=== PATIENT | female | born 1960 | race American Indian/Alaskan Native ===

== ENCOUNTER 2016-03-15 09:11 | Emergency (ER) | payer MEDICARE ==
[2016-03-15] MEDS ORDERED: CATAPRES PO ONE (09:34)
--- NOTE | 2016-03-15 09:38 | Emergency Department Report ---
Chief Complaint: Pain General Stated Complaint: CHEST PAINS/BODY ACHE/NAUSEA/DIZZINESS Time Seen by Provider: 03/15/16 09:33 - HPI History of Present Illness: Patient reports body aches, chest pain, productive cough and headache that started yesterday. She denies difficulty breathing or swallowing - ROS Review of Systems: all other systems are unremarkable except for documentation in HPI - Exam Vital Signs: Vital Signs 03/15/16 09:26 Temperature 98.3 F Pulse Rate 105 H Respiratory 18 Rate Blood Pressure 220/130 O2 Sat by Pulse 100 Oximetry Physical Exam: Gen: well developed and nourished, NAD Resp: even and unlabored, lungs CTA thai, chest symmetry with respirations, no wheezing, rales or rhonchi Cardio: heart sounds present S1-S2, no murmurs, gallops or ectopy MSE screening note: Focused history and physical exam performed. Due to findings the following was ordered: antihypertensive medication, laboratory and radiology studies ordered ED Disposition for MSE Condition: Stable
[2016-03-15 10:00] LABS: Basophils % (Auto) 0.9 % (0.0-1.8); Eosinophils % (Auto) 2.1 % (0.0-4.3); Hematocrit 38.3 % (30.3-42.9); Hemoglobin 12.7 gm/dl (10.1-14.3); Mean Corpuscular HGB Conc 33 % (30-34); Mean Corpuscular Hemoglobin 30 pg (28-32); Mean Corpuscular Volume 91 fl (79-97); Platelet Count 289 K/mm3 (140-440); Red Blood Count 4.22 M/mm3 (3.65-5.03); Red Cell Distribution Width 15.5 % (13.2-15.2); White Blood Count 6.5 K/mm3 (4.5-11.0)
--- NOTE | 2016-03-15 10:04 | XRay Report ---
Chest 2 views: Compared to 01/27/16. History: Chest pain. Findings: Normal cardiomediastinal silhouette. Trachea is midline. No consolidation, pneumothorax or pleural effusion. Impression: No acute cardiopulmonary findings.
[2016-03-15 10:10] LABS: INR 0.95 (0.87-1.13)
[2016-03-15 10:11] LABS: Partial Thromboplastin Time 34.7 Sec. (24.2-36.6)
[2016-03-15 10:15] LABS: Creatine Kinase MB 1.9 ng/mL (0.0-4.0)
[2016-03-15 10:16] LABS: Alanine Aminotransferase 11 units/L (7-56); Albumin 4.2 g/dL (3.9-5); Albumin/Globulin Ratio 1.1 %; Alkaline Phosphatase 83 units/L (35-129); Anion Gap 19 mmol/L; BUN/Creatinine Ratio 12.22; Bilirubin,Total 0.3 mg/dL (0.1-1.2); Blood Urea Nitrogen 11 mg/dL (7-17); Calcium 9.4 mg/dL (8.4-10.2); Carbon Dioxide 24 mmol/L (22-30); Chloride 100.6 mmol/L (98-107); Creatine Kinase 167 units/L (30-135); Glucose 133 mg/dL (65-100); Potassium 3.9 mmol/L (3.6-5.0); Sodium 140 mmol/L (137-145); Total Protein 8.1 g/dL (6.3-8.2)
[2016-03-15 15:17] VITALS: BP 156/101
== END 2016-03-15 17:36 | disposition left against medical advice (07) ==
LOC: ED 09:11
DX: M79.1 Myalgia (principal); R07.9 Chest pain, unspecified; R05 Cough; Z53.21 Procedure and treatment not carried out due to patient leaving prior to being seen by health care provider
CPT/HCPCS: 36415; 71020; 80053; 82550; 82553; 84484; 85025; 85610; 85730; 93005; 93010

== ENCOUNTER 2016-04-08 11:14 | Emergency (ER) | payer MEDICARE ==
[2016-04-08 12:27] LABS: Hematocrit 42.9 % (30.3-42.9); Hemoglobin 13.8 gm/dl (10.1-14.3); Mean Corpuscular HGB Conc 32 % (30-34); Mean Corpuscular Hemoglobin 29 pg (28-32); Mean Corpuscular Volume 91 fl (79-97); Platelet Count 299 K/mm3 (140-440); Red Blood Count 4.71 M/mm3 (3.65-5.03); Red Cell Distribution Width 15.9 % (13.2-15.2); White Blood Count 13.6 K/mm3 (4.5-11.0)
[2016-04-08 12:40] LABS: Amylase 146 units/L (27-131); Anion Gap 19 mmol/L; Blood Urea Nitrogen 14 mg/dL (7-17); Calcium 10.2 mg/dL (8.4-10.2); Carbon Dioxide 24 mmol/L (22-30); Chloride 99.8 mmol/L (98-107); Glucose 158 mg/dL (65-100); Lipase 47 units/L (13-60); Potassium 4.5 mmol/L (3.6-5.0); Sodium 138 mmol/L (137-145)
[2016-04-08] MEDS ORDERED: CATAPRES ONE (13:34)
[2016-04-08] MEDS ORDERED: CATAPRES PO ONE (13:42)
[2016-04-08 15:45] LABS: Bilirubin,Urine NEG (Negative); Blood,Urine NEG (Negative); Ketones,Urine NEG (Negative); Leukocyte Esterase,Urine NEG (Negative); Mucus,Urine FEW /HPF; Nitrite,Urine NEG (Negative); Protein,Urine <15 mg/dL mg/dL (Negative); Urobilinogen,Urine < 2.0 mg/dL (<2.0)
[2016-04-08] MEDS ORDERED: TORADOL IM ONE (17:54)
--- NOTE | 2016-04-08 18:08 | Emergency Department Report ---
HPI - HPI HPI: This is a 55-year-old female with a history of Lupus, diabetes and high blood pressure on medication who presents to the ED stating she was being seen by her GI doctor earlier today and due to her elevated blood pressure, she was sent in to the ER be assessed. Patient states she was not able to take her afternoon dose medication because she was running errands and being seen at doctor's office. Patient states she currently takes high blood pressure medications. She states her elevated blood pressure usually ranges from 200s over 100. She states she has a primary care doctor who manages her blood pressure. She states she has several appointments with his surgeon coming week for gallbladder removal. She states other than a slight headache she has no other symptoms. Patient denies any fevers/ chills/nausea/vomiting/chest pain/shortness of breath /dizziness/blurred vision. <IDRIS FLANAGAN A - Last Filed: 04/08/16 18:28> <ANALILIA STANTON C - Last Filed: 04/09/16 01:00> - General Chief Complaint: High BP Time Seen by Provider: 04/08/16 18:03 ED Past Medical Hx - Past Medical History Hx Hypertension: Yes Hx CVA: Yes Hx Heart Attack/AMI: No Hx Congestive Heart Failure: Yes Hx Diabetes: Yes Hx GERD: Yes Hx Renal Disease: No Hx Sickle Cell Disease: (SICKLE CELL TRAIT) Hx Seizures: No Hx Psychiatric Treatment: Yes (anxiety) Hx Asthma: Yes Hx COPD: No Hx Tuberculosis: No Hx HIV: No Additional medical history: neuropathy, lupus. cardiac cath 10/08/2015 with EF of 55%, diastolic dysfunction, and normal coronary arteries. - Surgical History Hx Pacemaker: No Hx Internal Defibrillator: No Additional Surgical History: c-sections 86, 90 - Social History Smoking Status: Current Some Day Smoker Substance Use Type: None <IDRIS FLANAGAN A - Last Filed: 04/08/16 18:28> <ANALILIA STANTON C - Last Filed: 04/09/16 01:00> - Medications Home Medications: Home Medications Medication Instructions Recorded Confirmed Last Taken Type Atenolol [Tenormin] 50 mg PO DAILY #30 tablet 05/28/15 10/06/15 Unknown Rx Cyclobenzaprine [Flexeril 10 MG 5 mg PO DAILY PRN #15 tablet 08/09/15 10/06/15 Unknown Rx TAB] Hydroxychloroquine [Plaquenil] 200 mg PO DAILY 08/09/15 10/06/15 Unknown History Simvastatin 10 mg PO DAILY 10/06/15 10/06/15 Unknown History Atenolol [Tenormin] 50 mg PO DAILY #30 tablet 10/08/15 Unknown Rx Pantoprazole [Protonix] 40 mg PO BID #30 tablet 10/08/15 Unknown Rx amLODIPine [Norvasc] 10 mg PO DAILY #30 tablet 10/08/15 Unknown Rx cloNIDine [Catapres] 0.2 mg PO TID #90 tablet 10/08/15 Unknown Rx clonazePAM [Klonopin] 1 mg PO DAILY #30 tablet 10/08/15 Unknown Rx hydrALAZINE [Apresoline TAB] 50 mg PO Q8H #90 tablet 10/08/15 Unknown Rx oxyCODONE /ACETAMINOPHEN [Percocet 1 tab PO Q6HR PRN #30 tablet 10/08/15 Unknown Rx 5/325 mg] ED Review of Systems ROS: Stated complaint: SENT BY DR HARVEY/HAI/TOI PAIN Other details as noted in HPI Constitutional: denies: chills, fever Eyes: denies: eye pain, eye discharge, vision change ENT: denies: ear pain, throat pain Respiratory: denies: cough, shortness of breath, wheezing Cardiovascular: denies: chest pain, palpitations Endocrine: no symptoms reported Gastrointestinal: denies: abdominal pain, nausea, diarrhea Genitourinary: denies: urgency, dysuria, frequency, hematuria, discharge Musculoskeletal: denies: back pain, joint swelling, arthralgia Skin: denies: rash, lesions Neurological: denies: headache, weakness, numbness, paresthesias, abnormal gait Psychiatric: denies: anxiety, depression Hematological/Lymphatic: denies: easy bleeding, easy bruising <IDRIS FLANAGAN - Last Filed: 04/08/16 18:28> ROS: Stated complaint: SENT BY DR HARVEY/HAI/TOI PAIN Other details as noted in HPI <ANALILIA STANTON - Last Filed: 04/09/16 01:00> Physical Exam - Physical Exam Vital Signs: Vital Signs 04/08/16 04/08/16 04/08/16 11:45 13:42 17:10 Temperature 98.3 F 98.5 F Pulse Rate 88 89 80 Respiratory 18 20 Rate Blood Pressure 233/137 237/113 153/96 Blood Pressure [Right] O2 Sat by Pulse 100 100 Oximetry 04/08/16 17:37 Temperature 98.5 F Pulse Rate 76 Respiratory 18 Rate Blood Pressure Blood Pressure 152/88 [Right] O2 Sat by Pulse 99 Oximetry Physical Exam: GENERAL: Alert and oriented x3, no apparent distress, Normal Gait, atraumatic. HEAD: Head is normocephalic and a-traumatic. EYES: Extra ocular muscles are intact. Pupils are equal, round, and reactive to light and accommodation. NOSE: Nose symetrical, Nontender,Nares appeared normal. MOUTH:Mouth is well hydrated and without lesions. Tonsils nonerythematous or swollen, Uvula midline, Tongue not elevated. Mucous membranes are moist. NECK: Supple. Non edematous, No carotid bruits. No lymphadenopathy or thyromegaly. LUNGS: Symetrical with respiration, No wheezing, no rales or crackles, CTAB. HEART: S1, S2 present, regular rate and rhythm without murmur, no rubs, no gallops. ABDOMEN: No organomegaly was noted,Positive bowel sounds, soft, and non- distended. Nontender to palpation on all Quadrants, NO CVA tenderness. EXTREMITIES/MUSCULOSKELETAL: No cyanosis, clubbing, rash, lesions or edema. Full ROM bilaterally. UE/LE Pulses 2+ bilaterally. LE and UE 5+ strength bilaterally NEUROLOGIC: No focal Deficit, Cranial nerves II through XII are grossly intact. No loss of sensation, No facial droop PSYCHIATRIC: Mood is congruent with affect, denies suicidal or homicidal ideations. SKIN: Warm and dry, No lesions, No ulceration or induration present. <IDRIS FLANAGAN A - Last Filed: 04/08/16 18:28> - Physical Exam Vital Signs: Vital Signs 04/08/16 04/08/16 04/08/16 11:45 13:42 17:10 Temperature 98.3 F 98.5 F Pulse Rate 88 89 80 Respiratory 18 20 Rate Blood Pressure 233/137 237/113 153/96 Blood Pressure [Right] O2 Sat by Pulse 100 100 Oximetry 04/08/16 04/08/16 17:37 18:45 Temperature 98.5 F Pulse Rate 76 71 Respiratory 18 18 Rate Blood Pressure Blood Pressure 152/88 134/86 [Right] O2 Sat by Pulse 99 99 Oximetry <ANALILIA STANTON - Last Filed: 04/09/16 01:00> ED Course Vital Signs 04/08/16 04/08/16 04/08/16 11:45 13:42 17:10 Temperature 98.3 F 98.5 F Pulse Rate 88 89 80 Respiratory 18 20 Rate Blood Pressure 233/137 237/113 153/96 Blood Pressure [Right] O2 Sat by Pulse 100 100 Oximetry 04/08/16 17:37 Temperature 98.5 F Pulse Rate 76 Respiratory 18 Rate Blood Pressure Blood Pressure 152/88 [Right] O2 Sat by Pulse 99 Oximetry <IDRIS FLANAGAN - Last Filed: 04/08/16 18:28> Vital Signs 04/08/16 04/08/16 04/08/16 11:45 13:42 17:10 Temperature 98.3 F 98.5 F Pulse Rate 88 89 80 Respiratory 18 20 Rate Blood Pressure 233/137 237/113 153/96 Blood Pressure [Right] O2 Sat by Pulse 100 100 Oximetry 04/08/16 04/08/16 17:37 18:45 Temperature 98.5 F Pulse Rate 76 71 Respiratory 18 18 Rate Blood Pressure Blood Pressure 152/88 134/86 [Right] O2 Sat by Pulse 99 99 Oximetry <ANALILIA STANTON - Last Filed: 04/09/16 01:00> ED Medical Decision Making - Lab Data Result diagrams: 04/08/16 12:06 04/08/16 12:06 - Medical Decision Making 55-year-old female presents with uncontrolled elevated blood pressure/ hypertensive urgency. ED course: Patient shows no sign of hypertensive emergency. CBC labs CMP labs all within normal limits. Kidney Functions are intact. EKG shows left atrial enlargement otherwise normal no changes from last ultrasound in February She states that she is usually used to her blood pressure being so high and her primary care physician discharged to Reduce if she feels slight dizziness. Patient received 0.2 mg of Catapres and blood pressure reduced to 155/88 prior to discharge. Vital signs stable. Patient is in no acute suture distress. Received 60 mg IM Toradol for headache. Discharge home to continue taking blood pressure meds. Discussed with patient to always take her medication as prescribed. Discussed the patient to Her medications with her when she is also out of the house so that she does not miss a dose. Discussed with patient to always make sure she takes her blood pressure medication as prescribed by her primary care physicians. Discussed continue follow-up with primary care physician. Attending Dr. Stanton, assessed the patient as well agrees with discharge. Discussed the patient to keep appointment and follow up with primary care physician in other specialists that she currently sees. <IDRIS FLANAGAN A - Last Filed: 04/08/16 18:28> - Lab Data Result diagrams: 04/08/16 12:06 04/08/16 12:06 - Medical Decision Making Patient was examined by me during ED stay and I also discussed results of disposition planning. I agree with the care provided <ANALILIA STANTON - Last Filed: 04/09/16 01:00> Critical care attestation.: If time is entered above; I have spent that time in minutes in the direct care of this critically ill patient, excluding procedure time. <IDRIS FLANAGAN A - Last Filed: 04/08/16 18:28> Critical care attestation.: If time is entered above; I have spent that time in minutes in the direct care of this critically ill patient, excluding procedure time. <ANALILIA STANTON - Last Filed: 04/09/16 01:00> ED Disposition Is pt being admited?: No Does the pt Need Aspirin: No Time of Disposition: 18:24 <IDRIS FLANAGAN A - Last Filed: 04/08/16 18:28> <ANALILIA STANTON - Last Filed: 04/09/16 01:00> Disposition: DISCHARGED TO HOME OR SELFCARE Condition: Stable Instructions: Chronic Hypertension (ED), Low Sodium Diet (ED), Hypertension (ED ) Additional Instructions: Continue taking at home blood pressure medications f/u with primary care physician Referrals: NII GARCÍA MD [Primary Care Provider] - 3-5 Days Forms: Work/School Release Form(ED)
[2016-04-08 18:45] VITALS: BP 134/86
== END 2016-04-08 18:45 | disposition home or self-care (01) ==
LOC: ED 11:14
DX: I10 Essential (primary) hypertension (principal); R51 Headache; I63.9 Cerebral infarction, unspecified; I50.9 Heart failure, unspecified; E11.9 Type 2 diabetes mellitus without complications; K21.9 Gastro-esophageal reflux disease without esophagitis; F41.9 Anxiety disorder, unspecified; J45.909 Unspecified asthma, uncomplicated; M32.9 Systemic lupus erythematosus, unspecified; Z72.0 Tobacco use
CPT/HCPCS: 36415; 80048; 81001; 82150; 83690; 85027; 93005; 93010; 96372; 99283; J1885

== ENCOUNTER 2016-04-16 08:01 | Outpatient (CLI) | payer MEDICARE ==
--- NOTE | 2016-04-16 13:42 | Cat Scan Report ---
CT ABDOMEN AND PELVIS WITH CONTRAST: 04/16/16 08:01:00 CLINICAL: Abdominal pain. COMPARISON: None. TECHNIQUE: Volumetric acquisition and 1.25 millimeter scan reconstructions after the uneventful intravenous injection of 100 cc Omnipaque 300. Consent was obtained prior to the administration of contrast. Oral contrast was also given. FINDINGS: Abdomen: There lung bases. Normal liver size, contour and density. No liver mass. The gallbladder is normally distended with it least 2 tiny 1-2 mm calculi layering dependently. Normal gall bladder wall thickness and no pericholecystic fluid. The bile ducts are normal. Normal stomach, duodenum, pancreas and spleen. Mild calcification of the abdominal aorta. Normal inferior vena cava. Normal adrenal glands and kidneys. The renal collecting systems and ureters are nondilated.Normal small bowel. A few scattered diverticula the colon in otherwise normal colon. No signs of diverticulitis. The appendix is well normal. The terminal ileum is normal. No mass, lymphadenopathy or ascites.No pneumoperitoneum. Pelvis: Normal urinary bladder.Normal uterus. Normal small right ovary. A left ovary is not confidently identified. No adnexal mass or free fluid. Normal rectum and sigmoid colon.. Bone windows demonstrate no bone lesion. IMPRESSION:1. Cholelithiasis with 2 tiny 1-2 mm calculi in the gallbladder. No signs of acute cholecystitis. 2. No evidence of choledocholithiasis. 3. Mild diverticulosis and no diverticulitis. 4. No appendicitis.
== END 2016-04-16 08:02 | disposition home or self-care (01) ==
LOC: SPVIMAG 08:01
PROVIDERS: ATTEND Internal Medicine Gastroenterology
DX: K80.20 Calculus of gallbladder without cholecystitis without obstruction (principal); K57.30 Diverticulosis of large intestine without perforation or abscess without bleeding; K82.8 Other specified diseases of gallbladder; I70.0 Atherosclerosis of aorta
CPT/HCPCS: 74177; Q9967

== ENCOUNTER 2016-05-16 11:17 | Day surgery (SDC) | payer MEDICARE ==
--- NOTE | 2016-05-13 10:19 | Anesthesia Consultation ---
Anesthesia Consult and Med Hx Date of service: 05/13/16 (Scheduled for lap cholecystectomy w/ Dr. 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 Cardiology and Pulmonology clearance on chart. - Pulmonary Hx Smoking: Yes (3 CIAG PER WEEK X 3- YRS) Hx Asthma: Yes SOB: Yes () COPD: No Hx Pneumonia: Yes (2007) Hx Sleep Apnea: Yes (DX SLEEP APNEA , NO CPAP USE) - Cardiovascular System Hx Hypertension: Yes (SINCE AGE 26 YRS OLD; Uncontrolled BP) Hx Coronary Artery Disease: No (nml coronaries on [facility] in 2015) Hx Heart Attack/AMI: No Hx Angina: No Hx Percutaneous Transluminal Coronary Angioplasty (PTCA): No Hx Pacemaker: No Hx Internal Defibrillator: No Hx Heart Murmur: No - Central Nervous System Hx Seizures: No CVA: Yes (2012- [place] [facility]) Hx Back Pain: Yes Hx Psychiatric Problems: No - Gastrointestinal Hx Gastroesophageal Reflux Disease: No - Endocrine Hx Renal Disease: No Hx End Stage Renal Disease: No Hx Non-Insulin Dependent Diabetes: Yes - Hematic Hx Sickle Cell Disease: No (SC TRAIT ONLY) - Other Systems Hx Alcohol Use: Yes (2 glasses WINE QD) Hx Substance Use: No Hx Cancer: No Hx Obesity: No - Additional Comments Anesthesia Medical History Comments: Anaphylactic shock secondary to Lisinopril in 2007. Had Trach until 2009. Reports some wheezing (also has asthma) and tightness. s/p EGD in 2016 with dilation. Pt evaluated by Dr.R. Hernandez, ok to proceed w/o any furhther diagnostic evaluation.
[2016-05-13 12:04] LABS: Anion Gap 19 mmol/L; Blood Urea Nitrogen 14 mg/dL (7-17); Calcium 10.4 mg/dL (8.4-10.2); Carbon Dioxide 25 mmol/L (22-30); Chloride 97.7 mmol/L (98-107); Glucose 146 mg/dL (65-100); Potassium 4.3 mmol/L (3.6-5.0); Sodium 137 mmol/L (137-145)
--- NOTE | 2016-05-14 17:33 | Admit Criteria Form ---
Admission Criteria Documentation: AMBULATORY SURGERY EXCEPTION CRITERIA Ambulatory Surgery Exception Criteria ( Place 'X' for any and all applicable criteria): Surgery or procedure performed on ambulatory basis may require inpatient stay for[A] ANY ONE of the following(1)(2)(3)(4)(5)(6)(7)(8)(9): [X] I. A preoperative situation, condition, or finding that warrants inpatient stay as indicated by ANY ONE of the following: [] a) Inpatient care needed because of severity of a disease or condition rather than the surgery (eg, severe cardiac or respiratory disease, severe infection) (15) (16 ) (17) (18) [] b) Emergent procedure (eg, angioplasty for acute ischemia)(19) [] c) Complex surgical approach or situation as indicated by ANY ONE of the following(3): [] i) Open approach needed instead of usual endoscopic, transcatheter, or other less invasive procedure [] ii) Difficult approach because of previous operation [] iii) Airway monitoring required after open neck procedures(20)(21) [] iv) Large mass requiring unusually extensive dissection [] v) Additional complicating feature requiring inpatient care (eg, drain management)(22(23): [X] d) Major surgery in a pt with high anesthetic risk as indicated by ANY ONE of the following (2)(3)(5)(7)(8): [X] i) ASA risk class III or higher (severe systemic disease impairing function) [D] [] ii) Advanced age (eg, older than 85 years)(14)(24) [] iii) Symptomatic heart failure(25) [] iv) Symptomatic asthma or COPD(8)(21) [] v) Morbid obesity with hemodynamic or respiratory problems(20)( 21)(26)(27) [] vi) Obstructive sleep apnea(20)(21) [] vii) Former premature infants who are younger than 60 weeks [] viii) High risk for severe postoperative abnormalities (eg, severe postoperative hypocalcemia after parathyroidectomy for severe hyperparathyroidism)(27)( 28) [] ix) Unstable angina(25) [] e) Drug-related risk requiring inpatient stay as indicated by ANY ONE of the following(5)(10)(14)(32)(33) [] i) Procedure requires discontinuing drugs or other therapy (eg , antiarrhythmic medication, antiseizure medication), which necessitates inpatient observation or treatment.(18)(31) [] ii) Major surgery and high risk drug use as indicated by ANY ONE of the following: [] 1) Active abuse of cocaine or similar drug [] 2) Monoamine oxidase inhibitor use [] 3) Other drug identified as posing risk [] f) Inadequate outpatient care situation as indicated by ANY ONE of the following(5)(10)(14)(32)(33) [] i) Patient lives remote from medical facility and procedure has urgent complication potential, and temporary nearby residence cannot be arranged [] ii) Patient will have postprocedure incapacitation and inadequate assistance at home, or alternative level of care cannot be arranged. [] iii) Patient will have long general anesthesia or procedure side effect resolution time, and competent person to stay with patient on first postoperative night at home or alternative level of care cannot be arranged. []iv) Other inadequate outpatient situation that cannot be handled by other means [] II. A perioperative event, condition, or finding that warrants inpatient stay as indicated by ANY ONE of the following (1)(2)(3): [] a) Inadequate physiologic recovery: cardiovascular, respiratory, or hemodynamic status not normal or near preoperative baseline(18) [] b) Hemodynamic instability [] c) Patient not alert with near normal or baseline mental status [] d) Temperature not normal or as expected and not appropriate for outpatient treatment of condition [] e) Ambulatory or appropriate activity level status not yet achieved post procedure [E](34)(35)(36) [] f) Operative site not appropriate (eg, unexpected or excessive drainage or bleeding) [] g) Postoperative effects not resolved or adequately managed (eg, significant pain or vomiting not appropriate for outpatient or next level of care)(10)(12) [] h) Complicating features requiring inpatient care as indicated by ANY ONE of the following(37): [] i) Severe complications of procedure (eg, bowel injury, airway compromise, vascular injury,severe hemorrhage) [] ii) Extensive (eg, dissection far beyond usual scope of procedure ) or prolonged (eg, 120 minutes beyond usual) surgery needed requiring inpatient postoperative care [] iii) Conversion to an open or complex procedure that requires inpatient care (eg, open vs laparoscopic cholecystectomy, abdominal vs vaginal hysterectomy)(38) [] iv) Comorbid condition or test result identified during or post procedure that requires inpatient care (7) [] v) Malignant hyperthermia(30) [] vi) Other complicating feature requiring inpatient care(22)(23) Inpatient stay may be needed until ALL of the following are present (1)(2)(3)(4) (5)(6)(10)(14)(33)(40): []a) Physiologic recovery: cardiovascular, respiratory, and hemodynamic status normal or near preoperative baseline []b) Hemodynamic stability []c) Patient alert, with near normal or baseline mental status []d) Temperature appropriate: patient afebrile or temperature appropriate for outpt treatment of condition []e) Activity level appropriate: ambulatory or appropriate activity level post procedure []f) Operative site appropriate as indicated by ALL of the following: []i) Site dry or with expected drainage []ii) Any blood noted is as expected for procedure. []g) Postoperative effects resolved or managed as indicated by ALL of the following: []i) Pain management appropriate for outpatient (or next level of) care(10) []ii) Minimal nausea and vomiting: if present, successfully treated with oral medication(12) []iii) Headache, dizziness, or drowsiness (if present) are mild. []h) Voiding status acceptable as indicated by ANY ONE of the following: []i) Voiding spontaneously []ii) No voiding but instructions given for follow-up in 6 to 8 hours []iii) Urinary catheter in place, and instructions given for follow-up []i) Complicating features requiring inpatient care manageable at a lower level of care(37) []j) Comorbid conditions manageable at a lower level of care(37) The original [employer] content created by [employer] has been revised. The portions of the content which have been revised are identified through the use of italic text or in bold, and [facility] [employer] has neither reviewed nor approved the modified material. All other unmodified content is copyright [employer]. Please see references footnoted in the original [employer] edition 2016 Admission Criteria Met: Yes
[~2016-05-16 11:17] MED LIST: HEPARIN SUB-Q ONE; NACL 0.9% 1000 ML 1,000 ML IV SCH; PEPCID PO NR; VERSED IV NR; ceFAZolin 2 GM in NACL 0.9% 100 ML IV ONE
[2016-05-16] MEDS ORDERED: DIPRIVAN 10 MG/ML IV ONE (11:53)
[2016-05-16] MEDS ORDERED: SUBLIMAZE ONE (11:53)
[2016-05-16] MEDS ORDERED: ceFAZolin 2 GM in NACL 0.9% 100 ML IV NR (12:00)
[2016-05-16] MEDS ORDERED: HEPARIN SUB-Q NR (12:00)
[2016-05-16] MEDS ORDERED: ZOFRAN IV PRN (12:05)
--- NOTE | 2016-05-16 12:14 | Anesthesia Day of Surgery ---
Anesthesia Day of Surgery - Day of Surgery Patient Examined: Yes Patient H&P Reviewed: Yes Patient is NPO: Yes Beta Blockers: Yes
[2016-05-16] MEDS ORDERED: ANCEF/STERILE WATER 2 GM/20 ML IV NR (13:00)
[2016-05-16] MEDS ORDERED: ZEMURON IV ONE (13:12)
[2016-05-16] MEDS ORDERED: XYLOCAINE MPF 2% ONE (13:12)
[2016-05-16] MEDS ORDERED: ROBINUL ONE ×2 (13:44→14:16)
[2016-05-16] MEDS ORDERED: NEOSTIGMINE ONE (13:44)
[2016-05-16] MEDS ORDERED: NACL 0.9% IR ONE (13:44)
[2016-05-16] MEDS ORDERED: MARCAINE 0.25% INFILTRATI ONE (13:44)
[2016-05-16] MEDS ORDERED: ZOFRAN ONE (13:45)
--- NOTE | 2016-05-16 14:10 | Post Operative Note ---
Pre-op diagnosis: Bilairy colic with gallstones Post-op diagnosis: same Findings: cholesterolosis, small stones Procedure: laparoscopic cholecystectomy Anesthesia: GETA Surgeon: LEESA URBAN Sales Representative [facility]: FREDIS HICKS Estimated blood loss: minimal Pathology: list (gallbladder) Specimen disposition: to lab Condition: stable Disposition: PACU
[2016-05-16] MEDS ORDERED: PROVENTIL IH ONE ×2 (14:12→15:15)
--- NOTE | 2016-05-16 14:12 | Discharge Summary ---
Short Stay Discharge Plan Weight Bearing Status: Full Weight Bearing Diet: regular Wound: open to air Follow up with: NII GARCÍA MD [Primary Care Provider] - 7 Days Prescriptions: Ondansetron [Zofran TAB] 4 mg PO Q8HR PRN #20 tablet PRN Reason: Nausea oxyCODONE /ACETAMINOPHEN [Percocet 5/325] 1 tab PO Q6HR PRN #20 tablet PRN Reason: Pain
[2016-05-16] MEDS ORDERED: S2 RACEPINEPHRINE 2.25% IH ONE ×2 (14:19→15:15)
[2016-05-16] MEDS: DILAUDID IV PRN ×2 (14:30→14:40)
[2016-05-16] MEDS ORDERED: TORADOL ONE (14:47)
--- NOTE | 2016-05-16 15:12 | Post Anesthesia Evaluation ---
- Post Anesthesia Evaluation Patient Participated: Yes Airway Patent: Yes Stable Respiratory Function: Yes Nausea/Vomiting: No Temp > 96.8F: Yes Pain Manageable: Yes Adequeate Hydration: Yes Anesthesia Complications: No Block Receding Appropriately: Not Applicable Patient on Ventilator: No
--- NOTE | 2016-05-16 15:20 | Operative Report ---
PREOPERATIVE DIAGNOSES: Cholelithiasis, chronic cholecystitis. POSTOPERATIVE DIAGNOSES: Cholelithiasis, chronic cholecystitis. OPERATIVE PROCEDURE: Laparoscopic cholecystectomy. ANESTHESIA: General endotracheal. SURGEON: Yossi Perales M.D. VENDING MACHINE OPERATOR: Dr. Sheth. INDICATIONS: A 55-year-old female patient with multiple medical problems including congestive heart failure on chronic steroid therapy presenting with right upper quadrant pain, nausea, vomiting. Gallbladder ultrasound showed multiple non-echogenic shadows suggestive of polyps. HIDA scan showed a 55% ejection fraction with reproducible symptoms. She has undergone hysterectomy several years ago. FINDINGS: Flimsy omental adhesions above and below the umbilicus in the midline. No bowel adhesions were noted. Liver showed no evidence of congestive hepatomegaly or cirrhosis. Gallbladder was moderately distended contained dark green bile when it was opened away from the field and contained multiple spherical stones and cholesterolosis. Cystic duct is of normal caliber. Bile duct did not show any dilatation. Visualized part of the distal part of the stomach and proximal duodenum appeared normal. DESCRIPTION OF PROCEDURE: After satisfactory induction of general endotracheal anesthesia, abdomen was prepped and draped. A right lateral incision was made at the level of the umbilicus away from the midline scar and a Veress needle was inserted in the peritoneal cavity. After adequate carbon dioxide insufflation, a 5 mm trocar was inserted, through this a 5 mm 30-degree angle scope was placed and another 5 mm port was placed midway between this trocar sites in the umbilical area. Through this, an EndoShears was inserted and the adhesions to the anterior abdominal wall were taken down up to the level of the umbilicus. Then, a supraumbilical 5-mm port was placed and camera was changed to this location. The patient was placed in head up and left side down position and an 11 mm port was placed in the epigastrium. Gallbladder was held at the fundus and at the infundibulum by the assisting surgeon. Flimsy adhesions around this area were taken down. Calot's triangle was fully exposed and clips were applied to the cystic duct as far away from the cystic duct, bile duct junction as possible and the cystic duct was divided. Cystic artery likewise was identified. Clips were applied and divided. Gallbladder was removed from the liver bed by using a hook attached to a cautery. No bleeding was noted from the liver bed. Gallbladder was retrieved in an EndoCatch bag and was pulled out through the epigastric trocar. Trocar was replaced and liver bed was inspected and all the clips were intact. Desufflation was done and all the trocars were removed under direct visualization after desufflation. All the incisions were closed with 4-0 Monocryl sutures. There was minimal blood loss and she tolerated the procedure well. JOB# [id number] MNN/RAOUL
[2016-05-16] MEDS ORDERED: TORADOL IV ONE (16:00)
[2016-05-16 16:53] VITALS: BP 145/70
== END 2016-05-16 17:00 | disposition home or self-care (01) ==
LOC: OR 11:17
PROVIDERS: ATTEND Surgery
DX: K80.10 Calculus of gallbladder with chronic cholecystitis without obstruction (principal); F41.9 Anxiety disorder, unspecified; I11.0 Hypertensive heart disease with heart failure; I50.9 Heart failure, unspecified; E11.9 Type 2 diabetes mellitus without complications; K21.9 Gastro-esophageal reflux disease without esophagitis; J45.909 Unspecified asthma, uncomplicated; E78.00 Pure hypercholesterolemia, unspecified; F17.210 Nicotine dependence, cigarettes, uncomplicated; G43.909 Migraine, unspecified, not intractable, without status migrainosus; Z79.899 Other long term (current) drug therapy; Z72.89 Other problems related to lifestyle; Z86.73 Personal history of transient ischemic attack (TIA), and cerebral infarction without residual deficits; Z82.49 Family history of ischemic heart disease and other diseases of the circulatory system
CPT/HCPCS: 36415; 47562; 80048; 82962; 88304; J1170; J1644; J1720; J1885; J2250; J2405; J2704; J2710; J3010; J7030

== ENCOUNTER 2016-07-01 10:18 | Emergency (ER) | payer MEDICARE ==
[2016-07-01] MEDS ORDERED: CATAPRES PO ONE (11:25)
--- NOTE | 2016-07-01 11:31 | Emergency Department Report ---
Entered by SCOTT JAY, acting as scribe for JACEY PAINTER NP. Chief Complaint: Chest Pain Stated Complaint: CHEST PAIN Time Seen by Provider: 07/01/16 11:18 - HPI History of Present Illness: 55 year old female with PMHx HTN, CVA who is non-toxic, non ill appearing, in no acute distress presents from doctor's office with elevated blood pressure and c/o sharp, 8/10, non radiating mid-sternal chest pain today. Reports headache that is non thunderclap, not worse headache of her life, and emotional stress. Denies SOB, abdominal pain, N/V/D, swelling to lower extremities, dizziness, visual disturbances. Pt states she was given 4 tabs ASA 81 mg PO by EMS en route. Reports compliance with HTN medication. - ROS Review of Systems: Reports mid-sternal chest pain, headache. Denies radiated pain, abdominal pain, N/V, SOB, swelling to lower extremities, dizziness, visual disturbances. - Exam Vital Signs: Vital Signs 07/01/16 11:00 Temperature 98.4 F Pulse Rate 76 Respiratory 20 Rate Blood Pressure 223/125 O2 Sat by Pulse 99 Oximetry Physical Exam: Constitutional: Non toxic appearing, NAD. Cardiovascular: Normal rate and rhythm with normal S1/S2 sounds. Midsternal chest pain, not reproducible with palpation. No edema. Respiratory: No respiratory distress. Lung sounds clear to auscultation bilaterally. MSE screening note: Focused history and physical exam performed. Due to findings the following was ordered:CBC, CMP, CCK, BNP, Chest X-ray, Troponin, EKG, Catapres 2 mg PO. Instructed triage nurse to recheck vitals after Catapres. No ASA ordered due to 4 tabs ASA 81 mg PO by EMS prior to arrival. Spoke with blood bank order control clerk instructed to bring the patient back as soon as possible. Patient discussed with doctor:: NATALIE EMERY (continue with plan of care) ED Disposition for MSE Condition: Stable This documentation as recorded by the scribe,SCOTT JAY,accurately reflects the service I personally performed and the decisions made by me,JACEY PAINTER, [place].
[2016-07-01 11:46] LABS: Basophils % (Auto) 0.8 % (0.0-1.8); Eosinophils % (Auto) 1.9 % (0.0-4.3); Hematocrit 40.8 % (30.3-42.9); Hemoglobin 13.6 gm/dl (10.1-14.3); Mean Corpuscular HGB Conc 33 % (30-34); Mean Corpuscular Hemoglobin 29 pg (28-32); Mean Corpuscular Volume 87 fl (79-97); Platelet Count 354 K/mm3 (140-440); Red Blood Count 4.67 M/mm3 (3.65-5.03); Red Cell Distribution Width 14.9 % (13.2-15.2); White Blood Count 8.9 K/mm3 (4.5-11.0)
--- NOTE | 2016-07-01 11:56 | XRay Report ---
CHEST 2 VIEWS INDICATION: Chest, upper abdominal pain. Status post cholecystectomy in April. COMPARISON: 03/15/2016. FINDINGS: PA and lateral chest radiographs demonstrate normal cardiomediastinal silhouette. Clear lungs. Biapical scarring/pleural thickening. Mild spinal degenerative spurring inferiorly. Cholecystectomy clips. CONCLUSION: No acute disease in the chest. Thank you for the opportunity to participate in this patient's care.
[2016-07-01 12:11] LABS: Creatine Kinase MB 1.5 ng/mL (0.0-4.0)
[2016-07-01 12:13] LABS: Alanine Aminotransferase 85 units/L (7-56); Albumin 4.6 g/dL (3.9-5); Albumin/Globulin Ratio 1.3 %; Alkaline Phosphatase 124 units/L (35-129); Anion Gap 19 mmol/L; BUN/Creatinine Ratio 14.28; Blood Urea Nitrogen 10 mg/dL (7-17); Calcium 10.2 mg/dL (8.4-10.2); Carbon Dioxide 26 mmol/L (22-30); Chloride 97.5 mmol/L (98-107); Creatine Kinase 94 units/L (30-135); Glucose 178 mg/dL (65-100); Potassium 4.7 mmol/L (3.6-5.0); Sodium 138 mmol/L (137-145); Total Protein 8.1 g/dL (6.3-8.2)
[2016-07-01] MEDS ORDERED: ZOFRAN IV ONE (12:21)
[2016-07-01] MEDS ORDERED: DILAUDID IV ONE (12:21)
[2016-07-01] MEDS ORDERED: NACL ONE (13:06)
--- NOTE | 2016-07-01 13:59 | Admit Criteria Form ---
Admission Criteria Documentation: HYPERTENSION Clinical Indications for Admission to Inpatient Care ( Place "X" for any and all applicable criteria): Admission is indicated for ANY ONE of the following(1)(2)(3)(4): [ ]I. Hypertensive emergency, with evidence of acute and progressing target organ disease as indicated by ANY ONE of the following: [ ]a) Hypertensive encephalopathy (eg, confusion, altered mental status) [ ]b) Cerebral infarction [ ]c) Intracranial hemorrhage [ ]d) Myocardial ischemia or infarction [ ]e) Pulmonary edema [ ]f) Aortic dissection [ ]g) Seizure [ ]h) Acute renal insufficiency [ ]i) Papilledema [ ]j) Microangiopathic hemolytic anemia [ ]II. Adrenergic crisis (eg, severe hypertension due to pheochromocytoma crisis, cocaine or amphetamine intoxication, or clonidine withdrawal) [X]III. Severe hypertension (SBP greater than 180 mmHg or DBP greater than 110 mmHg or greater than the 95th percentile for age, gender, and height in pediatric patients) that cannot be controlled (eg, to SBP less than 160 mmHg and DBP less than 100 mmHg in adults) by treatment with oral medication in emergency department or observation care Extended stay beyond goal length of stay may be needed for(11)(12)(13): [ ]a) Persistent hypertensive encephalopathy [ ]b) Continuation of pulmonary edema [ ]c) Recurring or persistent severe hypertension [ ]d) Target organ damage (eg, angina, stroke, aortic dissection) [ ]e) Associated renal insufficiency The original [employer] content created by [employer] has been revised. The portions of the content which have been revised are identified through the use of italic text or in bold, and [facility] has neither reviewed nor approved the modified material. All other unmodified content is copyright [employer]. Please see references footnoted in the original [employer] edition 2016
--- NOTE | 2016-07-01 14:45 | Cat Scan Report ---
CT SCAN OF THE ABDOMEN AND PELVIS WITH CONTRAST: HISTORY: Abdominal pain. TECHNIQUE: Helical CT in 1.25mm intervals following IV contrast. Sagittal and coronal reconstructions. FINDINGS: The liver is normal in size and is without focal defect. Cholecystectomy changes are identified. No biliary dilatation. The spleen and pancreas demonstrate a normal size and attenuation with no evidence of abnormal mass. The kidneys are normal in size and position with no evidence of hydronephrosis or mass. The adrenal glands are normal. There is no intestinal obstruction or ascites. Normal appendix. The abdominal aorta is normal. The uterus and adnexa are within normal limits. There is no evidence of peritoneal air or fluid. There is no evidence of any abnormal masses or fluid collections within the pelvis. No adenopathy is identified. The bladder is normal. IMPRESSION: No acute process is appreciated. Cholecystectomy changes.
--- NOTE | 2016-07-01 15:19 | Emergency Department Report ---
ED Abdominal Pain HPI - General Chief Complaint: Chest Pain Stated Complaint: CHEST PAIN Time Seen by Provider: 07/01/16 12:12 Source: patient, EMS, old records reviewed Mode of arrival: Ambulatory Limitations: No Limitations - History of Present Illness Initial Comments: 55-year-old female with past medical history of multiple medical problems presents to the hospital complains of abdominal pain 4 days. Pain started in the left-sided back and radiated to the left abdomen and then became more generalized. Patient also feels like her abdomen is distended and bloated. Pain is rated 10/10 in intensity, intermittent, aching stabbing, worse palpation. No alleviating factors supported. Positive nausea. Last bowel movement earlier today at 3 AM without difficulty. Denies vomiting, fever, dysuria, Severity scale (0 -10): 2 - Related Data Home Medications Medication Instructions Recorded Confirmed Last Taken cloNIDine [Catapres] 0.2 mg PO BID 05/07/16 07/01/16 07/01/16 Gabapentin [Neurontin] 300 mg PO Q8HR 05/13/16 07/01/16 07/01/16 Hydroxyzine HCl 25 mg PO BID 05/13/16 07/01/16 07/01/16 Losartan/Hydrochlorothiazide 1 each PO QDAY 05/13/16 07/01/16 07/01/16 [Hyzaar 100-12.5 TAB] Carafate 1 tab PO PRN PRN 07/01/16 07/01/16 Unknown Prednisone [predniSONE 10 mg 10 mg PO .TAPER 07/01/16 07/01/16 07/01/16 (6-Day Pack, 21 Tabs)] traZODone [Desyrel] 50 mg PO BID 07/01/16 07/01/16 07/01/16 Previous Rx's Medication Instructions Recorded Last Taken Type Atenolol [Tenormin] 50 mg PO DAILY #30 tablet 10/08/15 07/01/16 Rx amLODIPine [Norvasc] 10 mg PO DAILY #30 tablet 10/08/15 07/01/16 Rx Docusate Sodium [Colace] 100 mg PO BID PRN #20 capsule 07/01/16 Unknown Rx HYDROcodone/APAP 5-325 [[place] 1 each PO Q6HR PRN #20 tablet 07/01/16 Unknown Rx 5/325] Allergies Allergy/AdvReac Type Severity Reaction Status Date / Time lisinopril Allergy Severe Anaphylaxis Verified 05/16/16 15:13 OZIEL Inhibitors AdvReac Headache Verified 05/29/13 21:42 ED Review of Systems ROS: Stated complaint: CHEST PAIN Other details as noted in HPI Comment: All other systems reviewed and negative Other: Constitutional: No fevers chills Eyes: No eye pain visual changes or discharge ENT: No ear pain or throat pain Neck: Denies pain Respiratory: Denies cough wheezing shortness of breath Cardiovascular: Denies chest pain, palpitations, syncope GI: as per hpi : Denies dysuria, Musculoskeletal: Denies back pain Skin: Denies rash, lesions, erythema Neurologic: Denies headache, numbness, weakness Psychiatric: Denies suicidal ideation, hallucinations ED Past Medical Hx - Past Medical History Previous Medical History?: Yes Hx Hypertension: Yes (SINCE AGE 26 YRS OLD; Uncontrolled BP) Hx CVA: Yes Hx Heart Attack/AMI: No Hx Congestive Heart Failure: Yes Hx Diabetes: Yes Hx GERD: Yes Hx Renal Disease: No Hx Sickle Cell Disease: No ([facility] TRA[facility] ONLY) Hx Arthritis: Yes Hx Seizures: No Hx Psychiatric Treatment: Yes (anxiety) Hx Asthma: Yes Hx COPD: No Hx Tuberculosis: No Hx HIV: No Additional medical history: neuropathy, lupus. cardiac cath 10/08/2015 with EF of 55%, diastolic dysfunction, and normal coronary arteries. - Surgical History Past Surgical History?: Yes Hx Pacemaker: No Hx Internal Defibrillator: No Hx Cholecystectomy: Yes Additional Surgical History: c-sections 88, 89 - Social History Smoking Status: Current Every Day Smoker Substance Use Type: Prescribed - Medications Home Medications: Home Medications Medication Instructions Recorded Confirmed Last Taken Type Atenolol [Tenormin] 50 mg PO DAILY #30 tablet 10/08/15 07/01/16 07/01/16 Rx amLODIPine [Norvasc] 10 mg PO DAILY #30 tablet 10/08/15 07/01/16 07/01/16 Rx cloNIDine [Catapres] 0.2 mg PO BID 05/07/16 07/01/16 07/01/16 History Gabapentin [Neurontin] 300 mg PO Q8HR 05/13/16 07/01/16 07/01/16 History Hydroxyzine HCl 25 mg PO BID 05/13/16 07/01/16 07/01/16 History Losartan/Hydrochlorothiazide 1 each PO QDAY 05/13/16 07/01/16 07/01/16 History [Hyzaar 100-12.5 TAB] Carafate 1 tab PO PRN PRN 07/01/16 07/01/16 Unknown History Docusate Sodium [Colace] 100 mg PO BID PRN #20 capsule 07/01/16 Unknown Rx HYDROcodone/APAP 5-325 [[place] 1 each PO Q6HR PRN #20 tablet 07/01/16 Unknown Rx 5/325] Prednisone [predniSONE 10 mg 10 mg PO .TAPER 07/01/16 07/01/16 07/01/16 History (6-Day Pack, 21 Tabs)] traZODone [Desyrel] 50 mg PO BID 07/01/16 07/01/16 07/01/16 History ED Physical Exam - General Limitations: No Limitations - Other Other exam information: General: No limitations, patient is alert in no acute distress Head exam: Atraumatic, normocephalic Eyes exam: Normal appearance, pupils equal reactive to light, extraocular movements intact ENT: Moist mucous membrane, normal oropharynx Neck exam: Normal inspection, full range of motion, no meningismus nontender Respiratory exam: Clear to auscultation bilateral, no wheezes, rales, crackles Cardiovascular: Normal rate and rhythm, normal heart sounds Abdomen: Soft, nondistended, mild left upper quadrant tenderness, with normal bowel sounds, no rebound, or guarding Extremity: Full range of motion normal inspection no deformity Back: Normal Inspection, full range of motion, left-sided back tenderness no midline tenderness Neurologic: Alert, oriented x3, cranial nerves intact, no motor or sensory deficit Psychiatric: normal affect, normal mood Skin: Warm, dry, intact ED Course Vital Signs 07/01/16 07/01/16 07/01/16 11:00 11:58 12:10 Temperature 98.4 F Pulse Rate 76 Respiratory 20 18 13 Rate Blood Pressure 223/125 O2 Sat by Pulse 99 Oximetry 07/01/16 07/01/16 07/01/16 12:15 12:31 12:58 Temperature Pulse Rate 71 100 H Respiratory 15 Rate Blood Pressure 240/128 187/117 187/117 O2 Sat by Pulse 100 100 Oximetry 07/01/16 13:00 Temperature Pulse Rate Respiratory 16 Rate Blood Pressure O2 Sat by Pulse Oximetry - Reevaluation(s) Reevaluation #1: 07/01/16 15:37 Patient feels better after Dilaudid. Blood pressure improved after clonidine. I discuss possibly sending UA remaining of workup was unremarkable. Patient denies any urinary symptoms. ED Medical Decision Making - Lab Data Result diagrams: 07/01/16 11:29 07/01/16 11:29 Lab Results 07/01/16 07/01/16 Range/Units 11:29 11:29 WBC 8.9 (4.5-11.0) K/mm3 RBC 4.67 (3.65-5.03) M/mm3 Hgb 13.6 (10.1-14.3) gm/dl Hct 40.8 (30.3-42.9) % MCV 87 (79-97) fl MCH 29 (28-32) pg MCHC 33 (30-34) % RDW 14.9 (13.2-15.2) % Plt Count 354 (140-440) K/mm3 Lymph % (Auto) 30.5 (13.4-35.0) % [place] % (Auto) 4.0 (0.0-7.3) % Eos % (Auto) 1.9 (0.0-4.3) % Baso % (Auto) 0.8 (0.0-1.8) % Lymph # 2.7 (1.2-5.4) K/mm3 [place] # 0.4 (0.0-0.8) K/mm3 Eos # 0.2 (0.0-0.4) K/mm3 Baso # 0.1 (0.0-0.1) K/mm3 Seg Neutrophils % 62.8 (40.0-70.0) % Seg Neutrophils # 5.6 (1.8-7.7) K/mm3 Sodium 138 (137-145) mmol/L Potassium 4.7 (3.6-5.0) mmol/L Chloride 97.5 L (98-107) mmol/L Carbon Dioxide 26 (22-30) mmol/L Anion Gap 19 mmol/L BUN 10 (7-17) mg/dL Creatinine 0.7 (0.7-1.2) mg/dL Estimated GFR > 60 ml/min BUN/Creatinine Ratio 14.28 % Glucose 178 H (65-100) mg/dL Calcium 10.2 (8.4-10.2) mg/dL Total Bilirubin 0.20 (0.1-1.2) mg/dL AST 78 H (5-40) units/L ALT 85 H (7-56) units/L Alkaline Phosphatase 124 (35-129) units/L Total Creatine Kinase 94 (30-135) units/L CK-MB (CK-2) 1.5 (0.0-4.0) ng/mL CK-MB (CK-2) Rel Index 1.5 (0-4) Troponin T < 0.010 (0.00-0.029) ng/mL NT-Pro-B Natriuret Pep 50.54 (0-900) pg/mL Total Protein 8.1 (6.3-8.2) g/dL Albumin 4.6 (3.9-5) g/dL Albumin/Globulin Ratio 1.3 % - EKG Data -: EKG Interpreted by Me (sinus rhythm rate 78 left atrial enlargement) - EKG Data When compared to previous EKG there are: no significant change (compared to ) - Radiology Data Radiology results: report reviewed (CT abdomen and pelvis IV contrast: No acute process. Cholecystectomy changes) - Medical Decision Making Patient's symptoms improve in the ED. Consider sending UA but patient states she did not have any urinary symptoms. CT and other laboratory workup on the phone with exception of mild LFT elevation. Patient status post cholecystectomy. She was treated symptomatically with hydrocodone and Colace and outpatient follow-up will be encouraged. Blood pressure improved with clonidine and will need further outpatient evaluation and management - Differential Diagnosis ascites, hepatitis, gastritis, pancreatitis, hypertensive emergency Critical Care Time: No Critical care attestation.: If time is entered above; I have spent that time in minutes in the direct care of this critically ill patient, excluding procedure time. ED Disposition Clinical Impression: Abdominal pain, Uncontrolled hypertension Disposition: DISCHARGED TO HOME OR SELFCARE Is pt being admited?: No Does the pt Need Aspirin: No Condition: Stable Instructions: Abdominal Pain (ED), Hypertension (ED) Additional Instructions: Take the medication as prescribed. Return if symptoms worsen. Follow-up with your doctor for further management. Prescriptions: Docusate Sodium [Colace] 100 mg PO BID PRN #20 capsule PRN Reason: Constipation HYDROcodone/APAP 5-325 [[place] 5/325] 1 each PO Q6HR PRN #20 tablet PRN Reason: Pain Referrals: PRIMARY CARE, [Primary Care Provider] - 3-5 Days Time of Disposition: 15:34
[2016-07-01 15:59] VITALS: BP 152/89
== END 2016-07-01 16:01 | disposition home or self-care (01) ==
LOC: ED 10:18
DX: R10.12 Left upper quadrant pain (principal); I10 Essential (primary) hypertension; I50.9 Heart failure, unspecified; E11.9 Type 2 diabetes mellitus without complications; K21.9 Gastro-esophageal reflux disease without esophagitis; M19.90 Unspecified osteoarthritis, unspecified site; F41.9 Anxiety disorder, unspecified; J45.909 Unspecified asthma, uncomplicated; F17.200 Nicotine dependence, unspecified, uncomplicated; Z90.49 Acquired absence of other specified parts of digestive tract; Z86.73 Personal history of transient ischemic attack (TIA), and cerebral infarction without residual deficits; Z88.8 Allergy status to other drugs, medicaments and biological substances
CPT/HCPCS: 36415; 71020; 74177; 80053; 82550; 82553; 83880; 84484; 85025; 93005; 93010; 96374; 96375; 99285; J1170; J2405; Q9967

== ENCOUNTER 2016-07-14 19:07 | Emergency (ER) | payer MEDICARE ==
[2016-07-14] MEDS ORDERED: ADRENALIN ONE (19:16)
[2016-07-14] MEDS ORDERED: DECADRON ONE (19:18)
[2016-07-14] MEDS ORDERED: DUONEB 0.5 MG-3 MG/3 ML SOLN IH ONE ×4 (19:18→20:00)
[2016-07-14] MEDS ORDERED: ADRENALIN IM ONE (19:27)
[2016-07-14] MEDS ORDERED: DECADRON IV ONE (19:35)
--- NOTE | 2016-07-14 19:35 | Emergency Department Report ---
ED Shortness of Breath HPI - General Chief Complaint: Dyspnea/Respdistress Stated Complaint: JOSE J/POSS ALLERGIC REACTION Time Seen by Provider: 07/14/16 19:24 Source: patient Mode of arrival: Ambulatory Limitations: No Limitations - History of Present Illness Initial Comments: Patient is a 55-year-old female with history of severe hypertension presenting today because of respiratory distress. Patient was seen immediately upon arrival and his tachypnea, in severe respiratory distress being speak only a couple words between breaths. Apparently the patient had been exposed to some generalized sent to spray his prior to arrival and started feeling severe shortness of breath and itching on the chest. Patient is denying any oropharyngeal swelling. No rash. - Related Data Home Medications Medication Instructions Recorded Confirmed Last Taken cloNIDine [Catapres] 0.2 mg PO BID 05/07/16 07/01/16 07/01/16 Gabapentin [Neurontin] 300 mg PO Q8HR 05/13/16 07/01/16 07/01/16 Hydroxyzine HCl 25 mg PO BID 05/13/16 07/01/16 07/01/16 Losartan/Hydrochlorothiazide 1 each PO QDAY 05/13/16 07/01/16 07/01/16 [Hyzaar 100-12.5 TAB] Carafate 1 tab PO PRN PRN 07/01/16 07/01/16 Unknown Prednisone [predniSONE 10 mg 10 mg PO .TAPER 07/01/16 07/01/16 07/01/16 (6-Day Pack, 21 Tabs)] traZODone [Desyrel] 50 mg PO BID 07/01/16 07/01/16 07/01/16 Previous Rx's Medication Instructions Recorded Last Taken Type Atenolol [Tenormin] 50 mg PO DAILY #30 tablet 10/08/15 07/01/16 Rx amLODIPine [Norvasc] 10 mg PO DAILY #30 tablet 10/08/15 07/01/16 Rx Docusate Sodium [Colace] 100 mg PO BID PRN #20 capsule 07/01/16 Unknown Rx HYDROcodone/APAP 5-325 [[place] 1 each PO Q6HR PRN #20 tablet 07/01/16 Unknown Rx 5/325] Allergies Allergy/AdvReac Type Severity Reaction Status Date / Time lisinopril Allergy Severe Anaphylaxis Verified 05/16/16 15:13 OZIEL Inhibitors AdvReac Headache Verified 05/29/13 21:42 ED Review of Systems ROS: Stated complaint: JOSE J/POSS ALLERGIC REACTION Other details as noted in HPI Comment: All other systems reviewed and negative Constitutional: denies: chills, fever Respiratory: shortness of breath Cardiovascular: denies: chest pain Gastrointestinal: nausea Genitourinary: denies: urgency Skin: pruritus. denies: rash Psychiatric: denies: anxiety ED Past Medical Hx - Past Medical History Previous Medical History?: Yes Hx Hypertension: Yes (SINCE AGE 26 YRS OLD; Uncontrolled BP) Hx CVA: Yes Hx Heart Attack/AMI: No Hx Congestive Heart Failure: Yes Hx Diabetes: Yes Hx GERD: Yes Hx Renal Disease: No Hx Sickle Cell Disease: No ([facility] TRAIT ONLY) Hx Arthritis: Yes Hx Seizures: No Hx Psychiatric Treatment: Yes (anxiety) Hx Asthma: Yes Hx COPD: No Hx Tuberculosis: No Hx HIV: No Additional medical history: neuropathy, lupus. cardiac cath 10/08/2015 with EF of 55%, diastolic dysfunction, and normal coronary arteries. - Surgical History Past Surgical History?: Yes Hx Pacemaker: No Hx Internal Defibrillator: No Hx Cholecystectomy: Yes Additional Surgical History: c-sections 88, 90 - Social History Smoking Status: Never Smoker Substance Use Type: None - Medications Home Medications: Home Medications Medication Instructions Recorded Confirmed Last Taken Type Atenolol [Tenormin] 50 mg PO DAILY #30 tablet 10/08/15 07/01/16 07/01/16 Rx amLODIPine [Norvasc] 10 mg PO DAILY #30 tablet 10/08/15 07/01/16 07/01/16 Rx cloNIDine [Catapres] 0.2 mg PO BID 05/07/16 07/01/16 07/01/16 History Gabapentin [Neurontin] 300 mg PO Q8HR 05/13/16 07/01/16 07/01/16 History Hydroxyzine HCl 25 mg PO BID 05/13/16 07/01/16 07/01/16 History Losartan/Hydrochlorothiazide 1 each PO QDAY 05/13/16 07/01/16 07/01/16 History [Hyzaar 100-12.5 TAB] Carafate 1 tab PO PRN PRN 07/01/16 07/01/16 Unknown History Docusate Sodium [Colace] 100 mg PO BID PRN #20 capsule 07/01/16 Unknown Rx HYDROcodone/APAP 5-325 [[place] 1 each PO Q6HR PRN #20 tablet 07/01/16 Unknown Rx 5/325] Prednisone [predniSONE 10 mg 10 mg PO .TAPER 07/01/16 07/01/16 07/01/16 History (6-Day Pack, 21 Tabs)] traZODone [Desyrel] 50 mg PO BID 07/01/16 07/01/16 07/01/16 History ED Physical Exam - General Limitations: No Limitations, Other (patient appears in severe respiratory distress, using all accessory muscles) General appearance: alert, anxious - Eye Eye exam: Present: normal appearance - ENT ENT exam: Present: normal exam - Neck Neck exam: Present: other (tracheostomy present) - Cardiovascular Cardiovascular Exam: Present: normal rhythm, tachycardia - GI/Abdominal GI/Abdominal exam: Present: soft. Absent: distended, tenderness - Neurological Exam Neurological exam: Present: alert, oriented X3 - Psychiatric Psychiatric exam: Present: normal affect ED Course Vital Signs 07/14/16 07/14/16 07/14/16 19:12 19:16 19:21 Pulse Rate 135 H 110 H Respiratory 40 H 28 H Rate Blood Pressure 216/122 O2 Sat by Pulse 100 100 100 Oximetry 07/14/16 07/14/16 07/14/16 19:30 19:41 19:51 Pulse Rate 101 H 98 H 100 H Respiratory 19 15 18 Rate Blood Pressure 208/115 208/115 217/120 O2 Sat by Pulse 100 100 100 Oximetry 07/14/16 07/14/16 07/14/16 20:01 20:05 20:11 Pulse Rate 98 H 93 H Respiratory 17 28 H 20 Rate Blood Pressure 206/106 206/106 O2 Sat by Pulse 99 100 100 Oximetry 07/14/16 07/14/16 07/14/16 20:21 20:31 20:41 Pulse Rate 94 H 87 89 Respiratory 16 15 13 Rate Blood Pressure 206/106 182/99 198/107 O2 Sat by Pulse 100 100 100 Oximetry 07/14/16 07/14/16 07/14/16 20:51 21:01 21:30 Pulse Rate 93 H 84 102 H Respiratory 19 15 21 Rate Blood Pressure 198/107 198/107 191/136 O2 Sat by Pulse 100 100 Oximetry 07/14/16 07/14/16 07/14/16 22:00 22:30 22:39 Pulse Rate 83 81 98 H Respiratory 18 22 Rate Blood Pressure 171/90 176/87 175/92 O2 Sat by Pulse 99 99 Oximetry - Reevaluation(s) Reevaluation #1: 07/14/16 21:22 She reassessed and is feeling significantly better, respiratory distress is resolved, she denies having any itching or any significant symptoms at this time , her heart rate and blood pressure is also improved. Reevaluation #2: 07/14/16 23:48 Patient reassessed again, is feeling back to her baseline, heart rate and blood pressure is normal at the moment. I inquired about the patient having any sort of EpiPen available, patient has some in her purse with her. I explained to her the importance of calling 911 immediately if she has symptoms like this again as well as using her EpiPen as this could rapidly be to respiratory failure and . 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 ED Medical Decision Making - Lab Data Result diagrams: 07/14/16 20:49 07/14/16 20:49 - Medical Decision Making Saw the patient immediately when they had arrived to the main emergency room, patient appeared to be in extremis and in severe respiratory distress signs the patient was placed on a monitor and an IV was inserted, 0.3 mg of IM epi was given along with 10 mg of Decadron as well as nebulizers. Labs ordered, well closely monitor the patient Labs are unremarkable, EKG shows normal sinus rhythm at a rate of 95 with narrow QRS, no ST-T changes Labs unremarkable other than mild hyperglycemia Critical Care Time: Yes Critical care time in (mins) excluding proc time.: 30 Critical care attestation.: If time is entered above; I have spent that time in minutes in the direct care of this critically ill patient, excluding procedure time. ED Disposition Clinical Impression: Anaphylactic reaction Qualifiers: Encounter type: initial encounter Qualified Code(s): T78.2XXA - Anaphylactic shock, unspecified, initial encounter Disposition: DISCHARGED TO HOME OR SELFCARE Is pt being admited?: No Does the pt Need Aspirin: No Condition: Stable Instructions: Anaphylaxis (ED) Additional Instructions: Please follow up with your primary care doctor in the next 2-3 days. If you have similar symptoms again please use the epinephrine autoinjector you have and call 911 to come back immediately to the Emergency Room. Referrals: PRIMARY CARE, [Primary Care Provider] - 3-5 Days
[2016-07-14] MEDS ORDERED: ZOFRAN ONE (19:40)
[2016-07-14] MEDS ORDERED: ZOFRAN IV ONE (19:48)
--- NOTE | 2016-07-14 19:59 | Admit Criteria Form ---
Admission Criteria Documentation: RESPIRATORY FAILURE GRG Clinical Indications for Admission to Inpatient Care (Place 'X' for any and all applicable criteria): Hospital admission is needed for appropriate care of the patient because of acute respiratory failure or insufficiency as indicated by ANY ONE of the following(1)(2)(3)(4)(5)(6)(7)(8): [ ]I. Mechanical ventilation needed (acute invasive or noninvasive) [ ]II. Severe ventilation deficit as indicated by ANY ONE of the following (9) [ ]a) Respiratory acidosis (pH less than 7.32 and partial pressure of carbon dioxide greater than 40 mm Hg (5.3 kPa)) [ ]b) Partial pressure of carbon dioxide greater than 44 mm Hg (5.9 kPa ) (new) [ ]c) Airflow measurements less than 25% of predicted (eg, peak expiratory flow rate less than 100 L/minute) [ ]d) Forced vital capacity less than 15 mL/kg of ideal body weight, or 50% decrease in vital capacity from baseline [ ]III. Noncardiac pulmonary edema not resolving with rapid emergency treatment (8) [X ]IV. Severe respiratory distress as indicated by ANY ONE of the following: [ X]a) Severe tachypnea (respiratory rate greater than 30, greater than 45 for 6-month-old, greater than 60 for ) [ ]b) Severe hypoxemia (partial pressure of oxygen less than 50 mm Hg ( 6.7 kPa) on greater than 50% oxygen or partial pressure of oxygen to FIO2 ratio less than 200) [ ]c) Mental status deterioration from respiratory disease [ ]V. Airway obstruction or inadequate protection [A](10)(11) The original [employer] content created by [employer] has been revised. The portions of the content which have been revised are identified through the use of italic text or in bold, and [employer] has neither reviewed nor approved the modified material. All other unmodified content is copyright [employer]. Please see references footnoted in the original [employer] edition 2016
[2016-07-14] MEDS ORDERED: BENADRYL IV ONE (20:52)
[2016-07-14 21:01] LABS: Basophils % (Auto) 0.3 % (0.0-1.8); Eosinophils % (Auto) 0.8 % (0.0-4.3); Hematocrit 38.2 % (30.3-42.9); Hemoglobin 12.4 gm/dl (10.1-14.3); Mean Corpuscular HGB Conc 33 % (30-34); Mean Corpuscular Hemoglobin 29 pg (28-32); Mean Corpuscular Volume 89 fl (79-97); Platelet Count 272 K/mm3 (140-440); Red Cell Distribution Width 15.1 % (13.2-15.2); White Blood Count 11.5 K/mm3 (4.5-11.0)
[2016-07-14 21:16] LABS: Anion Gap 20 mmol/L; BUN/Creatinine Ratio 11.11; Blood Urea Nitrogen 10 mg/dL (7-17); Calcium 9.8 mg/dL (8.4-10.2); Carbon Dioxide 27 mmol/L (22-30); Chloride 98.4 mmol/L (98-107); Glucose 264 mg/dL (65-100); Potassium 4.2 mmol/L (3.6-5.0); Sodium 141 mmol/L (137-145)
[2016-07-14] MEDS ORDERED: CATAPRES PO ONE (22:31)
[2016-07-15 00:10] VITALS: BP 179/91
== END 2016-07-15 00:05 | disposition home or self-care (01) ==
LOC: ED 19:07
DX: T78.2XXA Anaphylactic shock, unspecified, initial encounter (principal); I10 Essential (primary) hypertension; I50.9 Heart failure, unspecified; E11.9 Type 2 diabetes mellitus without complications; K21.9 Gastro-esophageal reflux disease without esophagitis; M19.90 Unspecified osteoarthritis, unspecified site; F41.9 Anxiety disorder, unspecified; J45.909 Unspecified asthma, uncomplicated; Z90.49 Acquired absence of other specified parts of digestive tract; Z86.73 Personal history of transient ischemic attack (TIA), and cerebral infarction without residual deficits; Z88.8 Allergy status to other drugs, medicaments and biological substances
CPT/HCPCS: 36415; 80048; 83880; 84484; 85025; 93005; 93010; 94640; 96372; 96374; 96375; 99284; J0171; J1100; J1200; J2405

== ENCOUNTER 2016-07-16 12:56 | Emergency (ER) | payer MEDICARE ==
--- NOTE | 2016-07-16 14:32 | XRay Report ---
AP CHEST: HISTORY: Dyspnea AP view of the chest demonstrates a normal mediastinal and cardiac contour with clear lungs and normal bony and soft tissue structures. IMPRESSION: Unremarkable AP chest. No significant change since 07/01/16.
[2016-07-17 04:02] VITALS: BP 226/111
== END 2016-07-16 18:00 | disposition left against medical advice (07) ==
LOC: ED 12:56
DX: R06.00 Dyspnea, unspecified (principal); J45.909 Unspecified asthma, uncomplicated; I50.9 Heart failure, unspecified; E11.9 Type 2 diabetes mellitus without complications; I63.9 Cerebral infarction, unspecified; K21.9 Gastro-esophageal reflux disease without esophagitis; I10 Essential (primary) hypertension; F41.9 Anxiety disorder, unspecified; F17.200 Nicotine dependence, unspecified, uncomplicated; Z88.6 Allergy status to analgesic agent; Z53.21 Procedure and treatment not carried out due to patient leaving prior to being seen by health care provider
CPT/HCPCS: 71010

== ENCOUNTER 2021-04-17 18:42 | Emergency (ER) | payer MEDICARE ==
[2021-04-17 18:57] VITALS: BP 226/157
== END 2021-04-17 23:41 | disposition left against medical advice (07) ==
LOC: ED 18:42
DX: R07.9 Chest pain, unspecified (principal); Z53.21 Procedure and treatment not carried out due to patient leaving prior to being seen by health care provider
CPT/HCPCS: 82962

== ENCOUNTER 2021-06-29 07:32 | Emergency (ER) | payer MEDICARE ==
--- NOTE | 2021-06-29 08:52 | Emergency Department Report ---
HPI - HPI HPI: Room 23 The patient is a 60-year-old female present with chief complaint of abdominal pain. Patient states she has had cramping lower abdominal pain since yesterday. Patient denies nausea vomiting or diarrhea. Patient denies history of fever. Patient states she has not urinated for approximately 1 week <NATALIE EMERY K - Last Filed: 06/29/21 14:43> <ANALILIA CARRILLO - Last Filed: 06/29/21 16:16> - General Chief Complaint: Abdominal Pain Time Seen by Provider: 06/29/21 08:34 ED Past Medical Hx - Past Medical History Hx Hypertension: Yes (SINCE AGE 26 YRS OLD; Uncontrolled BP) Hx CVA: Yes Hx Congestive Heart Failure: Yes Hx Diabetes: Yes Hx GERD: Yes Hx Sickle Cell Disease: No ([facility] TRAIT ONLY) Hx Arthritis: Yes Hx Psychiatric Treatment: Yes (anxiety) Hx Asthma: Yes Additional medical history: neuropathy, lupus. cardiac cath 10/08/2015 with EF of 55%, diastolic dysfunction, and normal coronary arteries. - Surgical History Hx Cholecystectomy: Yes Additional Surgical History: c-sections 88, 90 - Family History Family history: no significant - Social History Smoking Status: Current Every Day Smoker Substance Use Type: None (Denies illicit drug use), Alcohol (Occasional) <NATALIE EMERY K - Last Filed: 06/29/21 14:43> <ANALILIA CARRILLO - Last Filed: 06/29/21 16:16> - Medications Home Medications: Home Medications Medication Instructions Recorded Confirmed Last Taken Type amLODIPine 10 mg PO DAILY #30 tablet 10/08/15 07/01/16 07/01/16 Rx atenoloL [Tenormin] 50 mg PO DAILY #30 tablet 10/08/15 07/01/16 07/01/16 Rx cloNIDine [Catapres] 0.2 mg PO BID 05/07/16 07/01/16 07/01/16 History Losartan/Hydrochlorothiazide 1 each PO QDAY 05/13/16 07/01/16 07/01/16 History [Hyzaar 100-12.5 TAB] hydrOXYzine HCL [Hydroxyzine HCl] 25 mg PO BID 05/13/16 07/01/16 07/01/16 History Carafate 1 tab PO PRN PRN 07/01/16 07/01/16 Unknown History Docusate Sodium [Colace] 100 mg PO BID PRN #20 capsule 07/01/16 Unknown Rx HYDROcodone/APAP 5-325 [[place] 1 each PO Q6HR PRN #20 tablet 07/01/16 Unknown Rx 5/325] Prednisone [predniSONE 10 mg 10 mg PO .TAPER 07/01/16 07/01/16 07/01/16 History (6-Day Pack, 21 Tabs)] traZODone [Desyrel] 50 mg PO BID 07/01/16 07/01/16 07/01/16 History Gabapentin 300 mg PO BID #30 capsule 12/18/17 Unknown Rx ED Review of Systems ROS: Stated complaint: ABD PAIN Other details as noted in HPI Constitutional: denies: fever Eyes: denies: eye pain ENT: denies: throat pain Respiratory: no symptoms reported Cardiovascular: denies: chest pain Endocrine: no symptoms reported Gastrointestinal: abdominal pain. denies: nausea, vomiting, diarrhea Genitourinary: other (Unable to urinate) Musculoskeletal: denies: back pain Neurological: denies: headache <NATALIE EMERY K - Last Filed: 06/29/21 14:43> ROS: Stated complaint: ABD PAIN Other details as noted in HPI <ANALILIA CARRILLO C - Last Filed: 06/29/21 16:16> Physical Exam - Physical Exam Vital Signs: Vital Signs 06/29/21 08:14 Temperature 98 F Pulse Rate 110 H Respiratory 16 Rate Blood Pressure 224/148 [Left] O2 Sat by Pulse 98 Oximetry Vital Signs 06/29/21 06/29/21 06/29/21 08:14 09:51 10:01 Temperature 98 F Pulse Rate 110 H Respiratory 16 Rate Blood Pressure 228/112 Blood Pressure 224/148 [Left] O2 Sat by Pulse 98 100 98 Oximetry 06/29/21 06/29/21 06/29/21 10:14 10:15 10:31 Temperature Pulse Rate 104 H Respiratory Rate Blood Pressure 239/130 239/130 211/126 Blood Pressure [Left] O2 Sat by Pulse 100 99 Oximetry 06/29/21 06/29/21 06/29/21 10:45 11:01 11:15 Temperature Pulse Rate Respiratory Rate Blood Pressure 211/126 201/112 201/112 Blood Pressure [Left] O2 Sat by Pulse 98 99 98 Oximetry 06/29/21 06/29/21 06/29/21 11:31 11:45 12:01 Temperature Pulse Rate 91 H 84 Respiratory 15 16 Rate Blood Pressure 201/112 189/120 231/127 Blood Pressure [Left] O2 Sat by Pulse 100 99 100 Oximetry 06/29/21 06/29/21 06/29/21 12:15 12:31 12:32 Temperature Pulse Rate 80 77 Respiratory 16 14 14 Rate Blood Pressure 231/127 231/127 Blood Pressure [Left] O2 Sat by Pulse 100 99 99 Oximetry 06/29/21 06/29/21 06/29/21 12:45 13:01 13:15 Temperature Pulse Rate 76 70 73 Respiratory 9 L 14 11 L Rate Blood Pressure 231/127 173/91 173/91 Blood Pressure [Left] O2 Sat by Pulse 100 100 100 Oximetry 06/29/21 06/29/21 06/29/21 13:31 13:45 14:01 Temperature Pulse Rate 76 76 76 Respiratory 11 L 14 12 Rate Blood Pressure 173/91 173/91 183/87 Blood Pressure [Left] O2 Sat by Pulse 100 100 100 Oximetry 06/29/21 06/29/21 14:15 14:31 Temperature Pulse Rate 67 70 Respiratory 14 15 Rate Blood Pressure 183/87 183/87 Blood Pressure [Left] O2 Sat by Pulse 100 100 Oximetry Physical Exam: GENERAL: The patient is well-developed well-nourished female lying on stretcher initially not appearing to be in acute distress however after I wake her up she begins to writhe in the bed. [] HEENT: Normocephalic. Atraumatic. Extraocular motions are intact. Patient has moist mucous membranes. NECK: Supple. Trachea midline CHEST/LUNGS: Clear to auscultation. There is no respiratory distress noted. HEART/CARDIOVASCULAR: Regular. There is no tachycardia. There is no gallop rub or murmur. ABDOMEN: Patient appears to have distended bladder on examination. The remainder of the abdomen is soft and nontender.. Patient has normal bowel sounds. There is no abdominal distention. SKIN: There is no rash. There is no edema. There is no diaphoresis. NEURO: The patient is awake, alert, and oriented. The patient is cooperative. The patient has no focal neurologic deficits. The patient has normal speech. GCS 15 MUSCULOSKELETAL: There is no evidence of acute injury. <NATALIE EMERY K - Last Filed: 06/29/21 14:43> - Physical Exam Vital Signs: Vital Signs 06/29/21 06/29/21 06/29/21 08:14 09:51 10:01 Temperature 98 F Pulse Rate 110 H Respiratory 16 Rate Blood Pressure 228/112 Blood Pressure 224/148 [Left] O2 Sat by Pulse 98 100 98 Oximetry 06/29/21 06/29/21 06/29/21 10:14 10:15 10:31 Temperature Pulse Rate 104 H Respiratory Rate Blood Pressure 239/130 239/130 211/126 Blood Pressure [Left] O2 Sat by Pulse 100 99 Oximetry 06/29/21 06/29/21 06/29/21 10:45 11:01 11:15 Temperature Pulse Rate Respiratory Rate Blood Pressure 211/126 201/112 201/112 Blood Pressure [Left] O2 Sat by Pulse 98 99 98 Oximetry 06/29/21 06/29/21 06/29/21 11:31 11:45 12:01 Temperature Pulse Rate 91 H 84 Respiratory 15 16 Rate Blood Pressure 201/112 189/120 231/127 Blood Pressure [Left] O2 Sat by Pulse 100 99 100 Oximetry 06/29/21 06/29/21 06/29/21 12:15 12:31 12:32 Temperature Pulse Rate 80 77 Respiratory 16 14 14 Rate Blood Pressure 231/127 231/127 Blood Pressure [Left] O2 Sat by Pulse 100 99 99 Oximetry 06/29/21 06/29/21 06/29/21 12:45 13:01 13:15 Temperature Pulse Rate 76 70 73 Respiratory 9 L 14 11 L Rate Blood Pressure 231/127 173/91 173/91 Blood Pressure [Left] O2 Sat by Pulse 100 100 100 Oximetry 06/29/21 06/29/21 06/29/21 13:31 13:45 14:01 Temperature Pulse Rate 76 76 76 Respiratory 11 L 14 12 Rate Blood Pressure 173/91 173/91 183/87 Blood Pressure [Left] O2 Sat by Pulse 100 100 100 Oximetry 06/29/21 06/29/21 14:15 14:31 Temperature Pulse Rate 67 70 Respiratory 14 15 Rate Blood Pressure 183/87 183/87 Blood Pressure [Left] O2 Sat by Pulse 100 100 Oximetry <ANALILIA CARRILLO C - Last Filed: 06/29/21 16:16> ED Course Vital Signs 06/29/21 08:14 Temperature 98 F Pulse Rate 110 H Respiratory 16 Rate Blood Pressure 224/148 [Left] O2 Sat by Pulse 98 Oximetry <NATALIE EMERY - Last Filed: 06/29/21 14:43> Vital Signs 06/29/21 06/29/21 06/29/21 08:14 09:51 10:01 Temperature 98 F Pulse Rate 110 H Respiratory 16 Rate Blood Pressure 228/112 Blood Pressure 224/148 [Left] O2 Sat by Pulse 98 100 98 Oximetry 06/29/21 06/29/21 06/29/21 10:14 10:15 10:31 Temperature Pulse Rate 104 H Respiratory Rate Blood Pressure 239/130 239/130 211/126 Blood Pressure [Left] O2 Sat by Pulse 100 99 Oximetry 06/29/21 06/29/21 06/29/21 10:45 11:01 11:15 Temperature Pulse Rate Respiratory Rate Blood Pressure 211/126 201/112 201/112 Blood Pressure [Left] O2 Sat by Pulse 98 99 98 Oximetry 06/29/21 06/29/21 06/29/21 11:31 11:45 12:01 Temperature Pulse Rate 91 H 84 Respiratory 15 16 Rate Blood Pressure 201/112 189/120 231/127 Blood Pressure [Left] O2 Sat by Pulse 100 99 100 Oximetry 06/29/21 06/29/21 06/29/21 12:15 12:31 12:32 Temperature Pulse Rate 80 77 Respiratory 16 14 14 Rate Blood Pressure 231/127 231/127 Blood Pressure [Left] O2 Sat by Pulse 100 99 99 Oximetry 06/29/21 06/29/21 06/29/21 12:45 13:01 13:15 Temperature Pulse Rate 76 70 73 Respiratory 9 L 14 11 L Rate Blood Pressure 231/127 173/91 173/91 Blood Pressure [Left] O2 Sat by Pulse 100 100 100 Oximetry 06/29/21 06/29/21 06/29/21 13:31 13:45 14:01 Temperature Pulse Rate 76 76 76 Respiratory 11 L 14 12 Rate Blood Pressure 173/91 173/91 183/87 Blood Pressure [Left] O2 Sat by Pulse 100 100 100 Oximetry 06/29/21 06/29/21 14:15 14:31 Temperature Pulse Rate 67 70 Respiratory 14 15 Rate Blood Pressure 183/87 183/87 Blood Pressure [Left] O2 Sat by Pulse 100 100 Oximetry <ANALILIA CARRILLO Katarina - Last Filed: 06/29/21 16:16> ED Medical Decision Making - Lab Data Result diagrams: 06/29/21 10:21 06/29/21 10:21 Laboratory Tests 06/29/21 06/29/21 06/29/21 10:21 10:21 11:27 WBC 7.6 RBC 4.53 Hgb 14.8 H Hct 44.1 H MCV 97 MCH 33 H MCHC 34 RDW 14.7 Plt Count 250 Lymph % (Auto) 8.1 L [place] % (Auto) 2.5 Eos % (Auto) 0.0 Baso % (Auto) 0.3 Lymph # (Auto) 0.6 L [place] # (Auto) 0.2 Eos # (Auto) 0.0 Baso # (Auto) 0.0 Seg Neutrophils % 89.1 H Seg Neutrophils # 6.8 VBG pH 7.407 Sodium 139 Potassium 3.4 L Chloride 91.4 L Carbon Dioxide 26 Anion Gap 25 BUN 11 Creatinine 1.0 Estimated GFR > 60 BUN/Creatinine Ratio 11 Glucose 629 H* Calcium 10.4 H Total Bilirubin 0.40 AST 26 ALT 12 Alkaline Phosphatase 106 Total Protein 7.9 Albumin 4.6 Albumin/Globulin Ratio 1.4 Lipase 54 Urine Color Urine Turbidity Urine pH Ur Specific [place] Urine Protein Urine Glucose (UA) Urine Ketones Urine Blood Urine Nitrite Urine Bilirubin Urine Urobilinogen Ur Leukocyte Esterase Urine WBC (Auto) Urine RBC (Auto) 06/29/21 Unknown WBC RBC Hgb Hct MCV MCH MCHC RDW Plt Count Lymph % (Auto) [place] % (Auto) Eos % (Auto) Baso % (Auto) Lymph # (Auto) [place] # (Auto) Eos # (Auto) Baso # (Auto) Seg Neutrophils % Seg Neutrophils # VBG pH Sodium Potassium Chloride Carbon Dioxide Anion Gap BUN Creatinine Estimated GFR BUN/Creatinine Ratio Glucose Calcium Total Bilirubin AST ALT Alkaline Phosphatase Total Protein Albumin Albumin/Globulin Ratio Lipase Urine Color Colorless Urine Turbidity Clear Urine pH 7.0 Ur Specific [place] 1.009 Urine Protein <15 mg/dl Urine Glucose (UA) >=500 Urine Ketones Neg Urine Blood Sm Urine Nitrite Neg Urine Bilirubin Neg Urine Urobilinogen < 2.0 Ur Leukocyte Esterase Neg Urine WBC (Auto) < 1.0 Urine RBC (Auto) 1.0 - Differential Diagnosis Urinary retention, UTI, <NATALIE EMERY - Last Filed: 06/29/21 14:43> - Lab Data Result diagrams: 06/29/21 10:21 06/29/21 10:21 - Medical Decision Making glucose 220 po potassium provided pt will be d/subhash as per DR Emery s/o instructions <ANALILIA CARRILLO - Last Filed: 06/29/21 16:16> Critical care attestation.: If time is entered above; I have spent that time in minutes in the direct care of this critically ill patient, excluding procedure time. <NATALIE EMERY - Last Filed: 06/29/21 14:43> Critical care attestation.: If time is entered above; I have spent that time in minutes in the direct care of this critically ill patient, excluding procedure time. <ANALILIA CARRILLO - Last Filed: 06/29/21 16:16> ED Disposition Is pt being admited?: No Does the pt Need Aspirin: No <NATALIE EMERY - Last Filed: 06/29/21 14:43> <ANALILIA CARRILLO - Last Filed: 06/29/21 16:16> Clinical Impression: Hyperglycemia, Urinary retention Disposition: 01 HOME / SELF CARE / HOMELESS Condition: Stable Instructions: Acute Urinary Retention, Female, Abdominal Pain (ED) Additional Instructions: Return to the emergency department should you develop worsening symptoms, inability to tolerate food or liquids, high fever or any other concerns Referrals: SHARON LEVY MD [Staff Physician] - 3-5 Days (Dr. Levy is a urologist. Please follow-up with him for further evaluation of your urinary retention and Lu[facility] care)
[2021-06-29] MEDS ORDERED: cloNIDine 0.2 MG TAB PO ONE (10:05)
[2021-06-29 10:32] LABS: Basophils % (Auto) 0.3 % (0.0-1.8); Hematocrit 44.1 % (30.3-42.9); Hemoglobin 14.8 gm/dl (10.1-14.3); Lymphocytes # (Auto) 0.6 K/mm3 (1.2-5.4); Lymphocytes % (Auto) 8.1 % (13.4-35.0); Mean Corpuscular HGB Conc 34 % (30-34); Mean Corpuscular Volume 97 fl (79-97); Monocytes # (Auto) 0.2 K/mm3 (0.0-0.8); Monocytes % (Auto) 2.5 % (0.0-7.3); Platelet Count 250 K/mm3 (140-440); Red Blood Count 4.53 M/mm3 (3.65-5.03); Red Cell Distribution Width 14.7 % (13.2-15.2)
[2021-06-29 10:55] LABS: Alanine Aminotransferase 12 units/L (7-56); Albumin 4.6 g/dL (3.9-5); BUN/Creatinine Ratio 11; Blood Urea Nitrogen 11 mg/dL (7-17); Calcium 10.4 mg/dL (8.4-10.2); Hemolysis Index 8
[2021-06-29] MEDS ORDERED: SODIUM CHLORIDE 0.9% 1000 ML 1,000 ML IV ONE ×2 (10:59→14:45)
[2021-06-29 12:57] LABS: Bilirubin,Urine NEG (Negative); Blood,Urine SM (Negative); Color,Urine Colorless (Yellow); Protein,Urine <15 mg/dL mg/dL (Negative); Urobilinogen,Urine < 2.0 mg/dL (<2.0); WBC,Urine < 1.0 /HPF (0.0-6.0)
[2021-06-29] MEDS ORDERED: INSULIN REGULAR, HUMAN 100 UNITS/1 ML IV ONE ×2 (13:30→14:34)
[2021-06-29] MEDS ORDERED: traMADol 50 MG TAB PO ONE (14:05)
[2021-06-29] MEDS ORDERED: POTASSIUM CHLORIDE ER 20 MEQ TAB PO ONE (16:09)
[2021-06-29 17:47] VITALS: BP 157/90
== END 2021-06-29 17:47 | disposition home or self-care (01) ==
LOC: ED 07:32
DX: E11.65 Type 2 diabetes mellitus with hyperglycemia (principal); R33.9 Retention of urine, unspecified; I11.0 Hypertensive heart disease with heart failure; I50.9 Heart failure, unspecified; M19.90 Unspecified osteoarthritis, unspecified site; K21.9 Gastro-esophageal reflux disease without esophagitis; J45.909 Unspecified asthma, uncomplicated; F41.9 Anxiety disorder, unspecified; Z90.49 Acquired absence of other specified parts of digestive tract; F17.200 Nicotine dependence, unspecified, uncomplicated
CPT/HCPCS: 36415; 80053; 81001; 82805; 82962; 83690; 85025; 96361; 96374; 96375; 99283; J7030; Q9967; J1815

== ENCOUNTER 2021-07-07 05:59 | Emergency (ER) | payer MEDICARE ==
--- NOTE | 2021-07-07 07:13 | Emergency Department Report ---
ED General Adult HPI - General Chief complaint: Urogenital-Female Stated complaint: BLOOD IN URINE Time Seen by Provider: 07/07/21 06:49 Source: patient Mode of arrival: Stretcher Limitations: No Limitations - History of Present Illness Initial comments: Patient is 60 years old female with history of hypertension diabetes. Patient brought to the emergency room via EMS from home for evaluation of high blood pressure and high blood sugar. Patient also complaining of blood in her urine. Patient had a Luu catheter placed 3 days ago according to her report for urinary retention. Patient denying any symptom at this moment. Severity scale (0 -10): 0 - Related Data Home Medications Medication Instructions Recorded Confirmed Last Taken cloNIDine [Catapres] 0.2 mg PO BID 05/07/16 07/01/16 07/01/16 Losartan/Hydrochlorothiazide 1 each PO QDAY 05/13/16 07/01/16 07/01/16 [Hyzaar 100-12.5 TAB] hydrOXYzine HCL [Hydroxyzine HCl] 25 mg PO BID 05/13/16 07/01/16 07/01/16 Carafate 1 tab PO PRN PRN 07/01/16 07/01/16 Unknown Prednisone [predniSONE 10 mg 10 mg PO .TAPER 07/01/16 07/01/16 07/01/16 (6-Day Pack, 21 Tabs)] traZODone [Desyrel] 50 mg PO BID 07/01/16 07/01/16 07/01/16 Previous Rx's Medication Instructions Recorded Last Taken Type amLODIPine 10 mg PO DAILY #30 tablet 10/08/15 07/01/16 Rx atenoloL [Tenormin] 50 mg PO DAILY #30 tablet 10/08/15 07/01/16 Rx Docusate Sodium [Colace] 100 mg PO BID PRN #20 capsule 07/01/16 Unknown Rx HYDROcodone/APAP 5-325 [[place] 1 each PO Q6HR PRN #20 tablet 07/01/16 Unknown Rx 5/325] Gabapentin 300 mg PO BID #30 capsule 12/18/17 Unknown Rx Nitrofurantoin [place]/M-Cryst 100 mg PO Q12HR #14 capsule 07/07/21 Unknown Rx [Macrobid CAP] Potassium Chloride [K-Dur] 10 meq PO QDAY #5 07/07/21 Unknown Rx Allergies Allergy/AdvReac Type Severity Reaction Status Date / Time lisinopril Allergy Severe Anaphylaxis Verified 12/18/17 07:42 OZIEL Inhibitors AdvReac Headache Verified 12/18/17 07:42 ED Review of Systems ROS: Stated complaint: BLOOD IN URINE Other details as noted in HPI Comment: All other systems reviewed and negative Constitutional: denies: chills, fever Respiratory: denies: cough, shortness of breath, SOB with exertion Cardiovascular: denies: chest pain, palpitations Gastrointestinal: denies: abdominal pain, nausea, vomiting, diarrhea, constipation, hematemesis Genitourinary: hematuria. denies: urgency, dysuria, frequency Musculoskeletal: denies: back pain Neurological: denies: headache, weakness ED Past Medical Hx - Past Medical History Previous Medical History?: Yes Hx Hypertension: Yes (SINCE AGE 26 YRS OLD; Uncontrolled BP) Hx CVA: Yes Hx Congestive Heart Failure: Yes Hx Diabetes: Yes Hx GERD: Yes Hx Sickle Cell Disease: ([facility] TRAIT ONLY) Hx Arthritis: Yes Hx Psychiatric Treatment: Yes (anxiety) Hx Asthma: Yes Additional medical history: neuropathy, lupus. cardiac cath 10/08/2015 with EF of 55%, diastolic dysfunction, and normal coronary arteries. - Surgical History Past Surgical History?: Yes Hx Cholecystectomy: Yes Additional Surgical History: c-sections 88, 89 - Social History Smoking Status: Current Every Day Smoker Substance Use Type: Alcohol - Medications Home Medications: Home Medications Medication Instructions Recorded Confirmed Last Taken Type amLODIPine 10 mg PO DAILY #30 tablet 10/08/15 07/01/16 07/01/16 Rx atenoloL [Tenormin] 50 mg PO DAILY #30 tablet 10/08/15 07/01/16 07/01/16 Rx cloNIDine [Catapres] 0.2 mg PO BID 05/07/16 07/01/16 07/01/16 History Losartan/Hydrochlorothiazide 1 each PO QDAY 05/13/16 07/01/16 07/01/16 History [Hyzaar 100-12.5 TAB] hydrOXYzine HCL [Hydroxyzine HCl] 25 mg PO BID 05/13/16 07/01/16 07/01/16 History Carafate 1 tab PO PRN PRN 07/01/16 07/01/16 Unknown History Docusate Sodium [Colace] 100 mg PO BID PRN #20 capsule 07/01/16 Unknown Rx HYDROcodone/APAP 5-325 [[place] 1 each PO Q6HR PRN #20 tablet 07/01/16 Unknown Rx 5/325] Prednisone [predniSONE 10 mg 10 mg PO .TAPER 07/01/16 07/01/16 07/01/16 History (6-Day Pack, 21 Tabs)] traZODone [Desyrel] 50 mg PO BID 07/01/16 07/01/16 07/01/16 History Gabapentin 300 mg PO BID #30 capsule 12/18/17 Unknown Rx Nitrofurantoin [place]/M-Cryst 100 mg PO Q12HR #14 capsule 07/07/21 Unknown Rx [Macrobid CAP] Potassium Chloride [K-Dur] 10 meq PO QDAY #5 07/07/21 Unknown Rx ED Physical Exam - General Limitations: No Limitations General appearance: alert, in no apparent distress - Head Head exam: Present: atraumatic, normocephalic, normal inspection - Eye Eye exam: Present: normal appearance - ENT ENT exam: Present: normal exam, normal orophraynx, mucous membranes moist - Neck Neck exam: Present: normal inspection, full ROM. Absent: tenderness, meningismus - Respiratory Respiratory exam: Present: normal lung sounds bilaterally - Cardiovascular Cardiovascular Exam: Present: tachycardia - GI/Abdominal GI/Abdominal exam: Present: soft, normal bowel sounds. Absent: distended, tenderness, guarding, rebound, rigid, mass, bruit, pulsatile mass, hernia - Extremities Exam Extremities exam: Present: normal inspection, full ROM, normal capillary refill. Absent: tenderness - Back Exam Back exam: Present: normal inspection, full ROM. Absent: CVA tenderness (R), CVA tenderness (L) - Neurological Exam Neurological exam: Present: alert, oriented X3, CN II-XII intact, normal gait, reflexes normal. Absent: motor sensory deficit - Psychiatric Psychiatric exam: Present: normal mood - Skin Skin exam: Present: warm, intact, normal color ED Course Vital Signs 07/07/21 07/07/21 07/07/21 06:45 06:46 09:31 Temperature 98 F Pulse Rate 112 H 101 H 81 Respiratory 18 13 18 Rate Blood Pressure 248/144 Blood Pressure 243/154 147/101 [Right] O2 Sat by Pulse 100 98 96 Oximetry 07/07/21 07/07/21 07/07/21 10:21 10:41 12:06 Temperature Pulse Rate 69 98 H Respiratory 18 18 Rate Blood Pressure 205/115 Blood Pressure 194/116 160/99 [Right] O2 Sat by Pulse 96 100 Oximetry ED Medical Decision Making - Lab Data Result diagrams: 07/07/21 07:10 07/07/21 07:10 - Medical Decision Making Patient is 60 years old female with history of hypertension diabetes. Patient brought to the emergency room via EMS from home for evaluation of high blood pressure and high blood sugar. Patient also complaining of blood in her urine. Patient had a Luu catheter placed 3 days ago according to her report for urinary retention. Patient denying any symptom at this moment. Critical care attestation.: If time is entered above; I have spent that time in minutes in the direct care of this critically ill patient, excluding procedure time. ED Disposition Clinical Impression: Malignant hypertension, UTI (urinary tract infection), Acute hypokalemia, Acute hyperglycemia Disposition: 01 HOME / SELF CARE / HOMELESS Is pt being admited?: No Condition: Stable Instructions: Urinary Tract Infection, Adult, [id number], Hypertension, Adult, Hypertension (ED), Hypokalemia Prescriptions: Potassium Chloride [K-Dur] 10 meq PO QDAY #5 Nitrofurantoin [place]/M-Cryst [Macrobid CAP] 100 mg PO Q12HR #14 capsule Referrals: PRIMARY CARE, [Referring] - 3-5 Days
[2021-07-07 08:16] LABS: Basophils % (Auto) 0.5 % (0.0-1.8); Eosinophils # (Auto) 0.1 K/mm3 (0.0-0.4); Eosinophils % (Auto) 1.4 % (0.0-4.3); Hematocrit 38.4 % (30.3-42.9); Hemoglobin 12.9 gm/dl (10.1-14.3); Lymphocytes # (Auto) 3.6 K/mm3 (1.2-5.4); Lymphocytes % (Auto) 42.8 % (13.4-35.0); Mean Corpuscular HGB Conc 34 % (30-34); Mean Corpuscular Volume 95 fl (79-97); Monocytes # (Auto) 0.3 K/mm3 (0.0-0.8); Monocytes % (Auto) 3.9 % (0.0-7.3); Platelet Count 359 K/mm3 (140-440); Red Blood Count 4.06 M/mm3 (3.65-5.03); Red Cell Distribution Width 14.7 % (13.2-15.2)
[2021-07-07 08:28] LABS: INR 0.91 (0.87-1.13)
[2021-07-07 08:39] LABS: Alanine Aminotransferase 8 units/L (7-56); Albumin 3.6 g/dL (3.9-5); BUN/Creatinine Ratio 12; Blood Urea Nitrogen 11 mg/dL (7-17); Calcium 9.5 mg/dL (8.4-10.2); Hemolysis Index 9
[2021-07-07 08:40] LABS: Bilirubin,Direct < 0.2 mg/dL (0-0.2)
[2021-07-07] MEDS ORDERED: POTASSIUM CHLORIDE ER 20 MEQ TAB PO ONE (08:58)
[2021-07-07] MEDS: POTASSIUM CHLORIDE 10 MEQ 10 MEQ/100 ML BAG IV SCH ×2 (09:16→12:28)
[2021-07-07 10:23] LABS: Bacteria,Urine 2+ /HPF (Negative); Bilirubin,Urine NEG (Negative); Blood,Urine LG (Negative); Color,Urine Yellow (Yellow); Hyaline Casts,Urine 5 /LPF; Mucus,Urine FEW /HPF; Urobilinogen,Urine < 2.0 mg/dL (<2.0)
[2021-07-07] MEDS ORDERED: hydrALAZINE 20 MG/1 ML INJ IV ONE (10:36)
[2021-07-07 11:18] LABS: RBC,Urine > 182.0 /HPF (0.0-6.0); WBC,Urine > 182.0 /HPF (0.0-6.0)
--- NOTE | 2021-07-07 11:36 | Cat Scan Report ---
CT ABDOMEN AND PELVIS WITH CONTRAST INDICATION / CLINICAL INFORMATION: Unspecified abdominal pain. TECHNIQUE: Axial CT images were obtained through the abdomen and pelvis after an unspecified amount and type of IV contrast. All CT scans at this location are performed using CT dose reduction for ALARA by means of automated exposure control. COMPARISON: CT abdomen and pelvis with contrast from 07/01/2016. FINDINGS: LOWER CHEST: No significant abnormality. LIVER: No significant abnormality. GALLBLADDER: Surgically absent. BILE DUCTS: No significant abnormality. PANCREAS: No significant abnormality. SPLEEN: No significant abnormality. ADRENALS: No significant abnormality. RIGHT KIDNEY/URETER: No significant abnormality. LEFT KIDNEY/URETER: No significant abnormality. STOMACH/SMALL BOWEL: No significant abnormality. COLON: No significant abnormality. APPENDIX: No significant abnormality. PERITONEUM: No free fluid. No free air. No fluid collection. LYMPH NODES: No significant adenopathy. VASCULATURE: There is mild atherosclerosis without other significant abnormalities. URINARY BLADDER: Drained by a Luu catheter. There is marked generalized bladder wall thickening wit hout other acute findings. REPRODUCTIVE ORGANS: No significant abnormality. ADDITIONAL FINDINGS: None. BONES: No significant abnormality IMPRESSION: 1. Marked bladder wall thickening is greater than expected for decompression of the bladder by a Fole y catheter. Please correlate clinically to exclude cystitis. 2. No other acute findings to explain the patient's abdominal pain. Signer Name: Pete Wick MD Signed: 07/07/2021 11:31 AM Workstation Name: [id number]
[2021-07-07] MEDS ORDERED: cefTRIAXone/NS 1 GM/50 ML 1 GM/50 ML BAG IV ONE (11:52)
[2021-07-07] MEDS ORDERED: INSULIN REGULAR, HUMAN 100 UNITS/1 ML IV ONE (12:04)
[2021-07-07 14:11] VITALS: BP 172/101
== END 2021-07-07 14:14 | disposition home or self-care (01) ==
LOC: ED 05:59
DX: E87.6 Hypokalemia (principal); I11.0 Hypertensive heart disease with heart failure; I50.9 Heart failure, unspecified; E11.65 Type 2 diabetes mellitus with hyperglycemia; N39.0 Urinary tract infection, site not specified; F41.9 Anxiety disorder, unspecified; M19.90 Unspecified osteoarthritis, unspecified site; K21.9 Gastro-esophageal reflux disease without esophagitis; J45.909 Unspecified asthma, uncomplicated; Z98.890 Other specified postprocedural states; F17.290 Nicotine dependence, other tobacco product, uncomplicated; Z88.8 Allergy status to other drugs, medicaments and biological substances
CPT/HCPCS: 36415; 74177; 80048; 80076; 81001; 82962; 85025; 85610; 96365; 96375; 99285; J0360; J0696; J3490; Q9967; J1815

== ENCOUNTER 2021-07-09 00:25 | Emergency (ER) | payer MEDICARE ==
--- NOTE | 2021-07-09 03:36 | Emergency Department Report ---
ED Female HPI - General Chief complaint: Urogenital-Female Stated complaint: BLOOD IN CATHETER Time Seen by Provider: 07/09/21 03:17 Source: EMS Mode of arrival: Ambulatory Limitations: No Limitations - History of Present Illness Initial comments: Patient is a 60-year-old female with history of diabetes on metformin and lupus presenting to ED with complaint of bleeding from her Luu catheter. She was seen here on 07/07 with complaint of elevated blood pressure and hyperglycemia along with bleeding from her Luu catheter. Luu was placed on 07/04. She underwent work-up including blood work, urinalysis and CT of the abdomen and pelvis that revealed findings suggestive of cystitis. Urinalysis also revealed numerous WBCs and RBCs consistent with UTI. She was discharged with antibiotic prescription however states that she has not filled it yet. Fingerstick glucose 70s in triage. - Related Data Home Medications Medication Instructions Recorded Confirmed Last Taken cloNIDine [Catapres] 0.2 mg PO BID 05/07/16 07/01/16 07/01/16 Losartan/Hydrochlorothiazide 1 each PO QDAY 05/13/16 07/01/16 07/01/16 [Hyzaar 100-12.5 TAB] hydrOXYzine HCL [Hydroxyzine HCl] 25 mg PO BID 05/13/16 07/01/16 07/01/16 Carafate 1 tab PO PRN PRN 07/01/16 07/01/16 Unknown Prednisone [predniSONE 10 mg 10 mg PO .TAPER 07/01/16 07/01/16 07/01/16 (6-Day Pack, 21 Tabs)] traZODone [Desyrel] 50 mg PO BID 07/01/16 07/01/16 07/01/16 Previous Rx's Medication Instructions Recorded Last Taken Type amLODIPine 10 mg PO DAILY #30 tablet 10/08/15 07/01/16 Rx atenoloL [Tenormin] 50 mg PO DAILY #30 tablet 10/08/15 07/01/16 Rx Docusate Sodium [Colace] 100 mg PO BID PRN #20 capsule 07/01/16 Unknown Rx HYDROcodone/APAP 5-325 [[place] 1 each PO Q6HR PRN #20 tablet 07/01/16 Unknown Rx 5/325] Gabapentin 300 mg PO BID #30 capsule 12/18/17 Unknown Rx Nitrofurantoin [place]/M-Cryst 100 mg PO Q12HR #14 capsule 07/07/21 Unknown Rx [Macrobid CAP] Potassium Chloride [K-Dur] 10 meq PO QDAY #5 07/07/21 Unknown Rx Allergies Allergy/AdvReac Type Severity Reaction Status Date / Time lisinopril Allergy Severe Anaphylaxis Verified 12/18/17 07:42 OZIEL Inhibitors AdvReac Headache Verified 12/18/17 07:42 ED Review of Systems ROS: Stated complaint: BLOOD IN CATHETER Other details as noted in HPI Constitutional: denies: chills, fever Respiratory: denies: cough, shortness of breath, wheezing Cardiovascular: denies: chest pain, palpitations Gastrointestinal: denies: abdominal pain, nausea, diarrhea Genitourinary: hematuria Musculoskeletal: denies: back pain, joint swelling, arthralgia Skin: denies: rash, lesions Neurological: denies: headache, weakness, paresthesias Psychiatric: denies: anxiety, depression ED Past Medical Hx - Past Medical History Previous Medical History?: Yes Hx Hypertension: Yes (SINCE AGE 26 YRS OLD; Uncontrolled BP) Hx CVA: Yes Hx Congestive Heart Failure: Yes Hx Diabetes: Yes Hx GERD: Yes Hx Sickle Cell Disease: ([facility] TRAIT ONLY) Hx Arthritis: Yes Hx Psychiatric Treatment: Yes (anxiety) Hx Asthma: Yes Additional medical history: neuropathy, lupus. cardiac cath 10/08/2015 with EF of 55%, diastolic dysfunction, and normal coronary arteries. - Surgical History Past Surgical History?: Yes Hx Cholecystectomy: Yes Additional Surgical History: c-sections 88, 90 - Social History Smoking Status: Never Smoker - Medications Home Medications: Home Medications Medication Instructions Recorded Confirmed Last Taken Type amLODIPine 10 mg PO DAILY #30 tablet 10/08/15 07/01/16 07/01/16 Rx atenoloL [Tenormin] 50 mg PO DAILY #30 tablet 10/08/15 07/01/16 07/01/16 Rx cloNIDine [Catapres] 0.2 mg PO BID 05/07/16 07/01/16 07/01/16 History Losartan/Hydrochlorothiazide 1 each PO QDAY 05/13/16 07/01/16 07/01/16 History [Hyzaar 100-12.5 TAB] hydrOXYzine HCL [Hydroxyzine HCl] 25 mg PO BID 05/13/16 07/01/16 07/01/16 History Carafate 1 tab PO PRN PRN 07/01/16 07/01/16 Unknown History Docusate Sodium [Colace] 100 mg PO BID PRN #20 capsule 07/01/16 Unknown Rx HYDROcodone/APAP 5-325 [[place] 1 each PO Q6HR PRN #20 tablet 07/01/16 Unknown Rx 5/325] Prednisone [predniSONE 10 mg 10 mg PO .TAPER 07/01/16 07/01/16 07/01/16 History (6-Day Pack, 21 Tabs)] traZODone [Desyrel] 50 mg PO BID 07/01/16 07/01/16 07/01/16 History Gabapentin 300 mg PO BID #30 capsule 12/18/17 Unknown Rx Nitrofurantoin [place]/M-Cryst 100 mg PO Q12HR #14 capsule 07/07/21 Unknown Rx [Macrobid CAP] Potassium Chloride [K-Dur] 10 meq PO QDAY #5 07/07/21 Unknown Rx ED Physical Exam - General Limitations: No Limitations General appearance: alert, in no apparent distress - Head Head exam: Present: atraumatic, normocephalic - Neck Neck exam: Present: normal inspection - Respiratory Respiratory exam: Present: normal lung sounds bilaterally. Absent: respiratory distress - Cardiovascular Cardiovascular Exam: Present: regular rate, normal rhythm, normal heart sounds - GI/Abdominal GI/Abdominal exam: Present: soft. Absent: distended - Rectal Rectal exam: Present: deferred - External exam: Present: other (Luu catheter in place with bloody urine in the tube) - Neurological Exam Neurological exam: Present: alert, oriented X3 - Psychiatric Psychiatric exam: Present: normal affect, normal mood - Skin Skin exam: Present: warm, dry, intact, normal color ED Course Vital Signs 07/09/21 07/09/21 07/09/21 00:41 02:53 03:56 Temperature 97.7 F 98.8 F Pulse Rate 110 H 115 H 96 H Respiratory 20 16 16 Rate Blood Pressure 160/99 206/176 Blood Pressure [Left] O2 Sat by Pulse 98 99 99 Oximetry 07/09/21 07/09/21 07/09/21 03:57 04:01 04:15 Temperature 98.5 F Pulse Rate 88 96 H 89 Respiratory 16 19 15 Rate Blood Pressure 230/134 213/117 Blood Pressure 230/134 [Left] O2 Sat by Pulse 99 99 99 Oximetry 07/09/21 04:39 Temperature Pulse Rate 89 Respiratory Rate Blood Pressure 216/118 Blood Pressure [Left] O2 Sat by Pulse Oximetry ED Medical Decision Making - Lab Data Result diagrams: 07/09/21 03:49 07/09/21 03:49 - Medical Decision Making Serum glucose 154. Potassium 3.4. On chart review patient underwent CT abdomen pelvis on 07/07 which showed no acute abnormalities. Will not rescan. I explained to the patient that her hematuria is likely related to her UTI and or placement of her Luu catheter. H&H stable. She has an appointment with urology later today. Stable for discharge with return precautions Critical care attestation.: If time is entered above; I have spent that time in minutes in the direct care of this critically ill patient, excluding procedure time. ED Disposition Clinical Impression: Hematuria, UTI (urinary tract infection) Disposition: 01 HOME / SELF CARE / HOMELESS Is pt being admited?: No Condition: Stable Instructions: Urinary Tract Infection, Adult, Hematuria, Adult Additional Instructions: Please follow-up with your urologist today as scheduled. Time of Disposition: 05:13
[2021-07-09 04:16] LABS: BUN/Creatinine Ratio 9; Blood Urea Nitrogen 7 mg/dL (7-17); Calcium 10.1 mg/dL (8.4-10.2); Hemolysis Index 4
[2021-07-09] MEDS ORDERED: hydrALAZINE 20 MG/1 ML INJ IV STA (04:34)
[2021-07-09 04:40] LABS: Basophils # (Auto) 0.1 K/mm3 (0.0-0.1); Basophils % (Auto) 1.3 % (0.0-1.8); Eosinophils # (Auto) 0.1 K/mm3 (0.0-0.4); Eosinophils % (Auto) 1.2 % (0.0-4.3); Hematocrit 36.7 % (30.3-42.9); Hemoglobin 12.2 gm/dl (10.1-14.3); Lymphocytes # (Auto) 2.7 K/mm3 (1.2-5.4); Lymphocytes % (Auto) 31.1 % (13.4-35.0); Mean Corpuscular HGB Conc 33 % (30-34); Mean Corpuscular Volume 95 fl (79-97); Monocytes # (Auto) 0.3 K/mm3 (0.0-0.8); Monocytes % (Auto) 3.9 % (0.0-7.3); Platelet Count 388 K/mm3 (140-440); Red Blood Count 3.89 M/mm3 (3.65-5.03); Red Cell Distribution Width 15.3 % (13.2-15.2)
[2021-07-09 05:55] VITALS: BP 167/101
== END 2021-07-09 06:09 | disposition home or self-care (01) ==
LOC: ED 00:25
DX: R31.9 Hematuria, unspecified (principal); N39.0 Urinary tract infection, site not specified; Z88.8 Allergy status to other drugs, medicaments and biological substances; I10 Essential (primary) hypertension; E11.9 Type 2 diabetes mellitus without complications; J45.909 Unspecified asthma, uncomplicated
CPT/HCPCS: 36415; 80048; 82962; 85025; 96374; 99284; J0360

== ENCOUNTER 2021-07-20 11:57 | Emergency (ER) | payer MEDICARE ==
--- NOTE | 2021-07-20 12:23 | Emergency Department Report ---
HPI - General Chief Complaint: Abdominal Pain Time Seen by Provider: 07/20/21 12:15 - HPI HPI: For the last 3 hours the patient has had severe suprapubic pressure-like nonradiating bladder pain that feels like a pressure. The patient has a history of intermittent urinary bladder retention. She recently had her catheter taken out because of hematuria. She denies nausea vomiting fever chills chest pain focal weakness numbness tingling headache or any other associated symptoms. Movement makes it worse and nothing makes it better. ED Past Medical Hx - Past Medical History Hx Hypertension: Yes (SINCE AGE 26 YRS OLD; Uncontrolled BP) Hx CVA: Yes Hx Congestive Heart Failure: Yes Hx Diabetes: Yes Hx GERD: Yes Hx Sickle Cell Disease: ([facility] TRAIT ONLY) Hx Arthritis: Yes Hx Psychiatric Treatment: Yes (anxiety) Hx Asthma: Yes Additional medical history: neuropathy, lupus. cardiac cath 10/08/2015 with EF of 55%, diastolic dysfunction, and normal coronary arteries.,tia - Surgical History Hx Cholecystectomy: Yes Additional Surgical History: c-sections 88, 90 - Social History Smoking Status: Never Smoker Substance Use Type: Alcohol - Medications Home Medications: Home Medications Medication Instructions Recorded Confirmed Last Taken Type amLODIPine 10 mg PO DAILY #30 tablet 10/08/15 07/01/16 07/01/16 Rx atenoloL [Tenormin] 50 mg PO DAILY #30 tablet 10/08/15 07/01/16 07/01/16 Rx cloNIDine [Catapres] 0.2 mg PO BID 05/07/16 07/01/16 07/01/16 History Losartan/Hydrochlorothiazide 1 each PO QDAY 05/13/16 07/01/16 07/01/16 History [Hyzaar 100-12.5 TAB] hydrOXYzine HCL [Hydroxyzine HCl] 25 mg PO BID 05/13/16 07/01/16 07/01/16 History Carafate 1 tab PO PRN PRN 07/01/16 07/01/16 Unknown History Docusate Sodium [Colace] 100 mg PO BID PRN #20 capsule 07/01/16 Unknown Rx HYDROcodone/APAP 5-325 [[place] 1 each PO Q6HR PRN #20 tablet 07/01/16 Unknown Rx 5/325] Prednisone [predniSONE 10 mg 10 mg PO .TAPER 07/01/16 07/01/16 07/01/16 History (6-Day Pack, 21 Tabs)] traZODone [Desyrel] 50 mg PO BID 07/01/16 07/01/16 07/01/16 History Gabapentin 300 mg PO BID #30 capsule 12/18/17 Unknown Rx Nitrofurantoin [place]/M-Cryst 100 mg PO Q12HR #14 capsule 07/07/21 Unknown Rx [Macrobid CAP] Potassium Chloride [K-Dur] 10 meq PO QDAY #5 07/07/21 Unknown Rx Ciprofloxacin HCl 250 mg PO DAILY 10 Days #10 07/20/21 Unknown Rx ED Review of Systems ROS: Stated complaint: BLADDER PAIN Other details as noted in HPI Other: All other systems reviewed and negative. Physical Exam - Physical Exam Physical Exam: Physical Exam: Constitutional: AAOX3. In moderate to severe acute distress. No diaphoresis. HENT: Normocephalic. Pupils equal and reactive. No throat edema or erythema. Neck: No neck rigidity or tenderness. Cardiovascular: Heart sounds: No murmur. Normal rate and regular rhythm. Pulses: Intact distal pulses. Lungs: No wheezing or rales. Chest wall: No tenderness. Abdominal: There is suprapubic bladder distention with moderate to severe tenderness to palpation. No mass/pulsatile mass. No abdominal tenderness, guarding nor rebound. Back: No CVA tenderness to palpation. Musculoskeletal: Normal range of motion. No edema, No calf TTP. Skin: Warm and dry. Neurological: Alert and oriented to person, place, and time. Psychiatric: Mood and affect normal. Normal cognition and memory. Normal judgement. ED Course - Reevaluation(s) Reevaluation #1: 07/20/21 13:30 The patient had a Luu placed and we obtained 850 cc of clear urine. The urinalysis was negative. She has a procedure scheduled for next week with a urologist address her issue with chronic intermittent urinary retention. Critical care attestation.: If time is entered above; I have spent that time in minutes in the direct care of this critically ill patient, excluding procedure time. ED Disposition Clinical Impression: Urinary retention Disposition: 01 HOME / SELF CARE / HOMELESS Is pt being admited?: No Does the pt Need Aspirin: No Condition: Stable Instructions: Abdominal Pain (ED), Acute Urinary Retention, Female Prescriptions: Ciprofloxacin HCl 250 mg PO DAILY 10 Days #10 Time of Disposition: 15:30
[2021-07-20 13:04] LABS: Bilirubin,Urine NEG (Negative); Blood,Urine NEG (Negative); Color,Urine Colorless (Yellow); Protein,Urine <15 mg/dL mg/dL (Negative); RBC,Urine < 1.0 /HPF (0.0-6.0); Urobilinogen,Urine < 2.0 mg/dL (<2.0); WBC,Urine < 1.0 /HPF (0.0-6.0)
[2021-07-20] MEDS ORDERED: amLODIPine 5 MG TAB PO ONE (14:28)
[2021-07-20] MEDS ORDERED: cloNIDine 0.2 MG TAB PO ONE (14:29)
[2021-07-20 16:26] VITALS: BP 141/86
== END 2021-07-20 16:48 | disposition home or self-care (01) ==
LOC: ED 11:57
DX: R33.9 Retention of urine, unspecified (principal); I11.0 Hypertensive heart disease with heart failure; I50.9 Heart failure, unspecified; E11.9 Type 2 diabetes mellitus without complications; M19.90 Unspecified osteoarthritis, unspecified site; Z86.73 Personal history of transient ischemic attack (TIA), and cerebral infarction without residual deficits; J45.909 Unspecified asthma, uncomplicated; F41.9 Anxiety disorder, unspecified; Z90.49 Acquired absence of other specified parts of digestive tract; Z79.899 Other long term (current) drug therapy
CPT/HCPCS: 51702; 81001; 99283

== ENCOUNTER 2021-07-21 18:13 | Emergency (ER) | payer MEDICARE ==
[2021-07-21] MEDS ORDERED: WATER FOR INJ Sterile (PF) 10 ML ONE (19:02)
[2021-07-21 19:39] LABS: Hematocrit 41.7 % (30.3-42.9); Lymphocytes # (Auto) 2.1 K/mm3 (1.2-5.4); Lymphocytes % (Auto) 42.9 % (13.4-35.0); Mean Corpuscular HGB Conc 34 % (30-34); Mean Corpuscular Volume 95 fl (79-97); Monocytes # (Auto) 0.2 K/mm3 (0.0-0.8); Platelet Count 361 K/mm3 (140-440)
[2021-07-21 20:22] LABS: BUN/Creatinine Ratio 8; Blood Urea Nitrogen 6 mg/dL (7-17); Calcium 9.9 mg/dL (8.4-10.2); Hemolysis Index 9
[2021-07-21] MEDS ORDERED: SODIUM CHLORIDE 0.9% 1000 ML 1,000 ML IV ONE ×2 (20:40→22:10)
[2021-07-21] MEDS ORDERED: INSULIN REGULAR, HUMAN 100 UNITS/1 ML IV ONE ×2 (20:41→22:10)
[2021-07-21] MEDS ORDERED: POTASSIUM CHLORIDE 10 MEQ 10 MEQ/100 ML BAG IV SCH (21:00)
[2021-07-21] MEDS ORDERED: POTASSIUM CHLORIDE ER 20 MEQ TAB PO ONE (21:21)
[2021-07-21] MEDS ORDERED: hydrALAZINE 20 MG/1 ML INJ IV ONE (23:25)
--- NOTE | 2021-07-21 23:27 | Emergency Department Report ---
ED Female HPI - General Chief complaint: Urogenital-Female Stated complaint: HYPERGLYCEMIA/CATHETER ISSUES Time Seen by Provider: 07/21/21 18:59 Source: patient Mode of arrival: Stretcher Limitations: No Limitations - History of Present Illness Initial comments: Patient is a 60-year-old female with history of urinary retention with recent Luu catheter placement presenting to ED with complaint of suprapubic discomfort and bladder spasms. States the urine is leaking around her Luu catheter. She was also noted to be hyperglycemic in triage. Has history of diabetes. - Related Data Home Medications Medication Instructions Recorded Confirmed Last Taken cloNIDine [Catapres] 0.2 mg PO BID 05/07/16 07/20/21 07/19/21 Losartan/Hydrochlorothiazide 1 each PO QDAY 05/13/16 07/20/21 07/01/16 [Hyzaar 100-12.5 TAB] hydrOXYzine HCL [Hydroxyzine HCl] 25 mg PO BID 05/13/16 07/20/21 07/01/16 Carafate 1 tab PO PRN PRN 07/01/16 07/20/21 Unknown Prednisone [predniSONE 10 mg 10 mg PO .TAPER 07/01/16 07/20/21 07/01/16 (6-Day Pack, 21 Tabs)] traZODone [Desyrel] 50 mg PO BID 07/01/16 07/20/21 07/01/16 Previous Rx's Medication Instructions Recorded Last Taken Type amLODIPine 10 mg PO DAILY #30 tablet 10/08/15 07/20/21 Rx atenoloL [Tenormin] 50 mg PO DAILY #30 tablet 10/08/15 07/19/21 Rx Docusate Sodium [Colace] 100 mg PO BID PRN #20 capsule 07/01/16 Unknown Rx HYDROcodone/APAP 5-325 [[place] 1 each PO Q6HR PRN #20 tablet 07/01/16 Unknown Rx 5/325] Gabapentin 300 mg PO BID #30 capsule 12/18/17 Unknown Rx Nitrofurantoin [place]/M-Cryst 100 mg PO Q12HR #14 capsule 07/07/21 Unknown Rx [Macrobid CAP] Potassium Chloride [K-Dur] 10 meq PO QDAY #5 07/07/21 Unknown Rx Ciprofloxacin HCl 250 mg PO DAILY 10 Days #10 05/28/22 Unknown Rx Allergies Allergy/AdvReac Type Severity Reaction Status Date / Time lisinopril Allergy Severe Anaphylaxis Verified 12/18/17 07:42 OZIEL Inhibitors AdvReac Headache Verified 12/18/17 07:42 ED Review of Systems ROS: Stated complaint: HYPERGLYCEMIA/CATHETER ISSUES Other details as noted in HPI ED Past Medical Hx - Past Medical History Hx Hypertension: Yes (SINCE AGE 26 YRS OLD; Uncontrolled BP) Hx CVA: Yes Hx Congestive Heart Failure: Yes Hx Diabetes: Yes Hx GERD: Yes Hx Sickle Cell Disease: ([facility] TRAIT ONLY) Hx Arthritis: Yes Hx Psychiatric Treatment: Yes (anxiety) Hx Asthma: Yes Additional medical history: neuropathy, lupus. cardiac cath 10/08/2015 with EF of 55%, diastolic dysfunction, and normal coronary arteries.,tia - Surgical History Hx Cholecystectomy: Yes Additional Surgical History: c-sections 88, 90 - Social History Smoking Status: Never Smoker Substance Use Type: Alcohol - Medications Home Medications: Home Medications Medication Instructions Recorded Confirmed Last Taken Type amLODIPine 10 mg PO DAILY #30 tablet 10/08/15 07/20/21 07/20/21 Rx atenoloL [Tenormin] 50 mg PO DAILY #30 tablet 10/08/15 07/20/21 07/19/21 Rx cloNIDine [Catapres] 0.2 mg PO BID 05/07/16 07/20/21 07/19/21 History Losartan/Hydrochlorothiazide 1 each PO QDAY 05/13/16 07/20/21 07/01/16 History [Hyzaar 100-12.5 TAB] hydrOXYzine HCL [Hydroxyzine HCl] 25 mg PO BID 05/13/16 07/20/21 07/01/16 History Carafate 1 tab PO PRN PRN 07/01/16 07/20/21 Unknown History Docusate Sodium [Colace] 100 mg PO BID PRN #20 capsule 07/01/16 07/20/21 Unknown Rx HYDROcodone/APAP 5-325 [[place] 1 each PO Q6HR PRN #20 tablet 07/01/16 07/20/21 Unknown Rx 5/325] Prednisone [predniSONE 10 mg 10 mg PO .TAPER 07/01/16 07/20/21 07/01/16 History (6-Day Pack, 21 Tabs)] traZODone [Desyrel] 50 mg PO BID 05/11/0907/20/21 07/01/16 History Gabapentin 300 mg PO BID #30 capsule 12/18/17 07/20/21 Unknown Rx Nitrofurantoin [place]/M-Cryst 100 mg PO Q12HR #14 capsule 07/07/21 07/20/21 Unknown Rx [Macrobid CAP] Potassium Chloride [K-Dur] 10 meq PO QDAY #5 07/07/21 07/20/21 Unknown Rx Ciprofloxacin HCl 250 mg PO DAILY 10 Days #10 07/20/21 Unknown Rx ED Physical Exam - General Limitations: No Limitations General appearance: alert, in no apparent distress - Head Head exam: Present: atraumatic, normocephalic - Respiratory Respiratory exam: Present: normal lung sounds bilaterally, respiratory distress - Cardiovascular Cardiovascular Exam: Present: regular rate, normal rhythm, normal heart sounds - GI/Abdominal GI/Abdominal exam: Present: soft. Absent: distended, tenderness - Rectal Rectal exam: Present: deferred - Neurological Exam Neurological exam: Present: alert, oriented X3 - Psychiatric Psychiatric exam: Present: normal affect, normal mood - Skin Skin exam: Present: warm, dry, intact, normal color ED Course Vital Signs 07/21/21 07/21/21 07/21/21 18:23 18:30 18:46 Temperature Pulse Rate 93 H 92 H Respiratory 19 14 16 Rate Blood Pressure 226/134 Blood Pressure [Left] O2 Sat by Pulse 99 Oximetry 07/21/21 07/21/21 07/21/21 18:50 19:00 19:16 Temperature 97.9 F Pulse Rate 75 104 H 87 Respiratory 13 19 18 Rate Blood Pressure 219/122 220/138 Blood Pressure 138/85 [Left] O2 Sat by Pulse 99 100 99 Oximetry 07/21/21 07/22/21 07/22/21 23:32 00:13 00:14 Temperature 97.9 F Pulse Rate 104 H Respiratory 19 19 Rate Blood Pressure 212/107 Blood Pressure 173/98 [Left] O2 Sat by Pulse 99 99 Oximetry 07/22/21 00:15 Temperature 97.9 F Pulse Rate 104 H Respiratory Rate Blood Pressure 173/98 Blood Pressure [Left] O2 Sat by Pulse Oximetry ED Medical Decision Making - Lab Data Result diagrams: 07/21/21 19:02 07/21/21 19:02 - Medical Decision Making Luu catheter flushed by nurse. Decision was made to replace Luu catheter with return of 900 cc of urine. Serum glucose 542. Patient given 10 units of IV insulin along with 1 L saline bolus. Repeat fingerstick 444. She was given repeat doses of insulin along with another liter of IV fluids. Subsequent fingerstick is now 374. She is stable for discharge home with follow-up with urology as scheduled. Critical care attestation.: If time is entered above; I have spent that time in minutes in the direct care of this critically ill patient, excluding procedure time. ED Disposition Clinical Impression: Malfunction of Luu catheter, Hyperglycemia due to diabetes mellitus, Uncontrolled hypertension Disposition: HOME / SELF CARE / HOMELESS Is pt being admited?: No Does the pt Need Aspirin: No Condition: Stable Instructions: Indwelling Urinary Catheter Care, Adult, Type 2 Diabetes Mellitus, Self Care, Adult, Hypertension, Adult, Diabetes Mellitus Type 2 in Adults (ED), Hypertension (ED) Additional Instructions: Please follow-up with your urologist as scheduled. You may return if symptoms return. Referrals: MARGRET MITCHELL [Other] - 3-5 Days
[2021-07-22 00:14] VITALS: BP 173/98
== END 2021-07-22 00:25 | disposition home or self-care (01) ==
LOC: ED 18:13
DX: Z46.6 Encounter for fitting and adjustment of urinary device (principal); I11.0 Hypertensive heart disease with heart failure; I50.9 Heart failure, unspecified; E11.65 Type 2 diabetes mellitus with hyperglycemia; D57.3 Sickle-cell trait; K21.9 Gastro-esophageal reflux disease without esophagitis; M19.90 Unspecified osteoarthritis, unspecified site; F41.9 Anxiety disorder, unspecified; J45.909 Unspecified asthma, uncomplicated; Z98.890 Other specified postprocedural states; Z88.8 Allergy status to other drugs, medicaments and biological substances
CPT/HCPCS: 36415; 51702; 80048; 82962; 85025; 93005; 96361; 96374; 96375; 99284; J0360; J3480; J7030; Q9967; J1815

== ENCOUNTER 2021-08-10 14:57 | Emergency (ER) | payer MEDICARE ==
[2021-08-10] MEDS ORDERED: SODIUM CHLORIDE 0.9% 1000 ML 1,000 ML IV ONE ×2 (15:39→21:52)
--- NOTE | 2021-08-10 16:50 | Emergency Department Report ---
- General Chief complaint: Hyperglycemia Stated complaint: HYPERGLYCEMIA Time Seen by Provider: 08/10/21 15:33 Source: EMS Mode of arrival: Stretcher Limitations: No Limitations - History of Present Illness Initial comments: 60-year-old female with history of Asthma, CVA, CHF, GERD and anxiety who presents with generalized body weakness that has been going on for the last couple of days now progressively getting worse. Patient also has history of diabetes and noticed high blood sugar was elevated yesterday at 570 mg/dl. Patient took 25 units of insulin but did not check blood sugar until today. Patient reports numbness and tingling in the upper right arm as well. She re ported that this is her usual symptoms when her blood sugar is low. Low for her will be between 100 and 180 mg/dl of blood sugar level. Patient denies any fever or chills. She also denies any shortness of breath or chest pain with palpitation. She however reported increase in urination. No urinary urgency noted. Pt mentioned that she followed Urology 2 weeks ago and has been using self catheterization since then. No other modifying or associated factors reported. Severity scale (0 -10): 0 - Related Data Home Medications Medication Instructions Recorded Confirmed Last Taken cloNIDine [Catapres] 0.2 mg PO BID 05/07/16 07/20/21 07/19/21 Losartan/Hydrochlorothiazide 1 each PO QDAY 05/13/16 07/20/21 07/01/16 [Hyzaar 100-12.5 TAB] hydrOXYzine HCL [Hydroxyzine HCl] 25 mg PO BID 05/13/16 07/20/21 07/01/16 Carafate 1 tab PO PRN PRN 07/01/16 07/20/21 Unknown Prednisone [predniSONE 10 mg 10 mg PO .TAPER 07/01/16 07/20/21 07/01/16 (6-Day Pack, 21 Tabs)] traZODone [Desyrel] 50 mg PO BID 07/01/16 07/20/21 07/01/16 Previous Rx's Medication Instructions Recorded Last Taken Type amLODIPine 10 mg PO DAILY #30 tablet 10/08/15 07/20/21 Rx atenoloL [Tenormin] 50 mg PO DAILY #30 tablet 10/08/15 07/19/21 Rx Docusate Sodium [Colace] 100 mg PO BID PRN #20 capsule 07/01/16 Unknown Rx HYDROcodone/APAP 5-325 [[place] 1 each PO Q6HR PRN #20 tablet 07/01/16 Unknown Rx 5/325] Gabapentin 300 mg PO BID #30 capsule 12/18/17 Unknown Rx Nitrofurantoin [place]/M-Cryst 100 mg PO Q12HR #14 capsule 07/07/21 Unknown Rx [Macrobid CAP] Potassium Chloride [K-Dur] 10 meq PO QDAY #5 07/07/21 Unknown Rx Ciprofloxacin HCl 250 mg PO DAILY 10 Days #10 07/20/21 Unknown Rx Nitrofurantoin [place]/M-Cryst 100 mg PO Q12HR 7 Days #14 capsule 08/10/21 Unknown Rx [Macrobid CAP] NS Allergies Allergy/AdvReac Type Severity Reaction Status Date / Time lisinopril Allergy Severe Anaphylaxis Verified 12/18/17 07:42 OZIEL Inhibitors AdvReac Headache Verified 12/18/17 07:42 ED Review of Systems ROS: Stated complaint: HYPERGLYCEMIA Other details as noted in HPI Comment: All other systems reviewed and negative Constitutional: weakness Genitourinary: frequency. denies: hematuria ED Past Medical Hx - Past Medical History Previous Medical History?: Yes Hx Hypertension: Yes (SINCE AGE 26 YRS OLD; Uncontrolled BP) Hx CVA: Yes Hx Congestive Heart Failure: Yes Hx Diabetes: Yes Hx GERD: Yes Hx Sickle Cell Disease: ([facility] TRAIT ONLY) Hx Arthritis: Yes Hx Psychiatric Treatment: Yes (anxiety) Hx Asthma: Yes Additional medical history: neuropathy, lupus. cardiac cath 10/08/2015 with EF of 55%, diastolic dysfunction, and normal coronary arteries.,tia - Surgical History Hx Cholecystectomy: Yes Additional Surgical History: c-sections 88, 89 - Social History Smoking Status: Never Smoker Substance Use Type: Alcohol - Medications Home Medications: Home Medications Medication Instructions Recorded Confirmed Last Taken Type amLODIPine 10 mg PO DAILY #30 tablet 10/08/15 07/20/21 07/20/21 Rx atenoloL [Tenormin] 50 mg PO DAILY #30 tablet 10/08/15 07/20/21 07/19/21 Rx cloNIDine [Catapres] 0.2 mg PO BID 05/07/16 07/20/21 07/19/21 History Losartan/Hydrochlorothiazide 1 each PO QDAY 05/13/16 07/20/21 07/01/16 History [Hyzaar 100-12.5 TAB] hydrOXYzine HCL [Hydroxyzine HCl] 25 mg PO BID 05/13/16 07/20/21 07/01/16 History Carafate 1 tab PO PRN PRN 07/01/16 07/20/21 Unknown History Docusate Sodium [Colace] 100 mg PO BID PRN #20 capsule 07/01/16 07/20/21 Unknown Rx HYDROcodone/APAP 5-325 [[place] 1 each PO Q6HR PRN #20 tablet 07/01/16 07/20/21 Unknown Rx 5/325] Prednisone [predniSONE 10 mg 10 mg PO .TAPER 07/01/16 07/20/21 07/01/16 History (6-Day Pack, 21 Tabs)] traZODone [Desyrel] 50 mg PO BID 07/01/16 07/20/21 07/01/16 History Gabapentin 300 mg PO BID #30 capsule 12/18/17 07/20/21 Unknown Rx Nitrofurantoin [place]/M-Cryst 100 mg PO Q12HR #14 capsule 07/07/21 07/20/21 Unknown Rx [Macrobid CAP] Potassium Chloride [K-Dur] 10 meq PO QDAY #5 07/07/21 07/20/21 Unknown Rx Ciprofloxacin HCl 250 mg PO DAILY 10 Days #10 07/20/21 Unknown Rx Nitrofurantoin [place]/M-Cryst 100 mg PO Q12HR 7 Days #14 capsule 08/10/21 Unknown Rx [Macrobid CAP] NS ED Physical Exam - General Limitations: No Limitations General appearance: alert, in no apparent distress - Head Head exam: Present: atraumatic, normal inspection - Eye Eye exam: Present: normal appearance - ENT ENT exam: Present: normal exam, normal orophraynx, mucous membranes dry - Neck Neck exam: Present: normal inspection, full ROM. Absent: tenderness - Respiratory Respiratory exam: Present: normal lung sounds bilaterally. Absent: respiratory distress, accessory muscle use - Cardiovascular Cardiovascular Exam: Present: regular rate, normal rhythm, normal heart sounds - GI/Abdominal GI/Abdominal exam: Present: soft, normal bowel sounds. Absent: distended, ten derness - Extremities Exam Extremities exam: Present: normal inspection, full ROM, normal capillary refill. Absent: tenderness, pedal edema, joint swelling - Back Exam Back exam: Present: normal inspection. Absent: tenderness, CVA tenderness (R), CVA tenderness (L) - Neurological Exam Neurological exam: Present: alert, oriented X3 - Psychiatric Psychiatric exam: Present: normal affect, normal mood - Skin Skin exam: Present: warm, normal color ED Course Vital Signs 08/10/21 08/10/21 08/10/21 15:11 16:32 17:01 Temperature 98.6 F Pulse Rate 121 H 109 H 99 H Respiratory 16 13 18 Rate Blood Pressure 157/104 Blood Pressure 138/92 [Left] O2 Sat by Pulse 99 99 100 Oximetry 08/10/21 08/10/21 08/10/21 18:01 19:01 20:01 Temperature Pulse Rate 101 H 92 H 88 Respiratory 16 14 16 Rate Blood Pressure 151/110 175/105 189/113 Blood Pressure [Left] O2 Sat by Pulse 100 100 99 Oximetry - Reevaluation(s) Reevaluation #1: 08/10/21 16:53 Present with generalized weakness --Top medical diagnosis could be as a result of hyperglycemic state considering this patient history of DM type 2 and the differentials could be but not limited to pneumonia, myocardial infarction, urinary tract infection, upper respiratory tract infection, hypoglycemia, or oth er systemic infection. To rule those out will go ahead and order routine labs including CBC, CMP, UA and will also order thyroid profile as thyroid abnormality whether hyper or hypo could lead to muscle tiredness. Since the cause is most likely hyperglycemia I will start with iv hydration with ns while waiting for the above labs. 08/10/21 18:20 Pt labs resulted to have blood glucose of 459 mg/dl consistent with hyperglycemia so will continue iv hydration and add insulin 10 units IV and 10 units SQ. Also reported is slightly elevated AST 66 with normal ALT and t-bili. Also noted elevated creatinine 2.7 as a result of likely dehydration. Reevaluation #2: 08/10/21 22:47 Patient reevaluated and reported feeling much better actually asked for food to eat. Patient had a tray of dinner. Blood sugar rechecked to be 215 mg/dL. Patient is stable on ready to be discharged home to follow-up with primary doctor in 2 to 3 days. Reevaluation #3: 08/10/21 23:39 UA noted with moderate leukocytes couple with her urinary symptoms will go ahead and treat for UTI - ED Medical Decision Making - Lab Data Result diagrams: 08/10/21 16:49 08/10/21 16:49 - Medical Decision Making See progress note for details - Differential Diagnosis See progress note for details Critical care attestation.: If time is entered above; I have spent that time in minutes in the direct care of this critically ill patient, excluding procedure time. ED Disposition Clinical Impression: Hyperglycemia, Generalized weakness, Dehydration, Hyponatremia UTI (urinary tract infection) Qualifiers: Urinary tract infection type: site unspecified Hematuria presence: without hematuria Qualified Code(s): N39.0 - Urinary tract infection, site not specified Disposition: HOME / SELF CARE / HOMELESS Is pt being admited?: No Does the pt Need Aspirin: No Condition: Stable Instructions: Dehydration, Adult, [id number], Hyperglycemia, [id number], Urinary Tract Infection, Adult Additional Instructions: Increase your daily fluid to help your hydration Take and complete your antibiotics as prescribed Call and follow-up with your primary doctor in the next 3 to 5 days for progress Please do not hesitate to call or return to emergency room if your symptoms worsen Prescriptions: Nitrofurantoin [place]/M-Cryst [Macrobid CAP] 100 mg PO Q12HR 7 Days #14 capsule NS Referrals: SYLVESTER POWERS MD [Referring] - 3-5 Days Time of Disposition: 23:42
[2021-08-10 17:19] LABS: Basophils % (Auto) 0.3 % (0.0-1.8); Eosinophils % (Auto) 0.2 % (0.0-4.3); Hematocrit 44.7 % (30.3-42.9); Hemoglobin 14.8 gm/dl (10.1-14.3); Lymphocytes # (Auto) 1.8 K/mm3 (1.2-5.4); Lymphocytes % (Auto) 30.7 % (13.4-35.0); Mean Corpuscular HGB Conc 33 % (30-34); Mean Corpuscular Volume 96 fl (79-97); Monocytes # (Auto) 0.4 K/mm3 (0.0-0.8); Monocytes % (Auto) 7.2 % (0.0-7.3); Platelet Count 252 K/mm3 (140-440); Red Blood Count 4.67 M/mm3 (3.65-5.03)
[2021-08-10 17:38] LABS: Alanine Aminotransferase 17 units/L (7-56); Albumin 4.6 g/dL (3.9-5); BUN/Creatinine Ratio 6; Blood Urea Nitrogen 16 mg/dL (7-17); Calcium 10.2 mg/dL (8.4-10.2); Hemolysis Index 49
[2021-08-10 18:02] LABS: INR 1.02 (0.87-1.13)
[2021-08-10] MEDS ORDERED: INSULIN REGULAR, HUMAN 100 UNITS/1 ML IV ONE (19:47)
[2021-08-10] MEDS ORDERED: INSULIN REGULAR, HUMAN 100 UNITS/1 ML SUB-Q ONE (19:47)
[2021-08-10 20:19] VITALS: BP 189/113
[2021-08-10 23:01] LABS: Bilirubin,Urine NEG (Negative); Blood,Urine SM (Negative); Color,Urine Amber (Yellow)
[2021-08-10 23:04] LABS: Bacteria,Urine 1+ /HPF (Negative); Mucus,Urine 2+ /HPF
== END 2021-08-11 00:21 | disposition home or self-care (01) ==
LOC: ED 14:57
DX: E11.65 Type 2 diabetes mellitus with hyperglycemia (principal); R53.1 Weakness; N39.0 Urinary tract infection, site not specified; E87.1 Hypo-osmolality and hyponatremia; E86.0 Dehydration; E11.9 Type 2 diabetes mellitus without complications; K21.9 Gastro-esophageal reflux disease without esophagitis; D57.3 Sickle-cell trait; M19.90 Unspecified osteoarthritis, unspecified site; F41.9 Anxiety disorder, unspecified; G62.9 Polyneuropathy, unspecified; M32.9 Systemic lupus erythematosus, unspecified; Z88.1 Allergy status to other antibiotic agents; Z88.8 Allergy status to other drugs, medicaments and biological substances
CPT/HCPCS: 36415; 80053; 81001; 82962; 84484; 85025; 85610; 96361; 96374; 99284; J7030; Q9967; J1815

== ENCOUNTER 2021-10-07 20:00 | Inpatient (IN) | payer MEDICARE, OTHER ==
[2021-10-07] MEDS ORDERED: SODIUM CHLORIDE 0.9% 500 ML 500 ML IV ONE ×2 (20:55→22:24)
--- NOTE | 2021-10-07 20:57 | Emergency Department Report ---
ED General Adult HPI - General Chief complaint: Altered Mental Status Stated complaint: AMS Time Seen by Provider: 10/07/21 20:44 Source: patient, EMS ( EMS documentation not available at time of chart dictation ), RN notes reviewed, old records reviewed Mode of arrival: Stretcher Limitations: Altered Mental Status, Physical Limitation - History of Present Illness Initial comments: The patient was evaluated in the emergency department for symptoms described in the history of present illness. He/she was evaluated in the context of the global COVID-19 pandemic, which necessitated consideration that the patient might be at risk for infection with the virus that causes COVID-19. Institutional protocols and algorithms that pertain to the evaluation of patients at risk for COVID-19 are in a state of rapid change based on information released by regulatory bodies including the CDC and federal and state organizations. These policies and algorithms were followed during the patient's care in the emergency department. Please note that these policies, procedures and recommendations changed on a rapid basis. This is a 61-year-old female. Past medical history includes hypertension, recent stroke at [place]. Apparently, the patient's sister called 911 for the patient, as the patient was unresponsive, drooling, and confused. The patient does not have recollection of the event. The patient is confused. The patient endorses abdominal cramping. The patient is not sure if she is having a headache, neck pain or chest pain. She does feel little bit lightheaded. The patient endorses that she does not feel like she has focal extremity weakness and numbness. The patient did endorse to nursing staff and EMS apparently that she typically has very high blood pressure at baseline, and high blood sugar at baseline. Apparently, patient's blood pressure is not especially elevated, and glucose was only 124. The patient is not accompanied by friends or family at this time. The patient is somewhat confused. -: This evening - Related Data Home Medications Medication Instructions Recorded Confirmed Last Taken cloNIDine [Catapres] 0.2 mg PO BID 05/07/16 07/20/21 07/19/21 Losartan/Hydrochlorothiazide 1 each PO QDAY 05/13/16 07/20/21 07/01/16 [Hyzaar 100-12.5 TAB] hydrOXYzine HCL [Hydroxyzine HCl] 25 mg PO BID 05/13/16 07/20/21 07/01/16 Carafate 1 tab PO PRN PRN 07/01/16 07/20/21 Unknown Prednisone [predniSONE 10 mg 10 mg PO .TAPER 07/01/16 07/20/21 07/01/16 (6-Day Pack, 21 Tabs)] traZODone [Desyrel] 50 mg PO BID 07/01/16 07/20/21 07/01/16 Previous Rx's Medication Instructions Recorded Last Taken Type amLODIPine 10 mg PO DAILY #30 tablet 10/08/15 07/20/21 Rx atenoloL [Tenormin] 50 mg PO DAILY #30 tablet 10/08/15 07/19/21 Rx Docusate Sodium [Colace] 100 mg PO BID PRN #20 capsule 07/01/16 Unknown Rx HYDROcodone/APAP 5-325 [[place] 1 each PO Q6HR PRN #20 tablet 07/01/16 Unknown Rx 5/325] Gabapentin 300 mg PO BID #30 capsule 12/18/17 Unknown Rx Nitrofurantoin Oter[place]/M-Cryst 100 mg PO Q12HR #14 capsule 07/07/21 Unknown Rx [Macrobid CAP] Potassium Chloride [K-Dur] 10 meq PO QDAY #5 07/07/21 Unknown Rx Ciprofloxacin HCl 250 mg PO DAILY 10 Days #10 07/20/21 Unknown Rx Nitrofurantoin [place]/M-Cryst 100 mg PO Q12HR 7 Days #14 capsule 08/10/21 Unknown Rx [Macrobid CAP] NS Allergies Allergy/AdvReac Type Severity Reaction Status Date / Time lisinopril Allergy Severe Anaphylaxis Verified 12/18/17 07:42 OZIEL Inhibitors AdvReac Headache Verified 12/18/17 07:42 ED Review of Systems ROS: Stated complaint: AMS Other details as noted in HPI Comment: Unobtainable due to pts medical conditions Constitutional: diaphoresis Respiratory: denies: cough Cardiovascular: syncope Gastrointestinal: abdominal pain Neurological: weakness, confusion ED Past Medical Hx - Past Medical History Hx Hypertension: Yes (SINCE AGE 26 YRS OLD; Uncontrolled BP) Hx CVA: Yes Hx Congestive Heart Failure: Yes Hx Diabetes: Yes Hx GERD: Yes Hx Sickle Cell Disease: ([facility] TRAIT ONLY) Hx Arthritis: Yes Hx Psychiatric Treatment: Yes (anxiety) Hx Asthma: Yes Additional medical history: neuropathy, lupus. cardiac cath 10/08/2015 with EF of 55%, diastolic dysfunction, and normal coronary arteries.,tia - Surgical History Hx Cholecystectomy: Yes Additional Surgical History: c-sections 88, 90 - Social History Smoking Status: Never Smoker Substance Use Type: Alcohol - Medications Home Medications: Home Medications Medication Instructions Recorded Confirmed Last Taken Type amLODIPine 10 mg PO DAILY #30 tablet 10/08/15 07/20/21 07/20/21 Rx atenoloL [Tenormin] 50 mg PO DAILY #30 tablet 10/08/15 07/20/21 07/19/21 Rx cloNIDine [Catapres] 0.2 mg PO BID 05/07/16 07/20/21 07/19/21 History Losartan/Hydrochlorothiazide 1 each PO QDAY 05/13/16 07/20/21 07/01/16 History [Hyzaar 100-12.5 TAB] hydrOXYzine HCL [Hydroxyzine HCl] 25 mg PO BID 05/13/16 07/20/21 07/01/16 History Carafate 1 tab PO PRN PRN 07/01/16 07/20/21 Unknown History Docusate Sodium [Colace] 100 mg PO BID PRN #20 capsule 07/01/16 07/20/21 Unknown Rx HYDROcodone/APAP 5-325 [[place] 1 each PO Q6HR PRN #20 tablet 07/01/16 07/20/21 Unknown Rx 5/325] Prednisone [predniSONE 10 mg 10 mg PO .TAPER 07/01/16 07/20/21 07/01/16 History (6-Day Pack, 21 Tabs)] traZODone [Desyrel] 50 mg PO BID 07/01/16 07/20/21 07/01/16 History Gabapentin 300 mg PO BID #30 capsule 12/18/17 07/20/21 Unknown Rx Nitrofurantoin [place]/M-Cryst 100 mg PO Q12HR #14 capsule 07/07/21 07/20/21 Unknown Rx [Macrobid CAP] Potassium Chloride [K-Dur] 10 meq PO QDAY #5 07/07/21 07/20/21 Unknown Rx Ciprofloxacin HCl 250 mg PO DAILY 10 Days #10 07/20/21 Unknown Rx Nitrofurantoin [place]/M-Cryst 100 mg PO Q12HR 7 Days #14 capsule 08/10/21 Unknown Rx [Macrobid CAP] NS ED Physical Exam - General Limitations: Altered Mental Status, Physical Limitation General appearance: in no apparent distress, anxious - Head Head exam: Present: atraumatic, normocephalic - Eye Eye exam: Present: normal appearance, EOMI. Absent: nystagmus - ENT ENT exam: Present: normal exam, normal orophraynx, mucous membranes moist, normal external ear exam, other (Scar noted on anterior neck) - Neck Neck exam: Present: normal inspection, full ROM, other (JVD noted bilaterally). Absent: tenderness, meningismus - Respiratory Respiratory exam: Present: normal lung sounds bilaterally. Absent: respiratory distress, wheezes, rales, rhonchi, stridor - Cardiovascular Cardiovascular Exam: Present: normal rhythm, tachycardia, normal heart sounds. Absent: bradycardia, irregular rhythm, systolic murmur, diastolic murmur, rubs, gallop - GI/Abdominal GI/Abdominal exam: Present: soft, tenderness. Absent: distended, guarding, rebound, rigid, pulsatile mass - Rectal Rectal exam: Present: normal inspection (Chaperoned by nurse Chen) - Extremities Exam Extremities exam: Present: normal inspection, full ROM, other (2+ pulses noted in the bilateral upper and lower extremities. There is no palpable cord. negative Homans sign. Muscular compartments are soft. The pelvis is stable.). Absent: pedal edema, calf tenderness - Back Exam Back exam: Present: normal inspection. Absent: tenderness, CVA tenderness (R), CVA tenderness (L), paraspinal tenderness, vertebral tenderness - Neurological Exam Neurological exam: Present: altered (The patient is awake and alert to name, location and month. However, her thought process is somewhat disorganized. She does not recall what happened. She is slow to respond to some questions.), other (There is no facial droop. The tongue is midline. EOMI. 5 out of 5 strength left arm and left leg. Patient endorses chronic weakness in right arm and right leg. Endorses sensation is intact to light touch in 4 extremities) - Psychiatric Psychiatric exam: Present: anxious - Skin Skin exam: Present: warm, dry, intact, normal color. Absent: rash ED Course Vital Signs 10/07/21 10/07/21 10/07/21 20:08 20:40 20:46 Temperature 98.6 F Pulse Rate 110 H 117 H Respiratory 16 21 13 Rate Blood Pressure 178/124 Blood Pressure 120/88 [Right] O2 Sat by Pulse 98 100 Oximetry 10/07/21 10/07/21 10/07/21 21:00 21:16 21:30 Temperature Pulse Rate 107 H 104 H 101 H Respiratory 17 19 16 Rate Blood Pressure 178/124 178/124 178/124 Blood Pressure [Right] O2 Sat by Pulse 100 99 100 Oximetry 10/07/21 10/07/21 10/07/21 21:45 22:00 22:15 Temperature Pulse Rate 91 H 91 H 100 H Respiratory 13 16 16 Rate Blood Pressure 154/103 154/103 163/93 Blood Pressure [Right] O2 Sat by Pulse 99 99 99 Oximetry 10/07/21 10/07/21 10/07/21 22:30 22:46 23:00 Temperature Pulse Rate 93 H 103 H 84 Respiratory 15 21 19 Rate Blood Pressure 154/103 163/93 163/93 Blood Pressure [Right] O2 Sat by Pulse 99 100 100 Oximetry 10/07/21 10/07/21 23:16 23:30 Temperature Pulse Rate 96 H 95 H Respiratory 16 15 Rate Blood Pressure 220/118 220/118 Blood Pressure [Right] O2 Sat by Pulse 100 100 Oximetry - Reevaluation(s) Reevaluation #2: 10/07/21 22:08 Differential diagnosis, include but not limited to: TIA, intracranial hemorrhage, pneumonia, UTI, orthostasis, vagal event, structural cardiac disease, thyroid derangement, toxic encephalopathy, metabolic encephalopathy, conversion disorder Assessment and plan: 61-year-old female, with report of alteration in mental status, and drooling. Patient symptoms appear to be mostly resolved, although she appears to be still somewhat altered, and erratic in thought process. The patient is moving 4 extremities. She did report that she had a prior history of stroke, with residual right-sided deficits. She also has a history of recent stroke. Her examination at this time is not suggestive of a large vessel occlusion. Her tachycardia is improving at this time with supportive care. Given that she complained of abdominal pain in addition to nonspecific alteration in mental status, we will obtain noncontrast CT scan of the brain, as well as CT scan of the abdomen pelvis. We will reassess after initial diagnostics have resulted. Have requested urinalysis. 10/07/21 22:25 Patient found to have marked hypokalemia, hypomagnesemia, and lactic acidosis. She has no meningeal signs. Her rectal temperature is 97 degrees. Her examination is not suggestive of meningitis or encephalitis. Uncertain if lactic acidosis a type I or type II lactic acidosis. We will replete patient's electrolytes. We will cover empirically with ceftriaxone. I discussed plan of care with patient for IV fluids, antibiotics, electrolyte correction, and admission for supportive care and observation. The patient is agreeable. Reassess after CT imaging has resulted. 10/08/21 00:00 CT scan brain shows chronic findings. CT scan abdomen pelvis with chronic findings. Suspect that lactic acidosis is a type II lactic acidosis. Patient resting comfortably in stretcher now. Tachycardia resolved. Blood pressure acceptable. Hospital physician, Dr. Dalia Stern to admit patient to internal medicine service, for transient alteration in mental status, hypokalemia, hypomagnesemia, and systemic inflammatory response syndrome In the interim, the patient has become relatively tachycardic and hypertensive. He requests labetalol for blood pressure 10/08/21 00:07 - EJ/Peripheral Line Neck L Time Out Performed: Yes Indications: nurses unable to establis Skin Cleansed in Sterile Fashion: Yes Size: 20 Dressing Placed: Tegaderm Patient Tolerated Procedure: well ED Medical Decision Making - Lab Data Result diagrams: 10/07/21 21:19 10/07/21 21:19 Vital Signs 10/07/21 20:08 Temperature 98.6 F Pulse Rate 110 H Respiratory 16 Rate Blood Pressure 120/88 [Right] O2 Sat by Pulse 98 Oximetry Lab Results 10/07/21 10/07/21 10/07/21 Range/Units 21:19 21:19 21:19 WBC 8.9 (4.5-11.0) K/mm3 RBC 4.22 (3.65-5.03) M/mm3 Hgb 13.2 (10.1-14.3) gm/dl Hct 39.4 (30.3-42.9) % MCV 93 (79-97) fl MCH 31 (28-32) pg MCHC 34 (30-34) % RDW 17.6 H (13.2-15.2) % Plt Count 300 (140-440) K/mm3 Lymph % (Auto) 17.6 (13.4-35.0) % [place] % (Auto) 6.1 (0.0-7.3) % Eos % (Auto) 0.1 (0.0-4.3) % Baso % (Auto) 0.4 (0.0-1.8) % Lymph # (Auto) 1.6 (1.2-5.4) K/mm3 [place] # (Auto) 0.5 (0.0-0.8) K/mm3 Eos # (Auto) 0.0 (0.0-0.4) K/mm3 Baso # (Auto) 0.0 (0.0-0.1) K/mm3 Seg Neutrophils % 75.8 H (40.0-70.0) % Seg Neutrophils # 6.7 (1.8-7.7) K/mm3 PT 14.3 (12.2-14.9) Sec. INR 1.00 (0.87-1.13) APTT 25.9 (24.2-36.6) Sec. Sodium 143 (137-145) mmol/L Chloride 95.3 L (98-107) mmol/L Carbon Dioxide 27 (22-30) mmol/L Anion Gap 24 mmol/L BUN 5 L (7-17) mg/dL Creatinine 1.1 (0.6-1.2) mg/dL Estimated GFR > 60 ml/min BUN/Creatinine Ratio 5 % Glucose 224 H (65-100) mg/dL Calcium 9.4 (8.4-10.2) mg/dL Total Bilirubin 0.90 (0.1-1.2) mg/dL AST 30 (5-40) units/L ALT 8 (7-56) units/L Alkaline Phosphatase 126 (35-129) units/L Total Creatine Kinase 102 (30-135) units/L Troponin T < 0.010 (0.00-0.029) ng/mL Total Protein 7.6 (6.3-8.2) g/dL Albumin 4.4 (3.9-5) g/dL Albumin/Globulin Ratio 1.4 % Acetaminophen (10.0-30.0) ug/mL 10/07/21 Range/Units 21:19 WBC (4.5-11.0) K/mm3 RBC (3.65-5.03) M/mm3 Hgb (10.1-14.3) gm/dl Hct (30.3-42.9) % MCV (79-97) fl MCH (28-32) pg MCHC (30-34) % RDW (13.2-15.2) % Plt Count (140-440) K/mm3 Lymph % (Auto) (13.4-35.0) % [place] % (Auto) (0.0-7.3) % Eos % (Auto) (0.0-4.3) % Baso % (Auto) (0.0-1.8) % Lymph # (Auto) (1.2-5.4) K/mm3 [place] # (Auto) (0.0-0.8) K/mm3 Eos # (Auto) (0.0-0.4) K/mm3 Baso # (Auto) (0.0-0.1) K/mm3 Seg Neutrophils % (40.0-70.0) % Seg Neutrophils # (1.8-7.7) K/mm3 PT (12.2-14.9) Sec. INR (0.87-1.13) APTT (24.2-36.6) Sec. Sodium (137-145) mmol/L Chloride (98-107) mmol/L Carbon Dioxide (22-30) mmol/L Anion Gap mmol/L BUN (7-17) mg/dL Creatinine (0.6-1.2) mg/dL Estimated GFR ml/min BUN/Creatinine Ratio % Glucose (65-100) mg/dL Calcium (8.4-10.2) mg/dL Total Bilirubin (0.1-1.2) mg/dL AST (5-40) units/L ALT (7-56) units/L Alkaline Phosphatase (35-129) units/L Total Creatine Kinase (30-135) units/L Troponin T (0.00-0.029) ng/mL Total Protein (6.3-8.2) g/dL Albumin (3.9-5) g/dL Albumin/Globulin Ratio % Acetaminophen 5.0 L (10.0-30.0) ug/mL - EKG Data -: EKG Interpreted by Fl EKG shows normal: sinus rhythm Rate: tachycardia - EKG Data 10/07/21 22:00 The EKG is interpreted at 21: 21 Sinus rhythm, rate 97 bpm. Normal axis, normal P wave axis, atrial enlargement, left ventricular hypertrophy, nonspecific T wave abnormalities. This is an abnormal EKG. This is not a STEMI EKG appears to be mostly unchanged when compared to prior EKG from July 2021, with the exception that ST abnormalities in inferior leads, appear to be more pronounced. 10/07/21 22:02 - Radiology Data Radiology results: pending, report reviewed, image reviewed CHEST 1 VIEW 10/07/2021 8:09 PM INDICATION / CLINICAL INFORMATION: Altered Mental Status. COMPARISON: One view of the chest from 07/16/2016. FINDINGS: SUPPORT DEVICES: None. HEART / MEDIASTINUM: No significant abnormality. LUNGS / PLEURA: No significant pulmonary abnormality. No significant pleural effusion. No pneumothorax. ADDITIONAL FINDINGS: No significant additional findings. IMPRESSION: 1. No acute abnormality of the chest. Signer Name: Pete Wick MD Signed: 10/07/2021 8:27 PM Workstation Name: [id number] Critical care attestation.: If time is entered above; I have spent that time in minutes in the direct care of this critically ill patient, excluding procedure time. ED Disposition Clinical Impression: Hypertensive urgency Disposition: ADMITTED INPATIENT Is pt being admited?: Yes Does the pt Need Aspirin: No Condition: Good Referrals: PRIMARY CARE, [Primary Care Provider] - 3-5 Days
--- NOTE | 2021-10-07 21:31 | XRay Report ---
CHEST 1 VIEW 10/07/2021 8:09 PM INDICATION / CLINICAL INFORMATION: Altered Mental Status. COMPARISON: One view of the chest from 07/16/2016. FINDINGS: SUPPORT DEVICES: None. HEART / MEDIASTINUM: No significant abnormality. LUNGS / PLEURA: No significant pulmonary abnormality. No significant pleural effusion. No pneumothora x. ADDITIONAL FINDINGS: No significant additional findings. IMPRESSION: 1. No acute abnormality of the chest. Signer Name: Pete Wick MD Signed: 10/07/2021 9:27 PM Workstation Name: [id number]
[2021-10-07 21:48] LABS: Basophils % (Auto) 0.4 % (0.0-1.8); Eosinophils % (Auto) 0.1 % (0.0-4.3); Hematocrit 39.4 % (30.3-42.9); Hemoglobin 13.2 gm/dl (10.1-14.3); Lymphocytes # (Auto) 1.6 K/mm3 (1.2-5.4); Lymphocytes % (Auto) 17.6 % (13.4-35.0); Mean Corpuscular HGB Conc 34 % (30-34); Mean Corpuscular Volume 93 fl (79-97); Monocytes # (Auto) 0.5 K/mm3 (0.0-0.8); Monocytes % (Auto) 6.1 % (0.0-7.3); Platelet Count 300 K/mm3 (140-440); Red Blood Count 4.22 M/mm3 (3.65-5.03); Red Cell Distribution Width 17.6 % (13.2-15.2)
[2021-10-07 21:54] LABS: Alanine Aminotransferase 8 units/L (7-56); Albumin 4.4 g/dL (3.9-5); BUN/Creatinine Ratio 5; Blood Urea Nitrogen 5 mg/dL (7-17); Calcium 9.4 mg/dL (8.4-10.2); Hemolysis Index 4
[2021-10-07 22:00] LABS: Partial Thromboplastin Time 25.9 Sec. (24.2-36.6)
[2021-10-07] MEDS ORDERED: MAGNESIUM SULFATE 2 GM/50 ML BAG IV ONE (22:18)
[2021-10-07] MEDS ORDERED: POTASSIUM CHLORIDE ER 20 MEQ TAB PO ONE (22:18)
[2021-10-07] MEDS ORDERED: MAGNESIUM OXIDE 400 MG TAB PO STA (22:18)
[2021-10-07] MEDS ORDERED: cefTRIAXone/NS 1 GM/50 ML 1 GM/50 ML BAG IV ONE (22:24)
[2021-10-07] MEDS ORDERED: SODIUM CHLORIDE 0.9% 500 ML 800 ML IV ONE (22:43)
--- NOTE | 2021-10-07 22:58 | Cat Scan Report ---
CT HEAD WITHOUT CONTRAST INDICATION / CLINICAL INFORMATION: Altered Mental Status. TECHNIQUE: All CT scans at this location are performed using CT dose reduction for ALARA by means of automated e xposure control. COMPARISON: None available. FINDINGS: There is diffuse areas of low-attenuation within the right occipital lobe suggesting FORENSIC ACCOUNTANT infarct, pos sibly subacute/chronic. There are scattered areas of low-attenuation within the periventricular and c entral white matter. No acute hemorrhage is seen. No midline shift or mass effect. Visualized sinuses are clear. ADDITIONAL FINDINGS: None. IMPRESSION: 1. Area of low attenuation within the right FORENSIC ACCOUNTANT distribution suggests prior infarct, likely subacute. If there is concern for acute/subacute infarctMRI with diffusion recommended for further evaluation 2. Scattered areas of low-attenuation in the periventricular and central white matter suggesting nons pecific microangiopathy. There is concern for acute ischemia further workup recommended. Called to Dr Huynh Signer Name: Carroll Lott MD Signed: 10/07/2021 10:54 PM Workstation Name: [id number]
--- NOTE | 2021-10-07 23:00 | Cat Scan Report ---
CT ABDOMEN AND PELVIS WITHOUT CONTRAST INDICATION / CLINICAL INFORMATION: Abdominal pain with bizarre mental status. TECHNIQUE: Axial CT images were obtained through the abdomen and pelvis without IV contrast. All CT scans at [facility] location are performed using CT dose reduction for ALARA by means of automated exposure control. COMPARISON: CT abdomen and pelvis with contrast from 07/07/2021. FINDINGS: LOWER CHEST: No significant abnormality. LIVER: No significant abnormality. GALLBLADDER: Surgically absent. BILE DUCTS: No significant abnormality. PANCREAS: No significant abnormality. SPLEEN: No significant abnormality. ADRENALS: No significant abnormality. RIGHT KIDNEY/URETER: No significant abnormality. LEFT KIDNEY/URETER: No significant abnormality. STOMACH/SMALL BOWEL: No significant abnormality. COLON: No significant abnormality. APPENDIX: No significant abnormality. PERITONEUM: No free fluid. No free air. No fluid collection. LYMPH NODES: No significant adenopathy. VASCULATURE: There is moderate generalized atherosclerosis. No other significant abnormality. URINARY BLADDER: There is nonspecific mild bladder wall thickening without other significant abnormal ities. REPRODUCTIVE ORGANS: No significant abnormality. ADDITIONAL FINDINGS: None. BONES: No acute findings. No significant interval changes. IMPRESSION: 1. No acute findings to explain the patient's abdominal pain. 2. Additional findings as above. Signer Name: Pete Wick MD Signed: 10/07/2021 10:56 PM Workstation Name: [id number]
[2021-10-07] MEDS: POTASSIUM CHLORIDE 10 MEQ 10 MEQ/100 ML BAG IV SCH (23:35)
[2021-10-07 23:38] LABS: Bilirubin,Urine Negative (Negative); Blood,Urine Negative (Negative); Color,Urine Brown (Yellow)
[2021-10-07 23:39] LABS: Protein,Urine 300 mg/dL mg/dL (Negative); Urobilinogen,Urine < 2.0 mg/dL (<2.0)
[2021-10-07 23:42] LABS: Bacteria,Urine 1+ /HPF (Negative); Hyaline Casts,Urine 2 /LPF; Mucus,Urine FEW /HPF
[2021-10-08] MEDS ORDERED: METOCLOPRAMIDE 10 MG TAB PO PRN (00:19)
[2021-10-08] MEDS ORDERED: ACETAMINOPHEN 325 MG TAB PO PRN ×2 (00:19)
[2021-10-08] MEDS ORDERED: PROMETHAZINE 25 MG RECT SUPP PR PRN (00:19)
[2021-10-08] MEDS ORDERED: MORPHINE 4 MG/1 ML INJ IV PRN (00:19)
[2021-10-08] MEDS ORDERED: ONDANSETRON 4 MG/2 ML INJ IV PRN ×2 (00:19)
[2021-10-08] MEDS ORDERED: MAGNESIUM HYDROXIDE (MOM) ORAL LIQD UDC PO PRN ×2 (00:19)
[2021-10-08] MEDS ORDERED: MORPHINE 2 MG/1 ML INJ IV PRN (00:19)
[2021-10-08] MEDS ORDERED: DEXTROSE 50% IN WATER (25GM) 50 ML SYRINGE IV PRN (00:19)
[2021-10-08] MEDS: POTASSIUM CHLORIDE 10 MEQ 10 MEQ/100 ML BAG IV SCH ×6 (00:32→20:41)
--- NOTE | 2021-10-08 00:39 | History and Physical Report ---
History of Present Illness Date of examination: 10/08/21 Date of admission: 10/08/2021 Chief complaint: Altered Mental Status History of present illness: 61-year-old female with known history of hypertension and recent CVA about 2 weeks ago presenting to the emergency room today via EMS with changes in mental status, drooling and unresponsiveness. Patient states she feels a little lightheaded but denies any headache. She also indicates that her lower extremities feels weak. She denies any blurry vision, no nausea or vomiting and no abdominal pain. Denies any chest pain or shortness of breath. Upon arrival in the emergency room today, blood pressure was quite elevated with systolic in the 200s and diastolic in the low 100s. She was also found to be slightly tachycardic. Patient admits that she drinks alcohol regularly but not heavily. Work-up in the emergency room, lab reveals elevated lactic acid, hypokalemia of 2.9, lactic acid of 2.10, magnesium of 1.0. CTof the head shows area of low-attenuation within the right [employer] distribution suggesting prior infarct, likely subacute. Scattered areas of low-attenuation in the periventricular and central white matter suggesting nonspecific microangiopathy. CT of the abdomen and pelvis-unremarkable. Chest x-ray shows no acute abnormality. Past History Past Medical History: arthritis, diabetes, GERD, stroke, other (neuropathy, lupus. cardiac cath 10/08/2015 with EF of 55%, diastolic dysfunction, and normal coronary arteries.,tia,Asthma,Anxiety) Past Surgical History: cholecystectomy, Social history: alcohol abuse Family history: no significant family history Medications and Allergies Allergies Allergy/AdvReac Type Severity Reaction Status Date / Time lisinopril Allergy Severe Anaphylaxis Verified 12/18/17 07:42 OZIEL Inhibitors AdvReac Headache Verified 12/18/17 07:42 Home Medications Medication Instructions Recorded Confirmed Last Taken Type amLODIPine 10 mg PO DAILY #30 tablet 10/08/15 07/20/21 07/20/21 Rx atenoloL [Tenormin] 50 mg PO DAILY #30 tablet 10/08/15 07/20/21 07/19/21 Rx cloNIDine [Catapres] 0.2 mg PO BID 05/07/16 07/20/21 07/19/21 History Losartan/Hydrochlorothiazide 1 each PO QDAY 05/13/16 07/20/2117 History [Hyzaar 100-12.5 TAB] hydrOXYzine HCL [Hydroxyzine HCl] 25 mg PO BID 05/13/16 07/20/21 07/01/16 History Carafate 1 tab PO PRN PRN 07/01/16 07/20/21 Unknown History Docusate Sodium [Colace] 100 mg PO BID PRN #20 capsule 07/01/16 07/20/21 Unknown Rx HYDROcodone/APAP 5-325 [[place] 1 each PO Q6HR PRN #20 tablet 07/01/16 07/20/21 Unknown Rx 5/325] Prednisone [predniSONE 10 mg 10 mg PO .TAPER 07/01/16 07/20/21 07/01/16 History (6-Day Pack, 21 Tabs)] traZODone [Desyrel] 50 mg PO BID 07/01/16 07/20/21 07/01/16 History Gabapentin 300 mg PO BID #30 capsule 12/18/17 07/20/21 Unknown Rx Nitrofurantoin Kay/M-Cryst 100 mg PO Q12HR #14 capsule 07/07/21 07/20/21 Unknown Rx [Macrobid CAP] Potassium Chloride [K-Dur] 10 meq PO QDAY #5 07/07/21 07/20/21 Unknown Rx Ciprofloxacin HCl 250 mg PO DAILY 10 Days #10 07/20/21 Unknown Rx Nitrofurantoin Kay/M-Cryst 100 mg PO Q12HR 7 Days #14 capsule 08/10/21 Unknown Rx [Macrobid CAP] NS Active Meds: Active Medications Potassium Chloride (Kcl 10meq/100ml) 10 meq in 100 mls @ 100 mls/hr IV Q1H PRIETO Stop: 10/08/21 02:59 Last Admin: 10/08/21 00:32 Dose: Not Given Review of Systems Constitutional: no fever, no chills Ears, nose, mouth and throat: no nasal congestion, no sore throat Cardiovascular: no chest pain, no palpitations Respiratory: no cough, no shortness of breath Gastrointestinal: no abdominal pain, no nausea, no vomiting, no diarrhea Genitourinary Female: no flank pain, no dysuria, no hematuria Musculoskeletal: no neck pain, no low back pain Integumentary: no rash, no pruritis Neurological: change in mentation, confusion, no headaches Psychiatric: no anxiety, no depression Endocrine: no polyphagia, no polydipsia, no polyuria, no nocturia Exam - Constitutional Vitals: Temp Pulse Resp BP Pulse Ox 98.6 F 95 H 15 220/118 100 10/07/21 20:08 10/07/21 23:30 10/07/21 23:30 10/07/21 23:30 10/07/21 23:30 General appearance: Present: no acute distress, well-nourished - EENT Eyes: Present: PERRL, EOM intact. Absent: scleral icterus ENT: hearing intact, clear oral mucosa, dentition normal - Neck Neck: Present: supple, normal ROM - Respiratory Respiratory effort: normal Respiratory: bilateral: CTA - Cardiovascular Rhythm: regular Heart Sounds: Present: S1 & S2. Absent: gallop, systolic murmur, diastolic murmur, rub, click - Extremities Extremities: no ischemia, pulses intact, pulses symmetrical, No edema, normal temperature, normal color, Full ROM Peripheral Pulses: within normal limits - Abdominal General gastrointestinal: Present: soft, non-tender, non-distended, normal bowel sounds. Absent: mass - Integumentary Integumentary: Present: clear, warm, dry, normal turgor. Absent: rash - Musculoskeletal Musculoskeletal: strength equal bilaterally - Psychiatric Psychiatric: appropriate mood/affect, intact judgment & insight, memory intact, cooperative - Neurologic Neurologic: CNII-XII intact, no focal deficits, moves all extremities HEART Score - HEART Score Troponin: Troponin T < 0.010 ng/mL (0.00-0.029) 10/07/21 21:19 Results - Labs CBC & Chem 7: 10/07/21 21:19 10/07/21 21:19 Labs: Abnormal lab results 10/07/21 10/07/21 10/07/21 Range/Units 21:19 21:19 21:19 RDW 17.6 H (13.2-15.2) % Seg Neutrophils % 75.8 H (40.0-70.0) % Potassium 2.9 L* (3.6-5.0) mmol/L Chloride 95.3 L (98-107) mmol/L BUN 5 L (7-17) mg/dL Glucose 224 H (65-100) mg/dL Lactic Acid 4.20 H* (0.7-2.0) mmol/L Magnesium (1.7-2.3) mg/dL Ur Specific [place] (1.003-1.030) Urine WBC (Auto) (0.0-6.0) /HPF U Epithel Cells (Auto) (0-13.0) /HPF Salicylates (2.8-20.0) mg/dL Acetaminophen (10.0-30.0) ug/mL 10/07/21 10/07/21 10/07/21 Range/Units 21:19 21:19 21:19 RDW (13.2-15.2) % Seg Neutrophils % (40.0-70.0) % Potassium (3.6-5.0) mmol/L Chloride (98-107) mmol/L BUN (7-17) mg/dL Glucose (65-100) mg/dL Lactic Acid (0.7-2.0) mmol/L Magnesium 1.00 L (1.7-2.3) mg/dL Ur Specific [place] (1.003-1.030) Urine WBC (Auto) (0.0-6.0) /HPF U Epithel Cells (Auto) (0-13.0) /HPF Salicylates < 0.3 L (2.8-20.0) mg/dL Acetaminophen 5.0 L (10.0-30.0) ug/mL 10/07/21 Range/Units Unknown RDW (13.2-15.2) % Seg Neutrophils % (40.0-70.0) % Potassium (3.6-5.0) mmol/L Chloride (98-107) mmol/L BUN (7-17) mg/dL Glucose (65-100) mg/dL Lactic Acid (0.7-2.0) mmol/L Magnesium (1.7-2.3) mg/dL Ur Specific [place] 1.035 H (1.003-1.030) Urine WBC (Auto) 18.0 H (0.0-6.0) /HPF U Epithel Cells (Auto) 44.0 H (0-13.0) /HPF Salicylates (2.8-20.0) mg/dL Acetaminophen (10.0-30.0) ug/mL Assessment and Plan Assessment: 1. Altered mental status 2. Hypertensive urgency 3. Lactic acidosis 4. Electrolyte imbalance 5. Alcohol abuse 6. History of recent CVA 7. Diabetes mellitus Plan: 1. Patient admitted and will be worked up for possible CVA. 2. Commenced on daily aspirin and statin. 3. Consult placed to neurology for evaluation and recommendations. 4. We will schedule for echocardiogram and MRI of the brain. 5. Patient will also be placed on CIWA protocol. 6. Patient placed on sliding scale insulin. We will monitor Accu-Cheks. 7. We will resume routine home medications once reconciled. We will monitor vital signs closely. 8. Electrolytes will be repleted. Will monitor chemistry DVT prophylaxis:SQ Heparin Code status: Full Code
[2021-10-08] MEDS: hydrALAZINE 20 MG/1 ML INJ IV PRN ×2 (03:04→08:42)
[2021-10-08] MEDS ORDERED: LORazepam 2 MG/ML VIAL IV PRN ×3 (05:36)
[2021-10-08] MEDS: MORPHINE 2 MG/1 ML INJ IV PRN (08:14)
[2021-10-08] MEDS: INSULIN LISPRO 100 UNIT/ML SUB-Q SCH ×4 (08:14→21:38)
[2021-10-08] MEDS: SODIUM CHLORIDE 0.9% 1000 ML 1,000 ML IV SCH ×2 (08:18→21:51)
[2021-10-08] MEDS: FOLIC ACID 1 MG TAB PO SCH (09:11)
[2021-10-08] MEDS: THIAMINE 100 MG TAB PO SCH (09:12)
[2021-10-08] MEDS ORDERED: amLODIPine 10 MG TAB PO SCH (10:00)
[2021-10-08] MEDS ORDERED: POTASSIUM CHLORIDE ER 10 MEQ TAB PO SCH (10:00)
[2021-10-08] MEDS ORDERED: LOSARTAN 50 MG TAB PO SCH (10:00)
[2021-10-08] MEDS ORDERED: atenoloL 50 MG TAB PO SCH (10:00)
[2021-10-08] MEDS ORDERED: ASPIRIN 325 MG TAB PO SCH (10:00)
[2021-10-08] MEDS ORDERED: cloNIDine 0.2 MG TAB PO SCH (10:00)
[2021-10-08 10:40] LABS: Chol/HDL Ratio 2.36 %
--- NOTE | 2021-10-08 10:41 | Electrocardiograph Report ---
[facility] Test Date: 2021-10-07 Test Time: 21:21:00 Pat Name: LOKI ALMEIDA Department: Room: A473 1 Gender: F Lath Tier: kayleen : 1960 Requested By: FENG TANG Order Number: [id number] Reading MD: Clemencia Lan Measurements Intervals [place] Rate: 97 P: 75 ME: 108 QRS: 17 QRSD: 81 T: 44 QT: 444 QTc: 566 Interpretive Statements Sinus rhythm Consider left ventricular hypertrophy Prolonged QT interval Probable anteroseptal infarct, old Compared to ECG 07/21/2021 18:35:09 Prolonged QT interval now present Sinus tachycardia no longer present Electronically Signed On 10-08-2021 10:41:22 EDT by Clemencia Lan
[2021-10-08] MEDS ORDERED: MAGNESIUM SULFATE 2 GM/50 ML BAG IV NR (12:01)
--- NOTE | 2021-10-08 13:08 | Consultation ---
History of Present Illness Consult date: 10/08/21 History of present illness: [place] [facility] Consult Note # Demographics Consult Type: Acute Stroke Level 1 (0-4.5 hrs) Patient Location: Inpatient First Name: Marci Last Name: Pasha Date of : 1960 Age: 61 Gender: Female Facility: [facility] Time of Initial Page (Eastern Time): 10/08/2021, 12:37 Time of Return Call (Eastern Time): 10/08/2021, 12:37 # HPI Chief Complaint: altered mental state confusion weakness (focal) History: Per bedside Nurse, patient was looking to left around 12:15pm & unable to move right side. Patient admitted for change in mental status & unresponsiveness in setting of opioid use on 10/07. Last Known Normal: I have collected independent history specific to time last normal or last known well. We have collaborated with the provider and at this time, we have the most current timeline with the information that is available. 9:30am Duration: constant minutes hours Possible Thrombolytic candidate: not on warfarin or NOACs no intracranial hemorrhage history no recent major surgery # Scores Time of exam and NIHSS ( Time): 10/08/2021, 12:44 Level of Consciousness 1a: [0] = Alert; keenly responsive LOC Questions 1b: [2] = Answers neither correctly LOC Commands 1c: [2] = Performs neither correctly Best Gaze 2: [2] = Forced deviation Visual 3: [0] = No visual loss Facial Palsy 4: [2] = Partial paralysis Motor Arm Left 5a: [0] = No drift Motor Arm Right 5b: [4] = No movement Motor Leg Left 6a: [0] = No drift Motor Leg Right 6b: [4] = No movement Limb Ataxia 7: [0] = Absent Sensory 8: [0] = Normal Best Language 9: [3] = Mute Dysarthria 10: [2] = Severe dysarthria Extinction and Inattention 11: [0] = No abnormality NIHSS Total: 21 Modified [place] Scale (mRS) pre-stroke: [0] = No Symptoms Modified Moe Scale total: 0 VAN Screening: Positive # Exam SBP: 109 DBP: 60 Mental Status: awake follows commands Language: Non-verbal Cranial Nerves: right facial droop Left gaze preference # ROS Unable to obtain ROS: altered mentation # PMH-FH-SH Past Medical History: hypertension # Data Glucose: [address] personally read by me ( Time): 10/08/2021, 12:[address]: no bleed preliminarily reviewed by me, please refer to radiology read for official reading # Assessment Impression: Ischemic Stroke (Acute) # Plan Thrombolytic/Intervention: IV thrombolytic and possible IA candidate Thrombolytic Dosing: IV alteplase 0.9 mg/kg, max dose 90 mg; 10% of dose given over 1 minute IVP, remaining 90% given as infusion over 1 hour Possible IA Candidate: signs and symptoms of LVO CTA pending Time IV Thrombolytic Recommended ( Time): 10/08/2021, 12:52 Labs: CBC comprehensive metabolic panel ESR hemoglobin A1c lipid panel troponin TSH urine drug screen ua Infectious work-up Imaging: (urgency: STAT): CT Angiogram Head and CT Angiogram Neck AND call back with results if abnormal Imaging: (urgency: routine): MRI Brain without contrast Diagnostic Test: echo without bubble study EEG Therapy/Evaluation: NPO until swallow evaluation PT/OT evaluation speech/swallow consultation Medication: aspirin 81 mg daily start statin with goal of LDL < 70 DVT Prophylaxis: SCD chemical DVT prophylaxis Thrombolytic Administration Recommendations: Unable to obtain informed consent due to medical condition. No family available. In my opinion, benefits of IV thrombolytic therapy outweigh risks. I have collected independent history specific to time last normal or last known well. We have collaborated with the ED provider and at this time, we have the most current timeline with the information that is available. BP goal< 180/105 for 24hrs post Thrombolytic administration Use Labetolol 10-20mg IV prn or Nicardipine gtt to maintain BP parameters No antiplatelets or anticoagulants for next 24 hrs unless indicated for emergent IA procedure or other life threatening situation Other: If patient has any neurological deterioration please call me back immediately telemetry monitoring I have discussed my recommendations with the referring provider Disposition: continue admission # Demographics First Name: Marci Last Name: Pak Facility: [facility] Past History Past Medical History: arthritis, diabetes, GERD, stroke, other (neuropathy, lexy pus. cardiac cath 10/08/2015 with EF of 55%, diastolic dysfunction, and normal coronary arteries.,tia,Asthma,Anxiety) Past Surgical History: cholecystectomy, Social history: alcohol abuse Family history: no significant family history Medications and Allergies Allergies Allergy/AdvReac Type Severity Reaction Status Date / Time lisinopril Allergy Severe Anaphylaxis Verified 12/18/17 07:42 OZIEL Inhibitors AdvReac Headache Verified 12/18/17 07:42 Home Medications Medication Instructions Recorded Confirmed Last Taken Type amLODIPine 10 mg PO DAILY #30 tablet 10/08/15 10/08/21 07/20/21 Rx Docusate Sodium [Colace] 100 mg PO BID PRN #20 capsule 07/01/16 10/08/21 Unknown Rx Gabapentin 300 mg PO BID #30 capsule 12/18/17 10/08/21 Unknown Rx Aspirin EC [Halfprin EC] 81 mg PO QDAY 10/08/21 10/08/21 Unknown History Clopidogrel [Plavix] 75 mg PO QDAY 10/08/21 10/08/21 Unknown History FLUoxetine [PROzac] 20 mg PO QDAY 10/08/21 10/08/21 Unknown History Hydroxychloroquine [Plaquenil] 200 mg PO QDAY 10/08/21 10/08/21 Unknown History Icosapent Ethyl [Vascepa] 1 gm PO BIDWM 10/08/21 10/08/21 Unknown History Insulin Detemir [Levemir Flextouch] 0 unit SQ QDAY 10/08/21 10/08/21 Unknown History Lispro Insulin [HumaLOG] 0 unit SQ QDAY 10/08/21 10/08/21 Unknown History Rosuvastatin Calcium 40 mg PO QDAY 10/08/21 10/08/21 Unknown History carvediloL [Coreg] 12.5 mg PO Q12H 10/08/21 10/08/21 Unknown History hydroCHLOROthiazide [HCTZ] 25 mg PO QDAY 10/08/21 10/08/21 Unknown History Active Meds: Active Medications Acetaminophen (Acetaminophen 325 Mg Tab) 650 mg PO Q4H PRN PRN Reason: Pain MILD(1-3)/Fever >100.5/HASKINS Amlodipine Besylate (Amlodipine 10 Mg Tab) 10 mg PO DAILY [facility] Last Admin: 10/08/21 09:12 Dose: 10 mg Aspirin (Aspirin 325 Mg Tab) 325 mg PO QDAY [facility] Last Admin: 10/08/21 09:12 Dose: 325 mg Atenolol (Atenolol 50 Mg Tab) 50 mg PO DAILY PRIETO Last Admin: 10/08/21 09:09 Dose: 50 mg Atorvastatin Calcium (Atorvastatin 40 Mg Tab) 40 mg PO QHS PRIETO Bisacodyl (Bisacodyl 10 Mg Rect Supp) 10 mg KS QDAY PRN PRN Reason: Constipation Clonidine HCl (Clonidine 0.2 Mg Tab) 0.2 mg PO BID PRIETO Last Admin: 10/08/21 09:10 Dose: 0.2 mg Dextrose (Dextrose 50% In Water (25gm) 50 Ml Syringe) 50 ml IV Q30MIN PRN; Protocol PRN Reason: Hypoglycemia Folic Acid (Folic Acid 1 Mg Tab) 1 mg PO QDAY PRIETO Last Admin: 10/08/21 09:11 Dose: 1 mg Hydralazine HCl (Hydralazine 20 Mg/1 Ml Inj) 10 mg IV Q4HR PRN PRN Reason: Blood Pressure Last Admin: 10/08/21 08:42 Dose: 10 mg Hydroxychloroquine Sulfate (Hydroxychloroquine 200 Mg Tab) 200 mg PO QDAY PRIETO Sodium Chloride (Nacl 0.9% 1000 Ml) 1,000 mls @ 125 mls/hr IV DIRECT PRIETO Last Admin: 10/08/21 08:18 Dose: 125 mls/hr Ceftriaxone Sodium (Rocephin/Ns 1 Gm/50 Ml) 1 gm in 50 mls @ 100 mls/hr IV Q24H PRIETO; Protocol Magnesium Sulfate (Magnesium Sulfate 2gm/50ml) 2 gm in 50 mls @ 25 mls/hr IV ONCE NR Stop: 10/08/21 15:00 Potassium Chloride (Kcl 10meq/100ml) 10 meq in 100 mls @ 100 mls/hr IV Q1H PRIETO Stop: 10/08/21 16:59 Insulin Glargine (Insulin Glargine 100 Units/Ml) 10 units SUB-Q QHS PRIETO Insulin Human Lispro (Insulin Lispro 100 Unit/Ml) 0 unit SUB-Q ACHS PRIETO; Protocol Last Admin: 10/08/21 08:14 Dose: 6 unit Lorazepam (Lorazepam 2 Mg/Ml Vial) 2 mg IV Q1H PRN PRN Reason: CIWA-Ar 8-15 Lorazepam (Lorazepam 2 Mg/Ml Vial) 4 mg IV Q1H PRN PRN Reason: CIWA-Ar 16-25 Lorazepam (Lorazepam 2 Mg/Ml Vial) 4 mg IV Q15MIN PRN PRN Reason: CIWA-Ar >25 Losartan Potassium (Losartan 50 Mg Tab) 100 mg PO QDAY [facility] Last Admin: 10/08/21 09:09 Dose: 100 mg Magnesium Hydroxide (Magnesium Hydroxide (Mom) Oral Liqd Udc) 30 ml PO Q4H PRN PRN Reason: Constipation Metoclopramide HCl (Metoclopramide 10 Mg Tab) 10 mg PO Q6H PRN PRN Reason: Nausea And Vomiting Morphine Sulfate (Morphine 2 Mg/1 Ml Inj) 2 mg IV Q4H PRN PRN Reason: Pain, Moderate (4-6) Last Admin: 10/08/21 08:14 Dose: 2 mg Morphine Sulfate (Morphine 4 Mg/1 Ml Inj) 4 mg IV Q4H PRN PRN Reason: Pain , Severe (7-10) Ondansetron HCl (Ondansetron 4 Mg/2 Ml Inj) 4 mg IV Q8H PRN PRN Reason: Nausea And Vomiting Last Admin: 10/08/21 08:14 Dose: 4 mg Potassium Chloride (Potassium Chloride Er 10 Meq Tab) 10 meq PO QDAY [facility] Last Admin: 10/08/21 09:10 Dose: 10 meq Promethazine HCl (Promethazine 25 Mg Rect Supp) 25 mg [place] Q6H PRN PRN Reason: Nausea And Vomiting Sodium Chloride (Sodium Chloride 0.9% 10 Ml Flush Syringe) 10 ml IV BID [facility] Last Admin: 10/08/21 09:12 Dose: 10 ml Sodium Chloride (Sodium Chloride 0.9% 10 Ml Flush Syringe) 10 ml IV PRN PRN PRN Reason: LINE FLUSH Thiamine HCl (Thiamine 100 Mg Tab) 100 mg PO QDAY [facility] Last Admin: 10/08/21 09:12 Dose: 100 mg Physical Examination - Vital Signs Vital Signs: Vital Signs Temp Pulse Resp BP Pulse Ox 98.6 F 110 H 16 120/88 98 10/07/21 20:08 10/07/21 20:08 10/07/21 20:08 10/07/21 20:08 10/07/21 20:08 Results - Laboratory Findings CBC and BMP: 10/07/21 21:19 10/08/21 10:07 Abnormal Lab Findings: Abnormal Labs 08/15/22 08/15/22 08/15/22 21:19 21:19 21:19 RDW 17.6 H Seg Neutrophils % 75.8 H Potassium 2.9 L* Chloride 95.3 L BUN 5 L Glucose 224 H POC Glucose Hemoglobin A1c Lactic Acid 4.20 H* Magnesium HDL Cholesterol Ur Specific [place] Urine WBC (Auto) U Epithel Cells (Auto) Salicylates Acetaminophen 10/07/21 10/07/21 10/07/21 21:19 21:19 21:19 RDW Seg Neutrophils % Potassium Chloride BUN Glucose POC Glucose Hemoglobin A1c Lactic Acid Magnesium 1.00 L HDL Cholesterol Ur Specific [place] Urine WBC (Auto) U Epithel Cells (Auto) Salicylates < 0.3 L Acetaminophen 5.0 L 10/07/21 10/07/21 10/08/21 23:47 Unknown 08:01 RDW Seg Neutrophils % Potassium Chloride BUN Glucose POC Glucose 312 H Hemoglobin A1c Lactic Acid 2.10 H* Magnesium HDL Cholesterol Ur Specific [place] 1.035 H Urine WBC (Auto) 18.0 H U Epithel Cells (Auto) 44.0 H Salicylates Acetaminophen 10/08/21 10/08/21 10/08/21 10:07 10:07 10:07 RDW Seg Neutrophils % Potassium 3.1 L Chloride BUN Glucose POC Glucose Hemoglobin A1c 14.1 H Lactic Acid 4.80 H* Magnesium 1.50 L HDL Cholesterol 76 H Ur Specific [place] Urine WBC (Auto) U Epithel Cells (Auto) Salicylates Acetaminophen
--- NOTE | 2021-10-08 13:09 | Event Note ---
Date: 10/08/21 Patient was seen and examined by me. At the time of my examination, the patient had limited movement of her R upper and lower extremities with facial droop and expressive aphasia. Noted to be changed from baseline per Nursing staff. CT head, CTA head/neck ordered. Teleneurology consult also obtained and it was recommended to give TPA. Orders placed for TPA and patient at CT at the time of this note. Patient will be transferred to ICU for monitoring and CC maintenance construction helper Dr. Ruiz was notifed.
--- NOTE | 2021-10-08 13:22 | Cat Scan Report ---
CTA NECK WITH CONTRAST 10/08/2021 INDICATION / CLINICAL INFORMATION: cva rule out. Changes in mental status COMPARISON: None. TECHNIQUE: Routine CTA of the neck is performed. 3-D/MIP reformats were postprocessed. Percentage st enosis is determined by direct quantitative measurements of diseased internal carotid artery diameter compared with normal distal internal carotid artery reference segments or by criteria similar to LEILA CET where applicable. All CT scans at this location are performed using CT dose reduction for ALARA b y means of automated exposure control. CONTRAST: 100 ml of Omnipaque 350 FINDINGS: Carotid bifurcations: There is some mild atherosclerotic irregularity at the carotid bifurcations thai aterally, with minimal narrowing at the origins of the internal carotid arteries, maximum 20%. Carotid arteries: No significant abnormality. Cervical vertebral arteries: No significant abnormality. Aortic arch: No significant abnormality. None. IMPRESSION: No significant abnormality. Signer Name: Chencho Mcgovern MD Signed: 10/08/2021 1:18 PM Workstation Name: [id number]
--- NOTE | 2021-10-08 13:29 | Cat Scan Report ---
CTA HEAD WITH CONTRAST 10/08/2021 HISTORY: cva rule out. Change in mental status COMPARISON: None. TECHNIQUE: All CT scans at this location are performed using CT dose reduction for ALARA by means of automated exposure control.. 3-D/MIP reformats postprocessed. Percentage stenosis is determined by d irect quantitative measurements of diseased internal carotid artery diameter compared with normal dis elvia internal carotid artery reference segments or by criteria similar to NASCET where applicable. CONTRAST: 100 ml of Omnipaque 350 FINDINGS: CTA HEAD: Intracranial vertebral arteries: Atherosclerotic irregularity associated with the distal vertebral ar teries, more prominently near the vertebrobasilar junction. Basilar artery: Atherosclerotic narrowing of mid basilar artery, moderately severe. Posterior cerebral arteries: There is apparent occlusion of the right posterior cerebral artery at th e P1 segment, corresponding to an area of chronic ischemic injury. Atherosclerotic irregularity along the course of the left posterior cerebral artery is also present. Intracranial internal carotid arteries: Moderate atherosclerotic calcification and plaque associated with left distal ICA at the level of the cavernous sinus. Anterior cerebral arteries: Unremarkable Middle cerebral arteries: Focal stenosis in the mid M1 segment, which appears to be high-grade. Overa ll opacification of branches of left middle cerebral artery is relatively minimal diffusely compared to the right. Dural venous sinuses:Not optimally opacified. No significant abnormality. Additional findings: None. IMPRESSION: 1. Prominent intracranial abscess chronic changes as detailed above. Signer Name: Chencho Mcgovern MD Signed: 10/08/2021 1:24 PM Workstation Name: [id number]
[2021-10-08] MEDS ORDERED: SODIUM CHLORIDE 0.9% 50 ML IVPB IV ONE ×2 (13:47→14:00)
[2021-10-08] MEDS ORDERED: ALTEPLASE 100 MG INJ KIT IV ONE ×2 (13:47)
[2021-10-08] MEDS ORDERED: ALTEPLASE 100 MG INJ KIT IV SCH ×2 (14:00→14:15)
--- NOTE | 2021-10-08 16:30 | Consultation ---
History of Present Illness Consult date: 10/08/21 Requesting physician: SHEBA SHEN Reason for consult: other (CVA s/p tPA) History of present illness: Patient is aphasic s/p CVA and is unable to give a history. History is as documented by admitting physician 61-year-old female with known history of hypertension and recent CVA about 2 weeks ago presenting to the emergency room today via EMS with changes in mental status, drooling and unresponsiveness. Patient states she feels a little lightheaded but denies any headache. She also indicates that her lower extremities feels weak. She denies any blurry vision, no nausea or vomiting and no abdominal pain. Denies any chest pain or shortness of breath. Upon arrival in the emergency room today, blood pressure was quite elevated with systolic in the 200s and diastolic in the low 100s. She was also found to be slightly tachycardic.Patient admits that she drinks alcohol regularly but not heavily. Work-up in the emergency room, lab reveals elevated lactic acid, hypokalemia of 2.9, lactic acid of 2.10, magnesium of 1.0. 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 Scattered areas of low-attenuation in the periventricular and central white matter suggesting nonspecific microangiopathy. CT of the abdomen and pelvis-unremarkable. Chest x-ray shows no acute abnormality. She was admitted to the medical floor. This morning, she was seen by the hospitalist service. The patient was noted to have limited movement of her R upper and lower extremities with facial droop and expressive aphasia. Noted to be changed from baseline per Nursing staff. CT head, CTA head/neck ordered. Teleneurology consult also obtained and it was recommended to give TPA. Patient has been transferred to the ICU for tPA and close monitoring of her neurologic function. Patient seen adn examined. Vitals, labs, medications, chart and imaging reviewed. Discussed with primary service and nursing staff. Past History Past Medical History: arthritis, diabetes, GERD, stroke, other (neuropathy, lupus. cardiac cath 10/08/2015 with EF of 55%, diastolic dysfunction, and normal coronary arteries.,tia,Asthma,Anxiety) Past Surgical History: cholecystectomy, Social history: alcohol abuse Family history: no significant family history Medications and Allergies Allergies Allergy/AdvReac Type Severity Reaction Status Date / Time lisinopril Allergy Severe Anaphylaxis Verified 12/18/17 07:42 OZIEL Inhibitors AdvReac Headache Verified 12/18/17 07:42 Home Medications Medication Instructions Recorded Confirmed Last Taken Type amLODIPine 10 mg PO DAILY #30 tablet 10/08/15 10/08/21 07/20/21 Rx Docusate Sodium [Colace] 100 mg PO BID PRN #20 capsule 07/01/16 10/08/21 Unknown Rx Gabapentin 300 mg PO BID #30 capsule 12/18/17 10/08/21 Unknown Rx Aspirin EC [Halfprin EC] 81 mg PO QDAY 10/08/21 10/08/21 Unknown History Clopidogrel [Plavix] 75 mg PO QDAY 10/08/21 10/08/21 Unknown History FLUoxetine [PROzac] 20 mg PO QDAY 10/08/21 10/08/21 Unknown History Hydroxychloroquine [Plaquenil] 200 mg PO QDAY 10/08/21 10/08/21 Unknown History Icosapent Ethyl [Vascepa] 1 gm PO BIDWM 10/08/21 10/08/21 Unknown History Insulin Detemir [Levemir Flextouch] 0 unit SQ QDAY 10/08/21 10/08/21 Unknown History Lispro Insulin [HumaLOG] 0 unit SQ QDAY 10/08/21 10/08/21 Unknown History Rosuvastatin Calcium 40 mg PO QDAY 10/08/21 10/08/21 Unknown History carvediloL [Coreg] 12.5 mg PO Q12H 10/08/21 10/08/21 Unknown History hydroCHLOROthiazide [HCTZ] 25 mg PO QDAY 10/08/21 10/08/21 Unknown History Active Meds: Active Medications Acetaminophen (Acetaminophen 325 Mg Tab) 650 mg PO Q4H PRN PRN Reason: Pain MILD(1-3)/Fever >100.5/[place] Aspirin (Aspirin 325 Mg Tab) 325 mg PO QDAY PRIETO Atorvastatin Calcium (Atorvastatin 40 Mg Tab) 40 mg PO QHS PRIETO Bisacodyl (Bisacodyl 10 Mg Rect Supp) 10 mg AK QDAY PRN PRN Reason: Constipation Dextrose (Dextrose 50% In Water (25gm) 50 Ml Syringe) 50 ml IV Q30MIN PRN; Protocol PRN Reason: Hypoglycemia Folic Acid (Folic Acid 1 Mg Tab) 1 mg PO QDAY PRIETO Last Admin: 10/08/21 09:11 Dose: 1 mg Hydralazine HCl (Hydralazine 20 Mg/1 Ml Inj) 10 mg IV Q4HR PRN PRN Reason: Blood Pressure Last Admin: 10/08/21 08:42 Dose: 10 mg Sodium Chloride (Nacl 0.9% 1000 Ml) 1,000 mls @ 125 mls/hr IV DIRECT PRIETO Last Admin: 10/08/21 08:18 Dose: 125 mls/hr Potassium Chloride (Kcl 10meq/100ml) 10 meq in 100 mls @ 100 mls/hr IV Q1H PRIETO Stop: 10/08/21 16:59 Last Admin: 10/08/21 16:22 Dose: 100 mls/hr Insulin Human Lispro (Insulin Lispro 100 Unit/Ml) 0 unit SUB-Q ACHS PRIETO; Protocol Last Admin: 10/08/21 14:06 Dose: Not Given Lorazepam (Lorazepam 2 Mg/Ml Vial) 2 mg IV Q1H PRN PRN Reason: CIWA-Ar 8-15 Lorazepam (Lorazepam 2 Mg/Ml Vial) 4 mg IV Q1H PRN PRN Reason: CIWA-Ar 16-25 Lorazepam (Lorazepam 2 Mg/Ml Vial) 4 mg IV Q15MIN PRN PRN Reason: CIWA-Ar >25 Magnesium Hydroxide (Magnesium Hydroxide (Mom) Oral Liqd Udc) 30 ml PO Q4H PRN PRN Reason: Constipation Metoclopramide HCl (Metoclopramide 10 Mg Tab) 10 mg PO Q6H PRN PRN Reason: Nausea And Vomiting Morphine Sulfate (Morphine 2 Mg/1 Ml Inj) 2 mg IV Q4H PRN PRN Reason: Pain, Moderate (4-6) Last Admin: 10/08/21 08:14 Dose: 2 mg Morphine Sulfate (Morphine 4 Mg/1 Ml Inj) 4 mg IV Q4H PRN PRN Reason: Pain , Severe (7-10) Ondansetron HCl (Ondansetron 4 Mg/2 Ml Inj) 4 mg IV Q8H PRN PRN Reason: Nausea And Vomiting Last Admin: 10/08/21 08:14 Dose: 4 mg Promethazine HCl (Promethazine 25 Mg Rect Supp) 25 mg AK Q6H PRN PRN Reason: Nausea And Vomiting Sodium Chloride (Sodium Chloride 0.9% 10 Ml Flush Syringe) 10 ml IV BID [facility] Last Admin: 10/08/21 09:12 Dose: 10 ml Sodium Chloride (Sodium Chloride 0.9% 10 Ml Flush Syringe) 10 ml IV PRN PRN PRN Reason: LINE FLUSH Thiamine HCl (Thiamine 100 Mg Tab) 100 mg PO QDAY [facility] Last Admin: 10/08/21 09:12 Dose: 100 mg Review of Systems ROS unobtainable: due to mental status Physical Examination Vital signs: Vital Signs Temp Pulse Resp BP Pulse Ox 98.6 F 110 H 16 120/88 98 10/07/21 20:08 10/07/21 20:08 10/07/21 20:08 10/07/21 20:08 10/07/21 20:08 General appearance: no acute distress, other (Aphasic, right facial droop, chronically ill looking) Eyes: non-icteric ENT: oropharynx moist Neck: supple, no lymphadenopathy, no JVD Effort: normal Ascultation: Bilateral: clear, diminished breath sounds Cardiovascular: regular rate and rhythm, other (S1,S2) Gastrointestinal: normoactive bowel sounds, soft, non-tender, non-distended Integumentary: normal Extremities: no cyanosis, no edema, pulses normal Musculoskeletal: no deformities pupils equal and round (Left lateral gaze defect, RUext 4/5 power grade) Results - Laboratory Findings CBC and BMP: 10/07/21 21:19 10/08/21 14:28 PT/INR, D-dimer PT 14.3 Sec. (12.2-14.9) 10/07/21 21:19 INR 1.00 (0.87-1.13) 10/07/21 21:19 Abnormal lab findings: Abnormal Labs 10/07/21 10/07/21 10/07/21 21:19 21:19 21:19 RDW 17.6 H Seg Neutrophils % 75.8 H Potassium 2.9 L* Chloride 95.3 L BUN 5 L Glucose 224 H POC Glucose Hemoglobin A1c Lactic Acid 4.20 H* Magnesium HDL Cholesterol Ur Specific [place] Urine WBC (Auto) U Epithel Cells (Auto) Salicylates Acetaminophen 10/07/21 10/07/21 10/07/21 21:19 21:19 21:19 RDW Seg Neutrophils % Potassium Chloride BUN Glucose POC Glucose Hemoglobin A1c Lactic Acid Magnesium 1.00 L HDL Cholesterol Ur Specific [place] Urine WBC (Auto) U Epithel Cells (Auto) Salicylates < 0.3 L Acetaminophen 5.0 L 10/07/21 10/07/21 10/08/21 23:47 Unknown 08:01 RDW Seg Neutrophils % Potassium Chloride BUN Glucose POC Glucose 312 H Hemoglobin A1c Lactic Acid 2.10 H* Magnesium HDL Cholesterol Ur Specific [place] 1.035 H Urine WBC (Auto) 18.0 H U Epithel Cells (Auto) 44.0 H Salicylates Acetaminophen 10/08/21 10/08/21 10/08/21 10:07 10:07 10:07 RDW Seg Neutrophils % Potassium 3.1 L Chloride BUN Glucose POC Glucose Hemoglobin A1c 14.1 H Lactic Acid 4.80 H* Magnesium 1.50 L HDL Cholesterol 76 H Ur Specific [place] Urine WBC (Auto) U Epithel Cells (Auto) Salicylates Acetaminophen - Diagnostic Findings Chest x-ray: image reviewed Assessment and Plan Acute CVA s/p tPA Altered mental status Hypertensive urgency Protein calorie malnutrition- moderate Lactic acidosis Electrolyte imbalance Alcohol abuse History of recent CVA Diabetes mellitus -Aspiration precautions, HOB >30 -PT/OT/CHARRER to evaluate and treat -Get surface echocardiogram -VTE prophylaxis- SCDs for now -Secondary stroke prophylaxis-aspirin 81 mg daily; statin with goal of LDL < 70 -Neurochecks q2h, if any deterioration will need stat CT head to r/o hemorrhagic transformation -CIWA protocol -Needs optimization of nutritional status -Alcohol abuse counselling when she is able to participate in the discussion -MRI Brain without contrast -Accuchecks with glycemic control, target blood glucose 140-180 mg/dL; Avoid h ypoglycemia -Supplemental oxygen as clinically indicated, keep sPO2 90-92% Thrombolytic Administration Recommendations: BP goal< 180/105 for 24hrs post Thrombolytic administration Use Labetolol 10-20mg IV as needed or Nicardipine infusion to maintain blood pressure parameters No anti-platelets or anticoagulants for next 24 hrs unless indicated for emergent IA procedure or other life threatening situation Critical care time of 35 minutes
[2021-10-08] MEDS ORDERED: cefTRIAXone/NS 1 GM/50 ML 1 GM/50 ML BAG IV SCH (22:00)
[2021-10-08] MEDS ORDERED: INSULIN GLARGINE 100 UNITS/ML SUB-Q SCH (22:00)
[2021-10-09 05:22] LABS: Basophils % (Auto) 0.4 % (0.0-1.8); Eosinophils % (Auto) 0.3 % (0.0-4.3); Hematocrit 32.1 % (30.3-42.9); Hemoglobin 10.6 gm/dl (10.1-14.3); Lymphocytes # (Auto) 2.1 K/mm3 (1.2-5.4); Lymphocytes % (Auto) 33.5 % (13.4-35.0); Mean Corpuscular HGB Conc 33 % (30-34); Mean Corpuscular Volume 96 fl (79-97); Monocytes # (Auto) 0.4 K/mm3 (0.0-0.8); Monocytes % (Auto) 6.2 % (0.0-7.3); Platelet Count 204 K/mm3 (140-440); Red Blood Count 3.34 M/mm3 (3.65-5.03); Red Cell Distribution Width 18.3 % (13.2-15.2)
[2021-10-09 05:43] LABS: BUN/Creatinine Ratio 7; Blood Urea Nitrogen 7 mg/dL (7-17); Calcium 8.1 mg/dL (8.4-10.2); Hemolysis Index 19
[2021-10-09] MEDS: SODIUM CHLORIDE 0.9% 1000 ML 1,000 ML IV SCH (06:16)
[2021-10-09] MEDS ORDERED: MAGNESIUM SULFATE 4 GM/100 ML BAG IV SCH (08:30)
[2021-10-09] MEDS: INSULIN LISPRO 100 UNIT/ML SUB-Q SCH ×4 (08:37→22:05)
[2021-10-09] MEDS: THIAMINE 100 MG TAB PO SCH (09:27)
[2021-10-09] MEDS: FOLIC ACID 1 MG TAB PO SCH (09:27)
[2021-10-09] MEDS ORDERED: HYDROXYCHLOROQUINE 200 MG TAB PO SCH (10:00)
[2021-10-09] MEDS ORDERED: FAMOTIDINE 20 MG/2 ML INJ IV SCH (10:00)
--- NOTE | 2021-10-09 11:07 | Progress Note ---
Assessment and Plan Acute CVA s/p tPA Altered mental status Hypertensive urgency Protein calorie malnutrition- moderate Lactic acidosis Electrolyte imbalance Alcohol abuse History of recent CVA Diabetes mellitus -Aspiration precautions, HOB >30 Contienu to keep NPO COntiue with blood pressure control and monitoring -PT/OT/BOTTLE LABEL INSPECTOR to evaluate and treat -VTE prophylaxis- SCDs for now -Secondary stroke prophylaxis-aspirin 81 mg daily; statin with goal of LDL < 70 -CIWA protocol -Needs optimization of nutritional status -Alcohol abuse counselling when she is able to participate in the discussion -MRI Brain without contrast pending -Accuchecks with glycemic control, target blood glucose 140-180 mg/dL; Avoid hypoglycemia -Supplemental oxygen as clinically indicated, keep sPO2 90-92% -Awaiting Neurology consult If MRI and patient remains stable, can downgrade to telemetry 24 hours post tPA Subjective Date of service: 10/09/21 Interval history: Patient is seen today for: Acute CVA s/p tPA; AMS; Hypertensive urgency; Protein calorie malnutrition; Lactic acidosis; Alcohol abuse; DM II Seen and examined at bedside; 24hour events reviewed; nursing and respiratory care staff consulted; no adverse overnight events reported to me; resting in bed; more awake and alert, obeying simple commands, remains aphasic with some garbled speech, currently being evaluated by BOTTLE LABEL INSPECTOR; no bleeding reported;Repeat CT head and MRI brain pending. Echo reviewed no evidence of PFO. Neurology consult pending. Objective Vital Signs - 12hr 10/08/21 10/09/21 10/09/21 23:30 00:00 00:30 Temperature 98.6 F Pulse Rate 76 85 69 Pulse Rate [ 68 From Monitor] Respiratory 15 16 16 Rate Blood Pressure 129/78 129/78 129/73 O2 Sat by Pulse 100 94 100 Oximetry 10/09/21 10/09/21 10/09/21 01:00 01:30 02:00 Temperature Pulse Rate 67 69 71 Pulse Rate [ From Monitor] Respiratory 13 12 13 Rate Blood Pressure 114/60 113/59 132/63 O2 Sat by Pulse 100 100 100 Oximetry 10/09/21 10/09/21 10/09/21 02:30 03:00 03:30 Temperature Pulse Rate 74 71 75 Pulse Rate [ From Monitor] Respiratory 14 13 14 Rate Blood Pressure 133/68 130/58 117/65 O2 Sat by Pulse 100 100 97 Oximetry 08/10/09/21 10/09/21 04:00 04:30 05:00 Temperature 98.2 F Pulse Rate 82 82 75 Pulse Rate [ 74 From Monitor] Respiratory 18 13 9 L Rate Blood Pressure 111/76 123/84 135/74 O2 Sat by Pulse 100 100 100 Oximetry 10/09/21 10/09/21 10/09/21 05:30 06:00 06:30 Temperature Pulse Rate 70 77 75 Pulse Rate [ From Monitor] Respiratory 12 13 13 Rate Blood Pressure 133/75 128/79 132/80 O2 Sat by Pulse 99 96 100 Oximetry 10/09/21 10/09/21 10/09/21 07:00 07:30 08:00 Temperature 98.6 F Pulse Rate 75 74 84 Pulse Rate [ 84 From Monitor] Respiratory 12 18 14 Rate Blood Pressure 132/80 139/79 153/72 O2 Sat by Pulse 100 100 100 Oximetry 10/09/21 10/09/21 10/09/21 08:30 09:00 09:30 Temperature Pulse Rate 72 69 92 H Pulse Rate [ From Monitor] Respiratory 16 14 15 Rate Blood Pressure 116/63 106/70 106/70 O2 Sat by Pulse 100 100 100 Oximetry 10/09/21 10:00 Temperature Pulse Rate 79 Pulse Rate [ From Monitor] Respiratory 13 Rate Blood Pressure 132/69 O2 Sat by Pulse 99 Oximetry Constitutional: no acute distress, other (Aphasic, right facial droop, chronically ill looking) Eyes: non-icteric ENT: oropharynx moist Neck: supple, no lymphadenopathy, no JVD Effort: normal Ascultation: Bilateral: clear, diminished breath sounds Cardiovascular: regular rate and rhythm, other (S1,S2) Gastrointestinal: normoactive bowel sounds, soft, non-tender, non-distended Integumentary: normal Extremities: no cyanosis, no edema, pulses normal Neurologic: pupils equal and round (Left lateral gaze defect, RUext 4/5 power grade) Psychiatric: mood appropriate, affect normal CBC and BMP: 10/11/21 04:14 10/11/21 04:14 ABG, PT/INR, D-dimer: PT/INR, D-dimer PT 14.3 Sec. (12.2-14.9) 10/07/21 21:19 INR 1.00 (0.87-1.13) 10/07/21 21:19 Abnormal lab findings: Abnormal Labs 10/07/21 10/07/21 10/07/21 21:19 21:19 21:19 RBC RDW 17.6 H Seg Neutrophils % 75.8 H Potassium 2.9 L* Chloride 95.3 L Carbon Dioxide BUN 5 L Glucose 224 H POC Glucose Hemoglobin A1c Lactic Acid 4.20 H* Calcium Magnesium HDL Cholesterol Ur Specific [place] Urine WBC (Auto) U Epithel Cells (Auto) Salicylates Acetaminophen 10/07/21 10/07/21 10/07/21 21:19 21:19 21:19 RBC RDW Seg Neutrophils % Potassium Chloride Carbon Dioxide BUN Glucose POC Glucose Hemoglobin A1c Lactic Acid Calcium Magnesium 1.00 L HDL Cholesterol Ur Specific [place] Urine WBC (Auto) U Epithel Cells (Auto) Salicylates < 0.3 L Acetaminophen 5.0 L 10/07/21 10/07/21 10/08/21 23:47 Unknown 08:01 RBC RDW Seg Neutrophils % Potassium Chloride Carbon Dioxide BUN Glucose POC Glucose 312 H Hemoglobin A1c Lactic Acid 2.10 H* Calcium Magnesium HDL Cholesterol Ur Specific [place] 1.035 H Urine WBC (Auto) 18.0 H U Epithel Cells (Auto) 44.0 H Salicylates Acetaminophen 10/08/21 10/08/21 10/08/21 10:07 10:07 10:07 RBC RDW Seg Neutrophils % Potassium 3.1 L Chloride Carbon Dioxide BUN Glucose POC Glucose Hemoglobin A1c 14.1 H Lactic Acid 4.80 H* Calcium Magnesium 1.50 L HDL Cholesterol 76 H Ur Specific [place] Urine WBC (Auto) U Epithel Cells (Auto) Salicylates Acetaminophen 10/08/21 10/09/21 10/09/21 17:08 00:16 04:14 RBC 3.34 L RDW 18.3 H Seg Neutrophils % Potassium Chloride Carbon Dioxide BUN Glucose POC Glucose 205 H 231 H Hemoglobin A1c Lactic Acid Calcium Magnesium HDL Cholesterol Ur Specific [place] Urine WBC (Auto) U Epithel Cells (Auto) Salicylates Acetaminophen 10/09/21 04:14 RBC RDW Seg Neutrophils % Potassium Chloride Carbon Dioxide 16 L D BUN Glucose 219 H POC Glucose Hemoglobin A1c Lactic Acid Calcium 8.1 L Magnesium 1.60 L HDL Cholesterol Ur Specific [place] Urine WBC (Auto) U Epithel Cells (Auto) Salicylates Acetaminophen
--- NOTE | 2021-10-09 14:17 | Progress Note ---
<TYREE MCCLENDON - Last Filed: 10/09/21 17:47> Assessment and Plan Assessment and plan: This is 61-year-old female with known past medical of HTN, DM, and recent CVC about 2 weeks ago initially admitted to the floor for AMS and Hypertensive urgency. Patient was a code stoke on the floor due to worsen mental status with right hemiplegia, right facial droop, and expressive aphasia. Was transferred to the ICU for acute CVA requiring tPA. Hospital Course to Date: 10/09: Mild improvement in mentation. Patient appears AAO, but remains aphasic with right hemiplegia and right facial droop, follow simple commands. Repeat CT head and MRI brain pending. Echo reviewed no evidence of PFO. Neurology consult pending. PT/OT/Speech consulted. D/w CCM okay to transfer patient back to telemetry if patient remains stable post 24hrs tPA. Assessment and Plan #Acute CVA s/p tPA #H/o recent CVA- 2weeks prior #ETOH Abuse - Presented with AMS, drooling and unresponsiveness. 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 the right MASTER OCEAN distribution suggesting prior infarct, likely subacute - Code stroke called on the floor due to worsen mental status with right hemiplegia, right facial droop, and expressive aphasia - Patient received tPA per [facility] - Mild improvement noted in mentation, remains aphasic with righ hemiplegia and facial droop - CTA head/neck reviewed - Repeat CT head and MRI Brain pending - 2D echo with no evidence of PFO - Statin initiated - ASA and prophy AC to start tomorrow, 24hrs post TPA - Avoid sedative agents for now, IV Ativan held - Continue Neuro check per protocol - PT/OT/Speech ordered - Neurology consulted - Aspiration and fall precautions #Hypertensive Urgency-improved - Presented with SBP in the 200s, DBP in the 100s s/p IV Hydralazine - BP stable this am - Allow permissive hypertensive in the first 24hrs , will hold all antihypertensive agents - Continue blood pressure monitor per protocol - Maintain BG less than 180/110 for the first 24hrs #Lactic Acidosis - Probably secondary to above - Patient is afebrile, with no leukocytosis, VSS - CTAbd/Pelvis unremarkable - Will continue to trend lactic acid #Hypomagnesemia #Hypokalemia-improved - Mg repleted - Monitor and replace electrolytes as needed - Trend BMP #Uncontrolled Diabetes Mellitus - HgbA1c- 14.1 - SSI initiated, continue BG check ACHS - Avoid hypoglycemia - While critically ill target blood glucose of 140-180 #GI/DVT Prophylaxis - PPI- Pepcid - SCDs to bilateral lower extremities while in bed #Advance Care Planning - Disease education data, care plan, diagnoses, and prognosis were discussed with patient at the bedside and patient's daughter via phone. Patient is a FULL code. They acknowledged understanding and agreed with current care plan. The high probability of a clinically significant, sudden or life threatening deterioration of the [multiple] system(s) required my full and direct attention, intervention and personal management. The aggregate critical care time was [60] minutes. This time is in addition to time spent performing reported procedures but includes the following: [x] Data Review and interpretation [x] Patient assessment and monitoring of vital signs [x] Documentation [x] Medication orders and management Disposition Plan: ICU Total Time Spent with Patient (Minutes): 60 History Interval history: Patient seen and examined at the bedside. AAO, with slurred spech, expressive aphasia, right side facial droop, and right hemiplegia. Following simple comm ands, stable RA, denied any pain nor any discomfort at this time. VSS Hospitalist Physical - Constitutional Vitals: Temp Pulse Resp BP Pulse Ox 98.6 F 71 11 L 145/75 100 10/09/21 08:00 10/09/21 12:00 10/09/21 12:00 10/09/21 12:00 10/09/21 12:00 General appearance: Present: no acute distress, well-nourished - EENT Eyes: Present: PERRL, EOM intact ENT: hearing intact - Neck Neck: Present: normal ROM - Respiratory Respiratory effort: normal Respiratory: bilateral: diminished - Cardiovascular Rhythm: regular Heart Sounds: Present: S1 & S2 - Extremities Extremities: no ischemia, pulses intact, pulses symmetrical Peripheral Pulses: within normal limits - Abdominal General gastrointestinal: soft, non-distended, normal bowel sounds - Integumentary Integumentary: Present: warm, dry - Psychiatric Psychiatric: appropriate mood/affect, cooperative - Neurologic Neurologic: focal deficits (AAO, with slurred speech and expressive aphasia. Right side facial droop and Right hemiplegia) - Allied Health Allied health notes reviewed: nursing, case management HEART Score - HEART Score Troponin: Troponin T < 0.010 ng/mL (0.00-0.029) 10/07/21 21:19 Results - Labs CBC & Chem 7: 10/09/21 04:14 10/09/21 04:14 Labs: Laboratory Last Values WBC 6.3 K/mm3 (4.5-11.0) 10/09/21 04:14 RBC 3.34 M/mm3 (3.65-5.03) L 10/09/21 04:14 Hgb 10.6 gm/dl (10.1-14.3) 10/09/21 04:14 Hct 32.1 % (30.3-42.9) D 10/09/21 04:14 MCV 96 fl (79-97) 10/09/21 04:14 MCH 32 pg (28-32) 10/09/21 04:14 MCHC 33 % (30-34) 10/09/21 04:14 RDW 18.3 % (13.2-15.2) H 10/09/21 04:14 Plt Count 204 K/mm3 (140-440) 10/09/21 04:14 Lymph % (Auto) 33.5 % (13.4-35.0) 10/09/21 04:14 Charles % (Auto) 6.2 % (0.0-7.3) 10/09/21 04:14 Eos % (Auto) 0.3 % (0.0-4.3) 10/09/21 04:14 Baso % (Auto) 0.4 % (0.0-1.8) 10/09/21 04:14 Lymph # (Auto) 2.1 K/mm3 (1.2-5.4) 10/09/21 04:14 Charles # (Auto) 0.4 K/mm3 (0.0-0.8) 10/09/21 04:14 Eos # (Auto) 0.0 K/mm3 (0.0-0.4) 10/09/21 04:14 Baso # (Auto) 0.0 K/mm3 (0.0-0.1) 10/09/21 04:14 Seg Neutrophils % 59.6 % (40.0-70.0) 10/09/21 04:14 Seg Neutrophils # 3.8 K/mm3 (1.8-7.7) 10/09/21 04:14 PT 14.3 Sec. (12.2-14.9) 10/07/21 21:19 INR 1.00 (0.87-1.13) 10/07/21 21:19 APTT 25.9 Sec. (24.2-36.6) 10/07/21 21:19 Sodium 138 mmol/L (137-145) 10/09/21 04:14 Potassium 4.2 mmol/L (3.6-5.0) D 10/09/21 04:14 Chloride 100.4 mmol/L (98-107) 10/09/21 04:14 Carbon Dioxide 16 mmol/L (22-30) L D 10/09/21 04:14 Anion Gap 26 mmol/L 10/09/21 04:14 BUN 7 mg/dL (7-17) 10/09/21 04:14 Creatinine 1.0 mg/dL (0.6-1.2) 10/09/21 04:14 Estimated GFR > 60 ml/min 10/09/21 04:14 BUN/Creatinine Ratio 7 % 10/09/21 04:14 Glucose 219 mg/dL (65-100) H 10/09/21 04:14 POC Glucose 231 mg/dL (70-105) H 10/09/21 00:16 Hemoglobin A1c 14.1 % (4-6) H 10/08/21 10:07 Lactic Acid 4.80 mmol/L (0.7-2.0) H* 10/08/21 10:07 Calcium 8.1 mg/dL (8.4-10.2) L 10/09/21 04:14 Magnesium 1.60 mg/dL (1.7-2.3) L 10/09/21 04:14 Total Bilirubin 0.90 mg/dL (0.1-1.2) 10/07/21 21:19 AST 30 units/L (5-40) 10/07/21 21:19 ALT 8 units/L (7-56) 10/07/21 21:19 Alkaline Phosphatase 126 units/L (35-129) 10/07/21 21:19 Ammonia 28.0 umol/L (25-60) 10/07/21 21:19 Total Creatine Kinase 102 units/L (30-135) 10/07/21 21:19 Troponin T < 0.010 ng/mL (0.00-0.029) 10/07/21 21:19 Total Protein 7.6 g/dL (6.3-8.2) 10/07/21 21:19 Albumin 4.4 g/dL (3.9-5) 10/07/21 21:19 Albumin/Globulin Ratio 1.4 % 10/07/21 21:19 Triglycerides 79 mg/dL (2-149) 10/08/21 10:07 Cholesterol 180 mg/dL (50-199) 10/08/21 10:07 LDL Cholesterol Direct 85 mg/dL (50-130) 10/08/21 10:07 HDL Cholesterol 76 mg/dL (40-59) H 10/08/21 10:07 Cholesterol/HDL Ratio 2.36 % 10/08/21 10:07 TSH 3.170 mlU/mL (0.270-4.200) 10/08/21 10:07 Urine Color Brown (Yellow) 10/07/21 Unknown Urine Turbidity Cloudy (Clear) 10/07/21 Unknown Urine pH 5.0 (5.0-7.0) 10/07/21 Unknown Ur Specific Lytle 1.035 (1.003-1.030) H 10/07/21 Unknown Urine Protein 300 mg/dl mg/dL (Negative) 10/07/21 Unknown Urine Glucose (UA) Trace mg/dL (Negative) 10/07/21 Unknown Urine Ketones Negative mg/dL (Negative) 10/07/21 Unknown Urine Blood Negative (Negative) 10/07/21 Unknown Urine Nitrite Negative (Negative) 10/07/21 Unknown Urine Bilirubin Negative (Negative) 10/07/21 Unknown Urine Urobilinogen < 2.0 mg/dL (<2.0) 10/07/21 Unknown Ur Leukocyte Esterase Negative (Negative) 10/07/21 Unknown Urine WBC (Auto) 18.0 /HPF (0.0-6.0) H 10/07/21 Unknown Urine RBC (Auto) 8.0 /HPF (0.0-6.0) 10/07/21 Unknown U Epithel Cells (Auto) 44.0 /HPF (0-13.0) H 10/07/21 Unknown Urine Bacteria (Auto) 1+ /HPF (Negative) 10/07/21 Unknown Hyaline Casts 2 /LPF 10/07/21 Unknown Urine Mucus Few /HPF 10/07/21 Unknown Urine Yeast (Budding) 2+ /HPF 10/07/21 Unknown Salicylates < 0.3 mg/dL (2.8-20.0) L 10/07/21 21:19 Acetaminophen 5.0 ug/mL (10.0-30.0) L 10/07/21 21:19 Plasma/Serum Alcohol < 0.01 % (0-0.07) 10/07/21 21:19 Microbiology: Microbiology 10/07/21 Unknown Urine,Clean Catch Urine Culture - Preliminary 10/07/21 21:04 Peripheral/Venous Blood Culture - Preliminary NO GROWTH AFTER 24 HOURS 10/07/21 21:04 Peripheral/Venous Blood Culture - Preliminary NO GROWTH AFTER 24 HOURS Luu/IV: Voiding Method External Female Catheter Active Medications - Current Medications Current Medications: Generic Name Dose Route Start Last Admin Trade Name Freq PRN Reason Stop Dose Admin Acetaminophen 650 mg 10/08/21 00:19 Acetaminophen 325 Mg Tab PO Q4H PRN Pain MILD(1-3)/Fever >100.5/HASKINS Aspirin 325 mg 10/09/21 18:00 Aspirin 325 Mg Tab PO QDAY PRIETO Atorvastatin Calcium 40 mg 10/08/21 22:00 10/08/21 21:39 Atorvastatin 40 Mg Tab PO Not Given QHS PRIETO Bisacodyl 10 mg 10/08/21 00:19 Bisacodyl 10 Mg Rect Supp [place] QDAY PRN Constipation Dextrose 50 ml 10/08/21 00:19 Dextrose 50% In Water (25gm) 50 Ml Syringe IV Q30MIN PRN Hypoglycemia Protocol Famotidine 20 mg 10/09/21 10:00 10/09/21 09:29 Famotidine 20 Mg/2 Ml Inj IV 20 mg QDAY PRIETO Administration Folic Acid 1 mg 10/08/21 10:00 10/09/21 09:27 Folic Acid 1 Mg Tab PO 1 mg QDAY PRIETO Administration Hydralazine HCl 10 mg 10/08/21 01:52 10/08/21 08:42 Hydralazine 20 Mg/1 Ml Inj IV 10 mg Q4HR PRN Administration Blood Pressure Sodium Chloride 1,000 mls @ 125 mls/hr 10/08/21 05:45 10/09/21 06:16 Nacl 0.9% 1000 Ml IV 125 mls/hr DIRECT PRIETO Administration Insulin Human Lispro 0 unit 10/08/21 07:30 10/09/21 08:37 Insulin Lispro 100 Unit/Ml SUB-Q 3 unit ACHS PRIETO Administration Protocol Magnesium Hydroxide 30 ml 10/08/21 00:19 Magnesium Hydroxide (Mom) Oral Liqd Udc PO Q4H PRN Constipation Metoclopramide HCl 10 mg 10/08/21 00:19 Metoclopramide 10 Mg Tab PO Q6H PRN Nausea And Vomiting Morphine Sulfate 2 mg 10/08/21 00:19 10/08/21 08:14 Morphine 2 Mg/1 Ml Inj IV 2 mg Q4H PRN Administration Pain, Moderate (4-6) Ondansetron HCl 4 mg 10/08/21 00:19 10/08/21 08:14 Ondansetron 4 Mg/2 Ml Inj IV 4 mg Q8H PRN Administration Nausea And Vomiting Promethazine HCl 25 mg 10/08/21 00:19 Promethazine 25 Mg Rect Supp [place] Q6H PRN Nausea And Vomiting Sodium Chloride 10 ml 10/08/21 10:00 10/09/21 09:27 Sodium Chloride 0.9% 10 Ml Flush Syringe IV 10 ml BID PRIETO Administration Sodium Chloride 10 ml 10/08/21 00:19 Sodium Chloride 0.9% 10 Ml Flush Syringe IV PRN PRN LINE FLUSH Thiamine HCl 100 mg 10/08/21 10:00 10/09/21 09:27 Thiamine 100 Mg Tab PO 100 mg QDAY PRIETO Administration Nutrition/Malnutrition Assess - Dietary Evaluation Nutrition/Malnutrition Findings: Nutrition Notes Start: 10/08/21 18:14 Freq: Status: Active Protocol: Document 10/08/21 18:14 DANTE (Rec: 10/08/21 18:36 DANTE [id number]) Nutrition Notes Need for Assessment generated from: MD Order,Education,Low BMI Initial or Follow up Assessment Current Diagnosis Diabetes,Hypertension,Stroke Other Pertinent Diagnosis AMS. Current Diet NPO. Labs/Tests 10/08: K 3.1, Mg 1.5, HbA1c 14 .1%. Pertinent Medications 10/08: Folic acid, Thiamine, others nutritionally unremarkable. 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 Pt remains NPO since admission . COMMERCIAL INSTALLER recommendations are still pending. Pt is on Room Air, O2 saturation @ 100%, according to Physical Assessment History notes. Pt needs total assistance with ADL activities, not a candidate for Nutrition Education. Pt's Low BMI seems to correspond to a natural body composition, and not related to a sudden loss of body weight nor chronic malnutrition, since no signs of concern were mentioned in the Physical Assessment History or the Progress notes. Percent of energy/protein needs met: Pt remains NPO since admission . Burn Absent Trauma Absent GI Symptoms None Food Allergy No Skin Integrity/Comment Assessment WNL. Current % PO Other Minimum of two criteria No Fluid Accumulation N/A Reduced Encephalographer Strength N/A (non-severe) Protein-Calorie Malnutrition N\A #1 Nutrition Diagnosis Predicted suboptimal energy intake Etiology CVA, AMS. As Evidenced by Signs and Symptoms Pt remains NPO since admission . COMMERCIAL INSTALLER recommendations are still pending. Is patient on ventilator? No Is Patient Ambulatory and/or Out of Bed No REE-([facility]-confined to bed) 1166.292 Kcal/Kg value to use for calculation 35 Approximate Energy Requirements Using 1427 kcal/Kg Calculation Used for Recommendations Kcal/kg Additional Notes Protein: 0.8-1 g/Kg ABW; 33-41 g/day. Fluids: 1 ml/Kcal, or as per MD. Nutrition Intervention Change Diet Order: COMMERCIAL INSTALLER recommendations are still pending. Follow-Up By: 10/10/21 Additional Comments When pertinent, start monitoring food tolerance, %PO intake of meals, and BM. <MANPREET PASCAL E - Last Filed: 10/10/21 07:21> Assessment and Plan Assessment and plan: I saw and evaluated the patient. I agree with the findings and the plan of care as documented in the Nurse Practitioner's~note, with the following corrections and additions. Hospitalist Physical - Constitutional Vitals: Temp Pulse Resp BP Pulse Ox 100 F H 97 H 17 163/90 100 10/10/21 04:00 10/10/21 06:00 10/10/21 06:00 10/10/21 06:00 10/10/21 06:00 HEART Score - HEART Score Troponin: Troponin T < 0.010 ng/mL (0.00-0.029) 10/07/21 21:19 Results - Labs CBC & Chem 7: 10/10/21 04:30 10/10/21 04:30 Labs: Laboratory Last Values WBC 3.9 K/mm3 (4.5-11.0) L 10/10/21 04:30 RBC 3.30 M/mm3 (3.65-5.03) L 10/10/21 04:30 Hgb 10.4 gm/dl (10.1-14.3) 10/10/21 04:30 Hct 31.1 % (30.3-42.9) 10/10/21 04:30 MCV 94 fl (79-97) 10/10/21 04:30 MCH 32 pg (28-32) 10/10/21 04:30 MCHC 34 % (30-34) 10/10/21 04:30 RDW 18.0 % (13.2-15.2) H 10/10/21 04:30 Plt Count 180 K/mm3 (140-440) 10/10/21 04:30 Lymph % (Auto) 33.5 % (13.4-35.0) 10/09/21 04:14 Charles % (Auto) 6.2 % (0.0-7.3) 10/09/21 04:14 Eos % (Auto) 0.3 % (0.0-4.3) 10/09/21 04:14 Baso % (Auto) 0.4 % (0.0-1.8) 10/09/21 04:14 Lymph # (Auto) 2.1 K/mm3 (1.2-5.4) 10/09/21 04:14 Charles # (Auto) 0.4 K/mm3 (0.0-0.8) 10/09/21 04:14 Eos # (Auto) 0.0 K/mm3 (0.0-0.4) 10/09/21 04:14 Baso # (Auto) 0.0 K/mm3 (0.0-0.1) 10/09/21 04:14 Seg Neutrophils % 59.6 % (40.0-70.0) 10/09/21 04:14 Seg Neutrophils # 3.8 K/mm3 (1.8-7.7) 10/09/21 04:14 PT 14.8 Sec. (12.2-14.9) 10/10/21 04:30 INR 1.04 (0.87-1.13) 10/10/21 04:30 APTT 25.9 Sec. (24.2-36.6) 10/07/21 21:19 Sodium 138 mmol/L (137-145) 10/10/21 04:30 Potassium 3.4 mmol/L (3.6-5.0) L 10/10/21 04:30 Chloride 101.6 mmol/L (98-107) 10/10/21 04:30 Carbon Dioxide 20 mmol/L (22-30) L 10/10/21 04:30 Anion Gap 20 mmol/L 10/10/21 04:30 BUN 3 mg/dL (7-17) L 10/10/21 04:30 Creatinine 0.8 mg/dL (0.6-1.2) 10/10/21 04:30 Estimated GFR > 60 ml/min 10/10/21 04:30 BUN/Creatinine Ratio 4 % 10/10/21 04:30 Glucose 158 mg/dL (65-100) H 10/10/21 04:30 POC Glucose 265 mg/dL (70-105) H 10/09/21 21:32 Hemoglobin A1c 14.1 % (4-6) H 10/08/21 10:07 Lactic Acid 1.20 mmol/L (0.7-2.0) 10/10/21 04:30 Calcium 8.3 mg/dL (8.4-10.2) L 10/10/21 04:30 Phosphorus 2.00 mg/dL (2.5-4.5) L 10/10/21 04:30 Magnesium 1.70 mg/dL (1.7-2.3) 10/10/21 04:30 Total Bilirubin 0.90 mg/dL (0.1-1.2) 10/07/21 21:19 AST 30 units/L (5-40) 10/07/21 21:19 ALT 8 units/L (7-56) 10/07/21 21:19 Alkaline Phosphatase 126 units/L (35-129) 10/07/21 21:19 Ammonia 28.0 umol/L (25-60) 10/07/21 21:19 Total Creatine Kinase 102 units/L (30-135) 10/07/21 21:19 Troponin T < 0.010 ng/mL (0.00-0.029) 10/07/21 21:19 Total Protein 7.6 g/dL (6.3-8.2) 10/07/21 21:19 Albumin 4.4 g/dL (3.9-5) 10/07/21 21:19 Albumin/Globulin Ratio 1.4 % 10/07/21 21:19 Triglycerides 79 mg/dL (2-149) 10/08/21 10:07 Cholesterol 180 mg/dL (50-199) 10/08/21 10:07 LDL Cholesterol Direct 85 mg/dL (50-130) 10/08/21 10:07 HDL Cholesterol 76 mg/dL (40-59) H 10/08/21 10:07 Cholesterol/HDL Ratio 2.36 % 10/08/21 10:07 TSH 3.170 mlU/mL (0.270-4.200) 10/08/21 10:07 Urine Color Brown (Yellow) 10/07/21 Unknown Urine Turbidity Cloudy (Clear) 10/07/21 Unknown Urine pH 5.0 (5.0-7.0) 10/07/21 Unknown Ur Specific [place]ytle 1.035 (1.003-1.030) H 10/07/21 Unknown Urine Protein 300 mg/dl mg/dL (Negative) 10/07/21 Unknown Urine Glucose (UA) Trace mg/dL (Negative) 10/07/21 Unknown Urine Ketones Negative mg/dL (Negative) 10/07/21 Unknown Urine Blood Negative (Negative) 10/07/21 Unknown Urine Nitrite Negative (Negative) 10/07/21 Unknown Urine Bilirubin Negative (Negative) 10/07/21 Unknown Urine Urobilinogen < 2.0 mg/dL (<2.0) 10/07/21 Unknown Ur Leukocyte Esterase Negative (Negative) 10/07/21 Unknown Urine WBC (Auto) 18.0 /HPF (0.0-6.0) H 10/07/21 Unknown Urine RBC (Auto) 8.0 /HPF (0.0-6.0) 10/07/21 Unknown U Epithel Cells (Auto) 44.0 /HPF (0-13.0) H 10/07/21 Unknown Urine Bacteria (Auto) 1+ /HPF (Negative) 10/07/21 Unknown Hyaline Casts 2 /LPF 10/07/21 Unknown Urine Mucus Few /HPF 10/07/21 Unknown Urine Yeast (Budding) 2+ /HPF 10/07/21 Unknown Salicylates < 0.3 mg/dL (2.8-20.0) L 10/07/21 21:19 Acetaminophen 5.0 ug/mL (10.0-30.0) L 10/07/21 21:19 Plasma/Serum Alcohol < 0.01 % (0-0.07) 10/07/21 21:19 Microbiology: Microbiology 10/07/21 21:04 Peripheral/Venous Blood Culture - Preliminary NO GROWTH AFTER 48 HOURS 10/07/21 21:04 Peripheral/Venous Blood Culture - Preliminary NO GROWTH AFTER 48 HOURS 10/07/21 Unknown Urine,Clean Catch Urine Culture - Preliminary Luu/IV: Voiding Method Incontinent Active Medications - Current Medications Current Medications: Generic Name Dose Route Start Last Admin Trade Name Freq PRN Reason Stop Dose Admin Acetaminophen 650 mg 10/08/21 00:19 Acetaminophen 325 Mg Tab PO Q4H PRN Pain MILD(1-3)/Fever >100.5/HASKINS Aspirin 325 mg 10/09/21 18:00 10/09/21 18:40 Aspirin 325 Mg Tab PO 325 mg QDAY PRIETO Administration Atorvastatin Calcium 40 mg 10/08/21 22:00 10/09/21 21:01 Atorvastatin 40 Mg Tab PO 40 mg QHS PRIETO Administration Bisacodyl 10 mg 10/08/21 00:19 Bisacodyl 10 Mg Rect Supp [place] QDAY PRN Constipation Dextrose 50 ml 10/08/21 00:19 Dextrose 50% In Water (25gm) 50 Ml Syringe IV Q30MIN PRN Hypoglycemia Protocol Famotidine 20 mg 10/09/21 10:00 10/09/21 09:29 Famotidine 20 Mg/2 Ml Inj IV 20 mg QDAY PRIETO Administration Folic Acid 1 mg 10/08/21 10:00 10/09/21 09:27 Folic Acid 1 Mg Tab PO 1 mg QDAY PRIETO Administration Sodium Chloride 1,000 mls @ 125 mls/hr 10/08/21 05:45 10/09/21 06:16 Nacl 0.9% 1000 Ml IV 125 mls/hr DIRECT PRIETO Administration Insulin Human Lispro 0 unit 10/08/21 07:30 10/09/21 22:05 Insulin Lispro 100 Unit/Ml SUB-Q 4 unit ACHS PRIETO Administration Protocol Magnesium Hydroxide 30 ml 10/08/21 00:19 Magnesium Hydroxide (Mom) Oral Liqd Udc PO Q4H PRN Constipation Metoclopramide HCl 10 mg 10/08/21 00:19 Metoclopramide 10 Mg Tab PO Q6H PRN Nausea And Vomiting Morphine Sulfate 2 mg 10/08/21 00:19 10/08/21 08:14 Morphine 2 Mg/1 Ml Inj IV 2 mg Q4H PRN Administration Pain, Moderate (4-6) Ondansetron HCl 4 mg 10/08/21 00:19 10/08/21 08:14 Ondansetron 4 Mg/2 Ml Inj IV 4 mg Q8H PRN Administration Nausea And Vomiting Promethazine HCl 25 mg 10/08/21 00:19 Promethazine 25 Mg Rect Supp [place] Q6H PRN Nausea And Vomiting Sodium Chloride 10 ml 10/08/21 10:00 10/09/21 23:27 Sodium Chloride 0.9% 10 Ml Flush Syringe IV 10 ml BID PRIETO Administration Sodium Chloride 10 ml 10/08/21 00:19 Sodium Chloride 0.9% 10 Ml Flush Syringe IV PRN PRN LINE FLUSH Thiamine HCl 100 mg 10/08/21 10:00 10/09/21 09:27 Thiamine 100 Mg Tab PO 100 mg QDAY PRIETO Administration Nutrition/Malnutrition Assess - Dietary Evaluation Nutrition/Malnutrition Findings: Nutrition Notes Start: 10/08/21 18:14 Freq: Status: Active Protocol: Document 10/08/21 18:14 DANTE (Rec: 10/08/21 18:36 DANTE [id number]) Nutrition Notes Need for Assessment generated from: MD Order,Education,Low BMI Initial or Follow up Assessment Current Diagnosis Diabetes,Hypertension,Stroke Other Pertinent Diagnosis AMS. Current Diet NPO. Labs/Tests 10/08: K 3.1, Mg 1.5, HbA1c 14 .1%. Pertinent Medications 10/08: Folic acid, Thiamine, others nutritionally unremarkable. 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 Pt remains NPO since admission . COMMERCIAL INSTALLER recommendations are still pending. Pt is on Room Air, O2 saturation @ 100%, according to Physical Assessment History notes. Pt needs total assistance with ADL activities, not a candidate for Nutrition Education. Pt's Low BMI seems to correspond to a natural body composition, and not related to a sudden loss of body weight nor chronic malnutrition, since no signs of concern were mentioned in the Physical Assessment History or the Progress notes. Percent of energy/protein needs met: Pt remains NPO since admission . Burn Absent Trauma Absent GI Symptoms None Food Allergy No Skin Integrity/Comment Assessment WNL. Current % PO Other Minimum of two criteria No Fluid Accumulation N/A Reduced Encephalographer Strength N/A (non-severe) Protein-Calorie Malnutrition N\A #1 Nutrition Diagnosis Predicted suboptimal energy intake Etiology CVA, AMS. As Evidenced by Signs and Symptoms Pt remains NPO since admission . COMMERCIAL INSTALLER recommendations are still pending. Is patient on ventilator? No Is Patient Ambulatory and/or Out of Bed No REE-([facility]-confined to bed) 1166.292 Kcal/Kg value to use for calculation 35 Approximate Energy Requirements Using 1427 kcal/Kg Calculation Used for Recommendations Kcal/kg Additional Notes Protein: 0.8-1 g/Kg ABW; 33-41 g/day. Fluids: 1 ml/Kcal, or as per MD. Nutrition Intervention Change Diet Order: COMMERCIAL INSTALLER recommendations are still pending. Follow-Up By: 10/10/21 Additional Comments When pertinent, start monitoring food tolerance, %PO intake of meals, and BM.
[2021-10-09] MEDS ORDERED: MIDAZOLAM 2 MG/2 ML INJ IV PRN (14:30)
[2021-10-09] MEDS: ASPIRIN 325 MG TAB PO SCH (18:40)
--- NOTE | 2021-10-09 20:34 | Magnetic Resonance Report ---
MR brain wo con INDICATION / CLINICAL INFORMATION: stroke, AMS, Slurred speech. TECHNIQUE: Multiplanar, multisequence MR images of the brain were obtained. COMPARISON: CTA head from yesterday FINDINGS: INTRACRANIAL: There is restricted diffusion seen within the left caudate and predominantly along the cortex of the left MCA territory involving the insula, parietal lobe and lateral temporal lobe. No he morrhagic conversion. Remote right REGIONAL ENGINEER distribution infarction. There is faint hyperintensity seen in the right external capsular region which is felt to be related to T2 shine through. Ventricular celina ranjeet is normal. No extra-axial collection. No mass. No herniation. ORBITS: No significant abnormality of visualized orbits. SINUSES / MASTOIDS: No significant abnormality of visualized sinuses and mastoid air cells. ADDITIONAL FINDINGS: None. IMPRESSION: 1. Acute infarction in the left MCA territory predominantly along the cortex and involving the left c audate. Retrospectively on the prior CTA, there was an occlusion in the inferior division of left MCA in the sylvian fissure as well as high-grade stenosis in the proximal MCA segment. 2. Remote right MCA distribution infarction. Signer Name: Macario Pacheco MD Signed: 10/09/2021 8:30 PM Workstation Name: [id number]
--- NOTE | 2021-10-09 22:25 | Cat Scan Report ---
CT head/brain wo con INDICATION: Follow up 24hrs post tPA. TECHNIQUE: Routine CT head. All CT scans at this location are performed using CT dose reduction for A MANISHA by means of automated exposure control. COMPARISON: MRI brain earlier same day.. FINDINGS: Patient has a known developing left MCA distribution infarction which is subtle on CT and best apprec iated in the left insula in which there is robledo-white matter differentiation loss. No hemorrhagic con version. No hydrocephalus. No herniation. 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 IMPRESSION: 1. No hemorrhagic conversion in this patient with a known left MCA distribution infarction better ap preciated on prior MRI. Signer Name: Macario Pacheco MD Signed: 10/09/2021 10:20 PM Workstation Name: [id number]
[2021-10-10 05:08] LABS: Hematocrit 31.1 % (30.3-42.9); Hemoglobin 10.4 gm/dl (10.1-14.3); Mean Corpuscular HGB Conc 34 % (30-34); Mean Corpuscular Volume 94 fl (79-97)
[2021-10-10 05:15] LABS: INR 1.04 (0.87-1.13)
[2021-10-10 05:17] LABS: Platelet Count 180 K/mm3 (140-440)
[2021-10-10 05:42] LABS: BUN/Creatinine Ratio 4; Blood Urea Nitrogen 3 mg/dL (7-17); Calcium 8.3 mg/dL (8.4-10.2); Hemolysis Index 6
[2021-10-10] MEDS: INSULIN LISPRO 100 UNIT/ML SUB-Q SCH ×4 (08:00→21:51)
[2021-10-10] MEDS ORDERED: POTASSIUM PHOSPHATE 15 MMOL in SODIUM CHLORIDE 0.9% 250ML 250 ML IV SCH (08:30)
[2021-10-10] MEDS: FLUoxetine 20 MG CAP PO SCH (09:38)
[2021-10-10] MEDS: FOLIC ACID 1 MG TAB PO SCH (09:38)
[2021-10-10] MEDS: THIAMINE 100 MG TAB PO SCH (09:38)
[2021-10-10] MEDS: DOCUSATE SODIUM 100 MG CAP PO SCH ×2 (09:38→21:23)
[2021-10-10] MEDS: CLOPIDOGREL 75 MG TAB PO SCH (09:39)
[2021-10-10] MEDS: FAMOTIDINE 20 MG TAB PO SCH (09:39)
[2021-10-10] MEDS: amLODIPine 5 MG TAB PO SCH (09:39)
[2021-10-10] MEDS: carvediloL 12.5 MG TAB PO SCH ×2 (09:41→21:23)
[2021-10-10] MEDS: ASPIRIN 325 MG TAB PO SCH (09:41)
[2021-10-10] MEDS: ENOXAPARIN 40 MG/0.4 ML INJ SUB-Q SCH (09:44)
[2021-10-10] MEDS: ASPIRIN EC 81 MG TAB PO SCH (09:48)
[2021-10-10] MEDS ORDERED: hydroCHLOROthiazide 25 MG TAB PO SCH (10:00)
--- NOTE | 2021-10-10 10:36 | Progress Note ---
<TYREE MCCLENDON - Last Filed: 10/10/21 18:26> Assessment and Plan Assessment and plan: This is 61-year-old female with known past medical of HTN, DM, and recent CVC about 2 weeks ago initially admitted to the floor for AMS and Hypertensive urgency. Patient was a code stoke on the floor due to worsen mental status with right hemiplegia, right facial droop, and expressive aphasia. Was transferred to the ICU for acute CVA requiring tPA. Hospital Course to Date: 10/09: Mild improvement in mentation. Patient appears AAO, but remains aphasic with right hemiplegia and right facial droop, follow simple commands. Repeat CT head and MRI brain pending. Echo reviewed no evidence of PFO. Neurology consult pending. PT/OT/Speech consulted. D/w CCM okay to transfer patient back to telemetry if patient remains stable post 24hrs tPA. 10/10: Remains stable, still with significant expressive aphasia. Facial droop and right hemiplegia resolved, but still with generalized weakness. Repeat CT head and MRI noted, stable with no evidence of a bleed. Neurology consult pending. ASA and VTE proh initiated. Hypertensive this am, resume home meds. Continue PT/OT/Speech. Patient is stable for transfer to the Telemetry. Assessment and Plan #Acute CVA s/p tPA #H/o recent CVA- 2weeks prior #ETOH Abuse - Presented with AMS, drooling and unresponsiveness. 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 suggesting prior infarct, likely subacute - Code stroke called on the floor due to worsen mental status with right hemiplegia, right facial droop, and expressive aphasia - Patient received tPA per [facility] - Mild improvement noted in mentation, remains aphasic with righ hemiplegia and facial droop - CTA head/neck reviewed - Repeat CT head and MRI Brain noted - 2D echo with no evidence of PFO - Statin initiated - ASA and VTE proph initiated - Avoid sedative agents for now, IV Ativan held - Continue Neuro check per protocol - PT/OT/Speech ordered - Neurology consulted - Aspiration and fall precautions #Hypertensive Urgency-improved - Presented with SBP in the 200s, DBP in the 100s s/p IV Hydralazine - Hypertensive this am, SBP in the 170-180s - Home meds resumed - Continue blood pressure monitor per protocol - Maintain SBP less than 160 #Lactic Acidosis - Probably secondary to above - Patient is afebrile, with no leukocytosis, VSS - CTAbd/Pelvis unremarkable, cultures with NGTD - Will continue to trend lactic acid #Systemic Lupus Erythematosus(SLE) - Resume home med- Hydroxychloroquine #Hypomagnesemia #Hypokalemia-improved - Mg repleted - Monitor and replace electrolytes as needed - Trend BMP #Uncontrolled Diabetes Mellitus - HgbA1c- 14.1 - SSI initiated, continue BG check ACHS - Avoid hypoglycemia - While critically ill target blood glucose of 140-180 #GI/DVT Prophylaxis - PPI- Pepcid - SCDs to bilateral lower extremities while in bed #Advance Care Planning - Disease education data, care plan, diagnoses, and prognosis were discussed with patient at the bedside and patient's daughter via phone. Patient is a FULL code. They acknowledged understanding and agreed with current care plan. The high probability of a clinically significant, sudden or life threatening deterioration of the [multiple] system(s) required my full and direct attention, intervention and personal management. The aggregate critical care time was [60] minutes. This time is in addition to time spent performing reported procedures but includes the following: [x] Data Review and interpretation [x] Patient assessment and monitoring of vital signs [x] Documentation [x] Medication orders and management Disposition Plan: ICU Total Time Spent with Patient (Minutes): 60 History Interval history: Patient seen and examined at the bedside. Appears fully AAO, but still with significant expressive aphasia. Facial droop amd right hemiplegia resolved, but still with generalized weakness. Hypertensive this am. Otherwise JANELLE overnight Hospitalist Physical - Constitutional Vitals: Temp Pulse Resp BP Pulse Ox 100 F H 84 17 186/95 100 10/10/21 04:00 10/10/21 09:41 10/10/21 06:00 10/10/21 09:41 10/10/21 06:00 General appearance: Present: no acute distress, well-nourished - EENT Eyes: Present: PERRL, EOM intact ENT: hearing intact - Neck Neck: Present: normal ROM - Respiratory Respiratory effort: normal Respiratory: bilateral: diminished - Cardiovascular Rhythm: regular Heart Sounds: Present: S1 & S2 - Extremities Extremities: no ischemia, pulses intact, pulses symmetrical Peripheral Pulses: within normal limits - Abdominal General gastrointestinal: soft, non-distended, normal bowel sounds - Integumentary Integumentary: Present: warm, dry - Psychiatric Psychiatric: appropriate mood/affect, cooperative - Neurologic Neurologic: focal deficits (still with significant expressive aphasia), moves all extremities (Generalized weakness) - Allied Health Allied health notes reviewed: nursing, case management HEART Score - HEART Score Troponin: Troponin T < 0.010 ng/mL (0.00-0.029) 10/07/21 21:19 Results - Labs CBC & Chem 7: 10/10/21 04:30 10/10/21 04:30 Labs: Laboratory Last Values WBC 3.9 K/mm3 (4.5-11.0) L 10/10/21 04:30 RBC 3.30 M/mm3 (3.65-5.03) L 10/10/21 04:30 Hgb 10.4 gm/dl (10.1-14.3) 10/10/21 04:30 Hct 31.1 % (30.3-42.9) 10/10/21 04:30 MCV 94 fl (79-97) 10/10/21 04:30 MCH 32 pg (28-32) 10/10/21 04:30 MCHC 34 % (30-34) 10/10/21 04:30 RDW 18.0 % (13.2-15.2) H 10/10/21 04:30 Plt Count 180 K/mm3 (140-440) 10/10/21 04:30 Lymph % (Auto) 33.5 % (13.4-35.0) 10/09/21 04:14 [place] % (Auto) 6.2 % (0.0-7.3) 10/09/21 04:14 Eos % (Auto) 0.3 % (0.0-4.3) 10/09/21 04:14 Baso % (Auto) 0.4 % (0.0-1.8) 10/09/21 04:14 Lymph # (Auto) 2.1 K/mm3 (1.2-5.4) 10/09/21 04:14 [place] # (Auto) 0.4 K/mm3 (0.0-0.8) 10/09/21 04:14 Eos # (Auto) 0.0 K/mm3 (0.0-0.4) 10/09/21 04:14 Baso # (Auto) 0.0 K/mm3 (0.0-0.1) 10/09/21 04:14 Seg Neutrophils % 59.6 % (40.0-70.0) 10/09/21 04:14 Seg Neutrophils # 3.8 K/mm3 (1.8-7.7) 10/09/21 04:14 PT 14.8 Sec. (12.2-14.9) 10/10/21 04:30 INR 1.04 (0.87-1.13) 10/10/21 04:30 APTT 25.9 Sec. (24.2-36.6) 10/07/21 21:19 Sodium 138 mmol/L (137-145) 10/10/21 04:30 Potassium 3.4 mmol/L (3.6-5.0) L 10/10/21 04:30 Chloride 101.6 mmol/L (98-107) 10/10/21 04:30 Carbon Dioxide 20 mmol/L (22-30) L 10/10/21 04:30 Anion Gap 20 mmol/L 10/10/21 04:30 BUN 3 mg/dL (7-17) L 10/10/21 04:30 Creatinine 0.8 mg/dL (0.6-1.2) 10/10/21 04:30 Estimated GFR > 60 ml/min 10/10/21 04:30 BUN/Creatinine Ratio 4 % 10/10/21 04:30 Glucose 158 mg/dL (65-100) H 10/10/21 04:30 POC Glucose 265 mg/dL (70-105) H 10/09/21 21:32 Hemoglobin A1c 14.1 % (4-6) H 10/08/21 10:07 Lactic Acid 1.20 mmol/L (0.7-2.0) 10/10/21 04:30 Calcium 8.3 mg/dL (8.4-10.2) L 10/10/21 04:30 Phosphorus 2.00 mg/dL (2.5-4.5) L 10/10/21 04:30 Magnesium 1.70 mg/dL (1.7-2.3) 10/10/21 04:30 Total Bilirubin 0.90 mg/dL (0.1-1.2) 10/07/21 21:19 AST 30 units/L (5-40) 10/07/21 21:19 ALT 8 units/L (7-56) 10/07/21 21:19 Alkaline Phosphatase 126 units/L (35-129) 10/07/21 21:19 Ammonia 28.0 umol/L (25-60) 10/07/21 21:19 Total Creatine Kinase 102 units/L (30-135) 10/07/21 21:19 Troponin T < 0.010 ng/mL (0.00-0.029) 10/07/21 21:19 Total Protein 7.6 g/dL (6.3-8.2) 10/07/21 21:19 Albumin 4.4 g/dL (3.9-5) 10/07/21 21:19 Albumin/Globulin Ratio 1.4 % 10/07/21 21:19 Triglycerides 79 mg/dL (2-149) 10/08/21 10:07 Cholesterol 180 mg/dL (50-199) 10/08/21 10:07 LDL Cholesterol Direct 85 mg/dL (50-130) 10/08/21 10:07 HDL Cholesterol 76 mg/dL (40-59) H 10/08/21 10:07 Cholesterol/HDL Ratio 2.36 % 10/08/21 10:07 TSH 3.170 mlU/mL (0.270-4.200) 10/08/21 10:07 Urine Color Brown (Yellow) 10/07/21 Unknown Urine Turbidity Cloudy (Clear) 10/07/21 Unknown Urine pH 5.0 (5.0-7.0) 10/07/21 Unknown Ur Specific [place] 1.035 (1.003-1.030) H 10/07/21 Unknown Urine Protein 300 mg/dl mg/dL (Negative) 10/07/21 Unknown Urine Glucose (UA) Trace mg/dL (Negative) 10/07/21 Unknown Urine Ketones Negative mg/dL (Negative) 10/07/21 Unknown Urine Blood Negative (Negative) 10/07/21 Unknown Urine Nitrite Negative (Negative) 10/07/21 Unknown Urine Bilirubin Negative (Negative) 10/07/21 Unknown Urine Urobilinogen < 2.0 mg/dL (<2.0) 10/07/21 Unknown Ur Leukocyte Esterase Negative (Negative) 10/07/21 Unknown Urine WBC (Auto) 18.0 /HPF (0.0-6.0) H 10/07/21 Unknown Urine RBC (Auto) 8.0 /HPF (0.0-6.0) 10/07/21 Unknown U Epithel Cells (Auto) 44.0 /HPF (0-13.0) H 10/07/21 Unknown Urine Bacteria (Auto) 1+ /HPF (Negative) 10/07/21 Unknown Hyaline Casts 2 /LPF 10/07/21 Unknown Urine Mucus Few /HPF 10/07/21 Unknown Urine Yeast (Budding) 2+ /HPF 10/07/21 Unknown Salicylates < 0.3 mg/dL (2.8-20.0) L 10/07/21 21:19 Acetaminophen 5.0 ug/mL (10.0-30.0) L 10/07/21 21:19 Plasma/Serum Alcohol < 0.01 % (0-0.07) 10/07/21 21:19 Microbiology: Microbiology 10/07/21 Unknown Urine,Clean Catch Urine Culture - Final 10/07/21 21:04 Peripheral/Venous Blood Culture - Preliminary NO GROWTH AFTER 48 HOURS 10/07/21 21:04 Peripheral/Venous Blood Culture - Preliminary NO GROWTH AFTER 48 HOURS Luu/IV: Voiding Method Incontinent Active Medications - Current Medications Current Medications: Generic Name Dose Route Start Last Admin Trade Name Freq PRN Reason Stop Dose Admin Acetaminophen 650 mg 10/08/21 00:19 Acetaminophen 325 Mg Tab PO Q4H PRN Pain MILD(1-3)/Fever >100.5/HASKINS Amlodipine Besylate 5 mg 10/10/21 10:00 10/10/21 09:39 Amlodipine 5 Mg Tab PO 5 mg QDAY PRIETO Administration Aspirin 81 mg 10/10/21 10:00 10/10/21 09:48 Aspirin Ec 81 Mg Tab PO 81 mg QDAY PRIETO Administration Atorvastatin Calcium 40 mg 10/08/21 22:00 10/09/21 21:01 Atorvastatin 40 Mg Tab PO 40 mg QHS PRIETO Administration Bisacodyl 10 mg 10/08/21 00:19 Bisacodyl 10 Mg Rect Supp NC QDAY PRN Constipation Carvedilol 12.5 mg 10/10/21 10:00 10/10/21 09:41 Carvedilol 12.5 Mg Tab PO 12.5 mg Q12H PRIETO Administration Clopidogrel Bisulfate 75 mg 10/10/21 10:00 10/10/21 09:39 Clopidogrel 75 Mg Tab PO 75 mg QDAY PRIETO Administration Dextrose 50 ml 10/08/21 00:19 Dextrose 50% In Water (25gm) 50 Ml Syringe IV Q30MIN PRN Hypoglycemia Protocol Docusate Sodium 100 mg 10/10/21 10:00 10/10/21 09:38 Docusate Sodium 100 Mg Cap PO 100 mg BID PRIETO Administration Enoxaparin Sodium 40 mg 10/10/21 10:00 10/10/21 09:44 Enoxaparin 40 Mg/0.4 Ml Inj SUB-Q 40 mg QDAY@1000 PIRETO Administration Protocol Famotidine 20 mg 10/10/21 10:00 10/10/21 09:39 Famotidine 20 Mg Tab PO 20 mg DAILY PRIETO Administration Fluoxetine HCl 20 mg 10/10/21 10:00 10/10/21 09:38 Fluoxetine 20 Mg Cap PO 20 mg QDAY PRIETO Administration Folic Acid 1 mg 10/08/21 10:00 10/10/21 09:38 Folic Acid 1 Mg Tab PO 1 mg QDAY PRIETO Administration Hydroxychloroquine Sulfate 200 mg 10/10/21 10:00 Hydroxychloroquine 200 Mg Tab PO QDAY PRIETO Sodium Chloride 1,000 mls @ 125 mls/hr 10/08/21 05:45 10/09/21 06:16 Nacl 0.9% 1000 Ml IV 10/10/21 12:00 125 mls/hr DIRECT PRIETO Administration Potassium Phosphate 15 mmol/ 255 mls @ 125 mls/hr 10/10/21 08:30 10/10/21 09:37 Sodium Chloride IV 10/10/21 12:30 125 mls/hr ONCE@0830 PRIETO Administration Insulin Human Lispro 0 unit 10/08/21 07:30 10/09/21 22:05 Insulin Lispro 100 Unit/Ml SUB-Q 4 unit ACHS PRIETO Administration Protocol Magnesium Hydroxide 30 ml 10/08/21 00:19 Magnesium Hydroxide (Mom) Oral Liqd Udc PO Q4H PRN Constipation Metoclopramide HCl 10 mg 10/08/21 00:19 Metoclopramide 10 Mg Tab PO Q6H PRN Nausea And Vomiting Morphine Sulfate 2 mg 10/08/21 00:19 10/08/21 08:14 Morphine 2 Mg/1 Ml Inj IV 2 mg Q4H PRN Administration Pain, Moderate (4-6) Ondansetron HCl 4 mg 10/08/21 00:19 10/08/21 08:14 Ondansetron 4 Mg/2 Ml Inj IV 4 mg Q8H PRN Administration Nausea And Vomiting Promethazine HCl 25 mg 10/08/21 00:19 Promethazine 25 Mg Rect Supp NC Q6H PRN Nausea And Vomiting Sodium Chloride 10 ml 10/08/21 10:00 10/10/21 09:45 Sodium Chloride 0.9% 10 Ml Flush Syringe IV 10 ml BID PRIETO Administration Sodium Chloride 10 ml 10/08/21 00:19 Sodium Chloride 0.9% 10 Ml Flush Syringe IV PRN PRN LINE FLUSH Thiamine HCl 100 mg 10/08/21 10:00 10/10/21 09:38 Thiamine 100 Mg Tab PO 100 mg QDAY PRIETO Administration Nutrition/Malnutrition Assess - Dietary Evaluation Nutrition/Malnutrition Findings: Nutrition Notes Start: 10/08/21 18:14 Freq: Status: Active Protocol: Document 10/10/21 09:59 DANTE (Rec: 10/10/21 10:35 DANTE [id number]) Nutrition Notes Initial or Follow up Reassessment Current Diagnosis Diabetes,Hypertension,Stroke Other Pertinent Diagnosis AMS, CVA s/p tPA, Lactic Acidosis, Dysphagia, EtOH Abuse. Current Diet NPO. Labs/Tests 10/10: K 3.4, CO2 20, BUN 3, Glu 158, Ca 8.3, Phos 2.0. Pertinent Medications 10/10: Folic acid, Humalog 4U, KPO4 15 mmol, Thiamine, others nutritionally unremarkable. Height 5 ft 4 in Weight 40.76 kg [place] Body Weight (kg) 54.54 BMI 15.4 Weight change and time frame No body weight change reported in 2 days. Weight Status Underweight Subjective/Other Information RD consult for routine F/U on dietary advancement. Pt remains NPO since admission . I recommend start TF when pertinent. Pt is on Room Air, O2 saturation @ 100%, according to Physical Assessment History notes. CHIEF SCIENTIST note on 10/08/21 15:55: Speech and swallowing skills were assessed. Patient demonstrates significantly impaired oral and laryngeal function with a poor oral control as evident by spillage and reduced A-P movement of the bolus. Swallow reflex is delayed 17 seconds. Patient is aphasic with poor comprehension and verbal skills. Recommend NPO. Discussed findings with the patient's nurse. Will follow. - END OF NOTE. Pt has missing teeth, according to Physical Assessment History notes. Percent of energy/protein needs met: Pt remains NPO since admission . When pertinent, start Prescribed TF-Glucerna 1.2 [place] @ 45 ml/hr. provides for energy/protein needs (1,310 Kcal/66 g) during LOS, 92% Kcal; 106% AA. Burn Absent Trauma Absent GI Symptoms Other Difficulty In Swallowing,Chewing Food Allergy No Skin Integrity/Comment Assessment WNL. Current % PO Other Minimum of two criteria No Fluid Accumulation N/A Reduced Shipping Lead Strength N/A (non-severe) Protein-Calorie Malnutrition N\A Nutrition Diagnosis Underweight Etiology Possibly natural body composition. As Evidenced by Signs and Symptoms BMI: 15.4 Kg/m2. #1 Nutrition Diagnosis Swallowing difficulty,Biting/ Chewing (masticatory) difficulty Comments: Nutrition Diagnosis change for precision. CHIEF SCIENTIST note on 10/08/21 15:55: Speech and swallowing skills were assessed. Patient demonstrates significantly impaired oral and laryngeal function with a poor oral control as evident by spillage and reduced A-P movement of the bolus. Swallow reflex is delayed 17 seconds. Patient is aphasic with poor comprehension and verbal skills. Recommend NPO. Discussed findings with the patient's nurse. Will follow. - END OF NOTE. Etiology CVA, AMS, Dysphagia. As Evidenced by Signs and Symptoms Pt remains NPO since admission . Is patient on ventilator? No Is Patient Ambulatory and/or Out of Bed No REE-([facility]-confined to bed) 1166.292 Kcal/Kg value to use for calculation 35 Approximate Energy Requirements Using 1427 kcal/Kg Calculation Used for Recommendations Kcal/kg Additional Notes Protein: 1.2-1.5 g/Kg ABW; 49- 62 g/day. Fluids: 1 ml/Kcal, or as per MD. Nutrition Intervention Nutrition Support: When pertinent, start TF- Glucerna 1.2 Arcenio @ 45 ml/hr. Flush: 90 ml water Q 4 hr, or as per MD. Kcal 1,310 Protein (gm) 66 Carbohydrates (gm) 125 Fat (gm) 66 Fluid (mL) 879 Fiber (gm) 18 % RDI: 92% Kcal; 106% AA. Goal #1 Provide at least 75% of energy /protein needs through Enteral Feeding during LOS. Goal #2 Adjust the dietary intervention to better serve Pt's needs and clinical conditions during LOS. Follow-Up By: 10/12/21 Additional Comments When pertinent, start monitoring TF tolerance and BM . <MANPREET PASCAL - Last Filed: 10/10/21 20:13> Assessment and Plan Assessment and plan: I saw and evaluated the patient. I agree with the findings and the plan of care as documented in the Nurse Practitioner's~note, with the following corrections and additions. Hospitalist Physical - Constitutional Vitals: Temp Pulse Resp BP Pulse Ox 98.4 F 76 13 122/68 97 10/10/21 16:00 10/10/21 15:00 10/10/21 15:00 10/10/21 15:00 10/10/21 15:00 HEART Score - HEART Score Troponin: Troponin T < 0.010 ng/mL (0.00-0.029) 10/07/21 21:19 Results - Labs CBC & Chem 7: 10/10/21 04:30 10/10/21 04:30 Labs: Laboratory Last Values WBC 3.9 K/mm3 (4.5-11.0) L 10/10/21 04:30 RBC 3.30 M/mm3 (3.65-5.03) L 10/10/21 04:30 Hgb 10.4 gm/dl (10.1-14.3) 10/10/21 04:30 Hct 31.1 % (30.3-42.9) 10/10/21 04:30 MCV 94 fl (79-97) 10/10/21 04:30 MCH 32 pg (28-32) 10/10/21 04:30 MCHC 34 % (30-34) 10/10/21 04:30 RDW 18.0 % (13.2-15.2) H 10/10/21 04:30 Plt Count 180 K/mm3 (140-440) 10/10/21 04:30 Lymph % (Auto) 33.5 % (13.4-35.0) 10/09/21 04:14 [place] % (Auto) 6.2 % (0.0-7.3) 10/09/21 04:14 Eos % (Auto) 0.3 % (0.0-4.3) 10/09/21 04:14 Baso % (Auto) 0.4 % (0.0-1.8) 10/09/21 04:14 Lymph # (Auto) 2.1 K/mm3 (1.2-5.4) 10/09/21 04:14 [place] # (Auto) 0.4 K/mm3 (0.0-0.8) 10/09/21 04:14 Eos # (Auto) 0.0 K/mm3 (0.0-0.4) 10/09/21 04:14 Baso # (Auto) 0.0 K/mm3 (0.0-0.1) 10/09/21 04:14 Seg Neutrophils % 59.6 % (40.0-70.0) 10/09/21 04:14 Seg Neutrophils # 3.8 K/mm3 (1.8-7.7) 10/09/21 04:14 PT 14.8 Sec. (12.2-14.9) 10/10/21 04:30 INR 1.04 (0.87-1.13) 10/10/21 04:30 APTT 25.9 Sec. (24.2-36.6) 10/07/21 21:19 Sodium 138 mmol/L (137-145) 10/10/21 04:30 Potassium 3.4 mmol/L (3.6-5.0) L 10/10/21 04:30 Chloride 101.6 mmol/L (98-107) 10/10/21 04:30 Carbon Dioxide 20 mmol/L (22-30) L 10/10/21 04:30 Anion Gap 20 mmol/L 10/10/21 04:30 BUN 3 mg/dL (7-17) L 10/10/21 04:30 Creatinine 0.8 mg/dL (0.6-1.2) 10/10/21 04:30 Estimated GFR > 60 ml/min 10/10/21 04:30 BUN/Creatinine Ratio 4 % 10/10/21 04:30 Glucose 158 mg/dL (65-100) H 10/10/21 04:30 POC Glucose 171 mg/dL (70-105) H 10/10/21 16:41 Hemoglobin A1c 14.1 % (4-6) H 10/08/21 10:07 Lactic Acid 1.20 mmol/L (0.7-2.0) 10/10/21 04:30 Calcium 8.3 mg/dL (8.4-10.2) L 10/10/21 04:30 Phosphorus 2.00 mg/dL (2.5-4.5) L 10/10/21 04:30 Magnesium 1.70 mg/dL (1.7-2.3) 10/10/21 04:30 Total Bilirubin 0.90 mg/dL (0.1-1.2) 10/07/21 21:19 AST 30 units/L (5-40) 10/07/21 21:19 ALT 8 units/L (7-56) 10/07/21 21:19 Alkaline Phosphatase 126 units/L (35-129) 10/07/21 21:19 Ammonia 28.0 umol/L (25-60) 10/07/21 21:19 Total Creatine Kinase 102 units/L (30-135) 10/07/21 21:19 Troponin T < 0.010 ng/mL (0.00-0.029) 10/07/21 21:19 Total Protein 7.6 g/dL (6.3-8.2) 10/07/21 21:19 Albumin 4.4 g/dL (3.9-5) 10/07/21 21:19 Albumin/Globulin Ratio 1.4 % 10/07/21 21:19 Triglycerides 79 mg/dL (2-149) 10/08/21 10:07 Cholesterol 180 mg/dL (50-199) 10/08/21 10:07 LDL Cholesterol Direct 85 mg/dL (50-130) 10/08/21 10:07 HDL Cholesterol 76 mg/dL (40-59) H 10/08/21 10:07 Cholesterol/HDL Ratio 2.36 % 10/08/21 10:07 TSH 3.170 mlU/mL (0.270-4.200) 10/08/21 10:07 Urine Color Brown (Yellow) 10/07/21 Unknown Urine Turbidity Cloudy (Clear) 10/07/21 Unknown Urine pH 5.0 (5.0-7.0) 10/07/21 Unknown Ur Specific [place] 1.035 (1.003-1.030) H 10/07/21 Unknown Urine Protein 300 mg/dl mg/dL (Negative) 10/07/21 Unknown Urine Glucose (UA) Trace mg/dL (Negative) 10/07/21 Unknown Urine Ketones Negative mg/dL (Negative) 10/07/21 Unknown Urine Blood Negative (Negative) 10/07/21 Unknown Urine Nitrite Negative (Negative) 10/07/21 Unknown Urine Bilirubin Negative (Negative) 10/07/21 Unknown Urine Urobilinogen < 2.0 mg/dL (<2.0) 10/07/21 Unknown Ur Leukocyte Esterase Negative (Negative) 10/07/21 Unknown Urine WBC (Auto) 18.0 /HPF (0.0-6.0) H 10/07/21 Unknown Urine RBC (Auto) 8.0 /HPF (0.0-6.0) 10/07/21 Unknown U Epithel Cells (Auto) 44.0 /HPF (0-13.0) H 10/07/21 Unknown Urine Bacteria (Auto) 1+ /HPF (Negative) 10/07/21 Unknown Hyaline Casts 2 /LPF 10/07/21 Unknown Urine Mucus Few /HPF 10/07/21 Unknown Urine Yeast (Budding) 2+ /HPF 10/07/21 Unknown Salicylates < 0.3 mg/dL (2.8-20.0) L 10/07/21 21:19 Acetaminophen 5.0 ug/mL (10.0-30.0) L 10/07/21 21:19 Plasma/Serum Alcohol < 0.01 % (0-0.07) 10/07/21 21:19 Microbiology: Microbiology 10/07/21 Unknown Urine,Clean Catch Urine Culture - Final 10/07/21 21:04 Peripheral/Venous Blood Culture - Preliminary NO GROWTH AFTER 48 HOURS 10/07/21 21:04 Peripheral/Venous Blood Culture - Preliminary NO GROWTH AFTER 48 HOURS Luu/IV: Voiding Method Incontinent Active Medications - Current Medications Current Medications: Generic Name Dose Route Start Last Admin Trade Name Freq PRN Reason Stop Dose Admin Acetaminophen 650 mg 10/08/21 00:19 Acetaminophen 325 Mg Tab PO Q4H PRN Pain MILD(1-3)/Fever >100.5/HASKINS Amlodipine Besylate 5 mg 10/10/21 10:00 10/10/21 09:39 Amlodipine 5 Mg Tab PO 5 mg QDAY PRIETO Administration Aspirin 81 mg 10/10/21 10:00 10/10/21 09:48 Aspirin Ec 81 Mg Tab PO 81 mg QDAY PRIETO Administration Atorvastatin Calcium 40 mg 10/08/21 22:00 10/09/21 21:01 Atorvastatin 40 Mg Tab PO 40 mg QHS PRIETO Administration Bisacodyl 10 mg 10/08/21 00:19 Bisacodyl 10 Mg Rect Supp NC QDAY PRN Constipation Carvedilol 12.5 mg 10/10/21 10:00 10/10/21 09:41 Carvedilol 12.5 Mg Tab PO 12.5 mg Q12H PRIETO Administration Clopidogrel Bisulfate 75 mg 10/10/21 10:00 10/10/21 09:39 Clopidogrel 75 Mg Tab PO 75 mg QDAY PRIETO Administration Dextrose 50 ml 10/08/21 00:19 Dextrose 50% In Water (25gm) 50 Ml Syringe IV Q30MIN PRN Hypoglycemia Protocol Docusate Sodium 100 mg 10/10/21 10:00 10/10/21 09:38 Docusate Sodium 100 Mg Cap PO 100 mg BID PRIETO Administration Enoxaparin Sodium 40 mg 10/10/21 10:00 10/10/21 09:44 Enoxaparin 40 Mg/0.4 Ml Inj SUB-Q 40 mg QDAY@1000 [facility] Administration Protocol Famotidine 20 mg 10/10/21 10:00 10/10/21 09:39 Famotidine 20 Mg Tab PO 20 mg DAILY PRIETO Administration Fluoxetine HCl 20 mg 10/10/21 10:00 10/10/21 09:38 Fluoxetine 20 Mg Cap PO 20 mg QDAY PRIETO Administration Folic Acid 1 mg 10/08/21 10:00 10/10/21 09:38 Folic Acid 1 Mg Tab PO 1 mg QDAY PRIETO Administration Hydroxychloroquine Sulfate 200 mg 10/10/21 10:00 10/10/21 11:58 Hydroxychloroquine 200 Mg Tab PO 200 mg QDAY [facility] Administration Insulin Glargine 10 units 10/10/21 22:00 Insulin Glargine 100 Units/Ml SUB-Q QHS [facility] Insulin Human Lispro 0 unit 10/08/21 07:30 10/10/21 20:06 Insulin Lispro 100 Unit/Ml SUB-Q Not Given ACHS [facility] Protocol Magnesium Hydroxide 30 ml 10/08/21 00:19 Magnesium Hydroxide (Mom) Oral Liqd Udc PO Q4H PRN Constipation Metoclopramide HCl 10 mg 10/08/21 00:19 Metoclopramide 10 Mg Tab PO Q6H PRN Nausea And Vomiting Morphine Sulfate 2 mg 10/08/21 00:19 10/08/21 08:14 Morphine 2 Mg/1 Ml Inj IV 2 mg Q4H PRN Administration Pain, Moderate (4-6) Ondansetron HCl 4 mg 10/08/21 00:19 10/08/21 08:14 Ondansetron 4 Mg/2 Ml Inj IV 4 mg Q8H PRN Administration Nausea And Vomiting Promethazine HCl 25 mg 10/08/21 00:19 Promethazine 25 Mg Rect Supp NC Q6H PRN Nausea And Vomiting Sodium Chloride 10 ml 10/08/21 10:00 10/10/21 09:45 Sodium Chloride 0.9% 10 Ml Flush Syringe IV 10 ml BID PRIETO Administration Sodium Chloride 10 ml 10/08/21 00:19 Sodium Chloride 0.9% 10 Ml Flush Syringe IV PRN PRN LINE FLUSH Thiamine HCl 100 mg 10/08/21 10:00 10/10/21 09:38 Thiamine 100 Mg Tab PO 100 mg QDAY PRIETO Administration Nutrition/Malnutrition Assess - Dietary Evaluation Nutrition/Malnutrition Findings: Nutrition Notes Start: 10/08/21 18:14 Freq: Status: Active Protocol: Document 10/10/21 09:59 DANTE (Rec: 10/10/21 10:35 DANTE [id number]) Nutrition Notes Initial or Follow up Reassessment Current Diagnosis Diabetes,Hypertension,Stroke Other Pertinent Diagnosis AMS, CVA s/p tPA, Lactic Acidosis, Dysphagia, EtOH Abuse. Current Diet NPO. Labs/Tests 10/10: K 3.4, CO2 20, BUN 3, Glu 158, Ca 8.3, Phos 2.0. Pertinent Medications 10/10: Folic acid, Humalog 4U, KPO4 15 mmol, Thiamine, others nutritionally unremarkable. Height 5 ft 4 in Weight 40.76 kg [place] Body Weight (kg) 54.54 BMI 15.4 Weight change and time frame No body weight change reported in 2 days. Weight Status Underweight Subjective/Other Information RD consult for routine F/U on dietary advancement. Pt remains NPO since admission . I recommend start TF when pertinent. Pt is on Room Air, O2 saturation @ 100%, according to Physical Assessment History notes. CHIEF SCIENTIST note on 10/08/21 15:55: Speech and swallowing skills were assessed. Patient demonstrates significantly impaired oral and laryngeal function with a poor oral control as evident by spillage and reduced A-P movement of the bolus. Swallow reflex is delayed 17 seconds. Patient is aphasic with poor comprehension and verbal skills. Recommend NPO. Discussed findings with the patient's nurse. Will follow. - END OF NOTE. Pt has missing teeth, according to Physical Assessment History notes. Percent of energy/protein needs met: Pt remains NPO since admission . When pertinent, start Prescribed TF-Glucerna 1.2 Arcenio @ 45 ml/hr. provides for energy/protein needs (1,310 Kcal/66 g) during LOS, 92% Kcal; 106% AA. Burn Absent Trauma Absent GI Symptoms Other Difficulty In Swallowing,Chewing Food Allergy No Skin Integrity/Comment Assessment WNL. Current % PO Other Minimum of two criteria No Fluid Accumulation N/A Reduced Shipping Lead Strength N/A (non-severe) Protein-Calorie Malnutrition N\A #2 Nutrition Diagnosis Underweight Etiology Possibly natural body composition. As Evidenced by Signs and Symptoms BMI: 15.4 Kg/m2. #1 Nutrition Diagnosis Swallowing difficulty,Biting/ Chewing (masticatory) difficulty Comments: Nutrition Diagnosis change for precision. CHIEF SCIENTIST note on 10/08/21 15:55: Speech and swallowing skills were assessed. Patient demonstrates significantly impaired oral and laryngeal function with a poor oral control as evident by spillage and reduced A-P movement of the bolus. Swallow reflex is delayed 17 seconds. Patient is aphasic with poor comprehension and verbal skills. Recommend NPO. Discussed findings with the patient's nurse. Will follow. - END OF NOTE. Etiology CVA, AMS, Dysphagia. As Evidenced by Signs and Symptoms Pt remains NPO since admission . Is patient on ventilator? No Is Patient Ambulatory and/or Out of Bed No REE-([facility]-confined to bed) 1166.292 Kcal/Kg value to use for calculation 35 Approximate Energy Requirements Using 1427 kcal/Kg Calculation Used for Recommendations Kcal/kg Additional Notes Protein: 1.2-1.5 g/Kg ABW; 49- 62 g/day. Fluids: 1 ml/Kcal, or as per MD. Nutrition Intervention Nutrition Support: When pertinent, start TF- Glucerna 1.2 Arcenio @ 45 ml/hr. Flush: 90 ml water Q 4 hr, or as per MD. Kcal 1,310 Protein (gm) 66 Carbohydrates (gm) 125 Fat (gm) 66 Fluid (mL) 879 Fiber (gm) 18 % RDI: 92% Kcal; 106% AA. Goal #1 Provide at least 75% of energy /protein needs through Enteral Feeding during LOS. Goal #2 Adjust the dietary intervention to better serve Pt's needs and clinical conditions during LOS. Follow-Up By: 10/12/21 Additional Comments When pertinent, start monitoring TF tolerance and BM .
--- NOTE | 2021-10-10 11:35 | Cat Scan Report ---
CT head/brain w con INDICATION: CHANGES IN MENTAL STATUS. TECHNIQUE: Routine CT head. All CT scans at this location are performed using CT dose reduction for A MANISHA by means of automated exposure control. COMPARISON: 10/07/2021 FINDINGS: Intracranial: No change in the encephalomalacia in the right MANAGER SUPPLIER distribution from remote infarction. No significant change in the appearance of brain parenchyma. Toney-white matter differentiation is ma intained. No intracranial hemorrhage. No extra axial collection. No hydrocephalus. No herniation. Per iventricular and centrum semiovale white matter hypoattenuation most consistent with sequela of chron ic microvascular disease, unchanged. Remote lacunar infarctions in the bilateral basal ganglia. Sinuses: Paranasal sinuses and mastoid air cells are essentially clear. Orbits: Globes are intact. Calvarium: No acute fracture. IMPRESSION: 1. No acute findings or significant change. 2. Remote right MANAGER SUPPLIER distribution infarction. Signer Name: Macario Pacheco MD Signed: 10/08/2021 12:57 PM Workstation Name: [id number]
[2021-10-10] MEDS: HYDROXYCHLOROQUINE 200 MG TAB PO SCH (11:58)
--- NOTE | 2021-10-10 12:20 | Progress Note ---
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 and advance diet per recommendations - no hemorrhagic transformation on CT brain repeat - continue fall precautions - secondary prevention - continue antiplatelet therapy with Plavix as well - replace electrolytes per protocol (Mg & PO4) - accuchecks with glycemic control per SSI for target blood glucose of < 180 mg/dL; avoid hypoglycemia - prn supplemental oxygen for target O2 sat's > 90% acutely - aspiration precautions - prn bronchodilators with pulmonary hygiene per RT - avoid nephrotoxins, renally dose all medications - AB's per ID rec's - prn analgesia per pain score - Maintenance of sleep-wake cycle, avoid delirium - G.I. & VTE prophylaxis - PT/OT/ROM exercises - continue mobility protocols for pressure ulcer prophylaxis - Monitor hemodynamics closely - continue other care per attending / other consultants - discharge planning ongoing concurrently .... Re-evaluate in am & prn ..... ok to transfer to medical floor Subjective Date of service: 10/10/21 Principal diagnosis: Acute CVA s/p tPA; AMS; HTNsive urgency; Lactic acidosis; EtOH abuse; DM II Interval history: Patient is seen today for: Acute CVA s/p tPA; AMS; Hypertensive urgency; Protein calorie malnutrition; Lactic acidosis; Alcohol abuse; DM II Seen and examined at bedside; 24hour events reviewed; nursing and respiratory care staff consulted; no adverse overnight events reported to me; resting in bed; awaiting doppler results; neurology evaluation ongoing; no bleeding reported; still encephalopathic but protecting airway very well Objective Vital Signs - 12hr 10/10/21 10/10/21 10/10/21 00:30 01:00 01:30 Temperature Pulse Rate 83 92 H 83 Pulse Rate [ From Monitor] Respiratory 14 20 14 Rate Blood Pressure 190/100 177/95 182/94 O2 Sat by Pulse 99 99 100 Oximetry 10/10/21 10/10/21 10/10/21 02:00 02:30 03:00 Temperature Pulse Rate 87 86 89 Pulse Rate [ From Monitor] Respiratory 16 17 16 Rate Blood Pressure 180/94 176/77 148/85 O2 Sat by Pulse 100 100 99 Oximetry 10/10/21 10/10/21 10/10/21 03:30 04:00 04:30 Temperature 100 F H Pulse Rate 83 92 H Pulse Rate [ From Monitor] Respiratory 22 15 20 Rate Blood Pressure 143/93 175/92 186/98 O2 Sat by Pulse 100 100 100 Oximetry 10/10/21 10/10/21 10/10/21 05:00 05:30 06:00 Temperature Pulse Rate 87 86 97 H Pulse Rate [ From Monitor] Respiratory 21 14 17 Rate Blood Pressure 156/79 143/89 163/90 O2 Sat by Pulse 100 100 100 Oximetry 10/10/21 10/10/21 10/10/21 08:00 09:39 09:41 Temperature 99.1 F Pulse Rate 84 84 Pulse Rate [ 90 From Monitor] Respiratory 16 Rate Blood Pressure 186/95 186/95 O2 Sat by Pulse 100 Oximetry Constitutional: no acute distress, other (Aphasic, right facial droop, chronically ill looking) Eyes: non-icteric ENT: oropharynx moist Neck: supple, no lymphadenopathy, no JVD Effort: normal Ascultation: Bilateral: clear, diminished breath sounds Percussion: Bilateral: not dull Cardiovascular: regular rate and rhythm, other (S1,S2) Gastrointestinal: normoactive bowel sounds, soft, non-tender, non-distended Integumentary: normal Extremities: no cyanosis, no edema, pulses normal, no ischemia or petechiae Neurologic: non-focal exam (grossly), pupils equal and round (Left lateral gaze defect, RUext 4/5 power grade) Psychiatric: other (flat affect) CBC and BMP: 10/10/21 04:30 10/10/21 04:30 ABG, PT/INR, D-dimer: PT/INR, D-dimer PT 14.8 Sec. (12.2-14.9) 10/10/21 04:30 INR 1.04 (0.87-1.13) 10/10/21 04:30 Abnormal lab findings: Abnormal Labs 10/07/21 10/07/21 10/07/21 21:19 21:19 21:19 WBC RBC RDW 17.6 H Seg Neutrophils % 75.8 H Potassium 2.9 L* Chloride 95.3 L Carbon Dioxide BUN 5 L Glucose 224 H POC Glucose Hemoglobin A1c Lactic Acid 4.20 H* Calcium Phosphorus Magnesium HDL Cholesterol Ur Specific [place] Urine WBC (Auto) U Epithel Cells (Auto) Salicylates Acetaminophen 10/07/21 10/07/21 10/07/21 21:19 21:19 21:19 WBC RBC RDW Seg Neutrophils % Potassium Chloride Carbon Dioxide BUN Glucose POC Glucose Hemoglobin A1c Lactic Acid Calcium Phosphorus Magnesium 1.00 L HDL Cholesterol Ur Specific [place] Urine WBC (Auto) U Epithel Cells (Auto) Salicylates < 0.3 L Acetaminophen 5.0 L 10/07/21 10/07/21 10/08/21 23:47 Unknown 08:01 WBC RBC RDW Seg Neutrophils % Potassium Chloride Carbon Dioxide BUN Glucose POC Glucose 312 H Hemoglobin A1c Lactic Acid 2.10 H* Calcium Phosphorus Magnesium HDL Cholesterol Ur Specific [place] 1.035 H Urine WBC (Auto) 18.0 H U Epithel Cells (Auto) 44.0 H Salicylates Acetaminophen 10/08/21 10/08/21 10/08/21 10:07 10:07 10:07 WBC RBC RDW Seg Neutrophils % Potassium 3.1 L Chloride Carbon Dioxide BUN Glucose POC Glucose Hemoglobin A1c 14.1 H Lactic Acid 4.80 H* Calcium Phosphorus Magnesium 1.50 L HDL Cholesterol 76 H Ur Specific [place] Urine WBC (Auto) U Epithel Cells (Auto) Salicylates Acetaminophen 10/08/21 10/09/21 10/09/21 17:08 00:16 04:14 WBC RBC 3.34 L RDW 18.3 H Seg Neutrophils % Potassium Chloride Carbon Dioxide BUN Glucose POC Glucose 205 H 231 H Hemoglobin A1c Lactic Acid Calcium Phosphorus Magnesium HDL Cholesterol Ur Specific [place] Urine WBC (Auto) U Epithel Cells (Auto) Salicylates Acetaminophen 10/09/21 10/09/21 10/09/21 04:14 08:11 15:47 WBC RBC RDW Seg Neutrophils % Potassium Chloride Carbon Dioxide 16 L D BUN Glucose 219 H POC Glucose 214 H 135 H Hemoglobin A1c Lactic Acid Calcium 8.1 L Phosphorus Magnesium 1.60 L HDL Cholesterol Ur Specific [place] Urine WBC (Auto) U Epithel Cells (Auto) Salicylates Acetaminophen 10/09/21 10/09/21 10/10/21 17:33 21:32 04:30 WBC 3.9 L RBC 3.30 L RDW 18.0 H Seg Neutrophils % Potassium Chloride Carbon Dioxide BUN Glucose POC Glucose 230 H 265 H Hemoglobin A1c Lactic Acid Calcium Phosphorus Magnesium HDL Cholesterol Ur Specific [place] Urine WBC (Auto) U Epithel Cells (Auto) Salicylates Acetaminophen 10/10/21 04:30 WBC RBC RDW Seg Neutrophils % Potassium 3.4 L Chloride Carbon Dioxide 20 L BUN 3 L Glucose 158 H POC Glucose Hemoglobin A1c Lactic Acid Calcium 8.3 L Phosphorus 2.00 L Magnesium HDL Cholesterol Ur Specific [place] Urine WBC (Auto) U Epithel Cells (Auto) Salicylates Acetaminophen
--- NOTE | 2021-10-10 15:19 | Consultation ---
History of Present Illness Consult date: 10/10/21 Reason for Consult: CVA Chief complaint: Difficulty with speech History of present illness: 61 yo right-handed female with lupus, stroke (2 weeks ago), dm w/ neuropathy, asthma, arthritis, anxiety, cadx, who presents with noted difficulty with language. She notes that her language was suddenly affected. Notes continued difficulty expressing everything she wants to state. Notes a hx of a PE and possible complication with the blood thinner in the past. She notes lower back pain (chronic). Past History Past Medical History: arthritis, diabetes, GERD, stroke, other (neuropathy, lupus. cardiac cath 10/08/2015 with EF of 55%, diastolic dysfunction, and normal coronary arteries.,tia,Asthma,Anxiety) Past Surgical History: cholecystectomy, Social history: alcohol abuse Family history: no significant family history Medications and Allergies Allergies Allergy/AdvReac Type Severity Reaction Status Date / Time lisinopril Allergy Severe Anaphylaxis Verified 12/18/17 07:42 OZIEL Inhibitors AdvReac Headache Verified 12/18/17 07:42 Home Medications Medication Instructions Recorded Confirmed Last Taken Type amLODIPine 10 mg PO DAILY #30 tablet 10/08/15 10/08/21 07/20/21 Rx Docusate Sodium [Colace] 100 mg PO BID PRN #20 capsule 07/01/16 10/08/21 Unknown Rx Gabapentin 300 mg PO BID #30 capsule 12/18/17 10/08/21 Unknown Rx Aspirin EC [Halfprin EC] 81 mg PO QDAY 10/08/21 10/08/21 Unknown History Clopidogrel [Plavix] 75 mg PO QDAY 10/08/21 10/08/21 Unknown History FLUoxetine [PROzac] 20 mg PO QDAY 10/08/21 10/08/21 Unknown History Hydroxychloroquine [Plaquenil] 200 mg PO QDAY 10/08/21 10/08/21 Unknown History Icosapent Ethyl [Vascepa] 1 gm PO BIDWM 10/08/21 10/08/21 Unknown History Insulin Detemir [Levemir Flextouch] 0 unit SQ QDAY 10/08/21 10/08/21 Unknown History Lispro Insulin [HumaLOG] 0 unit SQ QDAY 10/08/21 10/08/21 Unknown History Rosuvastatin Calcium 40 mg PO QDAY 10/08/21 10/08/21 Unknown History carvediloL [Coreg] 12.5 mg PO Q12H 10/08/21 10/08/21 Unknown History hydroCHLOROthiazide [HCTZ] 25 mg PO QDAY 10/08/21 10/08/21 Unknown History Active Meds: Active Medications Acetaminophen (Acetaminophen 325 Mg Tab) 650 mg PO Q4H PRN PRN Reason: Pain MILD(1-3)/Fever >100.5/[place] Amlodipine Besylate (Amlodipine 5 Mg Tab) 5 mg PO QDAY [facility] Last Admin: 10/10/21 09:39 Dose: 5 mg Aspirin (Aspirin Ec 81 Mg Tab) 81 mg PO QDAY [facility] Last Admin: 10/10/21 09:48 Dose: 81 mg Atorvastatin Calcium (Atorvastatin 40 Mg Tab) 40 mg PO QHS [facility] Last Admin: 10/09/21 21:01 Dose: 40 mg Bisacodyl (Bisacodyl 10 Mg Rect Supp) 10 mg [place] QDAY PRN PRN Reason: Constipation Carvedilol (Carvedilol 12.5 Mg Tab) 12.5 mg PO Q12H [facility] Last Admin: 10/10/21 09:41 Dose: 12.5 mg Clopidogrel Bisulfate (Clopidogrel 75 Mg Tab) 75 mg PO QDAY [facility] Last Admin: 10/10/21 09:39 Dose: 75 mg Dextrose (Dextrose 50% In Water (25gm) 50 Ml Syringe) 50 ml IV Q30MIN PRN; Protocol PRN Reason: Hypoglycemia Docusate Sodium (Docusate Sodium 100 Mg Cap) 100 mg PO BID [facility] Last Admin: 10/10/21 09:38 Dose: 100 mg Enoxaparin Sodium (Enoxaparin 40 Mg/0.4 Ml Inj) 40 mg SUB-Q QDAY@1000 PRIETO; Protocol Last Admin: 10/10/21 09:44 Dose: 40 mg Famotidine (Famotidine 20 Mg Tab) 20 mg PO DAILY [facility] Last Admin: 10/10/21 09:39 Dose: 20 mg Fluoxetine HCl (Fluoxetine 20 Mg Cap) 20 mg PO QDAY [facility] Last Admin: 10/10/21 09:38 Dose: 20 mg Folic Acid (Folic Acid 1 Mg Tab) 1 mg PO QDAY [facility] Last Admin: 10/10/21 09:38 Dose: 1 mg Hydroxychloroquine Sulfate (Hydroxychloroquine 200 Mg Tab) 200 mg PO QDAY [facility] Last Admin: 10/10/21 11:58 Dose: 200 mg Insulin Glargine (Insulin Glargine 100 Units/Ml) 10 units SUB-Q QHS [facility] Insulin Human Lispro (Insulin Lispro 100 Unit/Ml) 0 unit SUB-Q ACHS [facility]; Protocol Last Admin: 10/10/21 11:59 Dose: 4 unit Magnesium Hydroxide (Magnesium Hydroxide (Mom) Oral Liqd Udc) 30 ml PO Q4H PRN PRN Reason: Constipation Metoclopramide HCl (Metoclopramide 10 Mg Tab) 10 mg PO Q6H PRN PRN Reason: Nausea And Vomiting Morphine Sulfate (Morphine 2 Mg/1 Ml Inj) 2 mg IV Q4H PRN PRN Reason: Pain, Moderate (4-6) Last Admin: 10/08/21 08:14 Dose: 2 mg Ondansetron HCl (Ondansetron 4 Mg/2 Ml Inj) 4 mg IV Q8H PRN PRN Reason: Nausea And Vomiting Last Admin: 10/08/21 08:14 Dose: 4 mg Promethazine HCl (Promethazine 25 Mg Rect Supp) 25 mg [place] Q6H PRN PRN Reason: Nausea And Vomiting Sodium Chloride (Sodium Chloride 0.9% 10 Ml Flush Syringe) 10 ml IV BID [facility] Last Admin: 10/10/21 09:45 Dose: 10 ml Sodium Chloride (Sodium Chloride 0.9% 10 Ml Flush Syringe) 10 ml IV PRN PRN PRN Reason: LINE FLUSH Thiamine HCl (Thiamine 100 Mg Tab) 100 mg PO QDAY [facility] Last Admin: 10/10/21 09:38 Dose: 100 mg Physical Examination - Vital Signs Vital Signs: Vital Signs Temp Pulse Resp BP Pulse Ox 98.6 F 110 H 16 120/88 98 10/07/21 20:08 10/07/21 20:08 10/07/21 20:08 10/07/21 20:08 10/07/21 20:08 - Physical Exam Narrative exam: Gen: nad, well-nourished; Head: normocephalic; Eyes: no gaze deviation; no ptosis; ENT: normal vocalization; CVS: warm and well-perfused; Pulm: no respiratory distress; GI: appears non-distended; Ext: no cyanosis appreciated at distal extremities; Skin: no acute rash at distal extremities; +sacral wound dressing; Heme: no pathologic ecchymosis appreciated at distal extremities; Neuro: alert, oriented to name, not age/month; follows simple commands only; needs repeated prompting for two step commands; moderate expressive aphasia; +moderate to severe dysarthria;, CN 2 - PERRL, visual morrow grossly intact, CN 3, 4, 6 - EOMI, CN 5 - facial sensation decreased on the left to light touch, CN 7 - facial movement symmetric, CN 8 - hearing grossly intact, CN 9, 10 - uvula midline, CN 11 - decreased left shoulder movement, CN 12 - tongue midline; Motor - pronation of left hand, at least 4/5 at right arm; at least 3/5 at left arm; at least 2/5 to 3-/5 at bilateral lower extremities (pt notes lower back pain with movement); Sensory - light touch decreased at left arm/leg, Cerebellar - fnf intact bilaterally after repeated prompting; difficulty with bilateral hts due to weakness;, Gait - deferred secondary to fall risk; NIHSS (1a.) Level of Consciousness:0 (1b.) LOC Questions:2 (1c.) LOC Commands:0 (2.) Best Gaze:0 (3.) Visual:0 (4.) Facial Palsy:0 (5a.) Motor Arm, Left:1 (5b.) Motor Arm, Right:0 (6a.) Motor Leg, Left:3 (6b.) Motor Leg, Right:2 (7.) Limb Ataxia:0 (8.) Sensory:2 (9.) Best Language:2 (10.) Dysarthria: 2 (11.) Extinction and Inattention:1 NIHSS Total Score: 15 Results - Laboratory Findings CBC and BMP: 10/10/21 04:30 10/10/21 04:30 Abnormal Lab Findings: Abnormal Labs 10/07/21 10/07/21 10/07/21 21:19 21:19 21:19 WBC RBC RDW 17.6 H Seg Neutrophils % 75.8 H Potassium 2.9 L* Chloride 95.3 L Carbon Dioxide BUN 5 L Glucose 224 H POC Glucose Hemoglobin A1c Lactic Acid 4.20 H* Calcium Phosphorus Magnesium HDL Cholesterol Ur Specific [place] Urine WBC (Auto) U Epithel Cells (Auto) Salicylates Acetaminophen 10/07/21 10/07/21 10/07/21 21:19 21:19 21:19 WBC RBC RDW Seg Neutrophils % Potassium Chloride Carbon Dioxide BUN Glucose POC Glucose Hemoglobin A1c Lactic Acid Calcium Phosphorus Magnesium 1.00 L HDL Cholesterol Ur Specific [place] Urine WBC (Auto) U Epithel Cells (Auto) Salicylates < 0.3 L Acetaminophen 5.0 L 10/07/21 10/07/21 10/08/21 23:47 Unknown 08:01 WBC RBC RDW Seg Neutrophils % Potassium Chloride Carbon Dioxide BUN Glucose POC Glucose 312 H Hemoglobin A1c Lactic Acid 2.10 H* Calcium Phosphorus Magnesium HDL Cholesterol Ur Specific [place] 1.035 H Urine WBC (Auto) 18.0 H U Epithel Cells (Auto) 44.0 H Salicylates Acetaminophen 10/08/21 10/08/21 10/08/21 10:07 10:07 10:07 WBC RBC RDW Seg Neutrophils % Potassium 3.1 L Chloride Carbon Dioxide BUN Glucose POC Glucose Hemoglobin A1c 14.1 H Lactic Acid 4.80 H* Calcium Phosphorus Magnesium 1.50 L HDL Cholesterol 76 H Ur Specific [place] Urine WBC (Auto) U Epithel Cells (Auto) Salicylates Acetaminophen 10/08/21 10/09/21 10/09/21 17:08 00:16 04:14 WBC RBC 3.34 L RDW 18.3 H Seg Neutrophils % Potassium Chloride Carbon Dioxide BUN Glucose POC Glucose 205 H 231 H Hemoglobin A1c Lactic Acid Calcium Phosphorus Magnesium HDL Cholesterol Ur Specific [place] Urine WBC (Auto) U Epithel Cells (Auto) Salicylates Acetaminophen 10/09/21 10/09/21 10/09/21 04:14 08:11 15:47 WBC RBC RDW Seg Neutrophils % Potassium Chloride Carbon Dioxide 16 L D BUN Glucose 219 H POC Glucose 214 H 135 H Hemoglobin A1c Lactic Acid Calcium 8.1 L Phosphorus Magnesium 1.60 L HDL Cholesterol Ur Specific [place] Urine WBC (Auto) U Epithel Cells (Auto) Salicylates Acetaminophen 10/09/21 10/09/21 10/10/21 17:33 21:32 04:30 WBC 3.9 L RBC 3.30 L RDW 18.0 H Seg Neutrophils % Potassium Chloride Carbon Dioxide BUN Glucose POC Glucose 230 H 265 H Hemoglobin A1c Lactic Acid Calcium Phosphorus Magnesium HDL Cholesterol Ur Specific [place] Urine WBC (Auto) U Epithel Cells (Auto) Salicylates Acetaminophen 10/10/21 10/10/21 04:30 11:54 WBC RBC RDW Seg Neutrophils % Potassium 3.4 L Chloride Carbon Dioxide 20 L BUN 3 L Glucose 158 H POC Glucose 279 H Hemoglobin A1c Lactic Acid Calcium 8.3 L Phosphorus 2.00 L Magnesium HDL Cholesterol Ur Specific [place] Urine WBC (Auto) U Epithel Cells (Auto) Salicylates Acetaminophen Assessment and Plan 61 yo right-handed female with lupus, stroke (2 weeks ago), dm w/ neuropathy, asthma, arthritis, anxiety, cadx, who presents with noted difficulty with language. She notes that her language was suddenly affected. Notes continued difficulty expressing everything she wants to state. Notes a hx of a PE and pos sible complication with the blood thinner in the past. She notes lower back pain (chronic). 1. Acute Ischemic Stroke (cardiembolic) - edith in the setting of underlying lupus, raising the concern for antiphospholipid syndrome (hx of PE also noted per patient); hematolog evaluation and if no contraindications, recommend anticoagulation for secondary stroke prophylaxis; in the meantime, antiplatele t/statin therapy; pt/ot/st/swallow evaluation/monitoring; stroke education upon discharge; nihss q4 hours; permissive htn for another 48 more hours only and then aim for normotension. 2. Lupus / hx of PE / Hx of Failed Anticoagulation (?) - recommend Hematology evaluation/monitoring for possible antiphospholipid syndrome. 3. DM - aim for euglcyemia. 4. Left Hemiparesis / Left-sided Numbness - pt/ot evaluation/monitoring; fall risk assessment. 5. 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 6. Neuropathy - if disabling, gabapentin recommended. Suresh Brush MD Neurology [id number]
[2021-10-10] MEDS: INSULIN GLARGINE 100 UNITS/ML SUB-Q SCH (21:50)
[2021-10-11 05:21] LABS: Hematocrit 30.7 % (30.3-42.9); Hemoglobin 10.4 gm/dl (10.1-14.3); Mean Corpuscular HGB Conc 34 % (30-34); Mean Corpuscular Volume 94 fl (79-97); Red Blood Count 3.25 M/mm3 (3.65-5.03)
[2021-10-11 05:28] LABS: Platelet Count 201 K/mm3 (140-440)
[2021-10-11 05:38] LABS: Blood Urea Nitrogen 2 mg/dL (7-17); Calcium 8.2 mg/dL (8.4-10.2); Hemolysis Index 189
[2021-10-11 05:40] LABS: BUN/Creatinine Ratio 3
[2021-10-11] MEDS: INSULIN LISPRO 100 UNIT/ML SUB-Q SCH ×4 (08:00→21:52)
[2021-10-11] MEDS: FLUoxetine 20 MG CAP PO SCH (10:45)
[2021-10-11] MEDS: HYDROXYCHLOROQUINE 200 MG TAB PO SCH (10:45)
[2021-10-11] MEDS: THIAMINE 100 MG TAB PO SCH (10:45)
[2021-10-11] MEDS: ASPIRIN EC 81 MG TAB PO SCH (10:45)
[2021-10-11] MEDS: CLOPIDOGREL 75 MG TAB PO SCH (10:45)
[2021-10-11] MEDS: FAMOTIDINE 20 MG TAB PO SCH (10:45)
[2021-10-11] MEDS: ENOXAPARIN 40 MG/0.4 ML INJ SUB-Q SCH (10:45)
[2021-10-11] MEDS: DOCUSATE SODIUM 100 MG CAP PO SCH ×2 (10:45→21:53)
[2021-10-11] MEDS: FOLIC ACID 1 MG TAB PO SCH (10:46)
[2021-10-11] MEDS: amLODIPine 5 MG TAB PO SCH (10:46)
[2021-10-11] MEDS: carvediloL 12.5 MG TAB PO SCH ×2 (10:51→21:59)
--- NOTE | 2021-10-11 11:56 | Discharge Summary ---
Providers - Providers Date of Admission: 10/08/21 00:21 Attending physician: MANPREET PASCAL MD 10/08/21 00:21 Consult to Dietitian/Nutrition [CONS] Routine Physician Instructions: Reason For Exam: Reason for Consult: Diet education Consult to Dietitian/Nutrition [CONS] Routine Physician Instructions: Reason For Exam: Reason for Consult: Nutrition Recommendations Reason for Consult: Diet education Occupational Therapy Evaluate and Treat [CONS] Routine Comment: Reason For Exam: Neuro deficits Physical Therapy Evaluation and Treat [CONS] Routine Comment: Reason For Exam: Neuro deficits 10/08/21 12:59 Consult to Physician [CONS] Routine Comment: Consulting Provider: IFRAH CALDWELL Physician Instructions: Reason For Exam: post TPA monitoring 10/10/21 08:00 Speech Therapy Evaluation and Treat [CONS] Routine Reason For Exam: swallow evaluation post stroke, re-eval 10/10/21 08:07 Consult to Physician [CONS] Routine Comment: Consulting Provider: MARCELLE FINLEY Physician Instructions: Reason For Exam: Acute CVA Primary care physician: OR DIRECTOR Hospitalization Reason for admission: cva Condition: Good Hospital course: This is 61-year-old female with known past medical of HTN, DM, and recent CVC about 2 weeks ago initially admitted to the floor for AMS and Hypertensive urgency. Patient was a code stoke on the floor due to worsen mental status with right hemiplegia, right facial droop, and expressive aphasia. Was transferred to the ICU for acute CVA requiring tPA. Hospital Course to Date: 10/09: Mild improvement in mentation. Patient appears AAO, but remains aphasic with right hemiplegia and right facial droop, follow simple commands. Repeat CT head and MRI brain pending. Echo reviewed no evidence of PFO. Neurology consult pending. PT/OT/Speech consulted. D/w CCM okay to transfer patient back to telemetry if patient remains stable post 24hrs tPA. 10/10: Remains stable, still with significant expressive aphasia. Facial droop and right hemiplegia resolved, but still with generalized weakness. Repeat CT head and MRI noted, stable with no evidence of a bleed. Neurology consult pending. ASA and VTE proh initiated. Hypertensive this am, resume home meds. Continue PT/OT/Speech. Patient is stable for transfer to the Telemetry. 10/11: Patient seen and examined clinically improving although still with facial droop and right hemiplegia mildly residual. Speech is improving other a bit of expressive aphasia can still be appreciated. I did discuss discharge planning and the acute rehab appears to be a good option for continued PT OT and speech. Patient was seen by neurology, they recommended a hematology work-up which can be done outpatient. In the meantime we will resume patient's anticoagulation with Eliquis. Schedule for outpatient hematology and possible antiphospholipid syndrome monitoring. But the recommendation of gabapentin can be used for disabling neuropathy. Assessment and Plan #Acute CVA s/p tPA #H/o recent CVA- 2weeks prior #ETOH Abuse - Presented with AMS, drooling and unresponsiveness. 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 the right SUPERVISOR PASTE MIXING distribution suggesting prior infarct, likely subacute - Code stroke called on the floor due to worsen mental status with right hemiplegia, right facial droop, and expressive aphasia - Patient received tPA per [facility] - Mild improvement noted in mentation, remains aphasic with righ hemiplegia and facial droop - CTA head/neck reviewed - Repeat CT head and MRI Brain noted - 2D echo with no evidence of PFO - Statin initiated - ASA and VTE proph initiated - Avoid sedative agents for now, IV Ativan held - Continue Neuro check per protocol - PT/OT/Speech ordered - Neurology consulted - Aspiration and fall precautions #Hypertensive Urgency-improved - Presented with SBP in the 200s, DBP in the 100s s/p IV Hydralazine - Hypertensive this am, SBP in the 170-180s - Home meds resumed - Continue blood pressure monitor per protocol - Maintain SBP less than 160 #Lactic Acidosis - Probably secondary to above - Patient is afebrile, with no leukocytosis, VSS - CTAbd/Pelvis unremarkable, cultures with NGTD - Will continue to trend lactic acid #Systemic Lupus Erythematosus(SLE) - Resume home med- Hydroxychloroquine #Hypomagnesemia #Hypokalemia-improved - Mg repleted - Monitor and replace electrolytes as needed - Trend BMP #Uncontrolled Diabetes Mellitus - HgbA1c- 14.1 - SSI initiated, continue BG check ACHS - Avoid hypoglycemia - While critically ill target blood glucose of 140-180 #Advance Care Planning - Disease education data, care plan, diagnoses, and prognosis were discussed with patient at the bedside and patient's daughter via phone. Patient is a FULL code. They acknowledged understanding and agreed with current care plan. Disposition: [facility] Final Discharge Diagnosis (Prints w/discharge instructions): 1. Acute Ischemic Stroke (cardiembolic). 2. Lupus / hx of PE / Hx of Failed Anticoagulation (?). 3. DM. 4. Left Hemiparesis / Left-sided Numbness -. 5. Mixed Expressive > Receptive Dysphasia. 6. Neuropathy Core Measure Documentation - Palliative Care Palliative Care/ Comfort Measures: Not Applicable - Core Measures Any of the following diagnoses?: none Exam - Physical Exam Narrative exam: General appearance: Present: no acute distress, well-nourished - EENT Eyes: Present: PERRL, EOM intact ENT: hearing intact - Neck Neck: Present: normal ROM - Respiratory Respiratory effort: normal Respiratory: bilateral: diminished - Cardiovascular Rhythm: regular Heart Sounds: Present: S1 & S2 - Extremities Extremities: no ischemia, pulses intact, pulses symmetrical Peripheral Pulses: within normal limits - Abdominal General gastrointestinal: soft, non-distended, normal bowel sounds - Integumentary Integumentary: Present: warm, dry - Psychiatric Psychiatric: appropriate mood/affect, cooperative - Neurologic Neurologic: focal deficits (still with significant expressive aphasia), moves all extremities (Generalized weakness) however improving - Allied Health Allied health notes reviewed: nursing, case management - Constitutional Vitals: Temp Pulse Resp BP Pulse Ox 99.7 F H 99 H 18 169/98 99 10/11/21 08:18 10/11/21 08:18 10/11/21 08:18 10/11/21 08:18 10/11/21 08:18 Plan Activity: advance as tolerated, no driving until cleared by PCP, fall precautions Diet: low fat Special Instructions: record daily weights, record daily BP diary, physical therapy, occupational therapy, other (Speech therapy) Follow up with: PRIMARY CARE, [Primary Care Provider] - 3-5 Days WALLACE DOUGLAS MD [Staff Physician] - 7 Days PAUL LONG MD [Staff Physician] - 7 Days Prescriptions: amLODIPine 5 mg PO QDAY #30 tablet Apixaban [Eliquis] 5 mg PO BID #60 tab Folic Acid [Folvite] 1 mg PO QDAY #30 tablet Famotidine [Pepcid] 20 mg PO DAILY #30 tablet Hydroxychloroquine [Plaquenil] 200 mg PO QDAY #30 tablet Rosuvastatin Calcium 40 mg PO QDAY #30 tab Thiamine [Vitamin B-1] 100 mg PO QDAY #30 tablet
[2021-10-11] MEDS: ACETAMINOPHEN 325 MG TAB PO PRN (12:58)
--- NOTE | 2021-10-11 13:19 | XRay Report ---
CHEST 1 VIEW 10/11/2021 12:12 PM INDICATION / CLINICAL INFORMATION: TEMPERATURE 100.4. COMPARISON: 10/07/21. FINDINGS: SUPPORT DEVICES: None. HEART / MEDIASTINUM: The heart size and pulmonary vasculature are normal. LUNGS / PLEURA: No significant pulmonary or pleural abnormality. No pneumothorax. ADDITIONAL FINDINGS: No significant additional findings. IMPRESSION: No acute abnormality or significant change. No evidence of pneumonia. Signer Name: Jordan Brush MD Signed: 10/11/2021 1:15 PM Workstation Name: [employer]
--- NOTE | 2021-10-11 13:33 | Progress Note ---
Assessment and Plan 61-year-old female with known history of hypertension and recent CVA about 2 weeks ago presenting to the emergency room via EMS with changes in mental status, drooling and unresponsiveness. Patient states she feels a little lightheaded but denies any headache. She also indicates that her lower extremities feels weak. She denies any blurry vision, no nausea or vomiting and no abdominal pain. Denies any chest pain or shortness of breath. Upon arrival in the emergency room today, blood pressure was quite elevated with systolic in the 200s and diastolic in the low 100s. She was also found to be slightly tachycardic. Patient admits that she drinks alcohol regularly but not heavily. Work-up in the emergency room, lab reveals elevated lactic acid, hypokalemia of 2.9, lactic acid of 2.10, magnesium of 1.0. CTof the head shows area of low-attenuation within the right NOUGAT CUTTER MACHINE distribution suggesting prior infarct, likely subacute. Scattered areas of low-attenuation in the periventricular and central white matter suggesting nonspecific microangiopathy. CT of the abdomen and pelvis-unremarkable. Chest x-ray shows no acute abnormality. Past Medical History: arthritis, diabetes, GERD, stroke, other (neuropathy, lupus. cardiac cath 10/08/2015 with EF of 55%, diastolic dysfunction, and normal coronary arteries.,tia,Asthma,Anxiety) Past Surgical History: cholecystectomy, Social history: alcohol abuse Family history: no significant family history Patient sleeping. Able wake her up from sleep. But effect is flat, unable to give any history. Not following commands. Not communicating No acute respiratory distress at rest.. Patient is on room air. O2 saturation 98%. Patient running low grade temp. No leukocytosis. Blood pressure 130/78, pulse 89 , respirations 18. Chest xray done 10/11/21 reported No acute abnormality or significant change. No evidence of pneumonia. Patient is on S/C Lovenox, Famotidine and Augmentin. - Patient Problems (1) Hypertensive urgency Current Visit: Yes Status: Acute Plan to address problem: Patients blood pressure came down. Recent blood pressure 130/78 Management as per primary care. (2) Systemic inflammatory response syndrome (SIRS) Current Visit: Yes Status: Acute Plan to address problem: Patient running low grade temp. Patient is on Augmentin. (3) Chest pain in adult Current Visit: No Status: Acute Plan to address problem: Management as per primary care and cardiology. (4) Type 2 diabetes mellitus Current Visit: No Status: Chronic Plan to address problem: Management as per primary care. (5) Hypomagnesemia Current Visit: Yes Status: Acute Plan to address problem: Todays Magnesium 1.3. Receiving magnesium supplementation. (6) Altered mental status Current Visit: Yes Status: Acute Plan to address problem: Management as per primary care and neurology. Subjective Date of service: 10/11/21 Principal diagnosis: Acute CVA s/p tPA; AMS; HTNsive urgency; Lactic acidosis; EtOH abuse; DM II Interval history: 61-year-old female with known history of hypertension and recent CVA about 2 weeks ago presenting to the emergency room via EMS with changes in mental status, drooling and unresponsiveness. Patient states she feels a little lightheaded but denies any headache. She also indicates that her lower extremities feels weak. She denies any blurry vision, no nausea or vomiting and no abdominal pain. Denies any chest pain or shortness of breath. Upon arrival in the emergency room today, blood pressure was quite elevated with systolic in the 200s and diastolic in the low 100s. She was also found to be slightly tachycardic. Patient admits that she drinks alcohol regularly but not heavily. Work-up in the emergency room, lab reveals elevated lactic acid, hypokalemia of 2.9, lactic acid of 2.10, magnesium of 1.0. CTof the head shows area of low-attenuation within the right NOUGAT CUTTER MACHINE distribution suggesting prior infarct, likely subacute. Scattered areas of low-attenuation in the periventricular and central white matter suggesting nonspecific microangiopathy. CT of the abdomen and pelvis-unremarkable. Chest x-ray shows no acute abnormality. Past Medical History: arthritis, diabetes, GERD, stroke, other (neuropathy, lupus. cardiac cath 10/08/2015 with EF of 55%, diastolic dysfunction, and normal coronary arteries.,tia,Asthma,Anxiety) Past Surgical History: cholecystectomy, Social history: alcohol abuse Family history: no significant family history Patient sleeping. Able wake her up from sleep. But effect is flat, unable to give any history. Not following commands. Not communicating No acute respiratory distress at rest.. Patient is on room air. O2 saturation 98%. Patient running low grade temp. No leukocytosis. Blood pressure 130/78, pulse 89 , respirations 18. Chest xray done 10/11/21 reported No acute abnormality or significant change. No evidence of pneumonia. Patient is on S/C Lovenox, Famotidine and Augmentin. Objective Vital Signs - 12hr 10/11/21 10/11/21 10/11/21 04:00 04:24 08:18 Temperature 100.8 F H 99.7 F H Pulse Rate 79 94 H 99 H Respiratory 18 18 Rate Blood Pressure 146/81 169/98 O2 Sat by Pulse 96 99 Oximetry 10/11/21 11:57 Temperature 100.4 F H Pulse Rate 89 Respiratory 18 Rate Blood Pressure 130/78 O2 Sat by Pulse 98 Oximetry Constitutional: no acute distress, alert, other ( Not following commands. Not communicating.) Eyes: non-icteric ENT: oropharynx moist Neck: supple, no lymphadenopathy, no JVD Effort: normal Ascultation: Bilateral: diminished breath sounds Percussion: Bilateral: not dull Cardiovascular: regular rate and rhythm, other (S1,S2) Gastrointestinal: normoactive bowel sounds, soft, non-tender, non-distended Integumentary: normal Extremities: no cyanosis, no edema, pulses normal, no ischemia or petechiae Neurologic: pupils equal and round (Left lateral gaze defect, RUext 4/5 power grade), unable to assess Psychiatric: other (flat affect) CBC and BMP: 10/11/21 04:14 10/11/21 04:14 ABG, PT/INR, D-dimer: PT/INR, D-dimer PT 14.8 Sec. (12.2-14.9) 10/10/21 04:30 INR 1.04 (0.87-1.13) 10/10/21 04:30 Abnormal lab findings: Abnormal Labs 10/07/21 10/07/21 10/07/21 21:19 21:19 21:19 WBC RBC RDW 17.6 H Seg Neutrophils % 75.8 H Sodium Potassium 2.9 L* Chloride 95.3 L Carbon Dioxide BUN 5 L Glucose 224 H POC Glucose Hemoglobin A1c Lactic Acid 4.20 H* Calcium Phosphorus Magnesium HDL Cholesterol Ur Specific [place] Urine WBC (Auto) U Epithel Cells (Auto) Salicylates Acetaminophen 10/07/21 10/07/21 10/07/21 21:19 21:19 21:19 WBC RBC RDW Seg Neutrophils % Sodium Potassium Chloride Carbon Dioxide BUN Glucose POC Glucose Hemoglobin A1c Lactic Acid Calcium Phosphorus Magnesium 1.00 L HDL Cholesterol Ur Specific [place] Urine WBC (Auto) U Epithel Cells (Auto) Salicylates < 0.3 L Acetaminophen 5.0 L 10/07/21 10/07/21 10/08/21 23:47 Unknown 08:01 WBC RBC RDW Seg Neutrophils % Sodium Potassium Chloride Carbon Dioxide BUN Glucose POC Glucose 312 H Hemoglobin A1c Lactic Acid 2.10 H* Calcium Phosphorus Magnesium HDL Cholesterol Ur Specific [place] 1.035 H Urine WBC (Auto) 18.0 H U Epithel Cells (Auto) 44.0 H Salicylates Acetaminophen 10/08/21 10/08/21 10/08/21 10:07 10:07 10:07 WBC RBC RDW Seg Neutrophils % Sodium Potassium 3.1 L Chloride Carbon Dioxide BUN Glucose POC Glucose Hemoglobin A1c 14.1 H Lactic Acid 4.80 H* Calcium Phosphorus Magnesium 1.50 L HDL Cholesterol 76 H Ur Specific [place] Urine WBC (Auto) U Epithel Cells (Auto) Salicylates Acetaminophen 10/08/21 10/09/21 10/09/21 17:08 00:16 04:14 WBC RBC 3.34 L RDW 18.3 H Seg Neutrophils % Sodium Potassium Chloride Carbon Dioxide BUN Glucose POC Glucose 205 H 231 H Hemoglobin A1c Lactic Acid Calcium Phosphorus Magnesium HDL Cholesterol Ur Specific [place] Urine WBC (Auto) U Epithel Cells (Auto) Salicylates Acetaminophen 10/09/21 10/09/21 10/09/21 04:14 08:11 15:47 WBC RBC RDW Seg Neutrophils % Sodium Potassium Chloride Carbon Dioxide 16 L D BUN Glucose 219 H POC Glucose 214 H 135 H Hemoglobin A1c Lactic Acid Calcium 8.1 L Phosphorus Magnesium 1.60 L HDL Cholesterol Ur Specific [place] Urine WBC (Auto) U Epithel Cells (Auto) Salicylates Acetaminophen 10/09/21 10/09/21 10/10/21 17:33 21:32 04:30 WBC 3.9 L RBC 3.30 L RDW 18.0 H Seg Neutrophils % Sodium Potassium Chloride Carbon Dioxide BUN Glucose POC Glucose 230 H 265 H Hemoglobin A1c Lactic Acid Calcium Phosphorus Magnesium HDL Cholesterol Ur Specific [place] Urine WBC (Auto) U Epithel Cells (Auto) Salicylates Acetaminophen 10/10/21 10/10/21 10/10/21 04:30 11:54 16:41 WBC RBC RDW Seg Neutrophils % Sodium Potassium 3.4 L Chloride Carbon Dioxide 20 L BUN 3 L Glucose 158 H POC Glucose 279 H 171 H Hemoglobin A1c Lactic Acid Calcium 8.3 L Phosphorus 2.00 L Magnesium HDL Cholesterol Ur Specific [place] Urine WBC (Auto) U Epithel Cells (Auto) Salicylates Acetaminophen 10/10/21 10/11/21 10/11/21 21:29 04:14 04:14 WBC RBC 3.25 L RDW 18.0 H Seg Neutrophils % Sodium 132 L Potassium Chloride 96.3 L Carbon Dioxide BUN 2 L Glucose POC Glucose 197 H Hemoglobin A1c Lactic Acid Calcium 8.2 L Phosphorus Magnesium 1.30 L HDL Cholesterol Ur Specific [place] Urine WBC (Auto) U Epithel Cells (Auto) Salicylates Acetaminophen Chest x-ray: report reviewed, image reviewed Additional Studies: HEST 1 VIEW 10/11/2021 12:12 PM INDICATION / CLINICAL INFORMATION: TEMPERATURE 100.4. COMPARISON: 10/07/21. FINDINGS: SUPPORT DEVICES: None. HEART / MEDIASTINUM: The heart size and pulmonary vasculature are normal. LUNGS / PLEURA: No significant pulmonary or pleural abnormality. No pneumothorax. ADDITIONAL FINDINGS: No significant additional findings. IMPRESSION: No acute abnormality or significant change. No evidence of pneumonia.
[2021-10-11] MEDS ORDERED: MAGNESIUM SULFATE 1 GM in SODIUM CHLORIDE 0.9% 50 ML IV NR (16:23)
[2021-10-11] MEDS: AMOXICILLIN/K CLAV 875/125MG TAB PO SCH (21:53)
[2021-10-11] MEDS: INSULIN GLARGINE 100 UNITS/ML SUB-Q SCH (21:53)
[2021-10-12] MEDS: MORPHINE 2 MG/1 ML INJ IV PRN ×3 (00:40→18:38)
--- NOTE | 2021-10-12 08:01 | Progress Note ---
Assessment and Plan Assessment and plan: This is 61-year-old female with known past medical of HTN, DM, and recent CVC about 2 weeks ago initially admitted to the floor for AMS and Hypertensive urgency. Patient was a code stoke on the floor due to worsen mental status with right hemiplegia, right facial droop, and expressive aphasia. Was transferred to the ICU for acute CVA requiring tPA. Hospital Course to Date: 10/09: Mild improvement in mentation. Patient appears AAO, but remains aphasic with right hemiplegia and right facial droop, follow simple commands. Repeat CT head and MRI brain pending. Echo reviewed no evidence of PFO. Neurology consult pending. PT/OT/Speech consulted. D/w CCM okay to transfer patient back to telemetry if patient remains stable post 24hrs tPA. 10/10: Remains stable, still with significant expressive aphasia. Facial droop and right hemiplegia resolved, but still with generalized weakness. Repeat CT head and MRI noted, stable with no evidence of a bleed. Neurology consult pendi valerie. ASA and VTE proh initiated. Hypertensive this am, resume home meds. Continue PT/OT/Speech. Patient is stable for transfer to the Telemetry. 10/11: Patient seen and examined clinically improving although still with facial droop and right hemiplegia mildly residual. Speech is improving other a bit of expressive aphasia can still be appreciated. I did discuss discharge planning and the acute rehab appears to be a good option for continued PT OT and speech. Patient was seen by neurology, they recommended a hematology work-up which can be done outpatient. In the meantime we will resume patient's anticoagulation with Eliquis. Schedule for outpatient hematology and possible antiphospholipid syndrome monitoring. But the recommendation of gabapentin can be used for disabling neuropathy. 10/12: Patient seen and examined. Blood pressure modestly elevated our recommendation yesterday was to allow permissive hypertension. We will begin correction today. Still awaiting bed today acute rehab unit. No new fever documented today. Will complete antibiotics. Continue aspiration precautions Clinically she is showing significant improvement. Assessment and Plan #Acute CVA s/p tPA #H/o recent CVA- 2weeks prior #ETOH Abuse - Presented with AMS, drooling and unresponsiveness. 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 the right PANEL FITTER distribution suggesting prior infarct, likely subacute - Code stroke called on the floor due to worsen mental status with right hemiplegia, right facial droop, and expressive aphasia - Patient received tPA per [facility] - Mild improvement noted in mentation, remains aphasic with righ hemiplegia and facial droop - CTA head/neck reviewed - Repeat CT head and MRI Brain noted - 2D echo with no evidence of PFO - Statin initiated - ASA and VTE proph initiated - Avoid sedative agents for now, IV Ativan held - Continue Neuro check per protocol - PT/OT/Speech ordered - Neurology consulted - Aspiration and fall precautions #Hypertensive Urgency-improved - Presented with SBP in the 200s, DBP in the 100s s/p IV Hydralazine - Hypertensive this am, SBP in the 170-180s - Home meds resumed - Continue blood pressure monitor per protocol - Maintain SBP less than 160 #Lactic Acidosis - Probably secondary to above - Patient is afebrile, with no leukocytosis, VSS - CTAbd/Pelvis unremarkable, cultures with NGTD - Will continue to trend lactic acid #Systemic Lupus Erythematosus(SLE) - Resume home med- Hydroxychloroquine #Hypomagnesemia #Hypokalemia-improved - Mg repleted - Monitor and replace electrolytes as needed - Trend BMP #Uncontrolled Diabetes Mellitus - HgbA1c- 14.1 - SSI initiated, continue BG check ACHS - Avoid hypoglycemia - While critically ill target blood glucose of 140-180 #Advance Care Planning - Disease education data, care plan, diagnoses, and prognosis were discussed with patient at the bedside and patient's daughter via phone. Patient is a FULL code. They acknowledged understanding and agreed with current care plan. Disposition: [facility] Final Discharge Diagnosis (Prints w/discharge instructions): 1. Acute Ischemic Stroke (cardiembolic). 2. Lupus / hx of PE / Hx of Failed Anticoagulation (?). 3. DM. 4. Left Hemiparesis / Left-sided Numbness -. 5. Mixed Expressive > Receptive Dysphasia. 6. Neuropathy Core Measure Documentation History Interval history: Patient seen and examined awake restful speaking much more improved compared to yesterday. Eating breakfast Hospitalist Physical - Physical exam Narrative exam: General appearance: Present: no acute distress, well-nourished - EENT Eyes: Present: PERRL, EOM intact ENT: hearing intact - Neck Neck: Present: normal ROM - Respiratory Respiratory effort: normal Respiratory: bilateral: diminished - Cardiovascular Rhythm: regular Heart Sounds: Present: S1 & S2 - Extremities Extremities: no ischemia, pulses intact, pulses symmetrical Peripheral Pulses: within normal limits - Abdominal General gastrointestinal: soft, non-distended, normal bowel sounds - Integumentary Integumentary: Present: warm, dry - Psychiatric Psychiatric: appropriate mood/affect, cooperative - Neurologic Neurologic: focal deficits (still with significant expressive aphasia), moves all extremities (Generalized weakness) however improving - Allied Health Allied health notes reviewed: nursing, case management - Constitutional Vitals: Temp Pulse Resp BP Pulse Ox 98.4 F 72 18 176/92 99 10/12/21 04:02 10/12/21 04:02 10/12/21 04:02 10/12/21 04:02 10/12/21 04:02 General appearance: Present: no acute distress, well-nourished HEART Score - HEART Score Troponin: Troponin T < 0.010 ng/mL (0.00-0.029) 10/07/21 21:19 Results - Labs CBC & Chem 7: 10/11/21 04:14 10/11/21 04:14 Labs: Laboratory Last Values WBC 7.1 K/mm3 (4.5-11.0) 10/11/21 04:14 RBC 3.25 M/mm3 (3.65-5.03) L 10/11/21 04:14 Hgb 10.4 gm/dl (10.1-14.3) 10/11/21 04:14 Hct 30.7 % (30.3-42.9) 10/11/21 04:14 MCV 94 fl (79-97) 10/11/21 04:14 MCH 32 pg (28-32) 10/11/21 04:14 MCHC 34 % (30-34) 10/11/21 04:14 RDW 18.0 % (13.2-15.2) H 10/11/21 04:14 Plt Count 201 K/mm3 (140-440) 10/11/21 04:14 Lymph % (Auto) 33.5 % (13.4-35.0) 10/09/21 04:14 [place] % (Auto) 6.2 % (0.0-7.3) 10/09/21 04:14 Eos % (Auto) 0.3 % (0.0-4.3) 10/09/21 04:14 Baso % (Auto) 0.4 % (0.0-1.8) 10/09/21 04:14 Lymph # (Auto) 2.1 K/mm3 (1.2-5.4) 10/09/21 04:14 [place]ison # (Auto) 0.4 K/mm3 (0.0-0.8) 10/09/21 04:14 Eos # (Auto) 0.0 K/mm3 (0.0-0.4) 10/09/21 04:14 Baso # (Auto) 0.0 K/mm3 (0.0-0.1) 10/09/21 04:14 Seg Neutrophils % 59.6 % (40.0-70.0) 10/09/21 04:14 Seg Neutrophils # 3.8 K/mm3 (1.8-7.7) 10/09/21 04:14 PT 14.8 Sec. (12.2-14.9) 10/10/21 04:30 INR 1.04 (0.87-1.13) 10/10/21 04:30 APTT 25.9 Sec. (24.2-36.6) 10/07/21 21:19 Sodium 132 mmol/L (137-145) L 10/11/21 04:14 Potassium 3.9 mmol/L (3.6-5.0) 10/11/21 04:14 Chloride 96.3 mmol/L (98-107) L 10/11/21 04:14 Carbon Dioxide 23 mmol/L (22-30) 10/11/21 04:14 Anion Gap 17 mmol/L 10/11/21 04:14 BUN 2 mg/dL (7-17) L 10/11/21 04:14 Creatinine 0.7 mg/dL (0.6-1.2) 10/11/21 04:14 Estimated GFR > 60 ml/min 10/11/21 04:14 BUN/Creatinine Ratio 3 % 10/11/21 04:14 Glucose 85 mg/dL (65-100) 10/11/21 04:14 POC Glucose 296 mg/dL (70-105) H 10/11/21 20:35 Hemoglobin A1c 14.1 % (4-6) H 10/08/21 10:07 Lactic Acid 1.20 mmol/L (0.7-2.0) 10/10/21 04:30 Calcium 8.2 mg/dL (8.4-10.2) L 10/11/21 04:14 Phosphorus 2.70 mg/dL (2.5-4.5) D 10/11/21 04:14 Magnesium 1.30 mg/dL (1.7-2.3) L 10/11/21 04:14 Total Bilirubin 0.90 mg/dL (0.1-1.2) 10/07/21 21:19 AST 30 units/L (5-40) 10/07/21 21:19 ALT 8 units/L (7-56) 10/07/21 21:19 Alkaline Phosphatase 126 units/L (35-129) 10/07/21 21:19 Ammonia 28.0 umol/L (25-60) 10/07/21 21:19 Total Creatine Kinase 102 units/L (30-135) 10/07/21 21:19 Troponin T < 0.010 ng/mL (0.00-0.029) 10/07/21 21:19 Total Protein 7.6 g/dL (6.3-8.2) 10/07/21 21:19 Albumin 4.4 g/dL (3.9-5) 10/07/21 21:19 Albumin/Globulin Ratio 1.4 % 10/07/21 21:19 Triglycerides 79 mg/dL (2-149) 10/08/21 10:07 Cholesterol 180 mg/dL (50-199) 10/08/21 10:07 LDL Cholesterol Direct 85 mg/dL (50-130) 10/08/21 10:07 HDL Cholesterol 76 mg/dL (40-59) H 10/08/21 10:07 Cholesterol/HDL Ratio 2.36 % 10/08/21 10:07 TSH 3.170 mlU/mL (0.270-4.200) 10/08/21 10:07 Urine Color Brown (Yellow) 10/07/21 Unknown Urine Turbidity Cloudy (Clear) 10/07/21 Unknown Urine pH 5.0 (5.0-7.0) 10/07/21 Unknown Ur Specific [place] 1.035 (1.003-1.030) H 10/07/21 Unknown Urine Protein 300 mg/dl mg/dL (Negative) 10/07/21 Unknown Urine Glucose (UA) Trace mg/dL (Negative) 10/07/21 Unknown Urine Ketones Negative mg/dL (Negative) 10/07/21 Unknown Urine Blood Negative (Negative) 10/07/21 Unknown Urine Nitrite Negative (Negative) 10/07/21 Unknown Urine Bilirubin Negative (Negative) 10/07/21 Unknown Urine Urobilinogen < 2.0 mg/dL (<2.0) 10/07/21 Unknown Ur Leukocyte Esterase Negative (Negative) 10/07/21 Unknown Urine WBC (Auto) 18.0 /HPF (0.0-6.0) H 10/07/21 Unknown Urine RBC (Auto) 8.0 /HPF (0.0-6.0) 10/07/21 Unknown U Epithel Cells (Auto) 44.0 /HPF (0-13.0) H 10/07/21 Unknown Urine Bacteria (Auto) 1+ /HPF (Negative) 10/07/21 Unknown Hyaline Casts 2 /LPF 10/07/21 Unknown Urine Mucus Few /HPF 10/07/21 Unknown Urine Yeast (Budding) 2+ /HPF 10/07/21 Unknown Salicylates < 0.3 mg/dL (2.8-20.0) L 10/07/21 21:19 Acetaminophen 5.0 ug/mL (10.0-30.0) L 10/07/21 21:19 Plasma/Serum Alcohol < 0.01 % (0-0.07) 10/07/21 21:19 Microbiology: Microbiology 10/07/21 21:04 Peripheral/Venous Blood Culture - Preliminary NO GROWTH AFTER 4 DAYS 10/07/21 21:04 Peripheral/Venous Blood Culture - Preliminary NO GROWTH AFTER 4 DAYS Luu/IV: Voiding Method Incontinent Active Medications - Current Medications Current Medications: Generic Name Dose Route Start Last Admin Trade Name Freq PRN Reason Stop Dose Admin Acetaminophen 650 mg 10/11/21 13:00 10/11/21 12:58 Acetaminophen 325 Mg Tab PO 650 mg Q6H PRN Administration Pain, Mild (1-3) Amlodipine Besylate 5 mg 10/10/21 10:00 10/11/21 10:46 Amlodipine 5 Mg Tab PO 5 mg QDAY PRIETO Administration Amoxicillin/Clavulanate Potassium 1 each 10/11/21 22:00 10/11/21 21:53 Amoxicillin/K Clav 875/125mg Tab PO 1 each Q12HR PRIETO Administration Protocol Aspirin 81 mg 10/10/21 10:00 10/11/21 10:45 Aspirin Ec 81 Mg Tab PO 81 mg QDAY PRIETO Administration Atorvastatin Calcium 40 mg 10/08/21 22:00 10/11/21 21:53 Atorvastatin 40 Mg Tab PO 40 mg QHS PRIETO Administration Bisacodyl 10 mg 10/08/21 00:19 Bisacodyl 10 Mg Rect Supp DC QDAY PRN Constipation Carvedilol 12.5 mg 10/10/21 10:00 10/11/21 21:59 Carvedilol 12.5 Mg Tab PO 12.5 mg Q12H PRIETO Administration Clopidogrel Bisulfate 75 mg 10/10/21 10:00 10/11/21 10:45 Clopidogrel 75 Mg Tab PO 75 mg QDAY PRIETO Administration Dextrose 50 ml 10/08/21 00:19 Dextrose 50% In Water (25gm) 50 Ml Syringe IV Q30MIN PRN Hypoglycemia Protocol Docusate Sodium 100 mg 10/10/21 10:00 10/11/21 21:53 Docusate Sodium 100 Mg Cap PO 100 mg BID PRIETO Administration Enoxaparin Sodium 40 mg 10/10/21 10:00 10/11/21 10:45 Enoxaparin 40 Mg/0.4 Ml Inj SUB-Q 40 mg QDAY@1000 PRIETO Administration Protocol Famotidine 20 mg 10/10/21 10:00 10/11/21 10:45 Famotidine 20 Mg Tab PO 20 mg DAILY PRIETO Administration Fluoxetine HCl 20 mg 10/10/21 10:00 10/11/21 10:45 Fluoxetine 20 Mg Cap PO 20 mg QDAY PRIETO Administration Folic Acid 1 mg 10/08/21 10:00 10/11/21 10:46 Folic Acid 1 Mg Tab PO 1 mg QDAY PRIETO Administration Hydroxychloroquine Sulfate 200 mg 10/10/21 10:00 10/11/21 10:45 Hydroxychloroquine 200 Mg Tab PO 200 mg QDAY PRIETO Administration Insulin Glargine 20 units 10/12/21 07:59 Insulin Glargine 100 Units/Ml SUB-Q QHS PRIETO Insulin Human Lispro 0 unit 10/08/21 07:30 10/11/21 21:52 Insulin Lispro 100 Unit/Ml SUB-Q 4 unit ACHS PRIETO Administration Protocol Magnesium Hydroxide 30 ml 10/08/21 00:19 Magnesium Hydroxide (Mom) Oral Liqd Udc PO Q4H PRN Constipation Metoclopramide HCl 10 mg 10/08/21 00:19 Metoclopramide 10 Mg Tab PO Q6H PRN Nausea And Vomiting Morphine Sulfate 2 mg 10/08/21 00:19 10/12/21 00:40 Morphine 2 Mg/1 Ml Inj IV 2 mg Q4H PRN Administration Pain, Moderate (4-6) Ondansetron HCl 4 mg 10/08/21 00:19 10/08/21 08:14 Ondansetron 4 Mg/2 Ml Inj IV 4 mg Q8H PRN Administration Nausea And Vomiting Promethazine HCl 25 mg 10/08/21 00:19 Promethazine 25 Mg Rect Supp DC Q6H PRN Nausea And Vomiting Sodium Chloride 10 ml 10/08/21 10:00 10/11/21 21:53 Sodium Chloride 0.9% 10 Ml Flush Syringe IV 10 ml BID PRIETO Administration Sodium Chloride 10 ml 10/08/21 00:19 Sodium Chloride 0.9% 10 Ml Flush Syringe IV PRN PRN LINE FLUSH Thiamine HCl 100 mg 10/08/21 10:00 10/11/21 10:45 Thiamine 100 Mg Tab PO 100 mg QDAY PRIETO Administration Nutrition/Malnutrition Assess - Dietary Evaluation Nutrition/Malnutrition Findings: Nutrition Notes Start: 10/08/21 18:14 Freq: Status: Active Protocol: Document 10/10/21 09:59 DANTE (Rec: 10/10/21 10:35 DANTE [id number]) Nutrition Notes Initial or Follow up Reassessment Current Diagnosis Diabetes,Hypertension,Stroke Other Pertinent Diagnosis AMS, CVA s/p tPA, Lactic Acidosis, Dysphagia, EtOH Abuse. Current Diet NPO. Labs/Tests 10/10: K 3.4, CO2 20, BUN 3, Glu 158, Ca 8.3, Phos 2.0. Pertinent Medications 10/10: Folic acid, Humalog 4U, KPO4 15 mmol, Thiamine, others nutritionally unremarkable. Height 5 ft 4 in Weight 40.76 kg [place] Body Weight (kg) 54.54 BMI 15.4 Weight change and time frame No body weight change reported in 2 days. Weight Status Underweight Subjective/Other Information RD consult for routine F/U on dietary advancement. Pt remains NPO since admission . I recommend start TF when pertinent. Pt is on Room Air, O2 saturation @ 100%, according to Physical Assessment History notes. [facility] note on 10/08/21 15:55: Speech and swallowing skills were assessed. Patient demonstrates significantly impaired oral and laryngeal function with a poor oral control as evident by spillage and reduced A-P movement of the bolus. Swallow reflex is delayed 17 seconds. Patient is aphasic with poor comprehension and verbal skills. Recommend NPO. Discussed findings with the patient's nurse. Will follow. - END OF NOTE. Pt has missing teeth, according to Physical Assessment History notes. Percent of energy/protein needs met: Pt remains NPO since admission . When pertinent, start Prescribed TF-Glucerna 1.2 Arcenio @ 45 ml/hr. provides for energy/protein needs (1,310 Kcal/66 g) during LOS, 92% Kcal; 106% AA. Burn Absent Trauma Absent GI Symptoms Other Difficulty In Swallowing,Chewing Food Allergy No Skin Integrity/Comment Assessment WNL. 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 As Evidenced by Signs and Symptoms BMI: 15.4 Kg/m2. #1 Nutrition Diagnosis Swallowing difficulty,Biting/ Chewing (masticatory) difficulty Comments: Nutrition Diagnosis change for precision. [facility] note on 10/08/21 15:55: Speech and swallowing skills were assessed. Patient demonstrates significantly impaired oral and laryngeal function with a poor oral control as evident by spillage and reduced A-P movement of the bolus. Swallow reflex is delayed 17 seconds. Patient is aphasic with poor comprehension and verbal skills. Recommend NPO. Discussed findings with the patient's nurse. Will follow. - END OF NOTE. Etiology CVA, AMS, Dysphagia. As Evidenced by Signs and Symptoms Pt remains NPO since admission . Is patient on ventilator? No Is Patient Ambulatory and/or Out of Bed No REE-([facility]-confined to bed) 1166.292 Kcal/Kg value to use for calculation 35 Approximate Energy Requirements Using 1427 kcal/Kg Calculation Used for Recommendations Kcal/kg Additional Notes Protein: 1.2-1.5 g/Kg ABW; 49- 62 g/day. Fluids: 1 ml/Kcal, or as per MD. Nutrition Intervention Nutrition Support: When pertinent, start TF- Glucerna 1.2 Arcenio @ 45 ml/hr. Flush: 90 ml water Q 4 hr, or as per MD. Kcal 1,310 Protein (gm) 66 Carbohydrates (gm) 125 Fat (gm) 66 Fluid (mL) 879 Fiber (gm) 18 % RDI: 92% Kcal; 106% AA. Goal #1 Provide at least 75% of energy /protein needs through Enteral Feeding during LOS. Goal #2 Adjust the dietary intervention to better serve Pt's needs and clinical conditions during LOS. Follow-Up By: 10/12/21 Additional Comments When pertinent, start monitoring TF tolerance and BM .
[2021-10-12] MEDS: INSULIN LISPRO 100 UNIT/ML SUB-Q SCH ×4 (08:17→22:47)
--- NOTE | 2021-10-12 09:59 | Progress Note ---
Assessment and Plan Acute CVA s/p tPA Altered mental status Hypertensive urgency Protein calorie malnutrition- moderate Lactic acidosis Electrolyte imbalance Alcohol abuse History of recent CVA Diabetes mellitus -Aspiration precautions, HOB >30 Continue with blood pressure control and monitoring -PT/OT- increase activity as tolerated -VTE prophylaxis- -Secondary stroke prophylaxis-aspirin 81 mg daily; statin with goal of LDL < 70 -Accuchecks with glycemic control, target blood glucose 140-180 mg/dL; Avoid hypoglycemia -Supplemental oxygen as clinically indicated, keep sPO2 90-92% -Awaiting in patient rehab bed Subjective Date of service: 10/12/21 Principal diagnosis: Acute CVA s/p tPA; AMS; HTNsive urgency; Lactic acidosis; EtOH abuse; DM II Interval history: Patient is seen today for: Acute CVA s/p tPA; AMS; Hypertensive urgency; Protein calorie malnutrition; Lactic acidosis; Alcohol abuse; DM II Seen and examined at bedside; 24hour events reviewed; nursing and respiratory care staff consulted; no adverse overnight events reported to me; resting in bed; more awake and alert, obeying simple commands, has expressive aphasia, MRI brain findings noted. Echo reviewed no evidence of PFO. She denies any chest pain, no shortness of breath, no fevers, no chills, no nausea or vomiting. Tolerating apple sauce Objective Vital Signs - 12hr 10/11/21 10/11/21 10/11/21 21:59 22:00 23:10 Temperature 98.8 F Pulse Rate 89 81 Pulse Rate [ 89 From Monitor] Respiratory 18 16 Rate Blood Pressure 149/84 158/89 O2 Sat by Pulse 95 98 Oximetry 10/12/21 10/12/21 04:00 04:02 Temperature 98.4 F Pulse Rate 68 72 Pulse Rate [ From Monitor] Respiratory 18 Rate Blood Pressure 176/92 O2 Sat by Pulse 99 Oximetry Constitutional: no acute distress, alert, other (Following commands) Eyes: non-icteric ENT: oropharynx moist Neck: supple, no lymphadenopathy, no JVD Effort: normal Ascultation: Bilateral: clear, diminished breath sounds Percussion: Bilateral: not dull Cardiovascular: regular rate and rhythm, other (S1,S2) Gastrointestinal: normoactive bowel sounds, soft, non-tender, non-distended Integumentary: normal Extremities: no cyanosis, no edema, pulses normal, no ischemia or petechiae Neurologic: normal mental status, non-focal exam, pupils equal and round (Left lateral gaze defect, RUext 4/5 power grade) Psychiatric: mood appropriate, affect normal CBC and BMP: 10/11/21 04:14 10/11/21 04:14 ABG, PT/INR, D-dimer: PT/INR, D-dimer PT 14.8 Sec. (12.2-14.9) 10/10/21 04:30 INR 1.04 (0.87-1.13) 10/10/21 04:30 Abnormal lab findings: Abnormal Labs 10/07/21 10/07/21 10/07/21 21:19 21:19 21:19 WBC RBC RDW 17.6 H Seg Neutrophils % 75.8 H Sodium Potassium 2.9 L* Chloride 95.3 L Carbon Dioxide BUN 5 L Glucose 224 H POC Glucose Hemoglobin A1c Lactic Acid 4.20 H* Calcium Phosphorus Magnesium HDL Cholesterol Ur Specific [place] Urine WBC (Auto) U Epithel Cells (Auto) Salicylates Acetaminophen 10/07/21 10/07/21 10/07/21 21:19 21:19 21:19 WBC RBC RDW Seg Neutrophils % Sodium Potassium Chloride Carbon Dioxide BUN Glucose POC Glucose Hemoglobin A1c Lactic Acid Calcium Phosphorus Magnesium 1.00 L HDL Cholesterol Ur Specific [place] Urine WBC (Auto) U Epithel Cells (Auto) Salicylates < 0.3 L Acetaminophen 5.0 L 10/07/21 10/07/21 10/08/21 23:47 Unknown 08:01 WBC RBC RDW Seg Neutrophils % Sodium Potassium Chloride Carbon Dioxide BUN Glucose POC Glucose 312 H Hemoglobin A1c Lactic Acid 2.10 H* Calcium Phosphorus Magnesium HDL Cholesterol Ur Specific [place] 1.035 H Urine WBC (Auto) 18.0 H U Epithel Cells (Auto) 44.0 H Salicylates Acetaminophen 10/08/21 10/08/21 10/08/21 10:07 10:07 10:07 WBC RBC RDW Seg Neutrophils % Sodium Potassium 3.1 L Chloride Carbon Dioxide BUN Glucose POC Glucose Hemoglobin A1c 14.1 H Lactic Acid 4.80 H* Calcium Phosphorus Magnesium 1.50 L HDL Cholesterol 76 H Ur Specific [place] Urine WBC (Auto) U Epithel Cells (Auto) Salicylates Acetaminophen 10/08/21 10/09/21 10/09/21 17:08 00:16 04:14 WBC RBC 3.34 L RDW 18.3 H Seg Neutrophils % Sodium Potassium Chloride Carbon Dioxide BUN Glucose POC Glucose 205 H 231 H Hemoglobin A1c Lactic Acid Calcium Phosphorus Magnesium HDL Cholesterol Ur Specific [place] Urine WBC (Auto) U Epithel Cells (Auto) Salicylates Acetaminophen 10/09/21 10/09/21 10/09/21 04:14 08:11 15:47 WBC RBC RDW Seg Neutrophils % Sodium Potassium Chloride Carbon Dioxide 16 L D BUN Glucose 219 H POC Glucose 214 H 135 H Hemoglobin A1c Lactic Acid Calcium 8.1 L Phosphorus Magnesium 1.60 L HDL Cholesterol Ur Specific [place] Urine WBC (Auto) U Epithel Cells (Auto) Salicylates Acetaminophen 10/09/21 10/09/21 10/10/21 17:33 21:32 04:30 WBC 3.9 L RBC 3.30 L RDW 18.0 H Seg Neutrophils % Sodium Potassium Chloride Carbon Dioxide BUN Glucose POC Glucose 230 H 265 H Hemoglobin A1c Lactic Acid Calcium Phosphorus Magnesium HDL Cholesterol Ur Specific [place] Urine WBC (Auto) U Epithel Cells (Auto) Salicylates Acetaminophen 10/10/21 10/10/21 10/10/21 04:30 11:54 16:41 WBC RBC RDW Seg Neutrophils % Sodium Potassium 3.4 L Chloride Carbon Dioxide 20 L BUN 3 L Glucose 158 H POC Glucose 279 H 171 H Hemoglobin A1c Lactic Acid Calcium 8.3 L Phosphorus 2.00 L Magnesium HDL Cholesterol Ur Specific [place] Urine WBC (Auto) U Epithel Cells (Auto) Salicylates Acetaminophen 10/10/21 10/11/21 10/11/21 21:29 04:14 04:14 WBC RBC 3.25 L RDW 18.0 H Seg Neutrophils % Sodium 132 L Potassium Chloride 96.3 L Carbon Dioxide BUN 2 L Glucose POC Glucose 197 H Hemoglobin A1c Lactic Acid Calcium 8.2 L Phosphorus Magnesium 1.30 L HDL Cholesterol Ur Specific [place] Urine WBC (Auto) U Epithel Cells (Auto) Salicylates Acetaminophen 10/11/21 10/11/21 10/11/21 08:19 11:56 15:43 WBC RBC RDW Seg Neutrophils % Sodium Potassium Chloride Carbon Dioxide BUN Glucose POC Glucose 125 H 154 H 174 H Hemoglobin A1c Lactic Acid Calcium Phosphorus Magnesium HDL Cholesterol Ur Specific [place] Urine WBC (Auto) U Epithel Cells (Auto) Salicylates Acetaminophen 10/11/21 20:35 WBC RBC RDW Seg Neutrophils % Sodium Potassium Chloride Carbon Dioxide BUN Glucose POC Glucose 296 H Hemoglobin A1c Lactic Acid Calcium Phosphorus Magnesium HDL Cholesterol Ur Specific [place] Urine WBC (Auto) U Epithel Cells (Auto) Salicylates Acetaminophen
[2021-10-12] MEDS: ENOXAPARIN 40 MG/0.4 ML INJ SUB-Q SCH (10:15)
[2021-10-12] MEDS: carvediloL 25 MG TAB PO SCH ×2 (10:15→22:47)
[2021-10-12] MEDS: HYDROXYCHLOROQUINE 200 MG TAB PO SCH (10:15)
[2021-10-12] MEDS: FAMOTIDINE 20 MG TAB PO SCH (10:15)
[2021-10-12] MEDS: CLOPIDOGREL 75 MG TAB PO SCH (10:15)
[2021-10-12] MEDS: THIAMINE 100 MG TAB PO SCH (10:15)
[2021-10-12] MEDS: FOLIC ACID 1 MG TAB PO SCH (10:15)
[2021-10-12] MEDS: amLODIPine 5 MG TAB PO SCH (10:15)
[2021-10-12] MEDS: DOCUSATE SODIUM 100 MG CAP PO SCH ×2 (10:15→22:41)
[2021-10-12] MEDS: AMOXICILLIN/K CLAV 875/125MG TAB PO SCH ×2 (10:15→22:41)
[2021-10-12] MEDS: ASPIRIN EC 81 MG TAB PO SCH (10:15)
[2021-10-12] MEDS: FLUoxetine 20 MG CAP PO SCH (10:15)
[2021-10-12] MEDS ORDERED: INSULIN GLARGINE 100 UNITS/ML SUB-Q SCH (22:00)
--- NOTE | 2021-10-13 07:53 | Progress Note ---
Assessment and Plan Assessment and plan: This is 61-year-old female with known past medical of HTN, DM, and recent CVC about 2 weeks ago initially admitted to the floor for AMS and Hypertensive urgency. Patient was a code stoke on the floor due to worsen mental status with right hemiplegia, right facial droop, and expressive aphasia. Was transferred to the ICU for acute CVA requiring tPA. Hospital Course to Date: 10/09: Mild improvement in mentation. Patient appears AAO, but remains aphasic with right hemiplegia and right facial droop, follow simple commands. Repeat CT head and MRI brain pending. Echo reviewed no evidence of PFO. Neurology consult pending. PT/OT/Speech consulted. D/w CCM okay to transfer patient back to telemetry if patient remains stable post 24hrs tPA. 10/10: Remains stable, still with significant expressive aphasia. Facial droop and right hemiplegia resolved, but still with generalized weakness. Repeat CT head and MRI noted, stable with no evidence of a bleed. Neurology consult pendi valerie. ASA and VTE proh initiated. Hypertensive this am, resume home meds. Continue PT/OT/Speech. Patient is stable for transfer to the Telemetry. 10/11: Patient seen and examined clinically improving although still with facial droop and right hemiplegia mildly residual. Speech is improving other a bit of expressive aphasia can still be appreciated. I did discuss discharge planning and the acute rehab appears to be a good option for continued PT OT and speech. Patient was seen by neurology, they recommended a hematology work-up which can be done outpatient. In the meantime we will resume patient's anticoagulation with Eliquis. Schedule for outpatient hematology and possible antiphospholipid syndrome monitoring. But the recommendation of gabapentin can be used for disabling neuropathy. 10/12: Patient seen and examined. Blood pressure modestly elevated our recommendation yesterday was to allow permissive hypertension. We will begin correction today. Still awaiting bed today acute rehab unit. No new fever documented today. Will complete antibiotics. Continue aspiration precautions Clinically she is showing significant improvement. 10/13: Patient noted with hypoglycemia overnight was cool and clammy blood sugar 24. We will reduce Lantus to 15 units and also reduce sliding scale to low- dose. Speech therapy recommendations and evaluation noted the patient will continue on pured diet. Still with some expressive aphasia. Refused the breakfast this morning due to the consistency and her not liking it. Nurses aware. Awaiting placement to acute rehab. 35 minutes critical care time considering hypoglycemia and medication adjustment which also requires dietary adjustment and ensuring that she is eating. Assessment and Plan #Acute CVA s/p tPA #H/o recent CVA- 2weeks prior #Hypoglycemia with acute encephalopathy #ETOH Abuse - Presented with AMS, drooling and unresponsiveness. 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 the right DOCUMENT IMAGING SPECIALIST distribution suggesting prior infarct, likely subacute - Code stroke called on the floor due to worsen mental status with right hemiplegia, right facial droop, and expressive aphasia - Patient received tPA per [facility] - Mild improvement noted in mentation, remains aphasic with righ hemiplegia and facial droop - CTA head/neck reviewed - Repeat CT head and MRI Brain noted - 2D echo with no evidence of PFO - Statin initiated - ASA and VTE proph initiated - Avoid sedative agents for now, IV Ativan held - Continue Neuro check per protocol - PT/OT/Speech ordered - Neurology consulted - Aspiration and fall precautions #Hypertensive Urgency-improved - Presented with SBP in the 200s, DBP in the 100s s/p IV Hydralazine - Hypertensive this am, SBP in the 170-180s - Home meds resumed - Continue blood pressure monitor per protocol - Maintain SBP less than 160 #Lactic Acidosis - Probably secondary to above - Patient is afebrile, with no leukocytosis, VSS - CTAbd/Pelvis unremarkable, cultures with NGTD - Will continue to trend lactic acid #Systemic Lupus Erythematosus(SLE) - Resume home med- Hydroxychloroquine #Hypomagnesemia #Hypokalemia-improved - Mg repleted - Monitor and replace electrolytes as needed - Trend BMP #Uncontrolled Diabetes Mellitus - HgbA1c- 14.1 - SSI initiated, continue BG check ACHS - Avoid hypoglycemia - While critically ill target blood glucose of 140-180 #Advance Care Planning - Disease education data, care plan, diagnoses, and prognosis were discussed with patient at the bedside and patient's daughter via phone. Patient is a FULL code. They acknowledged understanding and agreed with current care plan. Disposition: [facility] Final Discharge Diagnosis (Prints w/discharge instructions): 1. Acute Ischemic Stroke (cardiembolic). 2. Lupus / hx of PE / Hx of Failed Anticoagulation (?). 3. DM. 4. Left Hemiparesis / Left-sided Numbness -. 5. Mixed Expressive > Receptive Dysphasia. 6. Neuropathy. 7 hyperglycemia with acute encephalopathy History Interval history: Patient seen and examined awake reports that She does not like the breakfast Hospitalist Physical - Physical exam Narrative exam: General appearance: Present: no acute distress, well-nourished - EENT Eyes: Present: PERRL, EOM intact ENT: hearing intact - Neck Neck: Present: normal ROM - Respiratory Respiratory effort: normal Respiratory: bilateral: diminished - Cardiovascular Rhythm: regular Heart Sounds: Present: S1 & S2 - Extremities Extremities: no ischemia, pulses intact, pulses symmetrical Peripheral Pulses: within normal limits - Abdominal General gastrointestinal: soft, non-distended, normal bowel sounds - Integumentary Integumentary: Present: warm, dry - Psychiatric Psychiatric: appropriate mood/affect, cooperative - Neurologic Neurologic: Lethargic otherwise no focal deficits appreciated moves all extremities. Speech is improved. - Allied Health Allied health notes reviewed: nursing, case management - Constitutional Vitals: Temp Pulse Resp BP Pulse Ox 97.5 F L 44 L 12 138/71 100 10/13/21 03:05 10/13/21 03:05 10/13/21 03:05 10/13/21 03:05 10/13/21 03:05 General appearance: Present: no acute distress, well-nourished HEART Score - HEART Score Troponin: Troponin T < 0.010 ng/mL (0.00-0.029) 10/07/21 21:19 Results - Labs CBC & Chem 7: 10/11/21 04:14 10/13/21 05:38 Labs: Laboratory Last Values WBC 7.1 K/mm3 (4.5-11.0) 10/11/21 04:14 RBC 3.25 M/mm3 (3.65-5.03) L 10/11/21 04:14 Hgb 10.4 gm/dl (10.1-14.3) 10/11/21 04:14 Hct 30.7 % (30.3-42.9) 10/11/21 04:14 MCV 94 fl (79-97) 10/11/21 04:14 MCH 32 pg (28-32) 10/11/21 04:14 MCHC 34 % (30-34) 10/11/21 04:14 RDW 18.0 % (13.2-15.2) H 10/11/21 04:14 Plt Count 201 K/mm3 (140-440) 10/11/21 04:14 Lymph % (Auto) 33.5 % (13.4-35.0) 10/09/21 04:14 [place] % (Auto) 6.2 % (0.0-7.3) 10/09/21 04:14 Eos % (Auto) 0.3 % (0.0-4.3) 10/09/21 04:14 Baso % (Auto) 0.4 % (0.0-1.8) 10/09/21 04:14 Lymph # (Auto) 2.1 K/mm3 (1.2-5.4) 10/09/21 04:14 [place] # (Auto) 0.4 K/mm3 (0.0-0.8) 10/09/21 04:14 Eos # (Auto) 0.0 K/mm3 (0.0-0.4) 10/09/21 04:14 Baso # (Auto) 0.0 K/mm3 (0.0-0.1) 10/09/21 04:14 Seg Neutrophils % 59.6 % (40.0-70.0) 10/09/21 04:14 Seg Neutrophils # 3.8 K/mm3 (1.8-7.7) 10/09/21 04:14 PT 14.8 Sec. (12.2-14.9) 10/10/21 04:30 INR 1.04 (0.87-1.13) 10/10/21 04:30 APTT 25.9 Sec. (24.2-36.6) 10/07/21 21:19 Sodium 132 mmol/L (137-145) L 10/11/21 04:14 Potassium 3.9 mmol/L (3.6-5.0) 10/11/21 04:14 Chloride 96.3 mmol/L (98-107) L 10/11/21 04:14 Carbon Dioxide 23 mmol/L (22-30) 10/11/21 04:14 Anion Gap 17 mmol/L 10/11/21 04:14 BUN 2 mg/dL (7-17) L 10/11/21 04:14 Creatinine 0.7 mg/dL (0.6-1.2) 10/11/21 04:14 Estimated GFR > 60 ml/min 10/11/21 04:14 BUN/Creatinine Ratio 3 % 10/11/21 04:14 Glucose 55 mg/dL (65-100) L 10/13/21 05:38 POC Glucose 308 mg/dL (70-105) H 10/13/21 03:18 Hemoglobin A1c 14.1 % (4-6) H 10/08/21 10:07 Lactic Acid 1.20 mmol/L (0.7-2.0) 10/10/21 04:30 Calcium 8.2 mg/dL (8.4-10.2) L 10/11/21 04:14 Phosphorus 2.70 mg/dL (2.5-4.5) D 10/11/21 04:14 Magnesium 1.30 mg/dL (1.7-2.3) L 10/11/21 04:14 Total Bilirubin 0.90 mg/dL (0.1-1.2) 10/07/21 21:19 AST 30 units/L (5-40) 10/07/21 21:19 ALT 8 units/L (7-56) 10/07/21 21:19 Alkaline Phosphatase 126 units/L (35-129) 10/07/21 21:19 Ammonia 28.0 umol/L (25-60) 10/07/21 21:19 Total Creatine Kinase 102 units/L (30-135) 10/07/21 21:19 Troponin T < 0.010 ng/mL (0.00-0.029) 10/07/21 21:19 Total Protein 7.6 g/dL (6.3-8.2) 10/07/21 21:19 Albumin 4.4 g/dL (3.9-5) 10/07/21 21:19 Albumin/Globulin Ratio 1.4 % 10/07/21 21:19 Triglycerides 79 mg/dL (2-149) 10/08/21 10:07 Cholesterol 180 mg/dL (50-199) 10/08/21 10:07 LDL Cholesterol Direct 85 mg/dL (50-130) 10/08/21 10:07 HDL Cholesterol 76 mg/dL (40-59) H 10/08/21 10:07 Cholesterol/HDL Ratio 2.36 % 10/08/21 10:07 TSH 3.170 mlU/mL (0.270-4.200) 10/08/21 10:07 Urine Color Brown (Yellow) 10/07/21 Unknown Urine Turbidity Cloudy (Clear) 10/07/21 Unknown Urine pH 5.0 (5.0-7.0) 10/07/21 Unknown Ur Specific [place] 1.035 (1.003-1.030) H 10/07/21 Unknown Urine Protein 300 mg/dl mg/dL (Negative) 10/07/21 Unknown Urine Glucose (UA) Trace mg/dL (Negative) 10/07/21 Unknown Urine Ketones Negative mg/dL (Negative) 10/07/21 Unknown Urine Blood Negative (Negative) 10/07/21 Unknown Urine Nitrite Negative (Negative) 10/07/21 Unknown Urine Bilirubin Negative (Negative) 10/07/21 Unknown Urine Urobilinogen < 2.0 mg/dL (<2.0) 10/07/21 Unknown Ur Leukocyte Esterase Negative (Negative) 10/07/21 Unknown Urine WBC (Auto) 18.0 /HPF (0.0-6.0) H 10/07/21 Unknown Urine RBC (Auto) 8.0 /HPF (0.0-6.0) 10/07/21 Unknown U Epithel Cells (Auto) 44.0 /HPF (0-13.0) H 10/07/21 Unknown Urine Bacteria (Auto) 1+ /HPF (Negative) 10/07/21 Unknown Hyaline Casts 2 /LPF 10/07/21 Unknown Urine Mucus Few /HPF 10/07/21 Unknown Urine Yeast (Budding) 2+ /HPF 10/07/21 Unknown Salicylates < 0.3 mg/dL (2.8-20.0) L 10/07/21 21:19 Acetaminophen 5.0 ug/mL (10.0-30.0) L 10/07/21 21:19 Plasma/Serum Alcohol < 0.01 % (0-0.07) 10/07/21 21:19 Microbiology: Microbiology 10/07/21 21:04 Peripheral/Venous Blood Culture - Final NO GROWTH AFTER 5 DAYS 10/07/21 21:04 Peripheral/Venous Blood Culture - Final NO GROWTH AFTER 5 DAYS Luu/IV: Voiding Method Incontinent Active Medications - Current Medications Current Medications: Generic Name Dose Route Start Last Admin Trade Name Freq PRN Reason Stop Dose Admin Acetaminophen 650 mg 10/11/21 13:00 10/11/21 12:58 Acetaminophen 325 Mg Tab PO 650 mg Q6H PRN Administration Pain, Mild (1-3) Amlodipine Besylate 5 mg 10/10/21 10:00 10/12/21 10:15 Amlodipine 5 Mg Tab PO 5 mg QDAY PRIETO Administration Amoxicillin/Clavulanate Potassium 1 each 10/11/21 22:00 10/12/21 22:41 Amoxicillin/K Clav 875/125mg Tab PO 1 each Q12HR PRIETO Administration Protocol Aspirin 81 mg 10/10/21 10:00 10/12/21 10:15 Aspirin Ec 81 Mg Tab PO 81 mg QDAY PRIETO Administration Atorvastatin Calcium 40 mg 10/08/21 22:00 10/12/21 22:40 Atorvastatin 40 Mg Tab PO 40 mg QHS PRIETO Administration Bisacodyl 10 mg 10/08/21 00:19 Bisacodyl 10 Mg Rect Supp DC QDAY PRN Constipation Carvedilol 25 mg 10/12/21 08:00 10/12/21 22:47 Carvedilol 25 Mg Tab PO 25 mg Q12H PRIETO Administration Clopidogrel Bisulfate 75 mg 10/10/21 10:00 10/12/21 10:15 Clopidogrel 75 Mg Tab PO 75 mg QDAY PRIETO Administration Dextrose 50 ml 10/08/21 00:19 10/13/21 03:07 Dextrose 50% In Water (25gm) 50 Ml Syringe IV 50 ml Q30MIN PRN Administration Hypoglycemia Protocol Docusate Sodium 100 mg 10/10/21 10:00 10/12/21 22:41 Docusate Sodium 100 Mg Cap PO 100 mg BID PRIETO Administration Enoxaparin Sodium 40 mg 10/10/21 10:00 10/12/21 10:15 Enoxaparin 40 Mg/0.4 Ml Inj SUB-Q 40 mg QDAY@1000 PRIETO Administration Protocol Famotidine 20 mg 10/10/21 10:00 10/12/21 10:15 Famotidine 20 Mg Tab PO 20 mg DAILY PRIETO Administration Fluoxetine HCl 20 mg 10/10/21 10:00 10/12/21 10:15 Fluoxetine 20 Mg Cap PO 20 mg QDAY PRIETO Administration Folic Acid 1 mg 10/08/21 10:00 10/12/21 10:15 Folic Acid 1 Mg Tab PO 1 mg QDAY PRIETO Administration Hydroxychloroquine Sulfate 200 mg 10/10/21 10:00 10/12/21 10:15 Hydroxychloroquine 200 Mg Tab PO 200 mg QDAY PRIETO Administration Insulin Human Lispro 0 unit 10/08/21 07:30 10/12/21 22:47 Insulin Lispro 100 Unit/Ml SUB-Q 4 unit ACHS PRIETO Administration Protocol Magnesium Hydroxide 30 ml 10/08/21 00:19 Magnesium Hydroxide (Mom) Oral Liqd Udc PO Q4H PRN Constipation Metoclopramide HCl 10 mg 10/08/21 00:19 Metoclopramide 10 Mg Tab PO Q6H PRN Nausea And Vomiting Morphine Sulfate 2 mg 10/08/21 00:19 10/12/21 18:38 Morphine 2 Mg/1 Ml Inj IV 2 mg Q4H PRN Administration Pain, Moderate (4-6) Ondansetron HCl 4 mg 10/08/21 00:19 10/08/21 08:14 Ondansetron 4 Mg/2 Ml Inj IV 4 mg Q8H PRN Administration Nausea And Vomiting Promethazine HCl 25 mg 10/08/21 00:19 Promethazine 25 Mg Rect Supp DC Q6H PRN Nausea And Vomiting Sodium Chloride 10 ml 10/08/21 10:00 10/12/21 22:42 Sodium Chloride 0.9% 10 Ml Flush Syringe IV 10 ml BID PRIETO Administration Sodium Chloride 10 ml 10/08/21 00:19 Sodium Chloride 0.9% 10 Ml Flush Syringe IV PRN PRN LINE FLUSH Thiamine HCl 100 mg 10/08/21 10:00 10/12/21 10:15 Thiamine 100 Mg Tab PO 100 mg QDAY PRIETO Administration Nutrition/Malnutrition Assess - Dietary Evaluation Nutrition/Malnutrition Findings: Nutrition Notes Start: 10/08/21 18:14 Freq: Status: Active Protocol: Document 10/10/21 09:59 DANTE (Rec: 10/10/21 10:35 DANTE [id number]) Nutrition Notes Initial or Follow up Reassessment Current Diagnosis Diabetes,Hypertension,Stroke Other Pertinent Diagnosis AMS, CVA s/p tPA, Lactic Acidosis, Dysphagia, EtOH Abuse. Current Diet NPO. Labs/Tests 10/10: K 3.4, CO2 20, BUN 3, Glu 158, Ca 8.3, Phos 2.0. Pertinent Medications 10/10: Folic acid, Humalog 4U, KPO4 15 mmol, Thiamine, others nutritionally unremarkable. Height 5 ft 4 in Weight 40.76 kg [place] Body Weight (kg) 54.54 BMI 15.4 Weight change and time frame No body weight change reported in 2 days. Weight Status Underweight Subjective/Other Information RD consult for routine F/U on dietary advancement. Pt remains NPO since admission . I recommend start TF when pertinent. Pt is on Room Air, O2 saturation @ 100%, according to Physical Assessment History notes. OCEANOGRAPHER ASSISTANT note on 10/08/21 15:55: Speech and swallowing skills were assessed. Patient demonstrates significantly impaired oral and laryngeal function with a poor oral control as evident by spillage and reduced A-P movement of the bolus. Swallow reflex is delayed 17 seconds. Patient is aphasic with poor comprehension and verbal skills. Recommend NPO. Discussed findings with the patient's nurse. Will follow. - END OF NOTE. Pt has missing teeth, according to Physical Assessment History notes. Percent of energy/protein needs met: Pt remains NPO since admission . When pertinent, start Prescribed TF-Glucerna 1.2 [place] @ 45 ml/hr. provides for energy/protein needs (1,310 Kcal/66 g) during LOS, 92% Kcal; 106% AA. Burn Absent Trauma Absent GI Symptoms Other Difficulty In Swallowing,Chewing Food Allergy No Skin Integrity/Comment Assessment WNL. Current % PO Other Minimum of two criteria No Fluid Accumulation N/A Reduced Clothing Sales Assistant Strength N/A (non-severe) Protein-Calorie Malnutrition N\A #2 Nutrition Diagnosis Underweight Etiology Possibly natural body composition. As Evidenced by Signs and Symptoms BMI: 15.4 Kg/m2. #1 Nutrition Diagnosis Swallowing difficulty,Biting/ Chewing (masticatory) difficulty Comments: Nutrition Diagnosis change for precision. OCEANOGRAPHER ASSISTANT note on 10/08/21 15:55: Speech and swallowing skills were assessed. Patient demonstrates significantly impaired oral and laryngeal function with a poor oral control as evident by spillage and reduced A-P movement of the bolus. Swallow reflex is delayed 17 seconds. Patient is aphasic with poor comprehension and verbal skills. Recommend NPO. Discussed findings with the patient's nurse. Will follow. - END OF NOTE. Etiology CVA, AMS, Dysphagia. As Evidenced by Signs and Symptoms Pt remains NPO since admission . Is patient on ventilator? No Is Patient Ambulatory and/or Out of Bed No REE-([place]-St. Jeor-confined to bed) 1166.292 Kcal/Kg value to use for calculation 35 Approximate Energy Requirements Using 1427 kcal/Kg Calculation Used for Recommendations Kcal/kg Additional Notes Protein: 1.2-1.5 g/Kg ABW; 49- 62 g/day. Fluids: 1 ml/Kcal, or as per MD. Nutrition Intervention Nutrition Support: When pertinent, start TF- Glucerna 1.2 Arcenio @ 45 ml/hr. Flush: 90 ml water Q 4 hr, or as per MD. Kcal 1,310 Protein (gm) 66 Carbohydrates (gm) 125 Fat (gm) 66 Fluid (mL) 879 Fiber (gm) 18 % RDI: 92% Kcal; 106% AA. Goal #1 Provide at least 75% of energy /protein needs through Enteral Feeding during LOS. Goal #2 Adjust the dietary intervention to better serve Pt's needs and clinical conditions during LOS. Follow-Up By: 10/12/21 Additional Comments When pertinent, start monitoring TF tolerance and BM .
[2021-10-13] MEDS: INSULIN LISPRO 100 UNIT/ML SUB-Q SCH ×4 (08:06→22:00)
[2021-10-13] MEDS: amLODIPine 5 MG TAB PO SCH (10:41)
[2021-10-13] MEDS: AMOXICILLIN/K CLAV 875/125MG TAB PO SCH ×2 (10:42→21:55)
[2021-10-13] MEDS: DOCUSATE SODIUM 100 MG CAP PO SCH ×2 (10:42→21:55)
[2021-10-13] MEDS: ENOXAPARIN 40 MG/0.4 ML INJ SUB-Q SCH (10:42)
[2021-10-13] MEDS: ASPIRIN EC 81 MG TAB PO SCH (10:43)
[2021-10-13] MEDS: FOLIC ACID 1 MG TAB PO SCH (10:43)
[2021-10-13] MEDS: MORPHINE 2 MG/1 ML INJ IV PRN ×2 (10:43→21:56)
[2021-10-13] MEDS: FAMOTIDINE 20 MG TAB PO SCH (10:43)
[2021-10-13] MEDS: HYDROXYCHLOROQUINE 200 MG TAB PO SCH (10:44)
[2021-10-13] MEDS: FLUoxetine 20 MG CAP PO SCH (10:44)
[2021-10-13] MEDS: CLOPIDOGREL 75 MG TAB PO SCH (10:44)
[2021-10-13] MEDS: THIAMINE 100 MG TAB PO SCH (10:45)
[2021-10-13] MEDS: carvediloL 25 MG TAB PO SCH ×2 (11:41→21:54)
--- NOTE | 2021-10-13 13:46 | Progress Note ---
Assessment and Plan Acute CVA s/p tPA Altered mental status Hypertensive urgency Protein calorie malnutrition- moderate Lactic acidosis Electrolyte imbalance Alcohol abuse History of recent CVA Diabetes mellitus -Aspiration precautions, HOB >30 Continue with blood pressure control and monitoring -PT/OT- increase activity as tolerated -VTE prophylaxis- -Secondary stroke prophylaxis-aspirin 81 mg daily; statin with goal of LDL < 70 -Accuchecks with glycemic control, target blood glucose 140-180 mg/dL; Avoid hypoglycemia -Supplemental oxygen as clinically indicated, keep sPO2 90-92% -Awaiting in patient rehab bed Subjective Date of service: 10/13/21 Principal diagnosis: Acute CVA s/p tPA; AMS; HTNsive urgency; Lactic acidosis; EtOH abuse; DM II Interval history: Patient is seen today for: Acute CVA s/p tPA; AMS; Hypertensive urgency; Protein calorie malnutrition; Lactic acidosis; Alcohol abuse; DM II Seen and examined at bedside; 24hour events reviewed; nursing and respiratory care staff consulted; no adverse overnight events reported to me; resting in bed; more awake and alert, obeying simple commands, has expressive aphasia, MRI brain findings noted. Echo reviewed no evidence of PFO. She denies any chest pain, no shortness of breath, no fevers, no chills, no nausea or vomiting. Tolerating apple sauce Objective Vital Signs - 12hr 10/13/21 10/13/21 03:05 08:36 Temperature 97.5 F L Pulse Rate 44 L 56 L Respiratory 12 Rate Blood Pressure 138/71 O2 Sat by Pulse 100 Oximetry Constitutional: no acute distress, alert, other (Following commands) Eyes: non-icteric ENT: oropharynx moist Neck: supple, no lymphadenopathy, no JVD Effort: normal Ascultation: Bilateral: clear, diminished breath sounds Percussion: Bilateral: not dull Cardiovascular: regular rate and rhythm, other (S1,S2) Gastrointestinal: normoactive bowel sounds, soft, non-tender, non-distended Integumentary: normal Extremities: no cyanosis, no edema, pulses normal, no ischemia or petechiae Neurologic: normal mental status, non-focal exam, pupils equal and round (Left lateral gaze defect, RUext 4/5 power grade) Psychiatric: mood appropriate, affect normal CBC and BMP: 10/14/21 07:39 10/14/21 07:39 ABG, PT/INR, D-dimer: PT/INR, D-dimer PT 14.8 Sec. (12.2-14.9) 10/10/21 04:30 INR 1.04 (0.87-1.13) 10/10/21 04:30 Abnormal lab findings: Abnormal Labs 10/07/21 10/07/21 10/07/21 21:19 21:19 21:19 WBC RBC RDW 17.6 H Seg Neutrophils % 75.8 H Sodium Potassium 2.9 L* Chloride 95.3 L Carbon Dioxide BUN 5 L Glucose 224 H POC Glucose Hemoglobin A1c Lactic Acid 4.20 H* Calcium Phosphorus Magnesium HDL Cholesterol Ur Specific [place] Urine WBC (Auto) U Epithel Cells (Auto) Salicylates Acetaminophen 10/07/21 10/07/21 10/07/21 21:19 21:19 21:19 WBC RBC RDW Seg Neutrophils % Sodium Potassium Chloride Carbon Dioxide BUN Glucose POC Glucose Hemoglobin A1c Lactic Acid Calcium Phosphorus Magnesium 1.00 L HDL Cholesterol Ur Specific [place] Urine WBC (Auto) U Epithel Cells (Auto) Salicylates < 0.3 L Acetaminophen 5.0 L 10/07/21 10/07/21 10/08/21 23:47 Unknown 08:01 WBC RBC RDW Seg Neutrophils % Sodium Potassium Chloride Carbon Dioxide BUN Glucose POC Glucose 312 H Hemoglobin A1c Lactic Acid 2.10 H* Calcium Phosphorus Magnesium HDL Cholesterol Ur Specific [place] 1.035 H Urine WBC (Auto) 18.0 H U Epithel Cells (Auto) 44.0 H Salicylates Acetaminophen 10/08/21 10/08/21 10/08/21 10:07 10:07 10:07 WBC RBC RDW Seg Neutrophils % Sodium Potassium 3.1 L Chloride Carbon Dioxide BUN Glucose POC Glucose Hemoglobin A1c 14.1 H Lactic Acid 4.80 H* Calcium Phosphorus Magnesium 1.50 L HDL Cholesterol 76 H Ur Specific [place] Urine WBC (Auto) U Epithel Cells (Auto) Salicylates Acetaminophen 10/08/21 10/09/21 10/09/21 17:08 00:16 04:14 WBC RBC 3.34 L RDW 18.3 H Seg Neutrophils % Sodium Potassium Chloride Carbon Dioxide BUN Glucose POC Glucose 205 H 231 H Hemoglobin A1c Lactic Acid Calcium Phosphorus Magnesium HDL Cholesterol Ur Specific [place] Urine WBC (Auto) U Epithel Cells (Auto) Salicylates Acetaminophen 10/09/21 10/09/21 10/09/21 04:14 08:11 15:47 WBC RBC RDW Seg Neutrophils % Sodium Potassium Chloride Carbon Dioxide 16 L D BUN Glucose 219 H POC Glucose 214 H 135 H Hemoglobin A1c Lactic Acid Calcium 8.1 L Phosphorus Magnesium 1.60 L HDL Cholesterol Ur Specific [place] Urine WBC (Auto) U Epithel Cells (Auto) Salicylates Acetaminophen 10/09/21 10/09/21 10/10/21 17:33 21:32 04:30 WBC 3.9 L RBC 3.30 L RDW 18.0 H Seg Neutrophils % Sodium Potassium Chloride Carbon Dioxide BUN Glucose POC Glucose 230 H 265 H Hemoglobin A1c Lactic Acid Calcium Phosphorus Magnesium HDL Cholesterol Ur Specific [place] Urine WBC (Auto) U Epithel Cells (Auto) Salicylates Acetaminophen 10/10/21 10/10/21 10/10/21 04:30 11:54 16:41 WBC RBC RDW Seg Neutrophils % Sodium Potassium 3.4 L Chloride Carbon Dioxide 20 L BUN 3 L Glucose 158 H POC Glucose 279 H 171 H Hemoglobin A1c Lactic Acid Calcium 8.3 L Phosphorus 2.00 L Magnesium HDL Cholesterol Ur Specific [place] Urine WBC (Auto) U Epithel Cells (Auto) Salicylates Acetaminophen 10/10/21 10/11/21 10/11/21 21:29 04:14 04:14 WBC RBC 3.25 L RDW 18.0 H Seg Neutrophils % Sodium 132 L Potassium Chloride 96.3 L Carbon Dioxide BUN 2 L Glucose POC Glucose 197 H Hemoglobin A1c Lactic Acid Calcium 8.2 L Phosphorus Magnesium 1.30 L HDL Cholesterol Ur Specific [place] Urine WBC (Auto) U Epithel Cells (Auto) Salicylates Acetaminophen 10/11/21 10/11/21 10/11/21 08:19 11:56 15:43 WBC RBC RDW Seg Neutrophils % Sodium Potassium Chloride Carbon Dioxide BUN Glucose POC Glucose 125 H 154 H 174 H Hemoglobin A1c Lactic Acid Calcium Phosphorus Magnesium HDL Cholesterol Ur Specific [place] Urine WBC (Auto) U Epithel Cells (Auto) Salicylates Acetaminophen 10/11/21 10/12/21 10/12/21 20:35 11:18 15:53 WBC RBC RDW Seg Neutrophils % Sodium Potassium Chloride Carbon Dioxide BUN Glucose POC Glucose 296 H 153 H 226 H Hemoglobin A1c Lactic Acid Calcium Phosphorus Magnesium HDL Cholesterol Ur Specific [place] Urine WBC (Auto) U Epithel Cells (Auto) Salicylates Acetaminophen 10/12/21 10/13/21 10/13/21 20:22 03:02 03:18 WBC RBC RDW Seg Neutrophils % Sodium Potassium Chloride Carbon Dioxide BUN Glucose POC Glucose 159 H 24 L 308 H Hemoglobin A1c Lactic Acid Calcium Phosphorus Magnesium HDL Cholesterol Ur Specific [place] Urine WBC (Auto) U Epithel Cells (Auto) Salicylates Acetaminophen 10/13/21 10/13/21 05:38 07:43 WBC RBC RDW Seg Neutrophils % Sodium Potassium Chloride Carbon Dioxide BUN Glucose 55 L POC Glucose 66 L Hemoglobin A1c Lactic Acid Calcium Phosphorus Magnesium HDL Cholesterol Ur Specific [place] Urine WBC (Auto) U Epithel Cells (Auto) Salicylates Acetaminophen
[2021-10-13] MEDS: INSULIN GLARGINE 100 UNITS/ML SUB-Q SCH (22:00)
[2021-10-14] MEDS: MORPHINE 2 MG/1 ML INJ IV PRN ×3 (07:35→22:20)
[2021-10-14] MEDS: INSULIN LISPRO 100 UNIT/ML SUB-Q SCH ×4 (07:51→22:19)
[2021-10-14 08:55] LABS: Hematocrit 32.7 % (30.3-42.9); Hemoglobin 10.7 gm/dl (10.1-14.3); Mean Corpuscular HGB Conc 33 % (30-34); Mean Corpuscular Volume 95 fl (79-97); Platelet Count 250 K/mm3 (140-440); Red Blood Count 3.43 M/mm3 (3.65-5.03); Red Cell Distribution Width 17.9 % (13.2-15.2)
[2021-10-14 09:39] LABS: BUN/Creatinine Ratio 6; Blood Urea Nitrogen 5 mg/dL (7-17); Calcium 8.8 mg/dL (8.4-10.2); Hemolysis Index 49
[2021-10-14] MEDS: amLODIPine 5 MG TAB PO SCH (10:33)
[2021-10-14] MEDS: AMOXICILLIN/K CLAV 875/125MG TAB PO SCH ×2 (10:33→22:18)
[2021-10-14] MEDS: carvediloL 25 MG TAB PO SCH ×2 (10:33→22:17)
[2021-10-14] MEDS: FLUoxetine 20 MG CAP PO SCH (10:34)
[2021-10-14] MEDS: FOLIC ACID 1 MG TAB PO SCH (10:34)
[2021-10-14] MEDS: CLOPIDOGREL 75 MG TAB PO SCH (10:34)
[2021-10-14] MEDS: DOCUSATE SODIUM 100 MG CAP PO SCH ×2 (10:34→22:17)
[2021-10-14] MEDS: ASPIRIN EC 81 MG TAB PO SCH (10:34)
[2021-10-14] MEDS: ENOXAPARIN 40 MG/0.4 ML INJ SUB-Q SCH (10:34)
[2021-10-14] MEDS: HYDROXYCHLOROQUINE 200 MG TAB PO SCH (10:34)
[2021-10-14] MEDS: FAMOTIDINE 20 MG TAB PO SCH (10:34)
[2021-10-14] MEDS: THIAMINE 100 MG TAB PO SCH (10:35)
--- NOTE | 2021-10-14 11:13 | Progress Note ---
Assessment and Plan Acute CVA s/p tPA Altered mental status Hypertensive urgency Protein calorie malnutrition (moderate) Lactic acidosis Electrolyte imbalance Alcohol abuse History of recent CVA Diabetes mellitus II - SNF evaluation ongoing - continue care as below otherwise; - CARDIOPULMONARY TECHNICIAN AND EEG TECH evaluation and advance diet per recommendations - continue fall precautions - secondary prevention - continue antiplatelet therapy with Plavix as well - accuchecks with glycemic control per SSI for target blood glucose of < 180 mg/dL; avoid hypoglycemia - prn supplemental oxygen for target O2 sat's > 90% acutely - aspiration precautions - prn bronchodilators with pulmonary hygiene per RT - avoid nephrotoxins, renally dose all medications - AB's per ID rec's - prn analgesia per pain score - Maintenance of sleep-wake cycle, avoid delirium - G.I. & VTE prophylaxis - PT/OT/ROM exercises - continue mobility protocols for pressure ulcer prophylaxis - Monitor hemodynamics closely - continue other care per attending / other consultants - discharge planning ongoing concurrently .... Re-evaluate in am & prn Subjective Date of service: 10/14/21 Principal diagnosis: Acute CVA s/p tPA; AMS; HTNsive urgency; Lactic acidosis; EtOH abuse; DM II Interval history: Patient is seen today for: Acute CVA s/p tPA; AMS; Hypertensive urgency; Protein calorie malnutrition; Lactic acidosis; Alcohol abuse; DM II Seen and examined at bedside; 24hour events reviewed; nursing and respiratory care staff consulted; no adverse overnight events reported to me; resting in bed; discharge planning ongoing; on room air; no N/V/F/C Objective Vital Signs - 12hr 10/14/21 10/14/21 07:46 08:14 Temperature 98.7 F Pulse Rate 67 Blood Pressure 152/84 O2 Sat by Pulse 98 98 Oximetry Constitutional: no acute distress, alert, other (Following commands) Eyes: non-icteric ENT: oropharynx moist Neck: supple, no lymphadenopathy, no JVD Effort: normal Ascultation: Bilateral: clear, diminished breath sounds Percussion: Bilateral: not dull Cardiovascular: regular rate and rhythm, other (S1,S2) Gastrointestinal: normoactive bowel sounds, soft, non-tender, non-distended Integumentary: normal Extremities: no cyanosis, no edema, pulses normal, no ischemia or petechiae Neurologic: normal mental status, non-focal exam, pupils equal and round (Left lateral gaze defect, RUext 4/5 power grade), other (aphasia) Psychiatric: mood appropriate, affect normal CBC and BMP: 10/14/21 07:39 10/14/21 07:39 ABG, PT/INR, D-dimer: PT/INR, D-dimer PT 14.8 Sec. (12.2-14.9) 10/10/21 04:30 INR 1.04 (0.87-1.13) 10/10/21 04:30 Abnormal lab findings: Abnormal Labs 10/07/21 10/07/21 10/07/21 21:19 21:19 21:19 WBC RBC RDW 17.6 H Seg Neutrophils % 75.8 H Sodium Potassium 2.9 L* Chloride 95.3 L Carbon Dioxide BUN 5 L Glucose 224 H POC Glucose Hemoglobin A1c Lactic Acid 4.20 H* Calcium Phosphorus Magnesium HDL Cholesterol Ur Specific [place] Urine WBC (Auto) U Epithel Cells (Auto) Salicylates Acetaminophen 10/07/21 10/07/21 10/07/21 21:19 21:19 21:19 WBC RBC RDW Seg Neutrophils % Sodium Potassium Chloride Carbon Dioxide BUN Glucose POC Glucose Hemoglobin A1c Lactic Acid Calcium Phosphorus Magnesium 1.00 L HDL Cholesterol Ur Specific [place] Urine WBC (Auto) U Epithel Cells (Auto) Salicylates < 0.3 L Acetaminophen 5.0 L 10/07/21 10/07/21 10/08/21 23:47 Unknown 08:01 WBC RBC RDW Seg Neutrophils % Sodium Potassium Chloride Carbon Dioxide BUN Glucose POC Glucose 312 H Hemoglobin A1c Lactic Acid 2.10 H* Calcium Phosphorus Magnesium HDL Cholesterol Ur Specific [place] 1.035 H Urine WBC (Auto) 18.0 H U Epithel Cells (Auto) 44.0 H Salicylates Acetaminophen 10/08/21 10/08/21 10/08/21 10:07 10:07 10:07 WBC RBC RDW Seg Neutrophils % Sodium Potassium 3.1 L Chloride Carbon Dioxide BUN Glucose POC Glucose Hemoglobin A1c 14.1 H Lactic Acid 4.80 H* Calcium Phosphorus Magnesium 1.50 L HDL Cholesterol 76 H Ur Specific [place] Urine WBC (Auto) U Epithel Cells (Auto) Salicylates Acetaminophen 10/08/21 10/09/21 10/09/21 17:08 00:16 04:14 WBC RBC 3.34 L RDW 18.3 H Seg Neutrophils % Sodium Potassium Chloride Carbon Dioxide BUN Glucose POC Glucose 205 H 231 H Hemoglobin A1c Lactic Acid Calcium Phosphorus Magnesium HDL Cholesterol Ur Specific [place] Urine WBC (Auto) U Epithel Cells (Auto) Salicylates Acetaminophen 10/09/21 10/09/21 10/09/21 04:14 08:11 15:47 WBC RBC RDW Seg Neutrophils % Sodium Potassium Chloride Carbon Dioxide 16 L D BUN Glucose 219 H POC Glucose 214 H 135 H Hemoglobin A1c Lactic Acid Calcium 8.1 L Phosphorus Magnesium 1.60 L HDL Cholesterol Ur Specific [place] Urine WBC (Auto) U Epithel Cells (Auto) Salicylates Acetaminophen 10/09/21 10/09/21 10/10/21 17:33 21:32 04:30 WBC 3.9 L RBC 3.30 L RDW 18.0 H Seg Neutrophils % Sodium Potassium Chloride Carbon Dioxide BUN Glucose POC Glucose 230 H 265 H Hemoglobin A1c Lactic Acid Calcium Phosphorus Magnesium HDL Cholesterol Ur Specific [place] Urine WBC (Auto) U Epithel Cells (Auto) Salicylates Acetaminophen 10/10/21 10/10/21 10/10/21 04:30 11:54 16:41 WBC RBC RDW Seg Neutrophils % Sodium Potassium 3.4 L Chloride Carbon Dioxide 20 L BUN 3 L Glucose 158 H POC Glucose 279 H 171 H Hemoglobin A1c Lactic Acid Calcium 8.3 L Phosphorus 2.00 L Magnesium HDL Cholesterol Ur Specific [place] Urine WBC (Auto) U Epithel Cells (Auto) Salicylates Acetaminophen 10/10/21 10/11/21 10/11/21 21:29 04:14 04:14 WBC RBC 3.25 L RDW 18.0 H Seg Neutrophils % Sodium 132 L Potassium Chloride 96.3 L Carbon Dioxide BUN 2 L Glucose POC Glucose 197 H Hemoglobin A1c Lactic Acid Calcium 8.2 L Phosphorus Magnesium 1.30 L HDL Cholesterol Ur Specific [place] Urine WBC (Auto) U Epithel Cells (Auto) Salicylates Acetaminophen 10/11/21 10/11/21 10/11/21 08:19 11:56 15:43 WBC RBC RDW Seg Neutrophils % Sodium Potassium Chloride Carbon Dioxide BUN Glucose POC Glucose 125 H 154 H 174 H Hemoglobin A1c Lactic Acid Calcium Phosphorus Magnesium HDL Cholesterol Ur Specific [place] Urine WBC (Auto) U Epithel Cells (Auto) Salicylates Acetaminophen 10/11/21 10/12/21 10/12/21 20:35 11:18 15:53 WBC RBC RDW Seg Neutrophils % Sodium Potassium Chloride Carbon Dioxide BUN Glucose POC Glucose 296 H 153 H 226 H Hemoglobin A1c Lactic Acid Calcium Phosphorus Magnesium HDL Cholesterol Ur Specific [place] Urine WBC (Auto) U Epithel Cells (Auto) Salicylates Acetaminophen 10/12/21 10/13/21 10/13/21 20:22 03:02 03:18 WBC RBC RDW Seg Neutrophils % Sodium Potassium Chloride Carbon Dioxide BUN Glucose POC Glucose 159 H 24 L 308 H Hemoglobin A1c Lactic Acid Calcium Phosphorus Magnesium HDL Cholesterol Ur Specific [place] Urine WBC (Auto) U Epithel Cells (Auto) Salicylates Acetaminophen 10/13/21 10/13/21 10/13/21 05:38 07:43 11:40 WBC RBC RDW Seg Neutrophils % Sodium Potassium Chloride Carbon Dioxide BUN Glucose 55 L POC Glucose 66 L 135 H Hemoglobin A1c Lactic Acid Calcium Phosphorus Magnesium HDL Cholesterol Ur Specific [place] Urine WBC (Auto) U Epithel Cells (Auto) Salicylates Acetaminophen 10/13/21 10/13/21 10/14/21 16:56 20:41 07:39 WBC RBC 3.43 L RDW 17.9 H Seg Neutrophils % Sodium Potassium Chloride Carbon Dioxide BUN Glucose POC Glucose 164 H 326 H Hemoglobin A1c Lactic Acid Calcium Phosphorus Magnesium HDL Cholesterol Ur Specific [place] Urine WBC (Auto) U Epithel Cells (Auto) Salicylates Acetaminophen 10/14/21 10/14/21 07:39 07:47 WBC RBC RDW Seg Neutrophils % Sodium Potassium Chloride 97.6 L Carbon Dioxide 32 H D BUN 5 L Glucose 50 L POC Glucose 54 L Hemoglobin A1c Lactic Acid Calcium Phosphorus Magnesium HDL Cholesterol Ur Specific [place] Urine WBC (Auto) U Epithel Cells (Auto) Salicylates Acetaminophen Allied health notes reviewed: nursing
--- NOTE | 2021-10-14 14:12 | Discharge Summary ---
Providers - Providers Date of Admission: 10/08/21 00:21 Attending physician: MANPREET PASCAL MD 10/08/21 00:21 Consult to Dietitian/Nutrition [CONS] Routine Physician Instructions: Reason For Exam: Reason for Consult: Diet education Consult to Dietitian/Nutrition [CONS] Routine Physician Instructions: Reason For Exam: Reason for Consult: Nutrition Recommendations Reason for Consult: Diet education Occupational Therapy Evaluate and Treat [CONS] Routine Comment: Reason For Exam: Neuro deficits Physical Therapy Evaluation and Treat [CONS] Routine Comment: Reason For Exam: Neuro deficits 10/08/21 12:59 Consult to Physician [CONS] Routine Comment: Consulting Provider: IFRAH CALDWELL Physician Instructions: Reason For Exam: post TPA monitoring 10/10/21 08:00 Speech Therapy Evaluation and Treat [CONS] Routine Reason For Exam: swallow evaluation post stroke, re-eval 10/10/21 08:07 Consult to Physician [CONS] Routine Comment: Consulting Provider: MARCELLE FINLEY Physician Instructions: Reason For Exam: Acute CVA Primary care physician: VICTIM ADVOCATE Hospitalization Reason for admission: DKA Condition: Good Hospital course: This is 61-year-old female with known past medical of HTN, DM, and recent CVC about 2 weeks ago initially admitted to the floor for AMS and Hypertensive urgency. Patient was a code stoke on the floor due to worsen mental status with right hemiplegia, right facial droop, and expressive aphasia. Was transferred to the ICU for acute CVA requiring tPA. Hospital Course to Date: 10/09: Mild improvement in mentation. Patient appears AAO, but remains aphasic with right hemiplegia and right facial droop, follow simple commands. Repeat CT head and MRI brain pending. Echo reviewed no evidence of PFO. Neurology consult pending. PT/OT/Speech consulted. D/w CCM okay to transfer patient back to telemetry if patient remains stable post 24hrs tPA. 10/10: Remains stable, still with significant expressive aphasia. Facial droop and right hemiplegia resolved, but still with generalized weakness. Repeat CT head and MRI noted, stable with no evidence of a bleed. Neurology consult pending. ASA and VTE proh initiated. Hypertensive this am, resume home meds. Continue PT/OT/Speech. Patient is stable for transfer to the Telemetry. 10/11: Patient seen and examined clinically improving although still with facial droop and right hemiplegia mildly residual. Speech is improving other a bit of expressive aphasia can still be appreciated. I did discuss discharge planning and the acute rehab appears to be a good option for continued PT OT and speech. Patient was seen by neurology, they recommended a hematology work-up which can be done outpatient. In the meantime we will resume patient's anticoagulation with Eliquis. Schedule for outpatient hematology and possible antiphospholipid syndrome monitoring. But the recommendation of gabapentin can be used for disabling neuropathy. 10/12: Patient seen and examined. Blood pressure modestly elevated our recommendation yesterday was to allow permissive hypertension. We will begin correction today. Still awaiting bed today acute rehab unit. No new fever documented today. Will complete antibiotics. Continue aspiration precautions Clinically she is showing significant improvement. 10/13: Patient noted with hypoglycemia overnight was cool and clammy blood sugar 24. We will reduce Lantus to 15 units and also reduce sliding scale to low- dose. Speech therapy recommendations and evaluation noted the patient will continue on pured diet. Still with some expressive aphasia. Refused the breakfast this morning due to the consistency and her not liking it. Nurses aware. Awaiting placement to acute rehab. 35 minutes critical care time considering hypoglycemia and medication adjustment which also requires dietary adjustment and ensuring that she is eating. 10/14: Patient clinically stable and doing well, tolerating diet. Encouraged to start oral diet, Assessment and Plan #Acute CVA s/p tPA #H/o recent CVA- 2weeks prior #Hypoglycemia with acute encephalopathy #ETOH Abuse - Presented with AMS, drooling and unresponsiveness. 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 the right QUILL FIXER distribution suggesting prior infarct, likely subacute - Code stroke called on the floor due to worsen mental status with right hemiplegia, right facial droop, and expressive aphasia - Patient received tPA per [facility] - Mild improvement noted in mentation, remains aphasic with righ hemiplegia and facial droop - CTA head/neck reviewed - Repeat CT head and MRI Brain noted - 2D echo with no evidence of PFO - Statin initiated - ASA and VTE proph initiated - Avoid sedative agents for now, IV Ativan held - Continue Neuro check per protocol - PT/OT/Speech ordered - Neurology consulted - Aspiration and fall precautions #Hypertensive Urgency-improved - Presented with SBP in the 200s, DBP in the 100s s/p IV Hydralazine - Hypertensive this am, SBP in the 170-180s - Home meds resumed - Continue blood pressure monitor per protocol - Maintain SBP less than 160 #Lactic Acidosis - Probably secondary to above - Patient is afebrile, with no leukocytosis, VSS - CTAbd/Pelvis unremarkable, cultures with NGTD - Will continue to trend lactic acid #Systemic Lupus Erythematosus(SLE) - Resume home med- Hydroxychloroquine #Hypomagnesemia #Hypokalemia-improved - Mg repleted - Monitor and replace electrolytes as needed - Trend BMP #Uncontrolled Diabetes Mellitus - HgbA1c- 14.1 - SSI initiated, continue BG check ACHS - Avoid hypoglycemia - While critically ill target blood glucose of 140-180 #Advance Care Planning - Disease education data, care plan, diagnoses, and prognosis were discussed with patient at the bedside and patient's daughter via phone. Patient is a FULL code. They acknowledged understanding and agreed with current care plan. Disposition: 03 RETIREMENT FACILITY Final Discharge Diagnosis (Prints w/discharge instructions): 1. Acute Ischemic Stroke (cardiembolic). 2. Lupus / hx of PE / Hx of Failed Anticoagulation (?). 3. DM. 4. Left Hemiparesis / Left-sided Numbness -. 5. Mixed Expressive > Receptive Dysphasia. 6. Neuropathy. 7 hyperglycemia with acute encephalopathy Time spent for discharge: 35 mins Core Measure Documentation - Palliative Care Palliative Care/ Comfort Measures: Not Applicable - Core Measures Any of the following diagnoses?: none Exam - Physical Exam Narrative exam: General appearance: Present: no acute distress, well-nourished - EENT Eyes: Present: PERRL, EOM intact ENT: hearing intact - Neck Neck: Present: normal ROM - Respiratory Respiratory effort: normal Respiratory: bilateral: diminished - Cardiovascular Rhythm: regular Heart Sounds: Present: S1 & S2 - Extremities Extremities: no ischemia, pulses intact, pulses symmetrical Peripheral Pulses: within normal limits - Abdominal General gastrointestinal: soft, non-distended, normal bowel sounds - Integumentary Integumentary: Present: warm, dry - Psychiatric Psychiatric: appropriate mood/affect, cooperative - Neurologic Neurologic: Lethargic otherwise no focal deficits appreciated moves all extremities. Speech is improved. - Allied Health Allied health notes reviewed: nursing, case management - Constitutional Vitals: Temp Pulse Resp BP Pulse Ox 97.6 F 79 18 137/81 95 10/14/21 11:28 10/14/21 11:28 10/13/21 20:39 10/14/21 11:28 10/14/21 11:28 Plan Activity: advance as tolerated, fall precautions Diet: low fat Special Instructions: record daily weights, record daily BP diary, record blood sugar diary Follow up with: PAUL LONG MD [Staff Physician] - 7 Days PRIMARY CARE, [Primary Care Provider] - 3-5 Days WALLACE DOUGLAS MD [Staff Physician] - 7 Days Prescriptions: amLODIPine 5 mg PO QDAY #30 tablet Amoxicillin/K Clav Tab [Augmentin 875MG TAB] 1 each PO Q12HR #7 tablet Apixaban [Eliquis] 5 mg PO BID #60 tab Folic Acid [Folvite] 1 mg PO QDAY #30 tablet Famotidine [Pepcid] 20 mg PO DAILY #30 tablet Hydroxychloroquine [Plaquenil] 200 mg PO QDAY #30 tablet Rosuvastatin Calcium 40 mg PO QDAY #30 tab Thiamine [Vitamin B-1] 100 mg PO QDAY #30 tablet
[2021-10-14] MEDS: INSULIN GLARGINE 100 UNITS/ML SUB-Q SCH (22:18)
--- NOTE | 2021-10-15 07:49 | Progress Note ---
Assessment and Plan Assessment and plan: Hospital course: This is 61-year-old female with known past medical of HTN, DM, and recent CVC about 2 weeks ago initially admitted to the floor for AMS and Hypertensive urgency. Patient was a code stoke on the floor due to worsen mental status with right hemiplegia, right facial droop, and expressive aphasia. Was transferred to the ICU for acute CVA requiring tPA. Hospital Course to Date: 10/09: Mild improvement in mentation. Patient appears AAO, but remains aphasic with right hemiplegia and right facial droop, follow simple commands. Repeat CT head and MRI brain pending. Echo reviewed no evidence of PFO. Neurology consult pending. PT/OT/Speech consulted. D/w CCM okay to transfer patient back to telemetry if patient remains stable post 24hrs tPA. 10/10: Remains stable, still with significant expressive aphasia. Facial droop and right hemiplegia resolved, but still with generalized weakness. Repeat CT head and MRI noted, stable with no evidence of a bleed. Neurology consult pending. ASA and VTE proh initiated. Hypertensive this am, resume home meds. Continue PT/OT/Speech. Patient is stable for transfer to the Telemetry. 10/11: Patient seen and examined clinically improving although still with facial droop and right hemiplegia mildly residual. Speech is improving other a bit of expressive aphasia can still be appreciated. I did discuss discharge planning and the acute rehab appears to be a good option for continued PT OT and speech. Patient was seen by neurology, they recommended a hematology work-up which can be done outpatient. In the meantime we will resume patient's anticoagulation with Eliquis. Schedule for outpatient hematology and possible antiphospholipid syndrome monitoring. But the recommendation of gabapentin can be used for disabling neuropathy. 10/12: Patient seen and examined. Blood pressure modestly elevated our recommendation yesterday was to allow permissive hypertension. We will begin correction today. Still awaiting bed today acute rehab unit. No new fever documented today. Will complete antibiotics. Continue aspiration precautions Clinically she is showing significant improvement. 10/13: Patient noted with hypoglycemia overnight was cool and clammy blood sugar 24. We will reduce Lantus to 15 units and also reduce sliding scale to low- dose. Speech therapy recommendations and evaluation noted the patient will continue on pured diet. Still with some expressive aphasia. Refused the breakfast this morning due to the consistency and her not liking it. Nurses aware. Awaiting placement to acute rehab. 35 minutes critical care time considering hypoglycemia and medication adjustment which also requires dietary adjustment and ensuring that she is eating. 10/14: Patient clinically stable and doing well, tolerating diet. Encouraged to start oral diet, 10/15: Continues to have expressive aphasia. Cleared by speech for pureed diet but patient not eating as she does not like hospital food. Encouraged patient to eat food. lantus d/c as patient has low BG readings in 50's.. Awaiting placement to SNF. Remains clinically stable otherwise. Assessment and Plan #Acute CVA s/p tPA #H/o recent CVA- 2weeks prior #Hypoglycemia with acute encephalopathy #ETOH Abuse - Presented with AMS, drooling and unresponsiveness. 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 suggesting prior infarct, likely subacute - Code stroke called on the floor due to worsen mental status with right hemiplegia, right facial droop, and expressive aphasia - Patient received tPA per [facility] - Mild improvement noted in mentation, remains aphasic with righ hemiplegia and facial droop - CTA head/neck reviewed - Repeat CT head and MRI Brain noted - 2D echo with no evidence of PFO - Statin initiated - ASA and VTE proph initiated - Avoid sedative agents for now, IV Ativan held - Continue Neuro check per protocol - PT/OT/Speech ordered - Neurology consulted - Aspiration and fall precautions #Hypertensive Urgency-improved - Presented with SBP in the 200s, DBP in the 100s s/p IV Hydralazine - Hypertensive this am, SBP in the 170-180s - Home meds resumed - Continue blood pressure monitor per protocol - Maintain SBP less than 160 #Lactic Acidosis - Probably secondary to above - Patient is afebrile, with no leukocytosis, VSS - CTAbd/Pelvis unremarkable, cultures with NGTD - Will continue to trend lactic acid #Systemic Lupus Erythematosus(SLE) - Resume home med- Hydroxychloroquine #Hypomagnesemia #Hypokalemia-improved - Mg repleted - Monitor and replace electrolytes as needed - Trend BMP #Uncontrolled Diabetes Mellitus - HgbA1c- 14.1 - SSI initiated, continue BG check ACHS - Avoid hypoglycemia - While critically ill target blood glucose of 140-180 #Advance Care Planning - Disease education data, care plan, diagnoses, and prognosis were discussed with patient at the bedside and patient's daughter via phone. Patient is a FULL code. They acknowledged understanding and agreed with current care plan. History Interval history: NO acute complaints. Patient having difficulty stringing together logical phrases. was able to communicate however that she did not like food. Speech therapy at bedside, currently patient is cleared for pureed diet. Hospitalist Physical - Physical exam Narrative exam: Narrative exam: General appearance: Present: no acute distress, well-nourished - EENT Eyes: Present: PERRL, EOM intact ENT: hearing intact - Neck Neck: Present: normal ROM - Respiratory Respiratory effort: normal Respiratory: bilateral: diminished - Cardiovascular Rhythm: regular Heart Sounds: Present: S1 & S2 - Extremities Extremities: no ischemia, pulses intact, pulses symmetrical Peripheral Pulses: within normal limits - Abdominal General gastrointestinal: soft, non-distended, normal bowel sounds - Integumentary Integumentary: Present: warm, dry - Psychiatric Psychiatric: appropriate mood/affect, cooperative - Neurologic Neurologic: no focal deficits appreciated moves all extremities. Speech is improved but still continues to have expressive aphasia - Allied Health Allied health notes reviewed: nursing, case management - Constitutional Vitals: Temp Pulse Resp BP Pulse Ox 97.7 F 60 16 125/74 99 10/15/21 03:13 10/15/21 03:13 10/15/21 03:13 10/15/21 03:13 10/15/21 03:13 General appearance: Present: no acute distress, well-nourished HEART Score - HEART Score Troponin: Troponin T < 0.010 ng/mL (0.00-0.029) 10/07/21 21:19 Results - Labs CBC & Chem 7: 10/14/21 07:39 10/14/21 07:39 Labs: Laboratory Last Values WBC 5.9 K/mm3 (4.5-11.0) 10/14/21 07:39 RBC 3.43 M/mm3 (3.65-5.03) L 10/14/21 07:39 Hgb 10.7 gm/dl (10.1-14.3) 10/14/21 07:39 Hct 32.7 % (30.3-42.9) 10/14/21 07:39 MCV 95 fl (79-97) 10/14/21 07:39 MCH 31 pg (28-32) 10/14/21 07:39 MCHC 33 % (30-34) 10/14/21 07:39 RDW 17.9 % (13.2-15.2) H 10/14/21 07:39 Plt Count 250 K/mm3 (140-440) 10/14/21 07:39 Lymph % (Auto) 33.5 % (13.4-35.0) 10/09/21 04:14 Gove % (Auto) 6.2 % (0.0-7.3) 10/09/21 04:14 Eos % (Auto) 0.3 % (0.0-4.3) 10/09/21 04:14 Baso % (Auto) 0.4 % (0.0-1.8) 10/09/21 04:14 Lymph # (Auto) 2.1 K/mm3 (1.2-5.4) 10/09/21 04:14 Gove # (Auto) 0.4 K/mm3 (0.0-0.8) 10/09/21 04:14 Eos # (Auto) 0.0 K/mm3 (0.0-0.4) 10/09/21 04:14 Baso # (Auto) 0.0 K/mm3 (0.0-0.1) 10/09/21 04:14 Seg Neutrophils % 59.6 % (40.0-70.0) 10/09/21 04:14 Seg Neutrophils # 3.8 K/mm3 (1.8-7.7) 10/09/21 04:14 PT 14.8 Sec. (12.2-14.9) 10/10/21 04:30 INR 1.04 (0.87-1.13) 10/10/21 04:30 APTT 25.9 Sec. (24.2-36.6) 10/07/21 21:19 Sodium 140 mmol/L (137-145) D 10/14/21 07:39 Potassium 4.3 mmol/L (3.6-5.0) 10/14/21 07:39 Chloride 97.6 mmol/L (98-107) L 10/14/21 07:39 Carbon Dioxide 32 mmol/L (22-30) H D 10/14/21 07:39 Anion Gap 15 mmol/L 10/14/21 07:39 BUN 5 mg/dL (7-17) L 10/14/21 07:39 Creatinine 0.8 mg/dL (0.6-1.2) 10/14/21 07:39 Estimated GFR > 60 ml/min 10/14/21 07:39 BUN/Creatinine Ratio 6 % 10/14/21 07:39 Glucose 50 mg/dL (65-100) L 10/14/21 07:39 POC Glucose 176 mg/dL (70-105) H 10/14/21 20:32 Hemoglobin A1c 14.1 % (4-6) H 10/08/21 10:07 Lactic Acid 1.20 mmol/L (0.7-2.0) 10/10/21 04:30 Calcium 8.8 mg/dL (8.4-10.2) 10/14/21 07:39 Phosphorus 2.70 mg/dL (2.5-4.5) D 10/11/21 04:14 Magnesium 1.30 mg/dL (1.7-2.3) L 10/11/21 04:14 Total Bilirubin 0.90 mg/dL (0.1-1.2) 10/07/21 21:19 AST 30 units/L (5-40) 10/07/21 21:19 ALT 8 units/L (7-56) 10/07/21 21:19 Alkaline Phosphatase 126 units/L (35-129) 10/07/21 21:19 Ammonia 28.0 umol/L (25-60) 10/07/21 21:19 Total Creatine Kinase 102 units/L (30-135) 10/07/21 21:19 Troponin T < 0.010 ng/mL (0.00-0.029) 10/07/21 21:19 Total Protein 7.6 g/dL (6.3-8.2) 10/07/21 21:19 Albumin 4.4 g/dL (3.9-5) 10/07/21 21:19 Albumin/Globulin Ratio 1.4 % 10/07/21 21:19 Triglycerides 79 mg/dL (2-149) 10/08/21 10:07 Cholesterol 180 mg/dL (50-199) 10/08/21 10:07 LDL Cholesterol Direct 85 mg/dL (50-130) 10/08/21 10:07 HDL Cholesterol 76 mg/dL (40-59) H 10/08/21 10:07 Cholesterol/HDL Ratio 2.36 % 10/08/21 10:07 TSH 3.170 mlU/mL (0.270-4.200) 10/08/21 10:07 Urine Color Brown (Yellow) 10/07/21 Unknown Urine Turbidity Cloudy (Clear) 10/07/21 Unknown Urine pH 5.0 (5.0-7.0) 10/07/21 Unknown Ur Specific Leona 1.035 (1.003-1.030) H 10/07/21 Unknown Urine Protein 300 mg/dl mg/dL (Negative) 10/07/21 Unknown Urine Glucose (UA) Trace mg/dL (Negative) 10/07/21 Unknown Urine Ketones Negative mg/dL (Negative) 10/07/21 Unknown Urine Blood Negative (Negative) 10/07/21 Unknown Urine Nitrite Negative (Negative) 10/07/21 Unknown Urine Bilirubin Negative (Negative) 10/07/21 Unknown Urine Urobilinogen < 2.0 mg/dL (<2.0) 10/07/21 Unknown Ur Leukocyte Esterase Negative (Negative) 10/07/21 Unknown Urine WBC (Auto) 18.0 /HPF (0.0-6.0) H 10/07/21 Unknown Urine RBC (Auto) 8.0 /HPF (0.0-6.0) 10/07/21 Unknown U Epithel Cells (Auto) 44.0 /HPF (0-13.0) H 10/07/21 Unknown Urine Bacteria (Auto) 1+ /HPF (Negative) 10/07/21 Unknown Hyaline Casts 2 /LPF 10/07/21 Unknown Urine Mucus Few /HPF 10/07/21 Unknown Urine Yeast (Budding) 2+ /HPF 10/07/21 Unknown Salicylates < 0.3 mg/dL (2.8-20.0) L 10/07/21 21:19 Acetaminophen 5.0 ug/mL (10.0-30.0) L 10/07/21 21:19 Plasma/Serum Alcohol < 0.01 % (0-0.07) 10/07/21 21:19 Luu/IV: Voiding Method Toilet Active Medications - Current Medications Current Medications: Generic Name Dose Route Start Last Admin Trade Name Freq PRN Reason Stop Dose Admin Acetaminophen 650 mg 10/11/21 13:00 10/11/21 12:58 Acetaminophen 325 Mg Tab PO 650 mg Q6H PRN Administration Pain, Mild (1-3) Amlodipine Besylate 5 mg 10/10/21 10:00 10/14/21 10:33 Amlodipine 5 Mg Tab PO 5 mg QDAY PRIETO Administration Amoxicillin/Clavulanate Potassium 1 each 10/11/21 22:00 10/14/21 22:18 Amoxicillin/K Clav 875/125mg Tab PO 1 each Q12HR PRIETO Administration Protocol Aspirin 81 mg 10/10/21 10:00 10/14/21 10:34 Aspirin Ec 81 Mg Tab PO 81 mg QDAY PRIETO Administration Atorvastatin Calcium 40 mg 10/14/21 22:00 10/14/21 22:17 Atorvastatin 20 Mg Tab PO 40 mg QHS PRIETO Administration Bisacodyl 10 mg 10/08/21 00:19 Bisacodyl 10 Mg Rect Supp [place] QDAY PRN Constipation Carvedilol 25 mg 10/12/21 08:00 10/14/21 22:17 Carvedilol 25 Mg Tab PO 25 mg Q12H PRIETO Administration Clopidogrel Bisulfate 75 mg 10/10/21 10:00 10/14/21 10:34 Clopidogrel 75 Mg Tab PO 75 mg QDAY PRIETO Administration Dextrose 50 ml 10/08/21 00:19 10/13/21 03:07 Dextrose 50% In Water (25gm) 50 Ml Syringe IV 50 ml Q30MIN PRN Administration Hypoglycemia Protocol Docusate Sodium 100 mg 10/10/21 10:00 10/14/21 22:17 Docusate Sodium 100 Mg Cap PO 100 mg BID PRIETO Administration Enoxaparin Sodium 40 mg 10/10/21 10:00 10/14/21 10:34 Enoxaparin 40 Mg/0.4 Ml Inj SUB-Q 40 mg QDAY@1000 PRIETO Administration Protocol Famotidine 20 mg 10/10/21 10:00 10/14/21 10:34 Famotidine 20 Mg Tab PO 20 mg DAILY PRIETO Administration Fluoxetine HCl 20 mg 10/10/21 10:00 10/14/21 10:34 Fluoxetine 20 Mg Cap PO 20 mg QDAY PRIETO Administration Folic Acid 1 mg 10/08/21 10:00 10/14/21 10:34 Folic Acid 1 Mg Tab PO 1 mg QDAY PRIETO Administration Hydroxychloroquine Sulfate 200 mg 10/10/21 10:00 10/14/21 10:34 Hydroxychloroquine 200 Mg Tab PO 200 mg QDAY PRIETO Administration Insulin Glargine 15 units 10/13/21 22:00 10/14/21 22:18 Insulin Glargine 100 Units/Ml SUB-Q 15 units QHS PRIETO Administration Insulin Human Lispro 0 unit 10/08/21 07:30 10/14/21 22:19 Insulin Lispro 100 Unit/Ml SUB-Q 1 unit ACHS PRIETO Administration Protocol Magnesium Hydroxide 30 ml 10/08/21 00:19 Magnesium Hydroxide (Mom) Oral Liqd Udc PO Q4H PRN Constipation Metoclopramide HCl 10 mg 10/08/21 00:19 Metoclopramide 10 Mg Tab PO Q6H PRN Nausea And Vomiting Morphine Sulfate 2 mg 10/08/21 00:19 10/14/21 22:20 Morphine 2 Mg/1 Ml Inj IV 2 mg Q4H PRN Administration Pain, Moderate (4-6) Ondansetron HCl 4 mg 10/08/21 00:19 10/08/21 08:14 Ondansetron 4 Mg/2 Ml Inj IV 4 mg Q8H PRN Administration Nausea And Vomiting Promethazine HCl 25 mg 10/08/21 00:19 Promethazine 25 Mg Rect Supp [place] Q6H PRN Nausea And Vomiting Sodium Chloride 10 ml 10/08/21 10:00 10/14/21 22:19 Sodium Chloride 0.9% 10 Ml Flush Syringe IV 10 ml BID PRIETO Administration Sodium Chloride 10 ml 10/08/21 00:19 Sodium Chloride 0.9% 10 Ml Flush Syringe IV PRN PRN LINE FLUSH Thiamine HCl 100 mg 10/08/21 10:00 10/14/21 10:35 Thiamine 100 Mg Tab PO 100 mg QDAY PRIETO Administration Nutrition/Malnutrition Assess - Dietary Evaluation Nutrition/Malnutrition Findings: Nutrition Notes Start: 10/08/21 18:14 Freq: Status: Active Protocol: Document 10/14/21 15:33 DANTE (Rec: 10/14/21 15:53 DANTE [email or web address]) Nutrition Notes Initial or Follow up Brief Note Current Diagnosis Diabetes,Hypertension,Stroke Other Pertinent Diagnosis CVAx2 s/p tPA, Lactic Acidosis , Dysphagia, EtOH Abuse, SLE,. ... Current Diet Pureed Diet (since L 10/10). Height 5 ft 4 in Weight 42.5 kg Sharon Body Weight (kg) 54.54 BMI 16.0 Weight change and time frame 1.74 Kg body weight gain in 4 days reported. Weight Status Underweight Subjective/Other Information RD consult for routine F/U on dietary advancement. Diet advanced to PO after SHIPPING RECEIVING CLERK recommendations, No reports available on Pt's PO intake of meals at the time, however, states that Pt dislikes food consistyency, but is tlerating her diet, according to Progress notes. SHIPPING RECEIVING CLERK note on 10/12/21 12:46: Patient seen in room for skilled ST interventions for reassessment of swallow safety and function. Therapist walked into room and patient was drinking thin liquids ( orange juice) with head of bed laid back and puree (pudding) on patient's bedside table. Patient educated on sitting upright in bed when drinking. Patient noted with impulsive large sips and was told to stop drinking. Patient with trials of ice chips x2 with cough noted immediately after 1st trial and no overt s/sx of aspiration on trial 2. Thin liquid trials (water) x3 with cup sips. Patient exhibited reduced hyolaryngeal elevation , but no overt s/sx of aspiration. Patient with trials of puree x3. Patient exhibited good acceptance, adequate management and manipulation of bolus in oral cavity, good A to P transit, delayed initiation of swallow x1, and no overt s/sx of aspiration noted. - END OF NOTE. Pt is on Room Air, O2 saturation @ 98%, according to Physical Assessment History notes. Pt clinically cleared and will be discharged to SNF, according to Progress notes. Percent of energy/protein needs met: Prescribed Pureed Diet provides for energy/protein needs (1,804 Kcal/77 g) during LOS. #2 Nutrition Diagnosis Underweight Diagnosis Progress(for reassessment Continues documentation) #1 Nutrition Diagnosis Swallowing difficulty,Biting/ Chewing (masticatory) difficulty Comments: SHIPPING RECEIVING CLERK note on 10/12/21 12:46: Patient seen in room for skilled ST interventions for reassessment of swallow safety and function. Therapist walked into room and patient was drinking thin liquids ( orange juice) with head of bed laid back and puree (pudding) on patient's bedside table. Patient educated on sitting upright in bed when drinking. Patient noted with impulsive large sips and was told to stop drinking. Patient with trials of ice chips x2 with cough noted immediately after 1st trial and no overt s/sx of aspiration on trial 2. Thin liquid trials (water) x3 with cup sips. Patient exhibited reduced hyolaryngeal elevation , but no overt s/sx of aspiration. Patient with trials of puree x3. Patient exhibited good acceptance, adequate management and manipulation of bolus in oral cavity, good A to P transit, delayed initiation of swallow x1, and no overt s/sx of aspiration noted. - END OF NOTE. Diagnosis Progress(for reassessment Improved documentation) Is patient on ventilator? No Is Patient Ambulatory and/or Out of Bed No REE-([facility]-confined to bed) 1187.160 Kcal/Kg value to use for calculation 35 Approximate Energy Requirements Using 1488 kcal/Kg Calculation Used for Recommendations Kcal/kg Additional Notes Protein: 1.2-1.5 g/Kg ABW; 49- 62 g/day. Fluids: 1 ml/Kcal, or as per MD. Nutrition Intervention Change Diet Order: Continue Pureed Diet as tolerated, recommended by SHIPPING RECEIVING CLERK. Nutrition Support: Disregard. Goal #1 Facilitate PO intake of meals with elemental, textural, or mechanical modification during LOS. Goal #2 Adjust the dietary intervention to better serve Pt's needs and clinical conditions during LOS. Follow-Up By: 10/21/21 Additional Comments Continue monitoring food tolerance, %PO intake of meals , and BM.
[2021-10-15] MEDS: INSULIN LISPRO 100 UNIT/ML SUB-Q SCH ×4 (10:15→21:32)
[2021-10-15] MEDS: HYDROXYCHLOROQUINE 200 MG TAB PO SCH (10:17)
[2021-10-15] MEDS: AMOXICILLIN/K CLAV 875/125MG TAB PO SCH ×2 (10:17→21:31)
[2021-10-15] MEDS: amLODIPine 5 MG TAB PO SCH (10:17)
[2021-10-15] MEDS: FAMOTIDINE 20 MG TAB PO SCH (10:17)
[2021-10-15] MEDS: ENOXAPARIN 40 MG/0.4 ML INJ SUB-Q SCH (10:17)
[2021-10-15] MEDS: FLUoxetine 20 MG CAP PO SCH (10:17)
[2021-10-15] MEDS: CLOPIDOGREL 75 MG TAB PO SCH (10:17)
[2021-10-15] MEDS: FOLIC ACID 1 MG TAB PO SCH (10:17)
[2021-10-15] MEDS: ASPIRIN EC 81 MG TAB PO SCH (10:17)
[2021-10-15] MEDS: DOCUSATE SODIUM 100 MG CAP PO SCH ×2 (10:18→21:31)
[2021-10-15] MEDS: THIAMINE 100 MG TAB PO SCH (10:18)
[2021-10-15] MEDS: ACETAMINOPHEN 325 MG TAB PO PRN (10:26)
[2021-10-15] MEDS: carvediloL 25 MG TAB PO SCH ×2 (10:27→21:31)
--- NOTE | 2021-10-15 12:08 | Progress Note ---
Assessment and Plan Acute CVA s/p tPA Altered mental status Hypertensive urgency Protein calorie malnutrition (moderate) Lactic acidosis Electrolyte imbalance Alcohol abuse History of recent CVA Diabetes mellitus II - SNF evaluation ongoing - continue care as below otherwise; - HEMATOLOGIST ONCOLOGIST evaluation and advance diet per recommendations - continue fall precautions - secondary prevention - continue antiplatelet therapy with Plavix as well - accuchecks with glycemic control per SSI for target blood glucose of < 180 mg/dL; avoid hypoglycemia - prn supplemental oxygen for target O2 sat's > 90% acutely - aspiration precautions - prn bronchodilators with pulmonary hygiene per RT - avoid nephrotoxins, renally dose all medications - AB's per ID rec's - prn analgesia per pain score - Maintenance of sleep-wake cycle, avoid delirium - G.I. & VTE prophylaxis - PT/OT/ROM exercises - continue mobility protocols for pressure ulcer prophylaxis - Monitor hemodynamics closely - continue other care per attending / other consultants - discharge planning ongoing concurrently .... Re-evaluate in am & prn Subjective Date of service: 10/15/21 Principal diagnosis: Acute CVA s/p tPA; AMS; HTNsive urgency; Lactic acidosis; EtOH abuse; DM II Interval history: Patient is seen today for: Acute CVA s/p tPA; AMS; Hypertensive urgency; Protein calorie malnutrition; Lactic acidosis; Alcohol abuse; DM II Seen and examined at bedside; 24hour events reviewed; nursing and respiratory care staff consulted; no adverse overnight events reported to me; resting in bed; Objective Vital Signs - 12hr 10/15/21 10/15/21 10/15/21 03:13 07:15 11:40 Temperature 97.7 F 97.4 F L 98.3 F Pulse Rate 60 65 72 Respiratory 16 Rate Blood Pressure 125/74 190/104 140/80 O2 Sat by Pulse 99 96 99 Oximetry Constitutional: no acute distress, alert, other (Following commands) Eyes: non-icteric ENT: oropharynx moist Neck: supple, no lymphadenopathy, no JVD Effort: normal Ascultation: Bilateral: clear, diminished breath sounds Percussion: Bilateral: not dull Cardiovascular: regular rate and rhythm, other (S1,S2) Gastrointestinal: normoactive bowel sounds, soft, non-tender, non-distended Integumentary: normal Extremities: no cyanosis, no edema, pulses normal, no ischemia or petechiae Neurologic: normal mental status, non-focal exam, pupils equal and round (Left lateral gaze defect, RUext 4/5 power grade), other (aphasia) Psychiatric: mood appropriate, affect normal CBC and BMP: 10/14/21 07:39 10/14/21 07:39 ABG, PT/INR, D-dimer: PT/INR, D-dimer PT 14.8 Sec. (12.2-14.9) 10/10/21 04:30 INR 1.04 (0.87-1.13) 10/10/21 04:30 Abnormal lab findings: Abnormal Labs 10/07/21 10/07/21 10/07/21 21:19 21:19 21:19 WBC RBC RDW 17.6 H Seg Neutrophils % 75.8 H Sodium Potassium 2.9 L* Chloride 95.3 L Carbon Dioxide BUN 5 L Glucose 224 H POC Glucose Hemoglobin A1c Lactic Acid 4.20 H* Calcium Phosphorus Magnesium HDL Cholesterol Ur Specific [place] Urine WBC (Auto) U Epithel Cells (Auto) Salicylates Acetaminophen 10/07/21 10/07/21 10/07/21 21:19 21:19 21:19 WBC RBC RDW Seg Neutrophils % Sodium Potassium Chloride Carbon Dioxide BUN Glucose POC Glucose Hemoglobin A1c Lactic Acid Calcium Phosphorus Magnesium 1.00 L HDL Cholesterol Ur Specific [place] Urine WBC (Auto) U Epithel Cells (Auto) Salicylates < 0.3 L Acetaminophen 5.0 L 10/07/21 10/07/21 10/08/21 23:47 Unknown 08:01 WBC RBC RDW Seg Neutrophils % Sodium Potassium Chloride Carbon Dioxide BUN Glucose POC Glucose 312 H Hemoglobin A1c Lactic Acid 2.10 H* Calcium Phosphorus Magnesium HDL Cholesterol Ur Specific [place] 1.035 H Urine WBC (Auto) 18.0 H U Epithel Cells (Auto) 44.0 H Salicylates Acetaminophen 10/08/21 10/08/21 10/08/21 10:07 10:07 10:07 WBC RBC RDW Seg Neutrophils % Sodium Potassium 3.1 L Chloride Carbon Dioxide BUN Glucose POC Glucose Hemoglobin A1c 14.1 H Lactic Acid 4.80 H* Calcium Phosphorus Magnesium 1.50 L HDL Cholesterol 76 H Ur Specific [place] Urine WBC (Auto) U Epithel Cells (Auto) Salicylates Acetaminophen 10/08/21 10/09/21 10/09/21 17:08 00:16 04:14 WBC RBC 3.34 L RDW 18.3 H Seg Neutrophils % Sodium Potassium Chloride Carbon Dioxide BUN Glucose POC Glucose 205 H 231 H Hemoglobin A1c Lactic Acid Calcium Phosphorus Magnesium HDL Cholesterol Ur Specific [place] Urine WBC (Auto) U Epithel Cells (Auto) Salicylates Acetaminophen 10/09/21 10/09/21 10/09/21 04:14 08:11 15:47 WBC RBC RDW Seg Neutrophils % Sodium Potassium Chloride Carbon Dioxide 16 L D BUN Glucose 219 H POC Glucose 214 H 135 H Hemoglobin A1c Lactic Acid Calcium 8.1 L Phosphorus Magnesium 1.60 L HDL Cholesterol Ur Specific [place] Urine WBC (Auto) U Epithel Cells (Auto) Salicylates Acetaminophen 10/09/21 10/09/21 10/10/21 17:33 21:32 04:30 WBC 3.9 L RBC 3.30 L RDW 18.0 H Seg Neutrophils % Sodium Potassium Chloride Carbon Dioxide BUN Glucose POC Glucose 230 H 265 H Hemoglobin A1c Lactic Acid Calcium Phosphorus Magnesium HDL Cholesterol Ur Specific [place] Urine WBC (Auto) U Epithel Cells (Auto) Salicylates Acetaminophen 10/10/21 10/10/21 10/10/21 04:30 11:54 16:41 WBC RBC RDW Seg Neutrophils % Sodium Potassium 3.4 L Chloride Carbon Dioxide 20 L BUN 3 L Glucose 158 H POC Glucose 279 H 171 H Hemoglobin A1c Lactic Acid Calcium 8.3 L Phosphorus 2.00 L Magnesium HDL Cholesterol Ur Specific [place] Urine WBC (Auto) U Epithel Cells (Auto) Salicylates Acetaminophen 10/10/21 10/11/21 10/11/21 21:29 04:14 04:14 WBC RBC 3.25 L RDW 18.0 H Seg Neutrophils % Sodium 132 L Potassium Chloride 96.3 L Carbon Dioxide BUN 2 L Glucose POC Glucose 197 H Hemoglobin A1c Lactic Acid Calcium 8.2 L Phosphorus Magnesium 1.30 L HDL Cholesterol Ur Specific [place] Urine WBC (Auto) U Epithel Cells (Auto) Salicylates Acetaminophen 10/11/21 10/11/21 10/11/21 08:19 11:56 15:43 WBC RBC RDW Seg Neutrophils % Sodium Potassium Chloride Carbon Dioxide BUN Glucose POC Glucose 125 H 154 H 174 H Hemoglobin A1c Lactic Acid Calcium Phosphorus Magnesium HDL Cholesterol Ur Specific [place] Urine WBC (Auto) U Epithel Cells (Auto) Salicylates Acetaminophen 10/11/21 10/12/21 10/12/21 20:35 11:18 15:53 WBC RBC RDW Seg Neutrophils % Sodium Potassium Chloride Carbon Dioxide BUN Glucose POC Glucose 296 H 153 H 226 H Hemoglobin A1c Lactic Acid Calcium Phosphorus Magnesium HDL Cholesterol Ur Specific [place] Urine WBC (Auto) U Epithel Cells (Auto) Salicylates Acetaminophen 10/12/21 10/13/21 10/13/21 20:22 03:02 03:18 WBC RBC RDW Seg Neutrophils % Sodium Potassium Chloride Carbon Dioxide BUN Glucose POC Glucose 159 H 24 L 308 H Hemoglobin A1c Lactic Acid Calcium Phosphorus Magnesium HDL Cholesterol Ur Specific [place] Urine WBC (Auto) U Epithel Cells (Auto) Salicylates Acetaminophen 10/13/21 10/13/21 10/13/21 05:38 07:43 11:40 WBC RBC RDW Seg Neutrophils % Sodium Potassium Chloride Carbon Dioxide BUN Glucose 55 L POC Glucose 66 L 135 H Hemoglobin A1c Lactic Acid Calcium Phosphorus Magnesium HDL Cholesterol Ur Specific [place] Urine WBC (Auto) U Epithel Cells (Auto) Salicylates Acetaminophen 10/13/21 10/13/21 10/14/21 16:56 20:41 07:39 WBC RBC 3.43 L RDW 17.9 H Seg Neutrophils % Sodium Potassium Chloride Carbon Dioxide BUN Glucose POC Glucose 164 H 326 H Hemoglobin A1c Lactic Acid Calcium Phosphorus Magnesium HDL Cholesterol Ur Specific [place] Urine WBC (Auto) U Epithel Cells (Auto) Salicylates Acetaminophen 10/14/21 10/14/21 10/14/21 07:39 07:47 20:32 WBC RBC RDW Seg Neutrophils % Sodium Potassium Chloride 97.6 L Carbon Dioxide 32 H D BUN 5 L Glucose 50 L POC Glucose 54 L 176 H Hemoglobin A1c Lactic Acid Calcium Phosphorus Magnesium HDL Cholesterol Ur Specific [place] Urine WBC (Auto) U Epithel Cells (Auto) Salicylates Acetaminophen Allied health notes reviewed: nursing
--- NOTE | 2021-10-15 13:51 | Electrocardiograph Report ---
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
[2021-10-15] MEDS: MORPHINE 2 MG/1 ML INJ IV PRN (16:20)
[2021-10-15] MEDS ORDERED: ZOLPIDEM 5 MG TAB PO PRN (20:40)
--- NOTE | 2021-10-16 08:22 | Progress Note ---
Assessment and Plan Assessment and plan: Hospital course: This is 61-year-old female with known past medical of HTN, DM, and recent CVC about 2 weeks ago initially admitted to the floor for AMS and Hypertensive urgency. Patient was a code stoke on the floor due to worsen mental status with right hemiplegia, right facial droop, and expressive aphasia. Was transferred to the ICU for acute CVA requiring tPA. Hospital Course to Date: 10/09: Mild improvement in mentation. Patient appears AAO, but remains aphasic with right hemiplegia and right facial droop, follow simple commands. Repeat CT head and MRI brain pending. Echo reviewed no evidence of PFO. Neurology consult pending. PT/OT/Speech consulted. D/w CCM okay to transfer patient back to telemetry if patient remains stable post 24hrs tPA. 10/10: Remains stable, still with significant expressive aphasia. Facial droop and right hemiplegia resolved, but still with generalized weakness. Repeat CT head and MRI noted, stable with no evidence of a bleed. Neurology consult pending. ASA and VTE proh initiated. Hypertensive this am, resume home meds. Continue PT/OT/Speech. Patient is stable for transfer to the Telemetry. 10/11: Patient seen and examined clinically improving although still with facial droop and right hemiplegia mildly residual. Speech is improving other a bit of expressive aphasia can still be appreciated. I did discuss discharge planning and the acute rehab appears to be a good option for continued PT OT and speech. Patient was seen by neurology, they recommended a hematology work-up which can be done outpatient. In the meantime we will resume patient's anticoagulation with Eliquis. Schedule for outpatient hematology and possible antiphospholipid syndrome monitoring. But the recommendation of gabapentin can be used for disabling neuropathy. 10/12: Patient seen and examined. Blood pressure modestly elevated our recommendation yesterday was to allow permissive hypertension. We will begin correction today. Still awaiting bed today acute rehab unit. No new fever documented today. Will complete antibiotics. Continue aspiration precautions Clinically she is showing significant improvement. 10/13: Patient noted with hypoglycemia overnight was cool and clammy blood sugar 24. We will reduce Lantus to 15 units and also reduce sliding scale to low- dose. Speech therapy recommendations and evaluation noted the patient will continue on pured diet. Still with some expressive aphasia. Refused the breakfast this morning due to the consistency and her not liking it. Nurses aware. Awaiting placement to acute rehab. 35 minutes critical care time considering hypoglycemia and medication adjustment which also requires dietary adjustment and ensuring that she is eating. 10/14: Patient clinically stable and doing well, tolerating diet. Encouraged to start oral diet, 10/15: Continues to have expressive aphasia. Cleared by speech for pureed diet but patient not eating as she does not like hospital food. Encouraged patient to eat food. lantus d/c as patient has low BG readings in 50's.. Awaiting placement to SNF. Remains clinically stable otherwise. 10/16: Awaiting placement. Blood sugars improved today. Assessment and Plan #Acute CVA s/p tPA #H/o recent CVA- 2weeks prior #Hypoglycemia with acute encephalopathy #ETOH Abuse - Presented with AMS, drooling and unresponsiveness. 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 the right SOFTWARE TEST TECHNICIAN distribution suggesting prior infarct, likely subacute - Code stroke called on the floor due to worsen mental status with right hemiplegia, right facial droop, and expressive aphasia - Patient received tPA per [facility] - Mild improvement noted in mentation, remains aphasic with righ hemiplegia and facial droop - CTA head/neck reviewed - Repeat CT head and MRI Brain noted - 2D echo with no evidence of PFO - Statin initiated - ASA and VTE proph initiated - Avoid sedative agents for now, IV Ativan held - Continue Neuro check per protocol - PT/OT/Speech ordered - Neurology consulted - Aspiration and fall precautions #Hypertensive Urgency-improved - Presented with SBP in the 200s, DBP in the 100s s/p IV Hydralazine - Hypertensive this am, SBP in the 170-180s - Home meds resumed - Continue blood pressure monitor per protocol - Maintain SBP less than 160 #Lactic Acidosis - Probably secondary to above - Patient is afebrile, with no leukocytosis, VSS - CTAbd/Pelvis unremarkable, cultures with NGTD - Will continue to trend lactic acid #Systemic Lupus Erythematosus(SLE) - Resume home med- Hydroxychloroquine #Hypomagnesemia #Hypokalemia-improved - Mg repleted - Monitor and replace electrolytes as needed - Trend BMP #Uncontrolled Diabetes Mellitus - HgbA1c- 14.1 - SSI initiated, continue BG check ACHS - Avoid hypoglycemia - While critically ill target blood glucose of 140-180 #Advance Care Planning - Disease education data, care plan, diagnoses, and prognosis were discussed with patient at the bedside and patient's daughter via phone. Patient is a FULL code. They acknowledged understanding and agreed with current care plan. History Interval history: No acute complaints. Hospitalist Physical - Physical exam Narrative exam: Narrative exam: General appearance: Present: no acute distress, well-nourished - EENT Eyes: Present: PERRL, EOM intact ENT: hearing intact - Neck Neck: Present: normal ROM - Respiratory Respiratory effort: normal Respiratory: bilateral: diminished - Cardiovascular Rhythm: regular Heart Sounds: Present: S1 & S2 - Extremities Extremities: no ischemia, pulses intact, pulses symmetrical Peripheral Pulses: within normal limits - Abdominal General gastrointestinal: soft, non-distended, normal bowel sounds - Integumentary Integumentary: Present: warm, dry - Psychiatric Psychiatric: appropriate mood/affect, cooperative - Neurologic Neurologic: no focal deficits appreciated moves all extremities. Speech is improved but still continues to have expressive aphasia - Allied Health Allied health notes reviewed: nursing, case management - Constitutional Vitals: Temp Pulse Resp BP Pulse Ox 97.8 F 65 18 186/94 96 10/16/21 07:46 10/16/21 04:08 10/16/21 07:46 10/16/21 07:46 10/16/21 04:08 General appearance: Present: no acute distress, well-nourished HEART Score - HEART Score Troponin: Troponin T < 0.010 ng/mL (0.00-0.029) 10/07/21 21:19 Results - Labs CBC & Chem 7: 10/14/21 07:39 10/14/21 07:39 Labs: Laboratory Last Values WBC 5.9 K/mm3 (4.5-11.0) 10/14/21 07:39 RBC 3.43 M/mm3 (3.65-5.03) L 10/14/21 07:39 Hgb 10.7 gm/dl (10.1-14.3) 10/14/21 07:39 Hct 32.7 % (30.3-42.9) 10/14/21 07:39 MCV 95 fl (79-97) 10/14/21 07:39 MCH 31 pg (28-32) 10/14/21 07:39 MCHC 33 % (30-34) 10/14/21 07:39 RDW 17.9 % (13.2-15.2) H 10/14/21 07:39 Plt Count 250 K/mm3 (140-440) 10/14/21 07:39 Lymph % (Auto) 33.5 % (13.4-35.0) 10/09/21 04:14 Lipscomb % (Auto) 6.2 % (0.0-7.3) 10/09/21 04:14 Eos % (Auto) 0.3 % (0.0-4.3) 10/09/21 04:14 Baso % (Auto) 0.4 % (0.0-1.8) 10/09/21 04:14 Lymph # (Auto) 2.1 K/mm3 (1.2-5.4) 10/09/21 04:14 Lipscomb # (Auto) 0.4 K/mm3 (0.0-0.8) 10/09/21 04:14 Eos # (Auto) 0.0 K/mm3 (0.0-0.4) 10/09/21 04:14 Baso # (Auto) 0.0 K/mm3 (0.0-0.1) 10/09/21 04:14 Seg Neutrophils % 59.6 % (40.0-70.0) 10/09/21 04:14 Seg Neutrophils # 3.8 K/mm3 (1.8-7.7) 10/09/21 04:14 PT 14.8 Sec. (12.2-14.9) 10/10/21 04:30 INR 1.04 (0.87-1.13) 10/10/21 04:30 APTT 25.9 Sec. (24.2-36.6) 10/07/21 21:19 Sodium 140 mmol/L (137-145) D 10/14/21 07:39 Potassium 4.3 mmol/L (3.6-5.0) 10/14/21 07:39 Chloride 97.6 mmol/L (98-107) L 10/14/21 07:39 Carbon Dioxide 32 mmol/L (22-30) H D 10/14/21 07:39 Anion Gap 15 mmol/L 10/14/21 07:39 BUN 5 mg/dL (7-17) L 10/14/21 07:39 Creatinine 0.8 mg/dL (0.6-1.2) 10/14/21 07:39 Estimated GFR > 60 ml/min 10/14/21 07:39 BUN/Creatinine Ratio 6 % 10/14/21 07:39 Glucose 50 mg/dL (65-100) L 10/14/21 07:39 POC Glucose 179 mg/dL (70-105) H 10/15/21 20:30 Hemoglobin A1c 14.1 % (4-6) H 10/08/21 10:07 Lactic Acid 1.20 mmol/L (0.7-2.0) 10/10/21 04:30 Calcium 8.8 mg/dL (8.4-10.2) 10/14/21 07:39 Phosphorus 2.70 mg/dL (2.5-4.5) D 10/11/21 04:14 Magnesium 1.30 mg/dL (1.7-2.3) L 10/11/21 04:14 Total Bilirubin 0.90 mg/dL (0.1-1.2) 10/07/21 21:19 AST 30 units/L (5-40) 10/07/21 21:19 ALT 8 units/L (7-56) 10/07/21 21:19 Alkaline Phosphatase 126 units/L (35-129) 10/07/21 21:19 Ammonia 28.0 umol/L (25-60) 10/07/21 21:19 Total Creatine Kinase 102 units/L (30-135) 10/07/21 21:19 Troponin T < 0.010 ng/mL (0.00-0.029) 10/07/21 21:19 Total Protein 7.6 g/dL (6.3-8.2) 10/07/21 21:19 Albumin 4.4 g/dL (3.9-5) 10/07/21 21:19 Albumin/Globulin Ratio 1.4 % 10/07/21 21:19 Triglycerides 79 mg/dL (2-149) 10/08/21 10:07 Cholesterol 180 mg/dL (50-199) 10/08/21 10:07 LDL Cholesterol Direct 85 mg/dL (50-130) 10/08/21 10:07 HDL Cholesterol 76 mg/dL (40-59) H 10/08/21 10:07 Cholesterol/HDL Ratio 2.36 % 10/08/21 10:07 TSH 3.170 mlU/mL (0.270-4.200) 10/08/21 10:07 Urine Color Brown (Yellow) 10/07/21 Unknown Urine Turbidity Cloudy (Clear) 10/07/21 Unknown Urine pH 5.0 (5.0-7.0) 10/07/21 Unknown Ur Specific [place] 1.035 (1.003-1.030) H 10/07/21 Unknown Urine Protein 300 mg/dl mg/dL (Negative) 10/07/21 Unknown Urine Glucose (UA) Trace mg/dL (Negative) 10/07/21 Unknown Urine Ketones Negative mg/dL (Negative) 10/07/21 Unknown Urine Blood Negative (Negative) 10/07/21 Unknown Urine Nitrite Negative (Negative) 10/07/21 Unknown Urine Bilirubin Negative (Negative) 10/07/21 Unknown Urine Urobilinogen < 2.0 mg/dL (<2.0) 10/07/21 Unknown Ur Leukocyte Esterase Negative (Negative) 10/07/21 Unknown Urine WBC (Auto) 18.0 /HPF (0.0-6.0) H 10/07/21 Unknown Urine RBC (Auto) 8.0 /HPF (0.0-6.0) 10/07/21 Unknown U Epithel Cells (Auto) 44.0 /HPF (0-13.0) H 10/07/21 Unknown Urine Bacteria (Auto) 1+ /HPF (Negative) 10/07/21 Unknown Hyaline Casts 2 /LPF 10/07/21 Unknown Urine Mucus Few /HPF 10/07/21 Unknown Urine Yeast (Budding) 2+ /HPF 10/07/21 Unknown Salicylates < 0.3 mg/dL (2.8-20.0) L 10/07/21 21:19 Acetaminophen 5.0 ug/mL (10.0-30.0) L 10/07/21 21:19 Plasma/Serum Alcohol < 0.01 % (0-0.07) 10/07/21 21:19 Luu/IV: Voiding Method External Female Catheter Active Medications - Current Medications Current Medications: Generic Name Dose Route Start Last Admin Trade Name Freq PRN Reason Stop Dose Admin Acetaminophen 650 mg 10/11/21 13:00 10/15/21 10:26 Acetaminophen 325 Mg Tab PO 650 mg Q6H PRN Administration Pain, Mild (1-3) Amlodipine Besylate 5 mg 10/10/21 10:00 10/15/21 10:17 Amlodipine 5 Mg Tab PO 5 mg QDAY PRIETO Administration Amoxicillin/Clavulanate Potassium 1 each 10/11/21 22:00 10/15/21 21:31 Amoxicillin/K Clav 875/125mg Tab PO 1 each Q12HR PRIETO Administration Protocol Aspirin 81 mg 10/10/21 10:00 10/15/21 10:17 Aspirin Ec 81 Mg Tab PO 81 mg QDAY PRIETO Administration Atorvastatin Calcium 40 mg 10/14/21 22:00 10/15/21 21:31 Atorvastatin 20 Mg Tab PO 40 mg QHS PRIETO Administration Bisacodyl 10 mg 10/08/21 00:19 Bisacodyl 10 Mg Rect Supp IN QDAY PRN Constipation Carvedilol 25 mg 10/12/21 08:00 10/15/21 21:31 Carvedilol 25 Mg Tab PO 25 mg Q12H PRIETO Administration Clopidogrel Bisulfate 75 mg 10/10/21 10:00 10/15/21 10:17 Clopidogrel 75 Mg Tab PO 75 mg QDAY PRIETO Administration Dextrose 50 ml 10/08/21 00:19 10/13/21 03:07 Dextrose 50% In Water (25gm) 50 Ml Syringe IV 50 ml Q30MIN PRN Administration Hypoglycemia Protocol Docusate Sodium 100 mg 10/10/21 10:00 10/15/21 21:31 Docusate Sodium 100 Mg Cap PO 100 mg BID PRIETO Administration Enoxaparin Sodium 40 mg 10/10/21 10:00 10/15/21 10:17 Enoxaparin 40 Mg/0.4 Ml Inj SUB-Q 40 mg QDAY@1000 PRIETO Administration Protocol Famotidine 20 mg 10/10/21 10:00 10/15/21 10:17 Famotidine 20 Mg Tab PO 20 mg DAILY PRIETO Administration Fluoxetine HCl 20 mg 10/10/21 10:00 10/15/21 10:17 Fluoxetine 20 Mg Cap PO 20 mg QDAY PRIETO Administration Folic Acid 1 mg 10/08/21 10:00 10/15/21 10:17 Folic Acid 1 Mg Tab PO 1 mg QDAY PRIETO Administration Hydroxychloroquine Sulfate 200 mg 10/10/21 10:00 10/15/21 10:17 Hydroxychloroquine 200 Mg Tab PO 200 mg QDAY PRIETO Administration Insulin Human Lispro 0 unit 10/08/21 07:30 10/15/21 21:32 Insulin Lispro 100 Unit/Ml SUB-Q 1 unit ACHS PRIETO Administration Protocol Magnesium Hydroxide 30 ml 10/08/21 00:19 Magnesium Hydroxide (Mom) Oral Liqd Udc PO Q4H PRN Constipation Metoclopramide HCl 10 mg 10/08/21 00:19 Metoclopramide 10 Mg Tab PO Q6H PRN Nausea And Vomiting Morphine Sulfate 2 mg 10/08/21 00:19 10/15/21 16:20 Morphine 2 Mg/1 Ml Inj IV 2 mg Q4H PRN Administration Pain, Moderate (4-6) Ondansetron HCl 4 mg 10/08/21 00:19 10/08/21 08:14 Ondansetron 4 Mg/2 Ml Inj IV 4 mg Q8H PRN Administration Nausea And Vomiting Promethazine HCl 25 mg 10/08/21 00:19 Promethazine 25 Mg Rect Supp IN Q6H PRN Nausea And Vomiting Sodium Chloride 10 ml 10/08/21 10:00 10/16/21 07:34 Sodium Chloride 0.9% 10 Ml Flush Syringe IV Not Given BID PRIETO Sodium Chloride 10 ml 10/08/21 00:19 Sodium Chloride 0.9% 10 Ml Flush Syringe IV PRN PRN LINE FLUSH Thiamine HCl 100 mg 10/08/21 10:00 10/15/21 10:18 Thiamine 100 Mg Tab PO 100 mg QDAY PRIETO Administration Zolpidem Tartrate 5 mg 10/15/21 20:40 10/15/21 21:31 Zolpidem 5 Mg Tab PO 5 mg QHS PRN Administration Sleep Nutrition/Malnutrition Assess - Dietary Evaluation Nutrition/Malnutrition Findings: Nutrition Notes Start: 10/08/21 18:14 Freq: Status: Active Protocol: Document 10/14/21 15:33 DANTE (Rec: 10/14/21 15:53 DANTE [id number]) Nutrition Notes Initial or Follow up Brief Note Current Diagnosis Diabetes,Hypertension,Stroke Other Pertinent Diagnosis CVAx2 s/p tPA, Lactic Acidosis , Dysphagia, EtOH Abuse, SLE,. ... Current Diet Pureed Diet (since L 10/10). Height 5 ft 4 in Weight 42.5 kg [place] Body Weight (kg) 54.54 BMI 16.0 Weight change and time frame 1.74 Kg body weight gain in 4 days reported. Weight Status Underweight Subjective/Other Information RD consult for routine F/U on dietary advancement. Diet advanced to PO after ELECTROMECHANICAL TECHNOLOGIST recommendations, No reports available on Pt's PO intake of meals at the time, however, states that Pt dislikes food consistyency, but is tlerating her diet, according to Progress notes. ELECTROMECHANICAL TECHNOLOGIST note on 10/12/21 12:46: Patient seen in room for skilled ST interventions for reassessment of swallow safety and function. Therapist walked into room and patient was drinking thin liquids ( orange juice) with head of bed laid back and puree (pudding) on patient's bedside table. Patient educated on sitting upright in bed when drinking. Patient noted with impulsive large sips and was told to stop drinking. Patient with trials of ice chips x2 with cough noted immediately after 1st trial and no overt s/sx of aspiration on trial 2. Thin liquid trials (water) x3 with cup sips. Patient exhibited reduced hyolaryngeal elevation , but no overt s/sx of aspiration. Patient with trials of puree x3. Patient exhibited good acceptance, adequate management and manipulation of bolus in oral cavity, good A to P transit, delayed initiation of swallow x1, and no overt s/sx of aspiration noted. - END OF NOTE. Pt is on Room Air, O2 saturation @ 98%, according to Physical Assessment History notes. Pt clinically cleared and will be discharged to SNF, according to Progress notes. Percent of energy/protein needs met: Prescribed Pureed Diet provides for energy/protein needs (1,804 Kcal/77 g) during LOS. #2 Nutrition Diagnosis Underweight Diagnosis Progress(for reassessment Continues documentation) #1 Nutrition Diagnosis Swallowing difficulty,Biting/ Chewing (masticatory) difficulty Comments: ELECTROMECHANICAL TECHNOLOGIST note on 10/12/21 12:46: Patient seen in room for skilled ST interventions for reassessment of swallow safety and function. Therapist walked into room and patient was drinking thin liquids ( orange juice) with head of bed laid back and puree (pudding) on patient's bedside table. Patient educated on sitting upright in bed when drinking. Patient noted with impulsive large sips and was told to stop drinking. Patient with trials of ice chips x2 with cough noted immediately after 1st trial and no overt s/sx of aspiration on trial 2. Thin liquid trials (water) x3 with cup sips. Patient exhibited reduced hyolaryngeal elevation , but no overt s/sx of aspiration. Patient with trials of puree x3. Patient exhibited good acceptance, adequate management and manipulation of bolus in oral cavity, good A to P transit, delayed initiation of swallow x1, and no overt s/sx of aspiration noted. - END OF NOTE. Diagnosis Progress(for reassessment Improved documentation) Is patient on ventilator? No Is Patient Ambulatory and/or Out of Bed No REE-([facility]-confined to bed) 1187.160 Kcal/Kg value to use for calculation 35 Approximate Energy Requirements Using 1488 kcal/Kg Calculation Used for Recommendations Kcal/kg Additional Notes Protein: 1.2-1.5 g/Kg ABW; 49- 62 g/day. Fluids: 1 ml/Kcal, or as per MD. Nutrition Intervention Change Diet Order: Continue Pureed Diet as tolerated, recommended by ELECTROMECHANICAL TECHNOLOGIST. Nutrition Support: Disregard. Goal #1 Facilitate PO intake of meals with elemental, textural, or mechanical modification during LOS. Goal #2 Adjust the dietary intervention to better serve Pt's needs and clinical conditions during LOS. Follow-Up By: 10/21/21 Additional Comments Continue monitoring food tolerance, %PO intake of meals , and BM.
--- NOTE | 2021-10-16 10:02 | Progress Note ---
Assessment and Plan 61-year-old female with known history of hypertension and recent CVA about 2 weeks ago presenting to the emergency room via EMS with changes in mental status, drooling and unresponsiveness. Patient states she feels a little lightheaded but denies any headache. She also indicates that her lower extremities feels weak. She denies any blurry vision, no nausea or vomiting and no abdominal pain. Denies any chest pain or shortness of breath. Upon arrival in the emergency room today, blood pressure was quite elevated with systolic in the 200s and diastolic in the low 100s. She was also found to be slightly tachycardic. Patient admits that she drinks alcohol regularly but not heavily. Work-up in the emergency room, lab reveals elevated lactic acid, hypokalemia of 2.9, lactic acid of 2.10, magnesium of 1.0. CTof the head shows area of low-attenuation within the right [employer] distribution suggesting prior infarct, likely subacute. Scattered areas of low-attenuation in the periventricular and central white matter suggesting nonspecific microangiopathy. CT of the abdomen and pelvis-unremarkable. Chest x-ray shows no acute abnormality. Past Medical History: arthritis, diabetes, GERD, stroke, other (neuropathy, lupus. cardiac cath 10/08/2015 with EF of 55%, diastolic dysfunction, and normal coronary arteries.,tia,Asthma,Anxiety) Past Surgical History: cholecystectomy, Social history: alcohol abuse Family history: no significant family history Patient awake.Says breathing alright. No acute respiratory distress at rest. Complaing slight cough. Patient is on room air. O2 saturation 99%. Patient afebrile. No leukocytosis. Blood pressure 132/95, pulse 65 , respirations 16. Chest xray done 10/11/21 reported No acute abnormality or significant change. No evidence of pneumonia. Patient is on S/C Lovenox, Famotidine and Augmentin. - Patient Problems (1) Hypertensive urgency Current Visit: Yes Status: Acute Plan to address problem: Patients blood pressure came down. Recent blood pressure 132/95 Management as per primary care. (2) Systemic inflammatory response syndrome (SIRS) Current Visit: Yes Status: Acute Plan to address problem: Patient became afebrile. Patient is on Augmentin. (3) Chest pain in adult Current Visit: No Status: Acute Plan to address problem: Management as per primary care and cardiology. (4) Type 2 diabetes mellitus Current Visit: No Status: Chronic Plan to address problem: Management as per primary care. (5) Hypomagnesemia Current Visit: Yes Status: Acute Plan to address problem: last Magnesium level 1.3. Receiving magnesium supplementation. Recommend to repeat Magnesium level. (6) Altered mental status Current Visit: Yes Status: Acute Plan to address problem: Management as per primary care and neurology. Subjective Date of service: 10/16/21 Principal diagnosis: Acute CVA s/p tPA; AMS; HTNsive urgency; Lactic acidosis; EtOH abuse; DM II Interval history: 61-year-old female with known history of hypertension and recent CVA about 2 weeks ago presenting to the emergency room via EMS with changes in mental status, drooling and unresponsiveness. Patient states she feels a little lightheaded but denies any headache. She also indicates that her lower extremities feels weak. She denies any blurry vision, no nausea or vomiting and no abdominal pain. Denies any chest pain or shortness of breath. Upon arrival in the emergency room today, blood pressure was quite elevated with systolic in the 200s and diastolic in the low 100s. She was also found to be slightly tachycardic. Patient admits that she drinks alcohol regularly but not heavily. Work-up in the emergency room, lab reveals elevated lactic acid, hypokalemia of 2.9, lactic acid of 2.10, magnesium of 1.0. CTof the head shows area of low-attenuation within the right [employer] distribution suggesting prior infarct, likely subacute. Scattered areas of low-attenuation in the periventricular and central white matter suggesting nonspecific microangiopathy. CT of the abdomen and pelvis-unremarkable. Chest x-ray shows no acute abnormality. Past Medical History: arthritis, diabetes, GERD, stroke, other (neuropathy, lupus. cardiac cath 10/08/2015 with EF of 55%, diastolic dysfunction, and normal coronary arteries.,tia,Asthma,Anxiety) Past Surgical History: cholecystectomy, Social history: alcohol abuse Family history: no significant family history Patient awake.Says breathing alright. No acute respiratory distress at rest. Complaing slight cough. Patient is on room air. O2 saturation 99%. Patient afebrile. No leukocytosis. Blood pressure 132/95, pulse 65 , respirations 16. Chest xray done 10/11/21 reported No acute abnormality or significant change. No evidence of pneumonia. Patient is on S/C Lovenox, Famotidine and Augmentin. Objective Vital Signs - 12hr 10/15/21 10/16/21 10/16/21 23:09 04:08 07:46 Temperature 98.4 F 97.8 F 97.8 F Pulse Rate 72 65 Respiratory 16 16 18 Rate Blood Pressure 149/79 162/81 186/94 O2 Sat by Pulse 100 96 Oximetry Constitutional: no acute distress, alert, other (Following commands) Eyes: non-icteric ENT: oropharynx moist Neck: supple, no lymphadenopathy, no JVD Effort: normal Ascultation: Bilateral: diminished breath sounds Percussion: Bilateral: not dull Cardiovascular: regular rate and rhythm, other (S1,S2) Gastrointestinal: normoactive bowel sounds, soft, non-tender, non-distended Integumentary: normal Extremities: no cyanosis, no edema, pulses normal, no ischemia or petechiae Neurologic: normal mental status, non-focal exam, pupils equal and round (Left lateral gaze defect, RUext 4/5 power grade), other (aphasia) Psychiatric: mood appropriate, affect normal CBC and BMP: 10/14/21 07:39 10/14/21 07:39 ABG, PT/INR, D-dimer: PT/INR, D-dimer PT 14.8 Sec. (12.2-14.9) 10/10/21 04:30 INR 1.04 (0.87-1.13) 10/10/21 04:30 Abnormal lab findings: Abnormal Labs 10/07/21 10/07/21 10/07/21 21:19 21:19 21:19 WBC RBC RDW 17.6 H Seg Neutrophils % 75.8 H Sodium Potassium 2.9 L* Chloride 95.3 L Carbon Dioxide BUN 5 L Glucose 224 H POC Glucose Hemoglobin A1c Lactic Acid 4.20 H* Calcium Phosphorus Magnesium HDL Cholesterol Ur Specific [place] Urine WBC (Auto) U Epithel Cells (Auto) Salicylates Acetaminophen 10/07/21 10/07/21 10/07/21 21:19 21:19 21:19 WBC RBC RDW Seg Neutrophils % Sodium Potassium Chloride Carbon Dioxide BUN Glucose POC Glucose Hemoglobin A1c Lactic Acid Calcium Phosphorus Magnesium 1.00 L HDL Cholesterol Ur Specific [place] Urine WBC (Auto) U Epithel Cells (Auto) Salicylates < 0.3 L Acetaminophen 5.0 L 10/07/21 10/07/21 10/08/21 23:47 Unknown 08:01 WBC RBC RDW Seg Neutrophils % Sodium Potassium Chloride Carbon Dioxide BUN Glucose POC Glucose 312 H Hemoglobin A1c Lactic Acid 2.10 H* Calcium Phosphorus Magnesium HDL Cholesterol Ur Specific [place] 1.035 H Urine WBC (Auto) 18.0 H U Epithel Cells (Auto) 44.0 H Salicylates Acetaminophen 10/08/21 10/08/21 10/08/21 10:07 10:07 10:07 WBC RBC RDW Seg Neutrophils % Sodium Potassium 3.1 L Chloride Carbon Dioxide BUN Glucose POC Glucose Hemoglobin A1c 14.1 H Lactic Acid 4.80 H* Calcium Phosphorus Magnesium 1.50 L HDL Cholesterol 76 H Ur Specific [place] Urine WBC (Auto) U Epithel Cells (Auto) Salicylates Acetaminophen 10/08/21 10/09/21 10/09/21 17:08 00:16 04:14 WBC RBC 3.34 L RDW 18.3 H Seg Neutrophils % Sodium Potassium Chloride Carbon Dioxide BUN Glucose POC Glucose 205 H 231 H Hemoglobin A1c Lactic Acid Calcium Phosphorus Magnesium HDL Cholesterol Ur Specific [place] Urine WBC (Auto) U Epithel Cells (Auto) Salicylates Acetaminophen 10/09/21 10/09/21 10/09/21 04:14 08:11 15:47 WBC RBC RDW Seg Neutrophils % Sodium Potassium Chloride Carbon Dioxide 16 L D BUN Glucose 219 H POC Glucose 214 H 135 H Hemoglobin A1c Lactic Acid Calcium 8.1 L Phosphorus Magnesium 1.60 L HDL Cholesterol Ur Specific [place] Urine WBC (Auto) U Epithel Cells (Auto) Salicylates Acetaminophen 10/09/21 10/09/21 10/10/21 17:33 21:32 04:30 WBC 3.9 L RBC 3.30 L RDW 18.0 H Seg Neutrophils % Sodium Potassium Chloride Carbon Dioxide BUN Glucose POC Glucose 230 H 265 H Hemoglobin A1c Lactic Acid Calcium Phosphorus Magnesium HDL Cholesterol Ur Specific [place] Urine WBC (Auto) U Epithel Cells (Auto) Salicylates Acetaminophen 10/10/21 10/10/21 10/10/21 04:30 11:54 16:41 WBC RBC RDW Seg Neutrophils % Sodium Potassium 3.4 L Chloride Carbon Dioxide 20 L BUN 3 L Glucose 158 H POC Glucose 279 H 171 H Hemoglobin A1c Lactic Acid Calcium 8.3 L Phosphorus 2.00 L Magnesium HDL Cholesterol Ur Specific [place] Urine WBC (Auto) U Epithel Cells (Auto) Salicylates Acetaminophen 10/10/21 10/11/21 10/11/21 21:29 04:14 04:14 WBC RBC 3.25 L RDW 18.0 H Seg Neutrophils % Sodium 132 L Potassium Chloride 96.3 L Carbon Dioxide BUN 2 L Glucose POC Glucose 197 H Hemoglobin A1c Lactic Acid Calcium 8.2 L Phosphorus Magnesium 1.30 L HDL Cholesterol Ur Specific [place] Urine WBC (Auto) U Epithel Cells (Auto) Salicylates Acetaminophen 10/11/21 10/11/21 10/11/21 08:19 11:56 15:43 WBC RBC RDW Seg Neutrophils % Sodium Potassium Chloride Carbon Dioxide BUN Glucose POC Glucose 125 H 154 H 174 H Hemoglobin A1c Lactic Acid Calcium Phosphorus Magnesium HDL Cholesterol Ur Specific [place] Urine WBC (Auto) U Epithel Cells (Auto) Salicylates Acetaminophen 10/11/21 10/12/21 10/12/21 20:35 11:18 15:53 WBC RBC RDW Seg Neutrophils % Sodium Potassium Chloride Carbon Dioxide BUN Glucose POC Glucose 296 H 153 H 226 H Hemoglobin A1c Lactic Acid Calcium Phosphorus Magnesium HDL Cholesterol Ur Specific [place] Urine WBC (Auto) U Epithel Cells (Auto) Salicylates Acetaminophen 10/12/21 10/13/21 10/13/21 20:22 03:02 03:18 WBC RBC RDW Seg Neutrophils % Sodium Potassium Chloride Carbon Dioxide BUN Glucose POC Glucose 159 H 24 L 308 H Hemoglobin A1c Lactic Acid Calcium Phosphorus Magnesium HDL Cholesterol Ur Specific [place] Urine WBC (Auto) U Epithel Cells (Auto) Salicylates Acetaminophen 10/13/21 10/13/21 10/13/21 05:38 07:43 11:40 WBC RBC RDW Seg Neutrophils % Sodium Potassium Chloride Carbon Dioxide BUN Glucose 55 L POC Glucose 66 L 135 H Hemoglobin A1c Lactic Acid Calcium Phosphorus Magnesium HDL Cholesterol Ur Specific [place] Urine WBC (Auto) U Epithel Cells (Auto) Salicylates Acetaminophen 10/13/21 10/13/21 10/14/21 16:56 20:41 07:39 WBC RBC 3.43 L RDW 17.9 H Seg Neutrophils % Sodium Potassium Chloride Carbon Dioxide BUN Glucose POC Glucose 164 H 326 H Hemoglobin A1c Lactic Acid Calcium Phosphorus Magnesium HDL Cholesterol Ur Specific [place] Urine WBC (Auto) U Epithel Cells (Auto) Salicylates Acetaminophen 10/14/21 10/14/21 10/14/21 07:39 07:47 20:32 WBC RBC RDW Seg Neutrophils % Sodium Potassium Chloride 97.6 L Carbon Dioxide 32 H D BUN 5 L Glucose 50 L POC Glucose 54 L 176 H Hemoglobin A1c Lactic Acid Calcium Phosphorus Magnesium HDL Cholesterol Ur Specific [place] Urine WBC (Auto) U Epithel Cells (Auto) Salicylates Acetaminophen 10/15/21 10/15/21 10/15/21 07:16 10:14 15:53 WBC RBC RDW Seg Neutrophils % Sodium Potassium Chloride Carbon Dioxide BUN Glucose POC Glucose 46 L 191 H 164 H Hemoglobin A1c Lactic Acid Calcium Phosphorus Magnesium HDL Cholesterol Ur Specific [place] Urine WBC (Auto) U Epithel Cells (Auto) Salicylates Acetaminophen 10/15/21 20:30 WBC RBC RDW Seg Neutrophils % Sodium Potassium Chloride Carbon Dioxide BUN Glucose POC Glucose 179 H Hemoglobin A1c Lactic Acid Calcium Phosphorus Magnesium HDL Cholesterol Ur Specific [place] Urine WBC (Auto) U Epithel Cells (Auto) Salicylates Acetaminophen Chest x-ray: report reviewed, image reviewed Additional Studies: CHEST 1 VIEW 10/11/2021 12:12 PM INDICATION / CLINICAL INFORMATION: TEMPERATURE 100.4. COMPARISON: 10/07/21. FINDINGS: SUPPORT DEVICES: None. HEART / MEDIASTINUM: The heart size and pulmonary vasculature are normal. LUNGS / PLEURA: No significant pulmonary or pleural abnormality. No pneumothorax. ADDITIONAL FINDINGS: No significant additional findings. IMPRESSION: No acute abnormality or significant change. No evidence of pneumonia. Allied health notes reviewed: nursing
[2021-10-16] MEDS: INSULIN LISPRO 100 UNIT/ML SUB-Q SCH ×2 (10:54→21:55)
[2021-10-16] MEDS: FOLIC ACID 1 MG TAB PO SCH (10:55)
[2021-10-16] MEDS: THIAMINE 100 MG TAB PO SCH (10:55)
[2021-10-16] MEDS: DOCUSATE SODIUM 100 MG CAP PO SCH ×2 (10:55→21:50)
[2021-10-16] MEDS: ASPIRIN EC 81 MG TAB PO SCH (10:55)
[2021-10-16] MEDS: amLODIPine 5 MG TAB PO SCH (10:55)
[2021-10-16] MEDS: AMOXICILLIN/K CLAV 875/125MG TAB PO SCH ×2 (10:55→21:50)
[2021-10-16] MEDS: HYDROXYCHLOROQUINE 200 MG TAB PO SCH (10:55)
[2021-10-16] MEDS: FLUoxetine 20 MG CAP PO SCH (10:56)
[2021-10-16] MEDS: ENOXAPARIN 40 MG/0.4 ML INJ SUB-Q SCH (10:56)
[2021-10-16] MEDS: FAMOTIDINE 20 MG TAB PO SCH (10:56)
[2021-10-16] MEDS: CLOPIDOGREL 75 MG TAB PO SCH (10:56)
[2021-10-16] MEDS: MORPHINE 2 MG/1 ML INJ IV PRN (10:57)
[2021-10-16] MEDS: carvediloL 25 MG TAB PO SCH ×2 (21:53→21:54)
[2021-10-16] MEDS: CHLORTHALIDONE 25 MG TAB PO SCH (21:54)
[2021-10-17] MEDS: MORPHINE 2 MG/1 ML INJ IV PRN ×2 (01:17→10:13)
[2021-10-17] MEDS: HYDROXYCHLOROQUINE 200 MG TAB PO SCH (10:12)
[2021-10-17] MEDS: FLUoxetine 20 MG CAP PO SCH (10:12)
[2021-10-17] MEDS: CHLORTHALIDONE 25 MG TAB PO SCH (10:12)
[2021-10-17] MEDS: AMOXICILLIN/K CLAV 875/125MG TAB PO SCH (10:12)
[2021-10-17] MEDS: CLOPIDOGREL 75 MG TAB PO SCH (10:13)
[2021-10-17] MEDS: amLODIPine 5 MG TAB PO SCH (10:13)
[2021-10-17] MEDS: FAMOTIDINE 20 MG TAB PO SCH (10:13)
[2021-10-17] MEDS: DOCUSATE SODIUM 100 MG CAP PO SCH (10:13)
[2021-10-17] MEDS: THIAMINE 100 MG TAB PO SCH (10:13)
[2021-10-17] MEDS: FOLIC ACID 1 MG TAB PO SCH (10:13)
[2021-10-17] MEDS: ASPIRIN EC 81 MG TAB PO SCH (10:13)
[2021-10-17] MEDS: ENOXAPARIN 40 MG/0.4 ML INJ SUB-Q SCH (10:13)
[2021-10-17] MEDS: carvediloL 25 MG TAB PO SCH (10:14)
[2021-10-17] MEDS: INSULIN LISPRO 100 UNIT/ML SUB-Q SCH ×2 (10:14→16:35)
--- NOTE | 2021-10-17 11:20 | Progress Note ---
Assessment and Plan Assessment and plan: Hospital course: This is 61-year-old female with known past medical of HTN, DM, and recent CVC about 2 weeks ago initially admitted to the floor for AMS and Hypertensive urgency. Patient was a code stoke on the floor due to worsen mental status with right hemiplegia, right facial droop, and expressive aphasia. Was transferred to the ICU for acute CVA requiring tPA. Hospital Course to Date: 10/09: Mild improvement in mentation. Patient appears AAO, but remains aphasic with right hemiplegia and right facial droop, follow simple commands. Repeat CT head and MRI brain pending. Echo reviewed no evidence of PFO. Neurology consult pending. PT/OT/Speech consulted. D/w CCM okay to transfer patient back to telemetry if patient remains stable post 24hrs tPA. 10/10: Remains stable, still with significant expressive aphasia. Facial droop and right hemiplegia resolved, but still with generalized weakness. Repeat CT head and MRI noted, stable with no evidence of a bleed. Neurology consult pending. ASA and VTE proh initiated. Hypertensive this am, resume home meds. Continue PT/OT/Speech. Patient is stable for transfer to the Telemetry. 10/11: Patient seen and examined clinically improving although still with facial droop and right hemiplegia mildly residual. Speech is improving other a bit of expressive aphasia can still be appreciated. I did discuss discharge planning and the acute rehab appears to be a good option for continued PT OT and speech. Patient was seen by neurology, they recommended a hematology work-up which can be done outpatient. In the meantime we will resume patient's anticoagulation with Eliquis. Schedule for outpatient hematology and possible antiphospholipid syndrome monitoring. But the recommendation of gabapentin can be used for disabling neuropathy. 10/12: Patient seen and examined. Blood pressure modestly elevated our recommendation yesterday was to allow permissive hypertension. We will begin correction today. Still awaiting bed today acute rehab unit. No new fever documented today. Will complete antibiotics. Continue aspiration precautions Clinically she is showing significant improvement. 10/13: Patient noted with hypoglycemia overnight was cool and clammy blood sugar 24. We will reduce Lantus to 15 units and also reduce sliding scale to low- dose. Speech therapy recommendations and evaluation noted the patient will continue on pured diet. Still with some expressive aphasia. Refused the breakfast this morning due to the consistency and her not liking it. Nurses aware. Awaiting placement to acute rehab. 35 minutes critical care time considering hypoglycemia and medication adjustment which also requires dietary adjustment and ensuring that she is eating. 10/14: Patient clinically stable and doing well, tolerating diet. Encouraged to start oral diet, 10/15: Continues to have expressive aphasia. Cleared by speech for pureed diet but patient not eating as she does not like hospital food. Encouraged patient to eat food. lantus d/c as patient has low BG readings in 50's.. Awaiting placement to SNF. Remains clinically stable otherwise. 10/16: Awaiting placement. Blood sugars improved today. 10/16: Awaiting auth at [facility]. Assessment and Plan #Acute CVA s/p tPA #H/o recent CVA- 2weeks prior #Hypoglycemia with acute encephalopathy #ETOH Abuse - Presented with AMS, drooling and unresponsiveness. 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 the right [employer]ODUCT [employer]CH[employer]ICIAN distribution suggesting prior infarct, likely subacute - Code stroke called on the floor due to worsen mental status with right hemiplegia, right facial droop, and expressive aphasia - Patient received tPA per [facility] - Mild improvement noted in mentation, remains aphasic with righ hemiplegia and facial droop - CTA head/neck reviewed - Repeat CT head and MRI Brain noted - 2D echo with no evidence of PFO - Statin initiated - ASA and VTE proph initiated - Avoid sedative agents for now, IV Ativan held - Continue Neuro check per protocol - PT/OT/Speech ordered - Neurology consulted - Aspiration and fall precautions #Hypertensive Urgency-improved - Presented with SBP in the 200s, DBP in the 100s s/p IV Hydralazine - Hypertensive this am, SBP in the 170-180s - Home meds resumed - Continue blood pressure monitor per protocol - Maintain SBP less than 160 #Lactic Acidosis - Probably secondary to above - Patient is afebrile, with no leukocytosis, VSS - CTAbd/Pelvis unremarkable, cultures with NGTD - Will continue to trend lactic acid #Systemic Lupus Erythematosus(SLE) - Resume home med- Hydroxychloroquine #Hypomagnesemia #Hypokalemia-improved - Mg repleted - Monitor and replace electrolytes as needed - Trend BMP #Uncontrolled Diabetes Mellitus - HgbA1c- 14.1 - SSI initiated, continue BG check ACHS - Avoid hypoglycemia - While critically ill target blood glucose of 140-180 #Advance Care Planning - Disease education data, care plan, diagnoses, and prognosis were discussed with patient at the bedside and patient's daughter via phone. Patient is a FULL code. They acknowledged understanding and agreed with current care plan. History Interval history: No acute complaints. Hospitalist Physical - Physical exam Narrative exam: Narrative exam: General appearance: Present: no acute distress, well-nourished - EENT Eyes: Present: PERRL, EOM intact ENT: hearing intact - Neck Neck: Present: normal ROM - Respiratory Respiratory effort: normal Respiratory: bilateral: diminished - Cardiovascular Rhythm: regular Heart Sounds: Present: S1 & S2 - Extremities Extremities: no ischemia, pulses intact, pulses symmetrical Peripheral Pulses: within normal limits - Abdominal General gastrointestinal: soft, non-distended, normal bowel sounds - Integumentary Integumentary: Present: warm, dry - Psychiatric Psychiatric: appropriate mood/affect, cooperative - Neurologic Neurologic: no focal deficits appreciated moves all extremities. Speech is improved but still continues to have expressive aphasia - Allied Health Allied health notes reviewed: nursing, case management - Constitutional Vitals: Temp Pulse Resp BP Pulse Ox 98.4 F 62 18 170/92 100 10/17/21 08:13 10/17/21 08:13 10/17/21 08:13 10/17/21 08:13 10/17/21 08:13 General appearance: Present: no acute distress, well-nourished HEART Score - HEART Score Troponin: Troponin T < 0.010 ng/mL (0.00-0.029) 10/07/21 21:19 Results - Labs CBC & Chem 7: 10/14/21 07:39 10/14/21 07:39 Labs: Laboratory Last Values WBC 5.9 K/mm3 (4.5-11.0) 10/14/21 07:39 RBC 3.43 M/mm3 (3.65-5.03) L 10/14/21 07:39 Hgb 10.7 gm/dl (10.1-14.3) 10/14/21 07:39 Hct 32.7 % (30.3-42.9) 10/14/21 07:39 MCV 95 fl (79-97) 10/14/21 07:39 MCH 31 pg (28-32) 10/14/21 07:39 MCHC 33 % (30-34) 10/14/21 07:39 RDW 17.9 % (13.2-15.2) H 10/14/21 07:39 Plt Count 250 K/mm3 (140-440) 10/14/21 07:39 Lymph % (Auto) 33.5 % (13.4-35.0) 10/09/21 04:14 [place] % (Auto) 6.2 % (0.0-7.3) 10/09/21 04:14 Eos % (Auto) 0.3 % (0.0-4.3) 10/09/21 04:14 Baso % (Auto) 0.4 % (0.0-1.8) 10/09/21 04:14 Lymph # (Auto) 2.1 K/mm3 (1.2-5.4) 10/09/21 04:14 [place] # (Auto) 0.4 K/mm3 (0.0-0.8) 10/09/21 04:14 Eos # (Auto) 0.0 K/mm3 (0.0-0.4) 10/09/21 04:14 Baso # (Auto) 0.0 K/mm3 (0.0-0.1) 10/09/21 04:14 Seg Neutrophils % 59.6 % (40.0-70.0) 10/09/21 04:14 Seg Neutrophils # 3.8 K/mm3 (1.8-7.7) 10/09/21 04:14 PT 14.8 Sec. (12.2-14.9) 10/10/21 04:30 INR 1.04 (0.87-1.13) 10/10/21 04:30 APTT 25.9 Sec. (24.2-36.6) 10/07/21 21:19 Sodium 140 mmol/L (137-145) D 10/14/21 07:39 Potassium 4.3 mmol/L (3.6-5.0) 10/14/21 07:39 Chloride 97.6 mmol/L (98-107) L 10/14/21 07:39 Carbon Dioxide 32 mmol/L (22-30) H D 10/14/21 07:39 Anion Gap 15 mmol/L 10/14/21 07:39 BUN 5 mg/dL (7-17) L 10/14/21 07:39 Creatinine 0.8 mg/dL (0.6-1.2) 10/14/21 07:39 Estimated GFR > 60 ml/min 10/14/21 07:39 BUN/Creatinine Ratio 6 % 10/14/21 07:39 Glucose 50 mg/dL (65-100) L 10/14/21 07:39 POC Glucose 136 mg/dL (70-105) H 10/16/21 21:07 Hemoglobin A1c 14.1 % (4-6) H 10/08/21 10:07 Lactic Acid 1.20 mmol/L (0.7-2.0) 10/10/21 04:30 Calcium 8.8 mg/dL (8.4-10.2) 10/14/21 07:39 Phosphorus 2.70 mg/dL (2.5-4.5) D 10/11/21 04:14 Magnesium 1.30 mg/dL (1.7-2.3) L 10/11/21 04:14 Total Bilirubin 0.90 mg/dL (0.1-1.2) 10/07/21 21:19 AST 30 units/L (5-40) 10/07/21 21:19 ALT 8 units/L (7-56) 10/07/21 21:19 Alkaline Phosphatase 126 units/L (35-129) 10/07/21 21:19 Ammonia 28.0 umol/L (25-60) 10/07/21 21:19 Total Creatine Kinase 102 units/L (30-135) 10/07/21 21:19 Troponin T < 0.010 ng/mL (0.00-0.029) 10/07/21 21:19 Total Protein 7.6 g/dL (6.3-8.2) 10/07/21 21:19 Albumin 4.4 g/dL (3.9-5) 10/07/21 21:19 Albumin/Globulin Ratio 1.4 % 10/07/21 21:19 Triglycerides 79 mg/dL (2-149) 10/08/21 10:07 Cholesterol 180 mg/dL (50-199) 10/08/21 10:07 LDL Cholesterol Direct 85 mg/dL (50-130) 10/08/21 10:07 HDL Cholesterol 76 mg/dL (40-59) H 10/08/21 10:07 Cholesterol/HDL Ratio 2.36 % 10/08/21 10:07 TSH 3.170 mlU/mL (0.270-4.200) 10/08/21 10:07 Urine Color Brown (Yellow) 10/07/21 Unknown Urine Turbidity Cloudy (Clear) 10/07/21 Unknown Urine pH 5.0 (5.0-7.0) 10/07/21 Unknown Ur Specific [place] 1.035 (1.003-1.030) H 10/07/21 Unknown Urine Protein 300 mg/dl mg/dL (Negative) 10/07/21 Unknown Urine Glucose (UA) Trace mg/dL (Negative) 10/07/21 Unknown Urine Ketones Negative mg/dL (Negative) 10/07/21 Unknown Urine Blood Negative (Negative) 10/07/21 Unknown Urine Nitrite Negative (Negative) 10/07/21 Unknown Urine Bilirubin Negative (Negative) 10/07/21 Unknown Urine Urobilinogen < 2.0 mg/dL (<2.0) 10/07/21 Unknown Ur Leukocyte Esterase Negative (Negative) 10/07/21 Unknown Urine WBC (Auto) 18.0 /HPF (0.0-6.0) H 10/07/21 Unknown Urine RBC (Auto) 8.0 /HPF (0.0-6.0) 10/07/21 Unknown U Epithel Cells (Auto) 44.0 /HPF (0-13.0) H 10/07/21 Unknown Urine Bacteria (Auto) 1+ /HPF (Negative) 10/07/21 Unknown Hyaline Casts 2 /LPF 10/07/21 Unknown Urine Mucus Few /HPF 10/07/21 Unknown Urine Yeast (Budding) 2+ /HPF 10/07/21 Unknown Salicylates < 0.3 mg/dL (2.8-20.0) L 10/07/21 21:19 Acetaminophen 5.0 ug/mL (10.0-30.0) L 10/07/21 21:19 Plasma/Serum Alcohol < 0.01 % (0-0.07) 10/07/21 21:19 SARS-CoV-2 (PCR) Negative (Negative) 10/17/21 10:20 Luu/IV: Voiding Method Toilet Active Medications - Current Medications Current Medications: Generic Name Dose Route Start Last Admin Trade Name Freq PRN Reason Stop Dose Admin Acetaminophen 650 mg 10/11/21 13:00 10/15/21 10:26 Acetaminophen 325 Mg Tab PO 650 mg Q6H PRN Administration Pain, Mild (1-3) Amlodipine Besylate 5 mg 10/10/21 10:00 10/17/21 10:13 Amlodipine 5 Mg Tab PO 5 mg QDAY PRIETO Administration Amoxicillin/Clavulanate Potassium 1 each 10/11/21 22:00 10/17/21 10:12 Amoxicillin/K Clav 875/125mg Tab PO 10/17/21 22:01 1 each Q12HR PRIETO Administration Protocol Aspirin 81 mg 10/10/21 10:00 10/17/21 10:13 Aspirin Ec 81 Mg Tab PO 81 mg QDAY PRIETO Administration Atorvastatin Calcium 40 mg 10/14/21 22:00 10/16/21 21:50 Atorvastatin 20 Mg Tab PO 40 mg QHS PRIETO Administration Bisacodyl 10 mg 10/08/21 00:19 Bisacodyl 10 Mg Rect Supp [place] QDAY PRN Constipation Carvedilol 25 mg 10/12/21 08:00 10/17/21 10:14 Carvedilol 25 Mg Tab PO 25 mg Q12H PRIETO Administration Chlorthalidone 25 mg 10/16/21 10:00 10/17/21 10:12 Chlorthalidone 25 Mg Tab PO 25 mg QDAY PRIETO Administration Clopidogrel Bisulfate 75 mg 10/10/21 10:00 10/17/21 10:13 Clopidogrel 75 Mg Tab PO 75 mg QDAY PRIETO Administration Dextrose 50 ml 10/08/21 00:19 10/13/21 03:07 Dextrose 50% In Water (25gm) 50 Ml Syringe IV 50 ml Q30MIN PRN Administration Hypoglycemia Protocol Docusate Sodium 100 mg 10/10/21 10:00 10/17/21 10:13 Docusate Sodium 100 Mg Cap PO 100 mg BID PRIETO Administration Enoxaparin Sodium 40 mg 10/10/21 10:00 10/17/21 10:13 Enoxaparin 40 Mg/0.4 Ml Inj SUB-Q 40 mg QDAY@1000 PRIETO Administration Protocol Famotidine 20 mg 10/10/21 10:00 10/17/21 10:13 Famotidine 20 Mg Tab PO 20 mg DAILY PRIETO Administration Fluoxetine HCl 20 mg 10/10/21 10:00 10/17/21 10:12 Fluoxetine 20 Mg Cap PO 20 mg QDAY PRIETO Administration Folic Acid 1 mg 10/08/21 10:00 10/17/21 10:13 Folic Acid 1 Mg Tab PO 1 mg QDAY PRIETO Administration Hydroxychloroquine Sulfate 200 mg 10/10/21 10:00 10/17/21 10:12 Hydroxychloroquine 200 Mg Tab PO 200 mg QDAY PRIETO Administration Insulin Human Lispro 0 unit 10/08/21 07:30 10/17/21 10:14 Insulin Lispro 100 Unit/Ml SUB-Q Not Given ACHS [facility] Protocol Magnesium Hydroxide 30 ml 10/08/21 00:19 Magnesium Hydroxide (Mom) Oral Liqd Udc PO Q4H PRN Constipation Metoclopramide HCl 10 mg 10/08/21 00:19 Metoclopramide 10 Mg Tab PO Q6H PRN Nausea And Vomiting Morphine Sulfate 2 mg 10/08/21 00:19 10/17/21 10:13 Morphine 2 Mg/1 Ml Inj IV 2 mg Q4H PRN Administration Pain, Moderate (4-6) Ondansetron HCl 4 mg 10/08/21 00:19 10/08/21 08:14 Ondansetron 4 Mg/2 Ml Inj IV 4 mg Q8H PRN Administration Nausea And Vomiting Promethazine HCl 25 mg 10/08/21 00:19 Promethazine 25 Mg Rect Supp [place] Q6H PRN Nausea And Vomiting Sodium Chloride 10 ml 10/08/21 10:00 10/17/21 10:12 Sodium Chloride 0.9% 10 Ml Flush Syringe IV 10 ml BID PRIETO Administration Sodium Chloride 10 ml 10/08/21 00:19 Sodium Chloride 0.9% 10 Ml Flush Syringe IV PRN PRN LINE FLUSH Thiamine HCl 100 mg 10/08/21 10:00 10/17/21 10:13 Thiamine 100 Mg Tab PO 100 mg QDAY PRIETO Administration Zolpidem Tartrate 5 mg 10/15/21 20:40 10/15/21 21:31 Zolpidem 5 Mg Tab PO 5 mg QHS PRN Administration Sleep Nutrition/Malnutrition Assess - Dietary Evaluation Nutrition/Malnutrition Findings: Nutrition Notes Start: 10/08/21 18:14 Freq: Status: Active Protocol: Document 10/14/21 15:33 DANTE (Rec: 10/14/21 15:53 DANTE [id number]) Nutrition Notes Initial or Follow up Brief Note Current Diagnosis Diabetes,Hypertension,Stroke Other Pertinent Diagnosis CVAx2 s/p tPA, Lactic Acidosis , Dysphagia, EtOH Abuse, SLE,. ... Current Diet Pureed Diet (since L 10/10). Height 5 ft 4 in Weight 42.5 kg [place] Body Weight (kg) 54.54 BMI 16.0 Weight change and time frame 1.74 Kg body weight gain in 4 days reported. Weight Status Underweight Subjective/Other Information RD consult for routine F/U on dietary advancement. Diet advanced to PO after PER DIEM CLERK recommendations, No reports available on Pt's PO intake of meals at the time, however, states that Pt dislikes food consistyency, but is tlerating her diet, according to Progress notes. PER DIEM CLERK note on 10/12/21 12:46: Patient seen in room for skilled ST interventions for reassessment of swallow safety and function. Therapist walked into room and patient was drinking thin liquids ( orange juice) with head of bed laid back and puree (pudding) on patient's bedside table. Patient educated on sitting upright in bed when drinking. Patient noted with impulsive large sips and was told to stop drinking. Patient with trials of ice chips x2 with cough noted immediately after 1st trial and no overt s/sx of aspiration on trial 2. Thin liquid trials (water) x3 with cup sips. Patient exhibited reduced hyolaryngeal elevation , but no overt s/sx of aspiration. Patient with trials of puree x3. Patient exhibited good acceptance, adequate management and manipulation of bolus in oral cavity, good A to P transit, delayed initiation of swallow x1, and no overt s/sx of aspiration noted. - END OF NOTE. Pt is on Room Air, O2 saturation @ 98%, according to Physical Assessment History notes. Pt clinically cleared and will be discharged to SNF, according to Progress notes. Percent of energy/protein needs met: Prescribed Pureed Diet provides for energy/protein needs (1,804 Kcal/77 g) during LOS. #2 Nutrition Diagnosis Underweight Diagnosis Progress(for reassessment Continues documentation) #1 Nutrition Diagnosis Swallowing difficulty,Biting/ Chewing (masticatory) difficulty Comments: PER DIEM CLERK note on 10/12/21 12:46: Patient seen in room for skilled ST interventions for reassessment of swallow safety and function. Therapist walked into room and patient was drinking thin liquids ( orange juice) with head of bed laid back and puree (pudding) on patient's bedside table. Patient educated on sitting upright in bed when drinking. Patient noted with impulsive large sips and was told to stop drinking. Patient with trials of ice chips x2 with cough noted immediately after 1st trial and no overt s/sx of aspiration on trial 2. Thin liquid trials (water) x3 with cup sips. Patient exhibited reduced hyolaryngeal elevation , but no overt s/sx of aspiration. Patient with trials of puree x3. Patient exhibited good acceptance, adequate management and manipulation of bolus in oral cavity, good A to P transit, delayed initiation of swallow x1, and no overt s/sx of aspiration noted. - END OF NOTE. Diagnosis Progress(for reassessment Improved documentation) Is patient on ventilator? No Is Patient Ambulatory and/or Out of Bed No REE-([facility]-confined to bed) 1187.160 Kcal/Kg value to use for calculation 35 Approximate Energy Requirements Using 1488 kcal/Kg Calculation Used for Recommendations Kcal/kg Additional Notes Protein: 1.2-1.5 g/Kg ABW; 49- 62 g/day. Fluids: 1 ml/Kcal, or as per MD. Nutrition Intervention Change Diet Order: Continue Pureed Diet as tolerated, recommended by PER DIEM CLERK. Nutrition Support: Disregard. Goal #1 Facilitate PO intake of meals with elemental, textural, or mechanical modification during LOS. Goal #2 Adjust the dietary intervention to better serve Pt's needs and clinical conditions during LOS. Follow-Up By: 10/21/21 Additional Comments Continue monitoring food tolerance, %PO intake of meals , and BM.
--- NOTE | 2021-10-17 13:14 | Progress Note ---
Assessment and Plan 61-year-old female with known history of hypertension and recent CVA about 2 weeks ago presenting to the emergency room via EMS with changes in mental status, drooling and unresponsiveness. Patient states she feels a little lightheaded but denies any headache. She also indicates that her lower extremities feels weak. She denies any blurry vision, no nausea or vomiting and no abdominal pain. Denies any chest pain or shortness of breath. Upon arrival in the emergency room today, blood pressure was quite elevated with systolic in the 200s and diastolic in the low 100s. She was also found to be slightly tachycardic. Patient admits that she drinks alcohol regularly but not heavily. Work-up in the emergency room, lab reveals elevated lactic acid, hypokalemia of 2.9, lactic acid of 2.10, magnesium of 1.0. CTof the head shows area of low-attenuation within the right BUILDER'S LABOURER distribution suggesting prior infarct, likely subacute. Scattered areas of low-attenuation in the periventricular and central white matter suggesting nonspecific microangiopathy. CT of the abdomen and pelvis-unremarkable. Chest x-ray shows no acute abnormality. Past Medical History: arthritis, diabetes, GERD, stroke, other (neuropathy, lupus. cardiac cath 10/08/2015 with EF of 55%, diastolic dysfunction, and normal coronary arteries.,tia,Asthma,Anxiety) Past Surgical History: cholecystectomy, Social history: alcohol abuse Family history: no significant family history Patient awake.Says breathing alright. No acute respiratory distress at rest. Complaing slight cough. Sitting up by the side of the bed. Patient is on room air. O2 saturation 97%. Patient afebrile. No leukocytosis. Blood pressure 182/93, pulse 72 , respirations 19. Chest xray done 10/11/21 reported No acute abnormality or significant change. No evidence of pneumonia. Patient is on S/C Lovenox, Famotidine and Augmentin. - Patient Problems (1) Hypertensive urgency Current Visit: Yes Status: Acute Plan to address problem: Patients blood pressure still running high Recent blood pressure 182/93 Management as per primary care. (2) Systemic inflammatory response syndrome (SIRS) Current Visit: Yes Status: Acute Plan to address problem: Patient became afebrile. Patient is on Augmentin. (3) Chest pain in adult Current Visit: No Status: Acute Plan to address problem: Management as per primary care and cardiology. (4) Type 2 diabetes mellitus Current Visit: No Status: Chronic Plan to address problem: Management as per primary care. (5) Hypomagnesemia Current Visit: Yes Status: Acute Plan to address problem: last Magnesium level 1.3. Receiving magnesium supplementation. Recommend to repeat Magnesium level. (6) Altered mental status Current Visit: Yes Status: Acute Plan to address problem: Management as per primary care and neurology. Subjective Date of service: 10/17/21 Principal diagnosis: Acute CVA s/p tPA; AMS; HTNsive urgency; Lactic acidosis; EtOH abuse; DM II Interval history: 61-year-old female with known history of hypertension and recent CVA about 2 weeks ago presenting to the emergency room via EMS with changes in mental status, drooling and unresponsiveness. Patient states she feels a little lightheaded but denies any headache. She also indicates that her lower extremities feels weak. She denies any blurry vision, no nausea or vomiting and no abdominal pain. Denies any chest pain or shortness of breath. Upon arrival in the emergency room today, blood pressure was quite elevated with systolic in the 200s and diastolic in the low 100s. She was also found to be slightly tachycardic. Patient admits that she drinks alcohol regularly but not heavily. Work-up in the emergency room, lab reveals elevated lactic acid, hypokalemia of 2.9, lactic acid of 2.10, magnesium of 1.0. CTof the head shows area of low-attenuation within the right BUILDER'S LABOURER distribution suggesting prior infarct, likely subacute. Scattered areas of low-attenuation in the periventricular and central white matter suggesting nonspecific microangiopathy. CT of the abdomen and pelvis-unremarkable. Chest x-ray shows no acute abnormality. Past Medical History: arthritis, diabetes, GERD, stroke, other (neuropathy, lupus. cardiac cath 10/08/2015 with EF of 55%, diastolic dysfunction, and normal coronary arteries.,tia,Asthma,Anxiety) Past Surgical History: cholecystectomy, Social history: alcohol abuse Family history: no significant family history Patient awake.Says breathing alright. No acute respiratory distress at rest. Complaing slight cough. Sitting up by the side of the bed. Patient is on room air. O2 saturation 97%. Patient afebrile. No leukocytosis. Blood pressure 182/93, pulse 72 , respirations 19. Chest xray done 10/11/21 reported No acute abnormality or significant change. No evidence of pneumonia. Patient is on S/C Lovenox, Famotidine and Augmentin. Objective Vital Signs - 12hr 10/17/21 10/17/21 10/17/21 03:39 08:13 11:33 Temperature 99.0 F 98.4 F 98.0 F Pulse Rate 73 62 74 Respiratory 17 18 19 Rate Blood Pressure 139/75 170/92 182/93 O2 Sat by Pulse 98 100 99 Oximetry Constitutional: no acute distress, alert, other (Following commands) Eyes: non-icteric ENT: oropharynx moist Neck: supple, no lymphadenopathy, no JVD Effort: normal Ascultation: Bilateral: diminished breath sounds Percussion: Bilateral: not dull Cardiovascular: regular rate and rhythm, other (S1,S2) Gastrointestinal: normoactive bowel sounds, soft, non-tender, non-distended Integumentary: normal Extremities: no cyanosis, no edema, pulses normal, no ischemia or petechiae Neurologic: normal mental status, non-focal exam, pupils equal and round (Left lateral gaze defect, RUext 4/5 power grade) Psychiatric: mood appropriate, affect normal CBC and BMP: 10/14/21 07:39 10/14/21 07:39 ABG, PT/INR, D-dimer: PT/INR, D-dimer PT 14.8 Sec. (12.2-14.9) 10/10/21 04:30 INR 1.04 (0.87-1.13) 10/10/21 04:30 Abnormal lab findings: Abnormal Labs 10/07/21 10/07/21 10/07/21 21:19 21:19 21:19 WBC RBC RDW 17.6 H Seg Neutrophils % 75.8 H Sodium Potassium 2.9 L* Chloride 95.3 L Carbon Dioxide BUN 5 L Glucose 224 H POC Glucose Hemoglobin A1c Lactic Acid 4.20 H* Calcium Phosphorus Magnesium HDL Cholesterol Ur Specific [place] Urine WBC (Auto) U Epithel Cells (Auto) Salicylates Acetaminophen 10/07/21 10/07/21 10/07/21 21:19 21:19 21:19 WBC RBC RDW Seg Neutrophils % Sodium Potassium Chloride Carbon Dioxide BUN Glucose POC Glucose Hemoglobin A1c Lactic Acid Calcium Phosphorus Magnesium 1.00 L HDL Cholesterol Ur Specific [place] Urine WBC (Auto) U Epithel Cells (Auto) Salicylates < 0.3 L Acetaminophen 5.0 L 10/07/21 10/07/21 10/08/21 23:47 Unknown 08:01 WBC RBC RDW Seg Neutrophils % Sodium Potassium Chloride Carbon Dioxide BUN Glucose POC Glucose 312 H Hemoglobin A1c Lactic Acid 2.10 H* Calcium Phosphorus Magnesium HDL Cholesterol Ur Specific [place] 1.035 H Urine WBC (Auto) 18.0 H U Epithel Cells (Auto) 44.0 H Salicylates Acetaminophen 10/08/21 10/08/21 10/08/21 10:07 10:07 10:07 WBC RBC RDW Seg Neutrophils % Sodium Potassium 3.1 L Chloride Carbon Dioxide BUN Glucose POC Glucose Hemoglobin A1c 14.1 H Lactic Acid 4.80 H* Calcium Phosphorus Magnesium 1.50 L HDL Cholesterol 76 H Ur Specific [place] Urine WBC (Auto) U Epithel Cells (Auto) Salicylates Acetaminophen 10/08/21 10/09/21 10/09/21 17:08 00:16 04:14 WBC RBC 3.34 L RDW 18.3 H Seg Neutrophils % Sodium Potassium Chloride Carbon Dioxide BUN Glucose POC Glucose 205 H 231 H Hemoglobin A1c Lactic Acid Calcium Phosphorus Magnesium HDL Cholesterol Ur Specific [place] Urine WBC (Auto) U Epithel Cells (Auto) Salicylates Acetaminophen 10/09/21 10/09/21 10/09/21 04:14 08:11 15:47 WBC RBC RDW Seg Neutrophils % Sodium Potassium Chloride Carbon Dioxide 16 L D BUN Glucose 219 H POC Glucose 214 H 135 H Hemoglobin A1c Lactic Acid Calcium 8.1 L Phosphorus Magnesium 1.60 L HDL Cholesterol Ur Specific [place] Urine WBC (Auto) U Epithel Cells (Auto) Salicylates Acetaminophen 10/09/21 10/09/21 10/10/21 17:33 21:32 04:30 WBC 3.9 L RBC 3.30 L RDW 18.0 H Seg Neutrophils % Sodium Potassium Chloride Carbon Dioxide BUN Glucose POC Glucose 230 H 265 H Hemoglobin A1c Lactic Acid Calcium Phosphorus Magnesium HDL Cholesterol Ur Specific [place] Urine WBC (Auto) U Epithel Cells (Auto) Salicylates Acetaminophen 10/10/21 10/10/21 10/10/21 04:30 11:54 16:41 WBC RBC RDW Seg Neutrophils % Sodium Potassium 3.4 L Chloride Carbon Dioxide 20 L BUN 3 L Glucose 158 H POC Glucose 279 H 171 H Hemoglobin A1c Lactic Acid Calcium 8.3 L Phosphorus 2.00 L Magnesium HDL Cholesterol Ur Specific [place] Urine WBC (Auto) U Epithel Cells (Auto) Salicylates Acetaminophen 10/10/21 10/11/21 10/11/21 21:29 04:14 04:14 WBC RBC 3.25 L RDW 18.0 H Seg Neutrophils % Sodium 132 L Potassium Chloride 96.3 L Carbon Dioxide BUN 2 L Glucose POC Glucose 197 H Hemoglobin A1c Lactic Acid Calcium 8.2 L Phosphorus Magnesium 1.30 L HDL Cholesterol Ur Specific [place] Urine WBC (Auto) U Epithel Cells (Auto) Salicylates Acetaminophen 10/11/21 10/11/21 10/11/21 08:19 11:56 15:43 WBC RBC RDW Seg Neutrophils % Sodium Potassium Chloride Carbon Dioxide BUN Glucose POC Glucose 125 H 154 H 174 H Hemoglobin A1c Lactic Acid Calcium Phosphorus Magnesium HDL Cholesterol Ur Specific [place] Urine WBC (Auto) U Epithel Cells (Auto) Salicylates Acetaminophen 10/11/21 10/12/21 10/12/21 20:35 11:18 15:53 WBC RBC RDW Seg Neutrophils % Sodium Potassium Chloride Carbon Dioxide BUN Glucose POC Glucose 296 H 153 H 226 H Hemoglobin A1c Lactic Acid Calcium Phosphorus Magnesium HDL Cholesterol Ur Specific [place] Urine WBC (Auto) U Epithel Cells (Auto) Salicylates Acetaminophen 10/12/21 10/13/21 10/13/21 20:22 03:02 03:18 WBC RBC RDW Seg Neutrophils % Sodium Potassium Chloride Carbon Dioxide BUN Glucose POC Glucose 159 H 24 L 308 H Hemoglobin A1c Lactic Acid Calcium Phosphorus Magnesium HDL Cholesterol Ur Specific [place] Urine WBC (Auto) U Epithel Cells (Auto) Salicylates Acetaminophen 10/13/21 10/13/21 10/13/21 05:38 07:43 11:40 WBC RBC RDW Seg Neutrophils % Sodium Potassium Chloride Carbon Dioxide BUN Glucose 55 L POC Glucose 66 L 135 H Hemoglobin A1c Lactic Acid Calcium Phosphorus Magnesium HDL Cholesterol Ur Specific [place] Urine WBC (Auto) U Epithel Cells (Auto) Salicylates Acetaminophen 10/13/21 10/13/21 10/14/21 16:56 20:41 07:39 WBC RBC 3.43 L RDW 17.9 H Seg Neutrophils % Sodium Potassium Chloride Carbon Dioxide BUN Glucose POC Glucose 164 H 326 H Hemoglobin A1c Lactic Acid Calcium Phosphorus Magnesium HDL Cholesterol Ur Specific [place] Urine WBC (Auto) U Epithel Cells (Auto) Salicylates Acetaminophen 10/14/21 10/14/21 10/14/21 07:39 07:47 20:32 WBC RBC RDW Seg Neutrophils % Sodium Potassium Chloride 97.6 L Carbon Dioxide 32 H D BUN 5 L Glucose 50 L POC Glucose 54 L 176 H Hemoglobin A1c Lactic Acid Calcium Phosphorus Magnesium HDL Cholesterol Ur Specific [place] Urine WBC (Auto) U Epithel Cells (Auto) Salicylates Acetaminophen 10/15/21 10/15/21 10/15/21 07:16 10:14 15:53 WBC RBC RDW Seg Neutrophils % Sodium Potassium Chloride Carbon Dioxide BUN Glucose POC Glucose 46 L 191 H 164 H Hemoglobin A1c Lactic Acid Calcium Phosphorus Magnesium HDL Cholesterol Ur Specific [place] Urine WBC (Auto) U Epithel Cells (Auto) Salicylates Acetaminophen 10/15/21 10/16/21 20:30 21:07 WBC RBC RDW Seg Neutrophils % Sodium Potassium Chloride Carbon Dioxide BUN Glucose POC Glucose 179 H 136 H Hemoglobin A1c Lactic Acid Calcium Phosphorus Magnesium HDL Cholesterol Ur Specific [place] Urine WBC (Auto) U Epithel Cells (Auto) Salicylates Acetaminophen Allied health notes reviewed: nursing
--- NOTE | 2021-10-17 13:33 | Discharge Summary ---
Providers - Providers Date of Admission: 10/08/21 00:21 Date of discharge: 10/17/21 Attending physician: NII MORAN MD 10/08/21 00:21 Consult to Dietitian/Nutrition [CONS] Routine Physician Instructions: Reason For Exam: Reason for Consult: Diet education Consult to Dietitian/Nutrition [CONS] Routine Physician Instructions: Reason For Exam: Reason for Consult: Nutrition Recommendations Reason for Consult: Diet education Occupational Therapy Evaluate and Treat [CONS] Routine Comment: Reason For Exam: Neuro deficits Physical Therapy Evaluation and Treat [CONS] Routine Comment: Reason For Exam: Neuro deficits 10/08/21 12:59 Consult to Physician [CONS] Routine Comment: Consulting Provider: IFRAH CALDWELL Physician Instructions: Reason For Exam: post TPA monitoring 10/10/21 08:00 Speech Therapy Evaluation and Treat [CONS] Routine Reason For Exam: swallow evaluation post stroke, re-eval 10/10/21 08:07 Consult to Physician [CONS] Routine Comment: Consulting Provider: MARCELLE FINLEY Physician Instructions: Reason For Exam: Acute CVA Primary care physician: NET DEVELOPER CONSULTANT Hospitalization Reason for admission: right hemiplegia, right facial droop, and expressive aphasia Condition: Good Hospital course: Hospital course: This is 61-year-old female with known past medical of HTN, DM, and recent CVC about 2 weeks ago initially admitted to the floor for AMS and Hypertensive urgency. Patient was a code stoke on the floor due to worsen mental status with right hemiplegia, right facial droop, and expressive aphasia. Was transferred to the ICU for acute CVA requiring tPA. Hospital Course to Date: 10/09: Mild improvement in mentation. Patient appears AAO, but remains aphasic with right hemiplegia and right facial droop, follow simple commands. Repeat CT head and MRI brain pending. Echo reviewed no evidence of PFO. Neurology consult pending. PT/OT/Speech consulted. D/w CCM okay to transfer patient back to telemetry if patient remains stable post 24hrs tPA. 10/10: Remains stable, still with significant expressive aphasia. Facial droop and right hemiplegia resolved, but still with generalized weakness. Repeat CT head and MRI noted, stable with no evidence of a bleed. Neurology consult pending. ASA and VTE proh initiated. Hypertensive this am, resume home meds. Continue PT/OT/Speech. Patient is stable for transfer to the Telemetry. 10/11: Patient seen and examined clinically improving although still with facial droop and right hemiplegia mildly residual. Speech is improving other a bit of expressive aphasia can still be appreciated. I did discuss discharge planning and the acute rehab appears to be a good option for continued PT OT and speech. Patient was seen by neurology, they recommended a hematology work-up which can be done outpatient. In the meantime we will resume patient's anticoagulation with Eliquis. Schedule for outpatient hematology and possible antiphospholipid syndrome monitoring. But the recommendation of gabapentin can be used for disabling neuropathy. 10/12: Patient seen and examined. Blood pressure modestly elevated our recommendation yesterday was to allow permissive hypertension. We will begin correction today. Still awaiting bed today acute rehab unit. No new fever documented today. Will complete antibiotics. Continue aspiration precautions Clinically she is showing significant improvement. 10/13: Patient noted with hypoglycemia overnight was cool and clammy blood sugar 24. We will reduce Lantus to 15 units and also reduce sliding scale to low- dose. Speech therapy recommendations and evaluation noted the patient will continue on pured diet. Still with some expressive aphasia. Refused the breakfast this morning due to the consistency and her not liking it. Nurses aware. Awaiting placement to acute rehab. 35 minutes critical care time considering hypoglycemia and medication adjustment which also requires dietary adjustment and ensuring that she is eating. 10/14: Patient clinically stable and doing well, tolerating diet. Encouraged to start oral diet, 10/15: Continues to have expressive aphasia. Cleared by speech for pureed diet but patient not eating as she does not like hospital food. Encouraged patient to eat food. lantus d/c as patient has low BG readings in 50's.. Awaiting placement to SNF. Remains clinically stable otherwise. 10/16: Awaiting placement. Blood sugars improved today. 10/17: Accpeted at [facility] Assessment and Plan #Acute CVA s/p tPA #H/o recent CVA- 2weeks prior #Hypoglycemia with acute encephalopathy #ETOH Abuse - Presented with AMS, drooling and unresponsiveness. 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 the right CAMPAIGN CONSULTANT distribution suggesting prior infarct, likely subacute - Code stroke called on the floor due to worsen mental status with right hemiplegia, right facial droop, and expressive aphasia - Patient received tPA per [facility] - Mild improvement noted in mentation, remains aphasic with righ hemiplegia and facial droop - CTA head/neck reviewed - Repeat CT head and MRI Brain noted - 2D echo with no evidence of PFO - Statin initiated - ASA and VTE proph initiated - Avoid sedative agents for now, IV Ativan held - Continue Neuro check per protocol - PT/OT/Speech ordered - Neurology consulted - Aspiration and fall precautions #Hypertensive Urgency-improved - Presented with SBP in the 200s, DBP in the 100s s/p IV Hydralazine - Hypertensive this am, SBP in the 170-180s - Home meds resumed - Continue blood pressure monitor per protocol - Maintain SBP less than 160 #Lactic Acidosis - Probably secondary to above - Patient is afebrile, with no leukocytosis, VSS - CTAbd/Pelvis unremarkable, cultures with NGTD - Will continue to trend lactic acid #Systemic Lupus Erythematosus(SLE) - Resume home med- Hydroxychloroquine #Hypomagnesemia #Hypokalemia-improved - Mg repleted - Monitor and replace electrolytes as needed - Trend BMP #Uncontrolled Diabetes Mellitus - HgbA1c- 14.1 - SSI initiated, continue BG check ACHS - Avoid hypoglycemia - While critically ill target blood glucose of 140-180 #Advance Care Planning - Disease education data, care plan, diagnoses, and prognosis were discussed with patient at the bedside and patient's daughter via phone. Patient is a FULL code. They acknowledged understanding and agreed with current care plan. Disposition: [facility] Final Discharge Diagnosis (Prints w/discharge instructions): acute ischemic stroke Time spent for discharge: 35 Core Measure Documentation - Palliative Care Palliative Care/ Comfort Measures: Not Applicable - Core Measures Any of the following diagnoses?: stroke - Stroke Discharge Requirements Statin for LDL = or >70 mg/dl on DC: Yes Anticoag for atrial fib/atrial flutter: Not Applicable Antithrombotic for ischemic stroke: Yes Exam - Constitutional Vitals: Temp Pulse Resp BP Pulse Ox 98.0 F 74 19 182/93 99 10/17/21 11:33 10/17/21 11:33 10/17/21 11:33 10/17/21 11:33 10/17/21 11:33 Plan Follow up with: PAUL LONG MD [Staff Physician] - 7 Days PRIMARY CARE, [Primary Care Provider] - 3-5 Days WALLACE DOUGLAS MD [Staff Physician] - 7 Days Prescriptions: amLODIPine 5 mg PO QDAY #30 tablet Amoxicillin/K Clav Tab [Augmentin 875MG TAB] 1 each PO Q12HR #7 tablet Apixaban [Eliquis] 5 mg PO BID #60 tab Folic Acid [Folvite] 1 mg PO QDAY #30 tablet Famotidine [Pepcid] 20 mg PO DAILY #30 tablet Hydroxychloroquine [Plaquenil] 200 mg PO QDAY #30 tablet Rosuvastatin Calcium 40 mg PO QDAY #30 tab Thiamine [Vitamin B-1] 100 mg PO QDAY #30 tablet
[2021-10-17 15:31] VITALS: BP 185/101
== END 2021-10-17 19:00 | DRG 61 ==
LOC: ED 20:00 → 4A 10-08 00:21 → CC1 10-08 13:28 → 4A 10-10 16:50
PROVIDERS: ADMIT Internal Medicine Geriatric Medicine; ATTEND Internal Medicine
DX: I63.9 Cerebral infarction, unspecified (principal); G93.41 Metabolic encephalopathy; E44.0 Moderate protein-calorie malnutrition; E87.2 Acidosis; G81.94 Hemiplegia, unspecified affecting left nondominant side; R65.10 Systemic inflammatory response syndrome (SIRS) of non-infectious origin without acute organ dysfunction; Z20.822 Contact with and (suspected) exposure to COVID-19; I16.0 Hypertensive urgency; I11.0 Hypertensive heart disease with heart failure; F41.9 Anxiety disorder, unspecified; M32.9 Systemic lupus erythematosus, unspecified; J45.909 Unspecified asthma, uncomplicated; M19.90 Unspecified osteoarthritis, unspecified site; E11.40 Type 2 diabetes mellitus with diabetic neuropathy, unspecified; F10.10 Alcohol abuse, uncomplicated; Y90.9 Presence of alcohol in blood, level not specified; K21.9 Gastro-esophageal reflux disease without esophagitis; E83.42 Hypomagnesemia; E87.6 Hypokalemia; E11.649 Type 2 diabetes mellitus with hypoglycemia without coma; Z79.82 Long term (current) use of aspirin; Z79.4 Long term (current) use of insulin; Z88.8 Allergy status to other drugs, medicaments and biological substances; Z79.899 Other long term (current) drug therapy; Z90.49 Acquired absence of other specified parts of digestive tract
CPT/HCPCS: 36415; 70450; 70496; 70498; 70551; 71045; 74176; 80048; 80053; 80061; 80320; 81001; 82140; 82550; 82565; 82947; 82962; 83036; 83735; 84100; 84132; 84443; 84484; 85025; 85027; 85610; 85730; 87040; 87086; 93005; 93306; G0378; J3490; J7510; Q9967; C8929; G0480; J0360; J0696; J1650; J1815; J2270; J2405; J2997; J3475; J3480; J7030; J7040; J7050; U0003